=== PATIENT | female | born 2005 | race Caucasian/White ===

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

== ENCOUNTER 2024-02-08 14:49 | Outpatient (CLI) | payer MEDICAID, SELFPAY ==
[2024-02-08 18:22] LABS: Alanine Aminotransferase 15 U/L (6-35); Albumin Level 4.8 g/dL (3.7-5.6); Alkaline Phosphatase 47 U/L (45-116); Anion Gap 10 mmol/L (4-12); Aspartate Amino Transferase 42 U/L (14-36); Bilirubin,Total 0.4 mg/dL (0.2-1.3); Blood Urea Nitrogen 9 mg/dL (8-21); Calcium 9.4 mg/dL (8.9-10.7); Carbon Dioxide 29 mmol/L (22-30); Chloride 99 mmol/L (98-107); Estimated Glomerular Filt Rate > 60; Glucose 90 mg/dL (65-110); Potassium 4.2 mmol/L (3.4-5.0); Sodium 138 mmol/L (134-143)
[2024-02-08 18:43] LABS: Basophils Absolute Auto 0.1 K/mm3 (0.0-0.1); Basophils Percent Auto 0.8 % (0.2-1.2); Eosinophils Absolute Auto 0.1 K/mm3 (0-0.3); Eosinophils Percent Auto 0.8 % (0-4.4); Hematocrit 40.3 % (37.0-47.0); Hemoglobin 12.6 g/dL (12.0-15.0); Immature Granulocyte Absolute 0.02 K/mm3 (0.00-0.031); Immature Granulocyte Percent A 0.2 % (0-0.5); Lymphocytes Absolute Auto 2.21 K/mm3 (0.9-3.2); Lymphocytes Percent Auto 26.3 % (18.3-44.2); Mean Corpuscular HGB Conc 31.3 g/dl (32-36); Mean Corpuscular Volume 83.3 fl (80-100); Mean Platelet Volume 9.7 fl (7.4-10.4); Monocytes Absolute Auto 0.5 K/mm3 (0.1-0.6); Monocytes Percent Auto 6.4 % (2.6-8.5); Neutrophils Absolute Auto 5.5 K/mm3 (1.3-6.7); Neutrophils Percent Auto 65.5 % (45.5-73.1); Platelet Count Result 462 k/mm3 (150-375); Red Blood Count 4.84 M/mm3 (4.2-5.4); Red Cell Distribution Width 19.3 % (11.5-14.5); White Blood Count 8.4 K/mm3 (4.5-10.0)
[2024-02-12 16:20] LABS: Almond (F20) IgE <0.10 kU/L; Cashew Nut (F202) IgE <0.10 kU/L; Cashew Nut (F202) IgE Class 0; Codfish (F3) IgE <0.10 kU/L; Codfish (F3) IgE Class 0; Cow's Milk (F2) IgE <0.10 kU/L; Cow's Milk (F2) IgE Class 0; Egg White (F1) IgE <0.10 kU/L; Egg White (F1) IgE Class 0; Hazelnut (F17) IgE <0.10 kU/L; Hazelnut (F17) IgE Class 0; Peanut (F13) IgE <0.10 kU/L; Peanut (F13) IgE Class 0; Salmon (F41) IgE <0.10 kU/L; Salmon (F41) IgE Class 0; Scallop (F338) IgE <0.10 kU/L; Scallop (F338) IgE Class 0; Sesame Seed <0.10 kU/L; Shrimp (F24) IgE <0.10 kU/L; Soybean (F14) IgE <0.10 kU/L; Soybean (F14) IgE Class 0; Tuna (F40) <0.10 kU/L; Tuna (F40) Class 0; Walnut (F256) IgE <0.10 kU/L; Walnut (F256) IgE Class 0; Wheat (F4) IgE <0.10 kU/L; Wheat (F4) IgE Class 0
[2024-02-12 17:04] LABS: Immunoglobulin A 168 mg/dL (47-310); TTG IGA AB <1.0 U/mL
== END 2024-02-08 14:50 | disposition home or self-care (01) ==
LOC: ANHGOSHLAB 14:50
PROVIDERS: PCP Nurse Practitioner Family; Visit Provider Nurse Practitioner Family
DX: R79.89 Other specified abnormal findings of blood chemistry (principal); K90.0 Celiac disease; R63.0 Anorexia; R10.10 Upper abdominal pain, unspecified; R11.2 Nausea with vomiting, unspecified
CPT/HCPCS: 36415; 80053; 82784; 85025; 86003; 86364

== ENCOUNTER 2024-03-07 12:30 | Outpatient (RCR) | payer OTHER, SELFPAY ==
--- NOTE | 2024-02-20 11:34 | OPREHPOC ---
Outpatient Therapy Plan of Care This is a Multidisciplinary Plan of Care that may contain components documented by all disciplines (PT, OT, and ST.) PT Problem 1 PT Problem #1 Knowledge Deficit PT Goal 1 Goal / Goal Update Pt to be IND with issued HEP Target Visit 8 PT Problem 2 PT Problem #2 Pain PT Goal 1 Goal / Goal Update Pt to report back and shoulder pain no greater than 3/10 in the last week. Target Visit 8 PT Goal 2 Goal / Goal Update Pt to report 75% improvement in overall symptoms Target Visit 8 PT Problem 3 PT Problem #3 Impaired Functional Mobil PT Goal 1 Goal / Goal Update Pt to demonstrate a 30lb lift and carry from ground level without an increase in pain. Target Visit 8
--- NOTE | 2024-02-20 11:34 | PTOPEVAL1 ---
Assessment and note entered by Ravindra Rodriguez, PT, DPT Evaluation Information Assessment Status Evaluation Diagnosis low back pain ICD-10 Condition Codes (PT) Cervicalgia M54.2,Pain in low back M54.50 Subjective Information Pt reports a couple year history of lower back pain worsening in the last 2 years since giving . Pt states her neck and shoulder pain in the worst, she states this pain is all the time. 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 Pt takes tylenol but it does not really help with her pain. Reported Pain Level Pain Score 6,7: Self Report Assessment PT Clinical Summary Pt presents to therapy today for her initial evaluation with a diagnosis of R shoulder and low back pain. Today she demonstrates good functional strength with beyond normal ROM. She also demonstrates point tenderness to palpation throughout her neck and R shoulder. Skilled therapy services are indicated to address the deficits noted above, to manage pain, to improve joint stability, and to educate on good lifting mechanics. Plan of Care Interventions Electrical Stimulation,Gait Training,Hot Pack/Cold Pack,Manual Therapy,Neuro Re-education,Patient/ Caregiver Educati,Therapeutic Activities, Therapeutic Exercise PT Services Indicated Yes Treatment Frequency and 2x/wk for 8 visits Duration These treatments will address the objective and functional deficits as defined above. The patient will be advanced safely and appropriately in order for the patient to progress towards his/her prior level of function. Additional exercises will be introduced and as well as a comprehensive home exercise program upon discharge, if needed, ?to ensure carryover of functional gains achieved in the clinic. This treatment plan has been reviewed and agreement upon by the patient.
--- NOTE | 2024-03-10 11:42 | PCPTNOTE ---
Patient did not show up for scheduled appointment this date. Called and LVM with follow up instructions.
--- NOTE | 2024-03-12 11:34 | PCPTNOTE ---
Patient no showed to appointment this date. Called and left voicemail this date.
--- NOTE | 2024-03-17 11:56 | PCPTNOTE ---
Patient did not show up for scheduled appointment this date.
--- NOTE | 2024-03-17 11:58 | PTOPDC ---
Assessment and note entered by Ravindra Rodriguez, PT, DPT Evaluation Information Assessment Status Discharge - Pt Not Presen Diagnosis low back pain ICD-10 Condition Codes (PT) Cervicalgia M54.2,Pain in low back M54.50 Subjective Information Pt did not show up to appointment today. This is her third consecutive no show. Per our attendance policy she will be discharged at this time, called and LVM to inform pt of this. Assessment PT Clinical Summary Pt completed 2 visits of therapy. Will be d/c'ed at this time per the attendance policy.
== END 2024-03-17 15:37 | disposition home or self-care (01) ==
LOC: ANHGOSHPT 12:30
PROVIDERS: PCP Nurse Practitioner Family; Visit Provider Nurse Practitioner Family
DX: M54.50 Low back pain, unspecified (principal); M54.2 Cervicalgia
CPT/HCPCS: 97014; 97110; 97140; 97161; 97530; G0283

== ENCOUNTER 2024-07-09 12:24 | Outpatient (CLI) | payer OTHER, SELFPAY ==
--- OUTSIDE RECORDS SUMMARY | 2024-07-09 13:18 | XMS_ITS | Clinical Summary ---
Author Organization [facility] Address [address] [place] [id number] Phone Care Team Providers Care Rubber Belt Splicer Name Role Phone Lizy Dalton MD Primary Care Provider [phone] Allergies No known active allergies Medications No known medications Active Problems Problem Noted Date Diagnosed Date Oppositional defiant disorder 09/08/2018 Social History Tobacco Use Types Packs/Day Years Used Date Smoking Tobacco: Never Smokeless Tobacco: Never Alcohol Use Standard Drinks/Week Comments No 0 (1 standard drink = 0.6 oz pur e alcohol) Comments Unknown Sex and Gender Information Value Date Recorded Sex Assigned at Not on file Legal Sex Female 10:39 PM CDT Gender Identity Not on file Sexual Orientation Not on file Last Filed Vital Signs Vital Sign Reading Time Taken Comments Blood Pressure 137/87 09/08/2018 12:47 AM CDT Pulse - - Temperature 37.4 ??C (99.4 ??F) 09/08/2018 12:47 AM C DT Respiratory Rate 20 09/08/2018 12:47 AM CDT Oxygen Saturation 100% 09/08/2018 12:47 AM CDT Inhaled Oxygen Concentration - - Weight - - Height - - Body Mass Index - - Plan of Treatment Health Maintenance Due Date Last Done Comments HEPATITIS B VACCINES (4 of 4 - 4-dose series) 06/26/2005 04/27/2005, 02/27/2005, 2004 CHLAMYDIA SCREENING (ANNUAL) 11-24 YEARS 12/25/2015 INFLUENZA VACCINE (#1) 2024 02/27/2014 DTAP/TDAP/TD VACCINES (7 - T d or Tdap) 10/11/2025 10/12/2015, 07/06/2009, 07/17/2006, Additional history exists HPV VACCINES Completed 10/12/2015, 02/27/2014 Care Teams Rubber Belt Splicer Relationship Specialty Start Date End Date Lizy Dalton MD [id number] [id number] PCP - General Pediatrics 09/07/18
--- OUTSIDE RECORDS SUMMARY | 2024-07-09 13:18 | XMS_ITS ---
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 the treatments employed were given, and the patient/guardian seemed to understand this. Risks and benefits of treatment, and of non-treatment, were also discussed. The patient/guardian understands the more frequent side effects associated with the medications. -The use of psychotherapy was addressed today and will continue on an as needed basis for the foreseeable future. The choice is, of course, ultimately left to the patient/guardian. -Patient/Guardian was encouraged to make a follow-up appointment for the next visit. -Additional treatment was discussed and has been addressed on an ongoing basis within the context of this patient's illness, resources, progress, and other appropriate factors. Being compliant with a regular exercise routine, consistent medication use, ongoing psychotherapy, eating and sleeping well, as well as the importance of handling stress, was discussed.?? * Procedure Codes:? * Follow Up:?2 Weeks (Reason: medication f/u) * * CAL INSTRUMENT INSPECTOR Sign off status: Completed true * Provider:?Jenn Somers , MSN, CARRY OUT CLERK AND SHELF STOCKER, [facility] Date:?07/08/2024 Generated for Printing/Faxing/eTransmitting on:?07/09/2024 01:18 PM OPTICAL INSTRUMENT INSPECTOR History and Physical Notes * HPI (History of Present Illness) Category Sub-Category Detail Notes Category Not es Depression Screening PHQ-9 Little inte rest or pleasure in doing things: Several days Feeling down, depressed, or hopeless: Se veral days Trouble falling or staying asleep, or sl eeping too much: Nearly every day Feeling tired or having little energy: N early every day Poor appetite or overeating: Nearly ever y day Feeling bad about yourself o r that you are a failure, or have let yourself or your family down: Several days Trouble concentrating on thi ngs, such as reading the newspaper or watching television: More than half the days Moving or speaking so slowly that other people could have noticed; or the opposite, being so fidgety or restless that you have been moving around a lot more than usual: Not at all Thoughts that you would be b kaiser off or of hurting yourself in some way: Not at all Total Score: 14 Interpretation: Moderate Depression Intervention Depression Screening Findings: P ositive Follow-Up for Depression: [facility], Prescribed psychotropic medications Suicide Risk Assessment Performed: 07/08 Summary Current Mental Health Status / Response to Medications, side effects, efficacy Natali is a 18 y/o F last seen on 07/03/24. Qelbree was started for ADHD. How do you feel your current medications are working for your mental health? -Patient has noticed slight improvement in ADHD symptoms. Do you take regularly as prescribed or miss days? Weekend breaks w/ stimulant? -takes as prescribed Any side effects from medicine? -Nausea Changes to physical health, doctor visit, ER, abnormal labs, new medical condition, new medication since last visit? -Patient is being treated by multiple specialists. Most recently a GI specialist to determine cause of nausea. Patient asked for medication for nausea, educated that it is out of my scope of practice and advised to ask PCP or specialist for anti-nausea medication. -Started control, patient states she is having excess vaginal bleeding r/t endometriosis. She has surgery scheduled next week to address this. -Started [place] for abdominal pain r/t endometriosis. Are you seeing a therapist? -Yes Review of Psychiatric Systems Sleep: Average hours of sleep per night: -4 to 5 Difficulties falling asleep or staying asleep? -both -Sleeping too much/not needing usual amount of sleep? -denies Appetite/Weight: -poor appetite -patient declines to provide weight Energy level? Normal? Tired often throughout day: -low Focus: -poor Motivation: -low Physical activity: -denies Substance use: -denies Patient rates anxiety as a (0-10): -10 -10 at last visit Panic Attacks: -yes Paranoia: -denies AH/VH: -denies Patient rates depression as a (0-10): -3 or 4 -6 at last visit Suicidal thoughts/plan or homicidal thoughts: -denies -If yes, when was last thought: -any intent or plan: Any thought of self-harm or actual self-harm (like scratching self, cutting) since last visit -denies Any other questions or concerns you would like to discuss today? -Denies Examination Category Sub-Category Detail Notes Category Not es Mental Status Exam SENSORIUM AND COGNITION A&Ox4 ATTENTION AND CONCENTRATION No deficits APPEARANCE Appropriate ATTITUDE AND BEHAVIOR Pleasant EYE CONTACT Good AFFECT Congruent with repor johnna mood, Anxious MOOD Worried SPEECH QUANTITY Appropriate SPEECH QUALITY Fluent, Appropriate volume THOUGHT PROCESS Coherent and goal di rected THOUGHT CONTENT Appropriate - WNL MOTOR ACTIVITY Normal gait SUICIDAL IDEATION Denies suicidal idea tion HOMICIDAL IDEATION Denies homicidal nithya ation HALLUCINATIONS Denies hallucination s INSIGHT Fair JUDGMENT Fair FUND OF KNOWLEDGE Fair ABILITY TO PARTICIPATE IN TREATMENT High WILLINGNESS TO PARTICIPATE IN TREATMENT High SIGNIFICANT FINDINGS REGARDING MENTAL ST ATUS None LANGUAGE Appropriate- WNL DEPRESSIVE SYMPTOMS High ELEVATED MOOD SYMPTOMS Denies, Not noted /observed ANXIETY High
--- OUTSIDE RECORDS SUMMARY | 2024-07-09 13:18 | XMS_ITS | Clinical Summary ---
Author Organization [facility] Address [address] [place] [address] Care Team Providers Care Foundry Finisher Name Role Phone Lizy Dalton MD Primary Care Provider Source Comments [facility],non-owned Affiliates and Associated Physician Practices is amultiple site organization consisting of ambulatory clinics and hospital sitesin [place], [place], [place] and [place]. This disclosure is being madepursuant to the Care Everywhere program and may not contain all information available regarding this patient. Last updated 18.[facility] Allergies Active Allergy Reactions Criticality Noted Date Comments Peanut-Derived Shortness of Breath High 02/13/2020 Medications * Be aware that medications may not be up to date on this document. Alwaysverify current medications with the patient. Medication Sig Dispensed Refills Start Date End Date Status EPINEPHrine (EPIPEN) 0.3 MG/0.3ML auto-injector pen Inject 0.3 mL into muscle once as needed for Anaphylaxis 2 Pen 1 02/13/2020 Active norethin-eth estradiol-FE (LOESTRIN FE 06/30; JUNEL FE 06/30; MICROGESTIN FE 06/30) 1-20 MG-MCG tablet Take 1 tablet by mouth once daily 3 packet 3 04/19/2020 Active Additional Information Patient not taking.Reported on 08/30/2022 ondansetron, disintegrating, (ZOFRAN ODT) 4 MG tablet Take 1 (one) tablet by mouth every 6 hours as needed for Nausea/Vomiting Allow tablet to dissolve on the tongue 5 tablet 05/30/2021 Active aspirin (Aspirin) 81 MG chew tablet Take 1 (one) tablet by mouth once daily Active Vit-Fe Fumarate-FA ( vitamin) 28-0.8 MG tablet Take 1 (one) tablet by mouth once daily Active Active Problems Problem Noted Date Diagnosed Date Other constipation 01/30/2020 Oppositional defiant disorder 09/08/2018 Psychiatric illness (bipolar) 04/04/2017 Resolved Problems Problem Noted Date Diagnosed Date Resolved Date Acute suppurative otitis med ia without spontaneous rupture of ear drum 06/08/2008 10/12/19 16 Overview (03/11/2015): Encounters Date Type Department Care Team Description 05/23/2024 Telephone [facility] - Centralized Scheduling [address] [place] [address] [phone] Lex Willis MD Reschedule Appointment 05/14/2024 Travel from Last 3 Months Immunizations Name Administration Dates Next Due DTAP/IPV 07/06/2009 DTaP VACCINE IM (6wk-6yrs) 07/17/2006,,04/27/2005,02/27 HEP A PEDS 2 DOSE 12/31/2007,01/03/2007 HEP B VACCINE, PED/ADOL 04/19/2020,04/27,02/27/2005,12/24 HIB BOOSTER 04/05/2006, 6,04/27/2005,02/27 Human Papilloma Virus Karly valent Vaccine 10/12/2015,02/27/2014 INFLUENZA VACCINE 06/01/2008,05/13/2007,04/11/20 07 INFLUENZA VACCINE, QUADR. (F LUZONE; FLULAVAL; FLUARIX; AFLURIA QUADRIVALENT; 6MO+), 0.5 ML (IIV4) 04/19/2020,02/27/2014 MENINGOCOCCAL CONJUGATE (MCV4P) 12/27/2015 MMR 02/04/2009,01/08/2006 PNEUMOCOCCAL CONJ, PEDS 01/08/2006,07/21,04/27/2005,02/23 POLIO IPV 07/21/2005,04/27/2005,02/27/2005 PPD 01/08/2006 TDAP (7yrs+) 10/12/2015 VARICELLA 02/04/2009,04/05/2006 Family History Medical History Relation Name Comments Hypertension Father Hypertension Mother Hypertension Paternal Grandfather Hypertension Paternal Grandmother Anesthesia Reaction Neg Hx Bleeding Disorders Neg Hx Childhood Hearing Disorder Neg Hx Relation Name Status Comments Father Alive Mother Alive Paternal Grandfather Alive Paternal Grandmother Alive Social History Tobacco Use Types Packs/Day Years Used Date Smoking Tobacco: Never Smokeless Tobacco: Never Alcohol Use Standard Drinks/Week Comments Never 0 (1 standard drink = 0.6 oz pur e alcohol) Sex and Gender Information Value Date Recorded Sex Assigned at Not on file Gender Identity Not on file Sexual Orientation Not on file Last Filed Vital Signs Vital Sign Reading Time Taken Comments Blood Pressure 129/75 10/06/2022 1:42 PM CDT Pulse 89 10/06/2022 1:42 PM CDT Temperature 37.4 ??C (99.3 ??F) 05/29/2021 9:01 PM CS T Respiratory Rate 18 05/29/2021 9:01 PM FACTORY REPRESENTATIVE Oxygen Saturation - - Inhaled Oxygen Concentration - - Weight 60.3 kg (133 lb) 08/30/2022 1:48 PM CDT Height 157.5 cm (5' 2 ) 02/13/2020 2:02 PM CDT Body Mass Index - - Plan of Treatment Upcoming Encounters Date Type Department Care Team (Late st Contact Info) Description 08/15/2024 2:20 PM FACTORY REPRESENTATIVE Office Visit [facility] - Cardiology [address], [facility] [address] [place] [address] Fabian Mccann MD [address] [place] [address] Health Maintenance Due Date Last Done Comments MENINGOCOCCAL (Group B) VACCINE (1 of 2 - Standard) 2020 CHLAMYDIA/GONORRHEA SCREENING 05/29/2022 05/29/2021 HEPATITIS C SCREENING 12/20/2022 COVID-19 VACCINE ( season) 2024 INFLUENZA VACCINE (#1) 2024 0, 02/27/2014, 06/01/2008, Additional history exists DEPRESSION SCREENING 06/11/2024 DTAP/TDAP/TD VACCINES (7 - Td or Tdap) 10/11/2025 10/12/2015, 07/06/2009, 07/17/2006, Additional history exists ZOSTER VACCINE (1 of 2) 2054 PNEUMOCOCCAL VACCINE Completed 01/08/2006, 07/21/2005, 04/27/2005, Additional history exists HIB VACCINE Completed 04/05/2006, 07/12, 04/27/2005, Additional history exists HPV VACCINE Completed 10/12/2015, 02/27/2014 MENINGOCOCCAL VACCINE Aged Out 12/27/2015 No yony dina eligible based on patient's age to complete this topic HEPATITIS B VACCINE Completed 04/19/2020, 04/27/2005, 02/27/2005, Additional history exists HIV SCREENING Completed 05/29/2021 Goals Goal Patient Goal Type Associated Problems Recent Progress Patient-Stated? Author Use safety retraint in car Lifestyle On track( 020 2:07 PM FACTORY REPRESENTATIVE) No Ebonie Dan RN Procedures Procedure Name Priority Date/Time Associated Diagnosis Comments HIV-1 HIV-2 ANTIBODY + HIV P24 AG PANEL STAT 05/29/2021 10:31 PM FACTORY REPRESENTATIVE CHLAMYDIA + GC AMPLIFIED PROBE STAT 05/29/2021 10:17 PM FACTORY REPRESENTATIVE from Last 3 Months or Most Recently Relevant to Health Maintenance Results * HIV-1 HIV-2 ANTIBODY + HIV P24 AG PANEL (05/29/2021 10:31 PM FACTORY REPRESENTATIVE) HIV Antigen/Antibod y 1 & 2 Non-reacti ve Non-react josh 05/29/2021 11:35 PM FACTORY REPRESENTATIVE [facility] Comment:No Laboratory eviden ce of HIV infection. Blood BLOOD SPECIMEN / Unknown Venipuncture / Unknown 05/29/2021 10:31 PM FACTORY REPRESENTATIVE 05/29/2021 10:45 PM FACTORY REPRESENTATIVE Alesia Camejo MD LAB - CHEMISTRY ORDERABLES [facility] [address] [place] [address], [facility] [phone] * CHLAMYDIA + GC AMPLIFIED PROBE (STL) (05/29/2021 10:17 PM FACTORY REPRESENTATIVE) Chlamydia Amplified Probe Negative Negative 05/30/2021 9:32 AM FACTORY REPRESENTATIVE [facility] GC Amplified Probe Negative Negative 05/30/2021 9:32 AM FACTORY REPRESENTATIVE [facility] Microbiology URINE / Unknown Collection / Unknown 05/29/2021 10:17 PM FACTORY REPRESENTATIVE 05/29/2021 10:46 PM FACTORY REPRESENTATIVE Narrative [facility] - 05/30/2021 9:32 AM FACTORY REPRESENTATIVE Results based on detection/no detection of ribosomal RNA by amplified method. Alesia Camejo MD LAB - MICROBIOL OGY ORDERABLES [facility] [address] [place] [address], [facility] [phone] from Last 3 Months or Most Recently Relevant to Health Maintenance Care Teams Foundry Finisher Relationship Specialty Start Date End Date Lizy Dalton MD PCP - General Pediatrics 02/03/14
--- OUTSIDE RECORDS SUMMARY | 2024-07-09 13:18 | XMS_ITS | Patient Health Record ---
Author Organization [facility] Address [address] [place] [address] Care Team Providers Care Evp And Chief Operating Officer Name Role Phone Jenn Somers Primary Care Provider [phone] Janna Velásquez Unavailable [phone] Marcy Mai Unavailable [phone] Jeniffer Alonzo Unavailable [phone] Brandon Gaitan Unavailable [phone] Adrian Fang Unavailable Allergies No Known Allergies Reason For Referral No Information Medications Medication SIG (Take, Route, Frequency, Duration) [...] work (ex. 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 Stress is when someone feels tense, nervous, anxious, or can\t sleep at night because their mind is troubled Somewhat In the past year have you sp ent more than 2 nights in a row in a detention, usp, snf center, or juvenile correctional facility? No Are you a refugee? No What country are you from? [place] Do you feel physically and e motionally safe where you currently live? No In the past year, have you b een afraid of your partner or ex-partner? Yes PRAPARE Score: 13 Tobacco Control (Standard) Question Answer Notes Tobacco use: Nonsmoker Problems Problem Type SNOMED Code ICD Code Onset Dates Problem Status W/U Status Risk Notes Problem Insomnia (958062226) Insomnia (G47.00) Active confirmed Problem Mood disorder (80296922) Mood disorder (F39) Active confirmed Problem Posttraumatic stress disorder (50890704) PTSD (post-traumatic stress disorder) (F43.10) Active confirmed Problem Attention deficit hyperactivity disorder (340622016) ADHD (attention deficit hyperactivity disorder) (F90.9) Active confirmed diagnosed by PCP, per client's report Problem Generalized anxiety disorder (06336029) MARYILN (generalized anxiety disorder) (F41.1) Active confirmed Problem Major depressive disorder (867557347) MDD (major depressive disorder) (F32.9) Active confirmed Vital Signs Heart Rate 68 /min 05/29/2024 Respiratory Rate 16 /min 07/03/2024 Blood pressure diastolic 86 mm Hg 05/29/2024 Oximetry 98 % 05/29/2024 Height 64 in 07/03/2024 Blood pressure systolic 106 mm Hg 05/29/2024 Encounters Encounter Location Date Provider Diagnosis [facility] [address] [address] 07/09/2024 Jenn Yonis [address] [place] [address] 12/28/2023 Marcy Mai PTSD (post-traumatic stress disorder) F43.10 [facility] [address] [address] 01/15/2024 Marcy Mai [address] [address] 03/04/[address] [address] 04/25/2024 Brandon Gaitan MDD (major depressive disorder) F32.[address] [address] 05/15/20[facility] [address] [place] [address] 05/15/2024 Jenn Yonis [address] [address] 05/20/2024 Adrian Fang [facility] [address] [address] 05/21/2024 Jenn Yonis [facility] [address] [address] 05/21/2024 Jenn Yonis ADHD (attention deficit hyperactivity disorder) F90.9 [facility] [address] [place] [address] 05/21/2024 Jenn Yonis [facility] [address] [address] 05/29/2024 Jenn Yonis [facility] [address] [address] 06/19/2024 Jnen Yonis PTSD (post-traumatic stress disorder) F43.10 [facility] [address] [place] [address] 06/24/2024 Jenn Yonis [facility] [address] [place] [address] 06/24/2024 Jenn Yonis Mood disorder F39 [facility] [address] [place] [address] 07/04/2024 Jenn Yonis [facility] [address] [place] [address] 07/07/2024 Jenn Yonis [facility] [address] [place] [address] 07/08/[address] [address] 02/01/2024 Arif Habib [address] [address] 04/23/2024 Arif Habib [place] [address] [facility] [place] [address] 12/20/2023 Marcy Mai PTSD (post-traumatic stress disorder) F43.10 ; MARYLIN (generalized anxiety disorder) F41.1 and MDD (major depressive disorder) F32.[address] [address] 01/29/2024 Arif Habib MDD (major depressive disorder) F32.9 ; MARYLIN (generalized anxiety disorder) F41.1 and PTSD (post-traumatic stress disorder) F43.[address] [address] 02/05/2024 Arif Habib MARLYIN (generalized anxiety disorder) F41.1 ; MDD (major depressive disorder) F32.9 and PTSD (post-traumatic stress disorder) F43.[address] [address] 03/18/2024 Arif Habib MARYLIN (generalized anxiety disorder) F41.1 ; MDD (major depressive disorder) F32.9 and PTSD (post-traumatic stress disorder) F43.[address] [address] 05/15/2024 Jeniffer Alonzo PTSD (post-traumatic stress disorder) F43.10 ; MDD (major depressive disorder) F32.9 ; MARYLIN (generalized anxiety disorder) F41.1 and ADHD (attention deficit hyperactivity disorder) F90.9 [facility] [address] [address] 05/29/2024 Jenn Yonis PTSD (post-traumatic stress disorder) F43.10 ; MDD (major depressive disorder) F32.9 ; MARYLIN (generalized anxiety disorder) F41.1 and ADHD (attention deficit hyperactivity disorder) F90.9 [facility] [address] [address] 06/19/2024 Jenn Yonis MDD (major depressive disorder) F32.9 ; Mood disorder F39 ; PTSD (post-traumatic stress disorder) F43.10 ; MARYLIN (generalized anxiety disorder) F41.1 and ADHD (attention deficit hyperactivity disorder) F90.9 [facility] [address] [address] 07/03/2024 Jenn Yonis PTSD (post-traumatic stress disorder) F43.10 ; MDD (major depressive disorder) F32.9 ; MARYLIN (generalized anxiety disorder) F41.1 and ADHD (attention deficit hyperactivity disorder) F90.9 [facility] [address] [address] 05/29/2024 Adrian Fang [facility] [address] [address] 07/08/2024 Jenn Yonis PTSD (post-traumatic stress disorder) F43.10 ; MDD (major depressive disorder) F32.9 ; MARYLIN (generalized anxiety disorder) F41.1 and ADHD (attention deficit hyperactivity disorder) F90.9 [facility] [address] [address] 06/24/2024 Jenn Yonis Mood disorder F39 ; MDD (major depressive disorder) F32.9 ; PTSD (post-traumatic stress disorder) F43.10 ; MARYLIN (generalized anxiety disorder) F41.1 ; ADHD (attention deficit hyperactivity disorder) F90.9 and Insomnia G47.[address] [address] 02/29/2024 Arif Habrebeca MARYLIN (generalized anxiety disorder) F41.1 ; MDD (major depressive disorder) F32.9 and PTSD (post-traumatic stress disorder) F43.10 Assessments Encounter Date Diagnosis (ICD Code) Assessment Notes Treatment Notes Treatment Clinical Notes Section Notes 12/28/2023 PTSD (post-traumatic stress disorder) (ICD-10 - F43.10) 01/29/2024 MARYLIN (generalized anxiety disorder) (ICD-10 - F41.1) 01/29/2024 MDD (major depressive disorder) (ICD-10 - F32.9) 03/18/2024 MARYLIN (generalized anxiety disorder) (ICD-10 - F41.1) 04/25/2024 MDD (major depressive disorder) (ICD-10 - F32.9) 05/15/2024 PTSD (post-traumatic stress disorder) (ICD-10 - F43.10) Continue psychotherapy as scheduled. 05/15/2024 MDD (major depressive disorder) (ICD-10 - F32.9) 05/29/2024 PTSD (post-traumatic stress disorder) (ICD-10 - F43.10) 05/29/2024 MDD (major depressive disorder) (ICD-10 - F32.9) Increase mirtazapine. Take as prescribed. Reviewed purpose - reduce anxiety, improve sleep, decrease depression, and increase appetite; benefits - reduce anxiety, improve sleep, decrease depression, and increase appetite; and risks - including increased appetite, weight gain, increased thoughts of suicidality, and prompting manic episodes in some individuals. Call for problems with medication, side effects or need for dosage change. Continue psychotherapy as scheduled. 06/19/2024 PTSD (post-traumatic stress disorder) (ICD-10 - F43.10) 07/03/2024 PTSD (post-traumatic stress disorder) (ICD-10 - F43.10) 07/08/2024 PTSD (post-traumatic stress disorder) (ICD-10 - F43.10) 06/24/2024 Mood disorder (ICD-10 - F39) 06/24/2024 MDD (major depressive disorder) (ICD-10 - F32.9) Discontinue Mirtazapine. depression, and increase appetite; benefits - reduce anxiety, improve sleep, decrease depression, and increase appetite; and risks - including increased appetite, weight gain, increased thoughts of suicidality, and prompting manic episodes in some individuals. Call for problems with medication, side effects or need for dosage change. Continue psychotherapy as scheduled. Taper mirtazapine. Take as prescribed. Reviewed purpose - reduce anxiety, improve sleep, decrease depression, and increase appetite; benefits - reduce anxiety, improve sleep, decrease depression, and increase appetite; and risks - including increased appetite, weight gain, increased thoughts of suicidality, and prompting manic episodes in some individuals. Call for problems with medication, side effects or need for dosage change. Continue psychotherapy as scheduled. 06/19/2024 Mood disorder (ICD-10 - F39) Start Seroquel. Take as prescribed. Reviewed purpose (mood stability), benefits, and risks - low blood pressure, metabolic syndrome with high cholesterol or high blood sugars, change in cardiac conduction, nausea, vomiting, temporary or permanent movement disorders, and akathisia. Explained that no medication can be guaranteed to be 100% safe for baby or mother. Call for problems with medication, side effects or need for dosage change. 06/24/2024 Mood disorder (ICD-10 - F39) Increase Seroquel. Take as prescribed. Reviewed purpose (mood stability), benefits, and risks - low blood pressure, metabolic syndrome with high cholesterol or high blood sugars, change in cardiac conduction, nausea, vomiting, temporary or permanent movement disorders, and akathisia. Explained that no medication can be guaranteed to be 100% safe for baby or mother. Call for problems with medication, side effects or need for dosage change. Start Seroquel. Take as prescribed. Reviewed purpose (mood stability), benefits, and risks - low blood pressure, metabolic syndrome with high cholesterol or high blood sugars, change in cardiac conduction, nausea, vomiting, temporary or permanent movement disorders, and akathisia. Explained that no medication can be guaranteed to be 100% safe for baby or mother. Call for problems with medication, side effects or need for dosage change. 06/19/2024 MDD (major depressive disorder) (ICD-10 - F32.9) Taper mirtazapine. Take as prescribed. Reviewed purpose - reduce anxiety, improve sleep, decrease depression, and increase appetite; benefits - reduce anxiety, improve sleep, decrease depression, and increase appetite; and risks - including increased appetite, weight gain, increased thoughts of suicidality, and prompting manic episodes in some individuals. Call for problems with medication, side effects or need for dosage change. Continue psychotherapy as scheduled. 05/21/2024 ADHD (attention deficit hyperactivity disorder) (ICD-10 - F90.9) diagnosed by PCP, per client's report 02/29/2024 MARYLIN (generalized anxiety disorder) (ICD-10 - F41.1) 02/05/2024 MARYLIN (generalized anxiety disorder) (ICD-10 - F41.1) 12/20/2023 PTSD (post-traumatic stress disorder) (ICD-10 - F43.10) Start fluoxetine to help with anxiety. Consider prazosin at some point for nightmares. Continue therapy services as scheduled. Has an ENT appointment scheduled. Labs completed recently. May self-administer medications or be administered own oral medications per [facility] protocols. Provided informed consent with understanding of side effects, adverse effects, risks and benefits as well as alternative treatments as previously discussed and with the above recommended medications & other aspects of the treatment program. Agrees to return sooner if symptoms worsen or suicidal or homicidal ideations occur. 12/20/2023 MARYLIN (generalized anxiety disorder) (ICD-10 - F41.1) 12/20/2023 MDD (major depressive disorder) (ICD-10 - F32.9) 02/05/2024 MDD (major depressive disorder) (ICD-10 - F32.9) side effects discussed. add Hydroxyzine PRN for anxiety. Start Zoloft 25 mg which took in past with good result. 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 Supportive treatment provided 02/29/2024 MDD (major depressive disorder) (ICD-10 - F32.9) side effects discussed. Continue Hydroxyzine PRN for anxiety. Increase Zoloft 50 mg which took in past with good result. Buspar made her zombie. Supportive treatment provided 06/24/2024 PTSD (post-traumatic stress disorder) (ICD-10 - F43.10) 06/19/2024 PTSD (post-traumatic stress disorder) (ICD-10 - F43.10) 07/08/2024 MDD (major depressive disorder) (ICD-10 - F32.9) 07/03/2024 MDD (major depressive disorder) (ICD-10 - F32.9) 05/15/2024 MARYLIN (generalized anxiety disorder) (ICD-10 - F41.1) Take prescribed medications as prescribed. 05/29/2024 MARYLIN (generalized anxiety disorder) (ICD-10 - F41.1) 03/18/2024 MDD (major depressive disorder) (ICD-10 - F32.9) side effects discussed. She is not taking Hydroxyzine PRN for anxiety. Increase Zoloft 75 mg which took in past with good result. Lower Celexa 20 mg daily x 2 weeks and then stop. Lower the ose of Strattera 18 mg daily Buspar made her zombie. Supportive treatment provided She sees counselor weekly. Pt is refusing to be on weighing scale. 01/29/2024 PTSD (post-traumatic stress disorder) (ICD-10 - F43.10) 03/18/2024 PTSD (post-traumatic stress disorder) (ICD-10 - F43.10) 05/15/2024 ADHD (attention deficit hyperactivity disorder) (ICD-10 - F90.9) diagnosed by PCP, per client's report 05/29/2024 ADHD (attention deficit hyperactivity disorder) (ICD-10 - F90.9) diagnosed by PCP, per client's report 07/03/2024 MARYLIN (generalized anxiety disorder) (ICD-10 - F41.1) 07/08/2024 MARYLIN (generalized anxiety disorder) (ICD-10 - F41.1) 06/24/2024 MARYLIN (generalized anxiety disorder) (ICD-10 - F41.1) 06/19/2024 MARYLIN (generalized anxiety disorder) (ICD-10 - F41.1) 02/05/2024 PTSD (post-traumatic stress disorder) (ICD-10 - F43.10) 02/29/2024 PTSD (post-traumatic stress disorder) (ICD-10 - F43.10) 06/24/2024 ADHD (attention deficit hyperactivity disorder) (ICD-10 - F90.9) diagnosed by PCP, per client's report 06/19/2024 ADHD (attention deficit hyperactivity disorder) (ICD-10 - F90.9) diagnosed by PCP, per client's report 07/08/2024 ADHD (attention deficit hyperactivity disorder) (ICD-10 - F90.9) diagnosed by PCP, per client's report Call for problems with medication, side effects or need for dosage change. 07/03/2024 ADHD (attention deficit hyperactivity disorder) (ICD-10 - F90.9) diagnosed by PCP, per client's report 06/24/2024 Insomnia (ICD-10 - G47.00) Continue trazodone. Reviewed purpose (help with sleep), benefits, and risks - including increased thoughts or suicidality, inducing cale, and/or male priapism. Call for problems with medication, side effects or need for dosage change. 01/29/2024 Other DX & TX options discussed. Tried other medicines by PCP but pt thinks she did not try enough dose or time with each medicine. Agrees to try Buspar again in higher dose. add Buspar 7.5 mg BID x 1 week and then increase 15 mg BID. Continue Celexa 40 mg daily. Side effects discussed. Supportive treatment provided 05/15/2024 Other May self-admini ster medications or be administered own oral medications per [facility] protocols. Provided informed consent with understanding of side effects, adverse effects, risks and benefits as well as alternative treatments as previously discussed and with the above recommended medications & other aspects of the treatment program. Agrees to return sooner if symptoms worsen or suicidal or homicidal ideations occur. 05/29/2024 Other May self-administer medications or be administered own oral medications per [facility] protocols. Provided informed consent with understanding of side effects, adverse effects, risks and benefits as well as alternative treatments as previously discussed and with the above recommended medications & other aspects of the treatment program. Agrees to return sooner if symptoms worsen or suicidal or homicidal ideations occur. Plan: -Increase Mirtazapine to 45 mg QHS for insomnia -[facility]ight ordered -Follow up: 2 weeks [] Hard Rx handed to patient [] Rx phoned into pharmacy [x] Rx faxed/e-prescribed into pharmacy [x] PDMP Reviewed [] [facility] Reviewed Encouraged by Jenn CÁRDENASP-BC to: [] consider utilizing therapist/counselor /social worker health services/psychologist , referral given [x] continue with therapist/counselor /social worker health services/psychologist Psychoeducation: -Treatment options discussed in detail with patient/guardian verbalizing understanding of treatment rationales. -Side effects and benefits of all medications prescribed discussed at length between psychiatric prescribing provider and patient/guardian along with the risks associated of qafj-wg-islb interactions, including but not limited to prescription [...] engaged in treatment plan with Jenn Somers [facility]. -Perceiving complete understanding of rationale by patient/guardian and willingness to adhere to formulated plan of care by prescriber with patient/guardian buy-in, willingness to participate actively in plan of care and willing to take charge of own care. -Although geared for female patients, all patients/guardians are informed by prescribing provider of risks of medications that could potentially be taken by female/women within their [place] tribe of influence and that women who use [...] a should occur, to consult with provider, TWISTING FRAME FIXER and/or Nurse Assistant Production Editor to determine if prescribed medications should or [...] the importance of handling stress, was discussed. 06/19/2024 Other May self-administer medications or be administered own oral medications per [facility] protocols. Provided informed consent with understanding of side effects, adverse effects, risks and benefits as well as alternative treatments as previously discussed and with the above recommended medications & other aspects of the treatment program. Agrees to return sooner if symptoms worsen or suicidal or homicidal ideations occur. Plan: *Reviewed [facility] results *MTHFR gene mutation, recommended Methylfolate for folate acid and Vitamin B/B12 -Decrease Mirtazapine to 30 mg QHS -Start Seroquel 25 mg QHS -Follow up: 2 weeks [] Hard Rx handed to patient [] Rx phoned into pharmacy [x] Rx faxed/e-prescribed into pharmacy [x] PDMP Reviewed [x] [facility] Reviewed Encouraged by Jenn Somers [facility]- to: [] consider utilizing therapist/counselor /social worker health services/psychologist , referral given [x] continue with therapist/counselor /social worker health services/psychologist Psychoeducation: -Treatment options discussed in detail with patient/guardian verbalizing understanding of treatment rationales. -Side effects and benefits of all medications prescribed discussed at length between psychiatric prescribing provider and patient/guardian along with the risks associated of ayxy-dt-jgwx interactions, including but not limited to prescription [...] engaged in treatment plan with Jenn Somers [facility]. -Perceiving complete understanding of rationale by patient/guardian and willingness to adhere to formulated plan of care by prescriber with patient/guardian buy-in, willingness to participate actively in plan of care and willing to take charge of own care. -Although geared for female patients, all patients/guardians are informed by prescribing provider of risks of medications that could potentially be taken by female/women within their [place] tribe of influence and that women who use [...] a should occur, to consult with provider, TWISTING FRAME FIXER and/or Nurse Assistant Production Editor to determine if prescribed medications should or [...] the importance of handling stress, was discussed. 06/24/2024 Other May self-administer medications or be administered own oral medications per [facility] protocols. Provided informed consent with understanding of side effects, adverse effects, risks and benefits as well as alternative treatments as previously discussed and with the above recommended medications & other aspects of the treatment program. Agrees to return sooner if symptoms worsen or suicidal or homicidal ideations occur. Unable to complete AIMS due to nature of appt, denies any irregular muscle movements; would benefit from an in person appointment. Plan: -D/C Mirtazapine 30 mg QHS, patient self D/C'd -Increase Seroquel to 50 mg QHS -Continue Trazodone 50 mg QHS (taking prescription over from PCP) -Follow up: 1 week [] Hard Rx handed to patient [] Rx phoned into pharmacy [x] Rx faxed/e-prescribed into pharmacy [x] PDMP Reviewed [] [facility] Reviewed Encouraged by Jenn CÁRDENASP-BC to: [] consider utilizing therapist/counselor /social worker health services/psychologist , referral given [x] continue with therapist/counselor /social worker health services/psychologist Psychoeducation: -Treatment options discussed in detail with patient/guardian verbalizing understanding of treatment rationales. -Side effects and benefits of all medications prescribed discussed at length between psychiatric prescribing provider and patient/guardian along with the risks associated of bovx-rt-gpss interactions, including but not limited to prescription [...] potentially be taken by female/women within their [place] tribe of influence and that women who use [...] a should occur, to consult with provider, TWISTING FRAME FIXER and/or Nurse Assistant Production Editor to determine if prescribed medications should or [...] the importance of handling stress, was discussed. 07/03/2024 Other May self-administer medications or be administered own oral medications per [facility] protocols. Provided informed consent with understanding of side effects, adverse effects, risks and benefits as well as alternative treatments as previously discussed and with the above recommended medications & other aspects of the treatment program. Agrees to return sooner if symptoms worsen or suicidal or homicidal ideations occur. Plan: -D/C Seroquel 50 mg QHS d/t nausea -D/C Trazodone 50 mg QHS d/t being ineffective -Start Qelbree 100 once daily -Consider Prazosin at next appointment for nightmares/PTSD -Follow up: 2 weeks [] Hard Rx handed to patient [] Rx phoned into pharmacy [x] Rx faxed/e-prescribed into pharmacy [x] PDMP Reviewed [] [facility] Reviewed Encouraged by Jenn CÁRDENASP-BC to: [] consider utilizing therapist/counselor /social worker health services/psychologist , referral given [x] continue with therapist/counselor /social worker health services/psychologist Psychoeducation: -Treatment options discussed in detail with patient/guardian verbalizing understanding of treatment rationales. -Side effects and benefits of all medications prescribed discussed at length between psychiatric prescribing provider and patient/guardian along with the risks associated of yjdd-sd-hdul interactions, including but not limited to prescription [...] engaged in treatment plan with Jenn Somers [facility]. -Perceiving complete understanding of rationale by patient/guardian and willingness to adhere to formulated plan of care by prescriber with patient/guardian buy-in, willingness to participate actively in plan of care and willing to take charge of own care. -Although geared for female patients, all patients/guardians are informed by prescribing provider of risks of medications that could potentially be taken by female/women within their [place] influence and that women who use [...] a should occur, to consult with provider, TWISTING FRAME FIXER and/or Nurse Assistant Production Editor to determine if prescribed medications should or [...] the importance of handling stress, was discussed. 07/08/2024 Other May self-administer medications or be administered own oral medications per [facility] protocols. Provided informed consent with understanding of [...] [] [employer] Reviewed Encouraged by Jenn Somers [facility] to: [] consider utilizing therapist/counselor /social worker health services/psychologist , referral given [x] continue with therapist/counselor /social worker health services/psychologist Psychoeducation: -Treatment options discussed in detail with patient/guardian verbalizing understanding of treatment rationales. -Side effects and benefits of all medications prescribed discussed at length between psychiatric prescribing provider and patient/guardian along with the risks associated of [id number]-[id number] interactions, including but not limited to prescription [...] engaged in treatment plan with Jenn Somers [facility]. -Perceiving complete understanding of rationale by patient/guardian and willingness to adhere to formulated plan of care by prescriber with patient/guardian buy-in, willingness to participate actively in plan of care and willing to take charge of own care. -Although geared for female patients, all patients/guardians are informed by prescribing provider of risks of medications that could potentially be taken by female/women within their [place] of influence and that women who use [...] a should occur, to consult with provider, TWISTING FRAME FIXER and/or Nurse Assistant Production Editor to determine if prescribed medications should or [...] the importance of handling stress, was discussed. 05/29/2024 Other Waste Elimination met with Natali Dietrich to assist in working on building skills to help the consumer gain confidence in their independent living skills. The board writer practiced with Natali Dietrich implementing problem solving skills relating to ADHD and Arizmendi and to help facilitate exploration of options related to treatment without using medications like Strattera . The board writer encouraged and engaged in critical thinking of how to use natural resources and coping skills to help manage symptoms in the moment. Waste Elimination also worked on modeling and practicing with the consumer healthy coping skills to reduce stress and anxiety by utilizing breathing techniques. Plan Of Treatment No Information Insurance Providers Payer Name Payer Address Payer Phone Subscriber Number Group Number Insured Name Patient Relationship to Insured Coverage Start Date Coverage End Date [facility] Claims Department [address] [place] [address] [phone] [id number] Ntaali Dietrich Self - patient is the insured 4 [facility] Att[facility] Claims Department [address] [place] [address] [phone] [id number] Natali Dietrich Self - patient is the insured 4 Medical (General) History Medical History History ICD Code endometriosis Surgical History Surgery Date(Month/Year) tubes in ears 1years old cholecystectomy 02/2024
--- OUTSIDE RECORDS SUMMARY | 2024-07-09 13:18 | XMS_ITS ---
Author Organization [facility] Address [address] [place] [address] Care Team Providers Care Inspector Pawnshop Detail Name Role Phone Jenn Somers Primary Care Provider [phone] REASON FOR VISIT call back from nurse Social History Sex Assigned At : Social History Observation Description Sex Assigned At Female Encounters Encounter Location Date Provider Diagnosis [facility] [address] [place] [address] 07/09/2024 Jenn Somers Plan Of Treatment No Information Progress Notes * Ashlyn MURILLOeDOB:[birth year] (18 yo F)Acc No.[id number]:07/09/2024 UNLOCKED PROGRESS NOTE Patient:?Natali MURILLO :2005???Age:18 Y???Sex:Female Address:[facility] [place], [address] * * Date:?
--- OUTSIDE RECORDS SUMMARY | 2024-07-09 13:18 | XMS_ITS | Referral Summary ---
Author Organization [facility] Address [address] [place] [address] Care Team Providers Care Physical Chemist Name Role Phone Lizy Dalton MD Primary Care Provider [phone] Source Comments [facility],non-owned Affiliates and Associated Physician Practices is amultiple site organization consisting of ambulatory clinics and hospital sitesin [place], [place], [place] and [place]. This disclosure is being madepursuant to the Care Everywhere program and may not contain all information available regarding this patient. Last updated 18.[facility] Encounters Date Type Department Care Team Description 05/23/2024 Telephone [facility] - Centralized Scheduling [address] [place] [id number] Lex Willis MD Reschedule Appointment 05/14/2024 Travel from Last 3 Months Allergies Active Allergy Reactions Criticality Noted Date [...] ear drum 06/08/2008 10/12/19 16 Overview (03/11/2015): Immunizations Name Administration Dates Next Due DTAP/IPV [...] PPD 01/08/2006 TDAP (7yrs+) 10/12/2015 VARICELLA 02/04/2009,04/05/2006 Social History Tobacco Use Types Packs/Day Years [...] T Respiratory Rate 18 05/29/2021 9:01 PM ASSEMBLY MACHINE OPERATOR Oxygen Saturation - - Inhaled Oxygen Concentration - - Weight 60.3 kg (133 lb) 08/30/2022 1:48 PM CDT Height 157.5 cm (5' 2 ) 02/13/2020 2:02 PM CDT Body Mass Index - - Plan of Treatment Upcoming Encounters Date Type Department Care Team (Late st Contact Info) Description 08/15/2024 2:20 PM ASSEMBLY MACHINE OPERATOR Office Visit [facility] - Cardiology [address] [place] [address] Fabian Mccann MD [address] [place] [address] Goals Goal Patient Goal Type Associated Problems Recent Progress Patient-Stated? Author Use safety retraint in car Lifestyle On track( 020 2:07 PM ASSEMBLY MACHINE OPERATOR) Ebonie Richmond RN Procedures Procedure Name Priority Date/Time Associated Diagnosis Comments HIV-1 HIV-2 ANTIBODY + HIV P24 AG PANEL STAT 05/29/2021 10:31 PM ASSEMBLY MACHINE OPERATOR CHLAMYDIA + GC AMPLIFIED PROBE STAT 05/29/2021 10:17 PM ASSEMBLY MACHINE OPERATOR from Last 3 Months or Most Recently Relevant to Health Maintenance Results * HIV-1 HIV-2 ANTIBODY + HIV P24 AG PANEL (05/29/2021 10:31 PM ASSEMBLY MACHINE OPERATOR) Pathologist [facility] HIV Antigen/Antibod y 1 & 2 Non-reacti ve Non-react josh 05/29/2021 11:35 PM ASSEMBLY MACHINE OPERATOR [facility] Comment:No Laboratory eviden ce of HIV infection. Blood BLOOD SPECIMEN / Unknown Venipuncture / Unknown 05/29/2021 10:31 PM ASSEMBLY MACHINE OPERATOR 05/29/2021 10:45 PM ASSEMBLY MACHINE OPERATOR Alesia Camejo MD LAB - CHEMISTRY ORDERABLES [facility] [address] [place] [address], [place] [phone] * CHLAMYDIA + GC AMPLIFIED PROBE (STL) (05/29/2021 10:17 PM ASSEMBLY MACHINE OPERATOR) Pathologist [facility] Chlamydia Amplified Probe Negative Negative 05/30/2021 9:32 AM ASSEMBLY MACHINE OPERATOR [facility] GC Amplified Probe Negative Negative 05/30/2021 9:32 AM ASSEMBLY MACHINE OPERATOR [facility] Microbiology URINE / Unknown Collection / Unknown 05/29/2021 10:17 PM ASSEMBLY MACHINE OPERATOR 05/29/2021 10:46 PM ASSEMBLY MACHINE OPERATOR Narrative [facility] - 05/30/2021 9:32 AM ASSEMBLY MACHINE OPERATOR Results based on detection/no detection of ribosomal RNA by amplified method. Alesia Camejo MD LAB - MICROBIOL OGY ORDERABLES [facility] [address] [place] [address], [facility] [phone] from Last 3 Months or Most Recently Relevant to Health Maintenance Care Teams Physical Chemist Relationship Specialty Start Date End Date Lizy Dalton MD PCP - General Pediatrics 02/03/14
--- OUTSIDE RECORDS SUMMARY | 2024-07-09 13:18 | XMS_ITS | Patient Health Summary ---
Author Organization [facility] Address [address] [place] [address] Care Team Providers Care Manager Client Support Name Role Phone Lizy Dalton MD Primary Care Provider [phone] Note from [facility],non-owned Affiliates and Associated Physician Practices is amultiple site organization consisting of ambulatory clinics and hospital sitesin [place], [place], [place] and [place]. This disclosure is being madepursuant to the Care Everywhere program and may not contain all information available regarding this patient. Last updated 18.[facility] Allergies * Peanut-Derived(Shortness of Breath) -High Criticality Medications * Be aware that medications may not be up to date on this document. Alwaysverify current medications with the patient. * EPINEPHrine (EPIPEN) 0.3 MG/0.3ML auto-injector pen(Started 02/13/2020) Inject 0.3 mL into muscle once as needed for Anaphylaxis 1 refill by 02/12/2021 * norethin-eth estradiol-FE (LOESTRIN FE 06/30; JUNEL FE 06/30; MICROGESTIN FE 06/30) 1-20 MG-MCG tablet(Started 04/19/2020) Take 1 tablet by mouth once daily 3 refills by 04/19/2021 * ondansetron, disintegrating, (ZOFRAN ODT) 4 MG tablet(Started 05/30/2021) Take 1 (one) tablet by mouth every 6 hours as needed for Nausea/Vomiting Allow tablet to dissolve on the tongue * aspirin (Aspirin) 81 MG chew tablet Take 1 (one) tablet by mouth once daily * Vit-Fe Fumarate-FA ( vitamin) 28-0.8 MG tablet Take 1 (one) tablet by mouth once daily Active Problems Problem Noted Date Diagnosed Date Other constipation 01/30/2020 Oppositional defiant disorder 09/08/2018 Psychiatric illness (bipolar) 04/04/2017 Resolved Problems Problem Noted Date Diagnosed Date Resolved Date Acute suppurative otitis med ia without spontaneous rupture of ear drum 06/08/2008 10/12/19 16 Immunizations * DTAP/IPV(Given 07/06/2009) * DTaP VACCINE IM (6wk-6yrs)(Given 07/17/2006, 07/21/2005, 04/27/2005, 02/27/2005) * HEP A PEDS 2 DOSE(Given 12/31/2007, 01/03/2007) * HEP B VACCINE, PED/ADOL(Given 04/19/2020, 04/27/2005, 02/27/2005, 2004) * HIB BOOSTER(Given 04/05/2006, 07/21/2005, 04/27/2005, 02/27/2005) * Human Papilloma Virus Quadrivalent Vaccine(Given 10/12/2015, 02/27/2014) * INFLUENZA VACCINE(Given 06/01/2008, 05/13/2007, 04/11/2007) * INFLUENZA VACCINE, QUADR. (FLUZONE; FLULAVAL; FLUARIX; AFLURIA QUADRIVALENT; 6MO+), 0.5 ML (IIV4)(Given 04/19/2020, 02/27/2014) * MENINGOCOCCAL CONJUGATE (MCV4P)(Given 12/27/2015) * MMR(Given 02/04/2009, 01/08/2006) * PNEUMOCOCCAL CONJ, PEDS(Given 01/08/2006, 07/21/2005, 04/27/2005, 02/23/2005) * POLIO IPV(Given 07/21/2005, 04/27/2005, 02/27/2005) * PPD(Given 01/08/2006) * TDAP (7yrs+)(Given 10/12/2015) * VARICELLA(Given 02/04/2009, 04/05/2006) Social History Tobacco Use Types Packs/Day Years [...] T Respiratory Rate 18 05/29/2021 9:01 PM CUSTOMER DATA TECHNICIAN Oxygen Saturation - - Inhaled Oxygen Concentration - - Weight 60.3 kg (133 lb) 08/30/2022 1:48 PM CDT Height 157.5 cm (5' 2 ) 02/13/2020 2:02 PM CDT Body Mass Index - - Procedures * BIOPHYSICAL PROFILE W NST(Performed 10/13/2022) Performed for SGA (small for gestational age) ([facility]), Supervision of normal first teen in third trimester ([facility]) * BIOPHYSICAL PROFILE W NST(Performed 10/06/2022) Performed for Poor growth affecting management of mother in third trimester, single or unspecified fetus ([facility]) * BIOPHYSICAL PROFILE W NST(Performed 09/29/2022) Performed for Poor growth affecting management of mother in third trimester, single or unspecified fetus ([facility]) * BIOPHYSICAL PROFILE W NST(Performed 09/22/2022) Performed for Poor growth affecting management of mother in third trimester, single or unspecified fetus ([facility]) * BIOPHYSICAL PROFILE W NST(Performed 09/15/2022) Performed for Poor growth affecting management of mother in third trimester, single or unspecified fetus ([facility]) * BIOPHYSICAL PROFILE W NST(Performed 09/08/2022) Performed for Poor growth affecting management of mother in third trimester, single or unspecified fetus ([facility]) * BIOPHYSICAL PROFILE W NST(Performed 08/30/2022) Performed for Poor growth affecting management of mother in third trimester, single or unspecified fetus ([facility]) * SONOGRAM - COMPLETE(Performed 08/21/2022) Performed for SGA (small for gestational age) ([facility]) * SONOGRAM - COMPLETE(Performed 06/30/2022) Performed for Encounter for anatomic survey ([facility]), SGA (small for gestational age) ([facility]) * URINALYSIS W/MICROSCOPIC NO CULTURE(Performed 05/29/2021) * CULTURE URINE(Performed 05/29/2021) * LIPASE BLOOD(Performed 05/29/2021) * ERYTHROCYTE SEDIMENTATION RATE(Performed 05/29/2021) * C-REACTIVE PROTEIN(Performed 05/29/2021) * COMPREHENSIVE METABOLIC PANEL(Performed 05/29/2021) * CBC W AUTO DIFFERENTIAL(Performed 05/29/2021) * HIV-1 HIV-2 ANTIBODY + HIV P24 AG PANEL(Performed 05/29/2021) * SARS-COV-2 (COVID-19) FLU A/B RSV PCR RAPID(Performed 05/29/2021) * HCG URINE QUALITATIVE - POCT (IP) INTERFACED(Performed 05/29/2021) * TRICHOMONAS RAPID TEST(Performed 05/29/2021) * CHLAMYDIA + GC AMPLIFIED PROBE(Performed 05/29/2021) * HCG URINE QUAL POCT NOTIFICATION(Performed 05/29/2021) * COVID-19 SARS-COV-2 PCR QUAL ([facility])(Performed 02/13/2020) Performed for Sore throat * CULTURE AEROBIC(Performed 02/13/2020) Performed for Sore throat * STREP A SCREEN - POINT OF CARE (AMB)(Performed 02/13/2020) Performed for Sore throat * XR ABDOMEN KUB(Performed 01/29/2020) Performed for Epigastric pain * XR FINGERS LEFT 2VW OR MORE(Performed 07/04/2019) Performed for Finger pain, left * CULTURE STREP GROUP A(Performed 07/02/2019) Performed for Pharyngitis, unspecified etiology, Abdominal pain, unspecified abdominal location * STREP A SCREEN - POINT OF CARE (AMB)(Performed 07/02/2019) Performed for Pharyngitis, unspecified etiology, Abdominal pain, unspecified abdominal location * CULTURE AEROBIC(Performed 02/19/2019) Performed for Pharyngitis, unspecified etiology * STREP A SCREEN - POINT OF CARE (AMB) STL(Performed 02/19/2019) Performed for Pharyngitis, unspecified etiology * IMAGING/RADIOLOGY/XRAY RESULTS ORDER(Performed 02/02/2019) * STREP A SCREEN - POINT OF CARE (AMB)(Performed 01/31/2018) Performed for Sore throat * LIPID PROFILE+GLUCOSE - POINT OF CARE (AMB)(Performed 01/31/2018) Performed for Encounter for routine child health examination without abnormal findings * STREP A SCREEN - POINT OF CARE (AMB)(Performed 07/23/2017) Performed for Strep throat * INFLUENZA A+B - POINT OF CARE (AMB)(Performed 07/23/2017) Performed for Strep throat * CULTURE AEROBIC(Performed 06/27/2017) Performed for Sore throat * STREP A SCREEN - POINT OF CARE (AMB)(Performed 06/27/2017) Performed for Sore throat * LAB RESULTS ORDER(Performed 03/27/2017) * CULTURE RESPIRATORY UPPER(Performed 12/08/2016) * STREP A SCREEN - POINT OF CARE (AMB)(Performed 12/08/2016) Performed for Sore throat * XR KNEE LEFT 2VW OR LESS(Performed 10/06/2016) Performed for Acute pain of left knee * XR KNEE RIGHT 2VW OR LESS(Performed 10/06/2016) Performed for Acute pain of right knee * CULTURE AEROBIC(Performed 09/05/2016) Performed for Sore throat * STREP A SCREEN - POINT OF CARE (AMB)(Performed 09/05/2016) Performed for Sore throat * INFLUENZA A+B - POINT OF CARE (AMB)(Performed 07/13/2016) Performed for Influenza B * CULTURE URINE(Performed 06/29/2015) Performed for Dysuria * URINALYSIS - POINT OF CARE(Performed 06/29/2015) Performed for Dysuria * STREP A SCREEN DIRECT W RFLX STREP A CULTURE(Performed 05/25/2015) * STREP A SCREEN - POINT OF CARE (AMB)(Performed 10/07/2012) Performed for Streptococcal sore throat * CULTURE STREP GROUP A(Performed 07/18/2012) Performed for Acute pharyngitis * STREP A SCREEN - POINT OF CARE (AMB)(Performed 07/18/2012) Performed for Acute pharyngitis * STREP A SCREEN - POINT OF CARE (AMB)(Performed 04/11/2012) Performed for Acute pharyngitis * CULTURE STREP GROUP A(Performed 03/06/2012) * URINALYSIS - POINT OF CARE(Performed 09/08/2011) Performed for Dysuria * URINALYSIS - POINT OF CARE(Performed 07/06/2009) Performed for Routine or Child Health Check * URINALYSIS - POINT OF CARE(Performed 05/04/2009) Performed for Vaginitis * CULTURE URINE(Performed 08/05/2008) Results * BIOPHYSICAL PROFILE W NST (10/13/2022 1:11 PM CDT) Only the most recent of7 resultswithin the time period is included. Anatomical Region Laterality Modality Other 10/13/2022 1:11 PM CDT Narrative 10/13/2022 1:55 PM CDT ? [facility] ?PHONE: ??FAX: Pat. Name: ?KENIA DIETRICH Pat. No: ?[id number] Study Date: ?? 10/13/2022 ??1:11pm , Age: ? 2005, 16 Pregnancies: ?? 1, Para 0000 Height: ? 62 in Weight: ? 115 lb LMP: ?01/31/2022 GA by LMP: ?36w3d GA by Base: ?? 36w3d ?? JEISON: 11/07/2022 GA Selected: ??36w3d (From [facility]) JEISON: ?11/07/2022 Referring MD: Crista Thomason MD [employer] Manager: ??Gisela Magallon RDMS CPT4: ? [id number] BMI: ?21.03 Hist/Ind: ? Teen , Suspected IUGR, Reportedly low-risk cf-DNA & negative CMV IgG+IgM Heart Rate: 141 bpm Amniotic Fluid Index: 11.6cm (07.6-24.7) Q1: 4.7cm ??Q2: 0.3cm ??Q3: 3.1cm ??Q4: 3.6cm ?? Biophysical Profile: 01/16 Breathin ?? Tone: 2 ?? Movement: ??2 ?? AFV: ??2 EVAL, PLACENTA Presentation: cephalic Placenta: anterior Heart Rate: 141 bpm Amniotic Fluid Volume: normal DOPPLER Umbilical - Mid Cord S/D ??3.34(1.62 - 3.48) ? PI ?? 1.21 (0.57 - 1.15) * ?? Middle Cerebral Artery PSV ??61.2cm/s PI ?? 1.91 (1.35 - 2.46) ? Med PSV 54.5cm/s MoM 1.12(<1.5) CLINICAL SUMMARY IMPRESSION: Single, live, intrauterine at 36w3d in cephalic presentation Amniotic fluid volume: normal ?? Biophysical profile: Normal (01/16) ?? Dopplers studies: borderline increased UA resistance but no cephalization of the MCA ?? RECOMMEND: Patient was unable to stay for NST today; continue weekly NST + BPP + Doppler through delivery Scheduled for IOL on 10/17/22 (if not delivered by then, would repeat U/S for growth next week) Thanks for allowing us the opportunity to care for your patient Bartolo Stringer MD <Electronic Signature> ??10/13/2022 01:56pm Crista Thomason DO [facility] ORDERABLES * SONOGRAM - COMPLETE (08/21/2022 9:58 AM CDT) Only the most recent of2 resultswithin the time period is included. Anatomical Region Laterality Modality Other 08/21/2022 9:58 AM CDT Narrative 08/21/2022 11:29 AM CDT ? [facility] ?PHONE: ??FAX: Pat. Name: ?KENIA DIETRICH. No: ?[id number] Study Date: ?? 08/21/2022 ??9:58am , Age: ? 2005, 16 Pregnancies: ?? 1, Para 0000 Height: ? 62 in Weight: ? 115 lb LMP: ?01/31/2022 GA by LMP: ?28w6d GA by Base: ?? 28w6d ?? JEISON: 11/07/2022 GA by US: ? 27w3d ?? JEISON: 11/17/2022 GA Selected: ??28w6d (From [facility]) JEISON: ?11/07/2022 Referring MD: Crista Thomason MD [employer] Manager: ??Erinn Mcdonnell, RDMS, RDCS CPT4: ? [id number] BMI: ?21.03 Hist/Ind: ? SGA with abnormal UA Doppler outside U/S MEASUREMENTS & AGE ? GROWTH EVALUATION Measurement ??GA ? Range ? Srce %for GA Ratios ----- ---- ------- BPD ??7.1 cm 28w3d (48n4f-93x1i) Hadl BPD 24% FL/BPD 0.72 (0.71 - 0.87) HC ??26.3 cm 28w4d (36n8d-81m4k) Hadl HC ??12% FL/AC ??0.22 (0.20 - 0.24) AC ??23.0 cm 27w2d (26a8n-25u3q) Hadl AC ??8% HC/AC ??1.14 (0.99 - 1.18) FL ?? 5.1 cm 27w1d (45d7k-48u3i) Hadl FL ??4% CI ? 0.75 (0.70 - 0.86) HL ?? 4.5 cm 26w6d (70w8o-11v8k) Jose E HL ??18% GA for sonogram 27w3d (73c2m-68q0e) ?? Weight Estimate: based on (BPD,HC,AC,FL) Hadlock ?Weight: 1078 gm (921-1236gm) Hadl ? : 2lbs, 6oz ? Normal: 1350 gm (1012- 1688gm) Had ? Wt% ? 6% for 28w6d Heart Rate: 151 bpm Amniotic Fluid Index: 18.6cm (09.2-23.0) Q1: 5.6cm ??Q2: 4.3cm ??Q3: 3.3cm ??Q4: 5.4cm ?? Biophysical Profile: 01/18 Breathin ?? Tone: 2 ?? NST: 2 Movement: ??2 ?? AFV: ??2 EVAL, PLACENTA Presentation: cephalic Placenta: anterior Heart Rate: 151 bpm Amniotic Fluid Volume: normal DOPPLER Umbilical - Mid Cord S/D ??4.20(2.04 - 4.24) ? PI ?? 1.32 (0.73 - 1.33) ? Middle Cerebral Artery PSV ??46.4cm/s PI ?? 2.23 (1.60 - 2.87) ? Med PSV 38.4cm/s MoM 1.21(<1.5) CLINICAL SUMMARY Single, live intrauterine at 28w6d based on LMP Amniotic fluid volume is Normal ? size is trending IUGR/SGA ?? Biophysical profile: Normal (01/18) no breathing, NST reactive, normal baseline, moderate BTBV ?? Doppler studies: borderline elevated UA vascular resistance, normal MCA vascular resistance ?? RECOMMEND: If not previously done, offer cf-DNA & CMV IgG+IgM Continue weekly NST+BPP+FUENTES+Dopplers ?? Repeat U/S for growth in 2 weeks Schedule formal MFM consult if desired Bartolo Stringer MD <Electronic Signature> ??08/21/2022 11:29am Ly Allen MD M ORDERABLES * (ABNORMAL) URINALYSIS W/MICROSCOPIC NO CULTURE (05/29/2021 11:20 PM CUSTOMER DATA TECHNICIAN) Color UA Red(A) Straw, Yellow 05/29/2021 11:43 PM CUSTOMER DATA TECHNICIAN [facility] Clarity UA Slt Cloudy(A) Clear 05/29/2021 11:43 PM [facility] Specific [place] UA 1.018 1.005 - 1.030 05/29/2021 11:43 PM [facility] pH UA 5.0 5.0 - 8.0 pH 05/29/2021 11:43 PM [facility] Protein UA 2+(A) Negative 05/29/2021 11:43 PM [facility] Glucose UA Negative Negative 05/29/2021 11:43 PM [facility] Ketone UA Negative Negative 05/29/2021 11:43 PM [facility] Bilirubin UA Negative Negative 05/29/2021 11:43 PM [facility] Blood UA 3+(A) Negative 05/29/2021 11:43 PM [facility] Nitrite UA Negative Negative 05/29/2021 11:43 PM [facility] Leukocyte Esterase 1+(A) Negative 05/29/2021 11:43 PM [facility] Urobilinogen UA Negative Negative mg/dL 05/29/2021 11:43 PM [facility] RBC UA >100(A) None Seen, 0-2, 3-5 /HPF 05/29/2021 11:43 PM [facility] WBC UA 11-20(A) None Seen, 0-5 /HPF 05/29/2021 11:43 PM [facility] Bacteria UA Trace(A) None /HPF 05/29/2021 11:43 PM [facility] Squamous Epithelial Cells UA 3-5 None Seen, 0-2, 3-5 /HPF 05/29/2021 11:43 PM [facility] Mucus UA 1+ /LPF 05/29/2021 11:43 PM [facility] Urine URINE SPECIMEN OBTAINED BY CLEAN CATCH PROCEDURE / Unknown Collection / Unknown 05/29/2021 11:20 PM CUSTOMER DATA TECHNICIAN 05/29/2021 11:25 PM [facility] - 05/29/2021 11:43 PM CUSTOMER DATA TECHNICIAN Alesia Camejo MD LAB - URINALYSI S ORDERABLES Performing Organization Address City/State/[facility] Co de Phone Number [facility] [address] [place] [address], [facility] [phone] * CULTURE URINE (05/29/2021 11:01 PM CUSTOMER DATA TECHNICIAN) Only the most recent of3 resultswithin the time period is included. Pathologist [facility] Culture Urine <10,000 CFU/mL urogenital ankush RONNI 05/31/2021 2:42 AM CUSTOMER DATA TECHNICIAN [facility] MICROBIOLOGY Urine URINE SPECIMEN OBTAINED BY CLEAN CATCH PROCEDURE / Unknown Collection / Unknown 05/29/2021 11:01 PM CUSTOMER DATA TECHNICIAN 05/29/2021 11:05 PM CUSTOMER DATA TECHNICIAN Alesia Camejo MD LAB - MICROBIOL OGY ORDERABLES [facility] MICROBIOLOGY [address] [place] [address], [facility] [phone] * HIV-1 HIV-2 ANTIBODY + HIV P24 AG PANEL (05/29/2021 10:31 PM CUSTOMER DATA TECHNICIAN) Pathologist [facility] HIV Antigen/Antibod y 1 & 2 Non-reacti ve Non-react ojsh 05/29/2021 11:35 PM CUSTOMER DATA TECHNICIAN [facility] Comment:No Laboratory eviden ce of HIV infection. Blood BLOOD SPECIMEN / Unknown Venipuncture / Unknown 05/29/2021 10:31 PM CUSTOMER DATA TECHNICIAN 05/29/2021 10:45 PM CUSTOMER DATA TECHNICIAN Alesia Camejo MD LAB - CHEMISTRY ORDERABLES [address] [address], [facility] [phone] * C-REACTIVE PROTEIN (05/29/2021 10:31 PM CUSTOMER DATA TECHNICIAN) Pathologist [facility] C-Reactive Protein <0.5 <=0.5 mg/dL 05/29/2021 11:15 PM CUSTOMER DATA TECHNICIAN [facility] Blood BLOOD SPECIMEN / Unknown Venipuncture / Unknown 05/29/2021 10:31 PM CUSTOMER DATA TECHNICIAN 05/29/2021 10:45 PM CUSTOMER DATA TECHNICIAN Alesia Camejo MD LAB - CHEMISTRY ORDERABLES [facility] [address] [place] [address], [facility] [phone] * ERYTHROCYTE SEDIMENTATION RATE (05/29/2021 10:31 PM CUSTOMER DATA TECHNICIAN) Erythrocyte Sedimentation Rate Westergren 5 0 - 20 MM/HR 05/29/2021 11:27 PM [facility] Blood BLOOD SPECIMEN / Unknown Venipuncture / Unknown 05/29/2021 10:31 PM CUSTOMER DATA TECHNICIAN 05/29/2021 10:47 PM CUSTOMER DATA TECHNICIAN Alesia Camejo MD LAB - HEMATOLOG Y ORDERABLES [facility] [address] [place] [id number], [facility] [phone] * CBC W AUTO DIFFERENTIAL (05/29/2021 10:31 PM CUSTOMER DATA TECHNICIAN) WBC 8.8 4.5 - 14.5 10? 3 /uL 05/29/2021 10:53 PM [facility] RBC 4.43 4.10 - 5.10 10? 6 /uL 05/29/2021 10:53 PM [facility] Hemoglobin 12.7 12.0 - 16.0 g/dL 05/29/2021 10:53 PM [facility] Hematocrit 39.1 36.0 - 47.0 % 05/29/2021 10:53 PM [facility] MCV 88.3 78.0 - 98.0 fL 05/29/2021 10:53 PM [facility] MCH 28.7 25.0 - 35.0 pg 05/29/2021 10:53 PM [facility] MCHC 32.5 31.0 - 37.0 g/dL 05/29/2021 10:53 PM [facility] Platelet Count 329 100 - 400 10? 3 /uL 05/29/2021 10:53 PM [facility] RDW-SD 43.8 36.0 - 50.0 fL 05/29/2021 10:53 PM [facility] RDW-CV 13.2 11.5 - 14.0 % 05/29/2021 10:53 PM [facility] MPV 9.1 6.0 - 9.5 fL 05/29/2021 10:53 PM [facility] nRBC Absolute 0.00 0 10? 3 /uL 05/29/2021 10:53 PM [facility] nRBC Auto 0.0 0 /100 WBC 05/29/2021 10:53 PM [facility] Neutrophils % 53.1 24.0 - 66.0 % 05/29/2021 10:53 PM [facility] Lymphocytes % 32.3 22.0 - 61.0 % 05/29/2021 10:53 PM [facility] Monocytes % 9.5 3.0 - 15.0 % 05/29/2021 10:53 PM [facility] Eosinophils % 4.0 0.0 - 10.0 % 05/29/2021 10:53 PM [facility] Basophil % 1.0 0.0 - 100.0 % 05/29/2021 10:53 PM [facility] Neutrophils Absolute 4.7 1.1 - 9.6 10? 3 /uL 05/29/2021 10:53 PM [facility] Lymphocyte Absolute 2.8 1.0 - 8.9 10? 3 /uL 05/29/2021 10:53 PM [facility] Monocytes Absolute 0.84 0.14 - 2.18 10? 3 /uL 05/29/2021 10:53 PM [facility] Eosinophils Absolute 0.35 0.00 - 1.45 10? 3 /uL 05/29/2021 10:53 PM [facility] Basophils Absolute 0.09 0.00 - 0.29 10? 3 /uL 05/29/2021 10:53 PM [facility] Immature Granulocytes % 0.1 0.0 - 1.0 % 05/29/2021 10:53 PM [facility] Immature Granulocytes Absolute 0.01 05/29/2021 10:53 PM [facility] Blood BLOOD SPECIMEN / Unknown Venipuncture / Unknown 05/29/2021 10:31 PM CUSTOMER DATA TECHNICIAN 05/29/2021 10:47 PM CUSTOMER DATA TECHNICIAN Alesia Camejo MD LAB - HEMATOLOG Y ORDERABLES [facility] [address] [place] [address], [facility] [phone] * (ABNORMAL) COMPREHENSIVE METABOLIC PANEL (05/29/2021 10:31 PM CUSTOMER DATA TECHNICIAN) BUN 5 5 - 19 mg/dL 05/29/2021 11:12 PM [facility] Creatinine 0.73 0.48 - 0.84 mg/dL 05/29/2021 11:12 PM [facility] Sodium 139 136 - 145 mmol/L 05/29/2021 11:12 PM [facility] Potassium 3.7 3.5 - 5.1 mmol/L 05/29/2021 11:12 PM [facility] Chloride 109(H) 98 - 107 mmol/L 05/29/2021 11:12 PM [facility] CO2 22 20 - 28 mmol/L 05/29/2021 11:12 PM [facility] Glucose 79 70 - 115 mg/dL 05/29/2021 11:12 PM [facility] Calcium 9.0 8.4 - 10.2 mg/dL 05/29/2021 11:12 PM [facility] Protein Total 7.0 6.0 - 8.3 g/dL 05/29/2021 11:12 PM [facility] Albumin 4.3 3.4 - 5.0 g/dL 05/29/2021 11:12 PM [facility] Bilirubin Total 0.2(L) 0.3 - 1.2 mg/dL 05/29/2021 11:12 PM [facility] Alkaline Phosphatase 62(L) 100 - 390 U/L 05/29/2021 11:12 PM [facility] ALT 21 5 - 55 U/L 05/29/2021 11:12 PM [facility] AST 24 3 - 35 U/L 05/29/2021 11:12 PM [facility] Anion Gap 12 8 - 18 05/29/2021 11:12 PM [facility] BUN/Creatinine Ratio 7 7 - 23 05/29/2021 11:12 PM CUSTOMER DATA TECHNICIAN [facility] Osmolality Calculated 284 270 - 300 mOsm/kg 05/29/2021 11:12 PM CUSTOMER DATA TECHNICIAN [facility] Blood BLOOD SPECIMEN / Unknown Venipuncture / Unknown 05/29/2021 10:31 PM CUSTOMER DATA TECHNICIAN 05/29/2021 10:47 PM CUSTOMER DATA TECHNICIAN Alesia Camejo MD LAB - CHEMISTRY ORDERABLES [address] [address], [facility] [phone] * LIPASE BLOOD (05/29/2021 10:31 PM CUSTOMER DATA TECHNICIAN) Pathologist [facility] Lipase 20 8 - 78 U/L 05/29/2021 11:12 PM [facility] Blood BLOOD SPECIMEN / Unknown Venipuncture / Unknown 05/29/2021 10:31 PM CUSTOMER DATA TECHNICIAN 05/29/2021 10:47 PM CUSTOMER DATA TECHNICIAN Alesia Camejo MD LAB - CHEMISTRY ORDERABLES [address] [address], [facility] [phone] * SARS-COV-2 (COVID-19) FLU A/B RSV PCR RAPID (05/29/2021 10:19 PM CUSTOMER DATA TECHNICIAN) Pathologist [facility] COVID-19 PCR Not detected Not detected 05/29/20 11:26 PM [facility] Influenza A PCR Not detected Not detected 05/29/2021 11:26 PM [facility] Influenza B PCR Not detected Not detected 05/29/2021 11:26 PM [facility] RSV PCR Not detected Not detected 05/29/2021 11:26 PM [facility] Microbiology SPECIMEN FROM NASOPHARYNGEAL STRUCTURE / Unknown Collection / Unknown 05/29/2021 10:19 PM CUSTOMER DATA TECHNICIAN 05/29/2021 10:45 PM CUSTOMER DATA TECHNICIAN Narrative [facility] - 05/29/2021 11:26 PM CUSTOMER DATA TECHNICIAN This nucleic acid amplification assay has been authorized by the Food and Drug administration (FDA) under an Emergency??Use Authorization (EUA).?? This test is only authorized for the duration of time the declaration that circumstances exist justifying the authorization of emergency use of in vitro diagnostic tests for detection of SARS-CoV-2 virus and/or diagnosis of COVID-19 infection under section 564(b)(1) of the Act, 21 U.S.C 360bbb-3 (b)(1), unless the authorization is terminated or revoked sooner. Fact Sheets for this EUA assay are available upon request. Alesia Camejo MD LAB - MICROBIOL OGY ORDERABLES [facility] [address] [place] [address], [facility] [phone] * CHLAMYDIA + GC AMPLIFIED PROBE (STL) (05/29/2021 10:17 PM CUSTOMER DATA TECHNICIAN) Pathologist [facility] Chlamydia Amplified Probe Negative Negative 05/30/2021 9:32 AM CUSTOMER DATA TECHNICIAN [facility] MICROBIOLOGY GC Amplified Probe Negative Negative 05/30/2021 9:32 AM CUSTOMER DATA TECHNICIAN [facility] MICROBIOLOGY Microbiology URINE / Unknown Collection / Unknown 05/29/2021 10:17 PM CUSTOMER DATA TECHNICIAN 05/29/2021 10:46 PM CUSTOMER DATA TECHNICIAN Narrative [facility] MICROBIOLOGY - 05/30/2021 9:32 AM CUSTOMER DATA TECHNICIAN Results based on detection/no detection of ribosomal RNA by amplified method. Alesia Camejo MD LAB - MICROBIOL OGY ORDERABLES [facility] MICROBIOLOGY [address] [place] [address], [facility] [phone] * HCG URINE QUALITATIVE - POCT (IP) INTERFACED (05/29/2021 10:17 PM CUSTOMER DATA TECHNICIAN) Pathologist [facility] HCG Qual Urine Negative Negative 05/29/2021 10:27 PM CUSTOMER DATA TECHNICIAN [facility] Urine URINE / Unknown 05/29/2021 1 0:17 PM CUSTOMER DATA TECHNICIAN 05/29/2021 10:27 PM CUSTOMER DATA TECHNICIAN Alesia Camejo MD LAB - POINT OF CARE ORDERABLES Performing Organization Address City/[facility]/ZIP Co de Phone Number [facility] [address] [place] [address] * TRICHOMONAS RAPID TEST (05/29/2021 10:17 PM CUSTOMER DATA TECHNICIAN) Trichomonas Rapid Test Negative Negative 05/29/2021 11:00 PM CUSTOMER DATA TECHNICIAN [facility] Microbiology VAGINAL SWAB / Unknown Collection / Unknown 05/29/2021 10:17 PM CUSTOMER DATA TECHNICIAN 05/29/2021 10:45 PM CUSTOMER DATA TECHNICIAN Alesia Cameoj MD LAB - MICROBIOL OGY ORDERABLES Performing Organization Address City/[facility]/ZIP Co de Phone Number [facility] [address] [place] [address], [facility] [phone] * HCG URINE QUAL POCT NOTIFICATION (05/29/2021 9:45 PM CUSTOMER DATA TECHNICIAN) Comment Notification Label Only - See Separate Report 05/29/2021 11:30 PM CUSTOMER DATA TECHNICIAN [facility] Urine URINE / Unknown 05/29/2021 9 :45 PM CUSTOMER DATA TECHNICIAN 05/29/2021 10:08 PM CUSTOMER DATA TECHNICIAN Alesia Camejo MD LAB - URINALYSI S ORDERABLES Performing Organization Address [facility]/ZIP Co de Phone Number [facility] [address] [place] [address] * COVID-19 SARS-COV-2 PCR QUAL ([facility]) (02/13/2020 2:54 PM CDT) SARS-CoV-2 OC Not Detected Not Detected [facility] ACCOUNT BILL Comment: This nucleic acid amplification test was developed and its performance characteristics determined by [facility]. Nucleic acid amplification tests include PCR and TMA. This test has not been FDA cleared or approved. This test has been authorized by FDA under an Emergency Use Authorization (EUA). This test is only authorized for the duration of time the declaration that circumstances exist justifying the authorization of the emergency use of in vitro diagnostic tests for detection of SARS-CoV-2 virus and/or diagnosis of COVID-19 infection under section 564(b)(1) of the Act, 21 U.S.C. 360bbb-3(b) (1), unless the authorization is terminated or revoked sooner. When diagnostic testing is negative, the possibility of a false negative result should be considered in the context of a patient's recent exposures and the presence of clinical signs and symptoms consistent with COVID-19. An individual without symptoms of COVID-19 and who is not shedding SARS-CoV-2 virus would expect to have a negative (not detected) result in this assay. Microbiology SPECIMEN FROM NASOPHARYNGEAL STRUCTURE / Unknown 02/13/2020 2:54 PM CDT 02/13/2020 Narrative Resulting Agency Comment Lab Testing performed at: [employer] [facility] [employer] ??[facility] [id number] Lizy Dalton MD LAB - MICROBIOLOGY O ARTURO Performing Organization Address [facility] de Phone Number [facility] ACCOUNT BILL [address] [place] [address] * CULTURE AEROBIC (02/13/2020 2:52 PM CDT) Only the most recent of4 resultswithin the time period is included. [facility] Aerobic Bacterial Culture Final report [facility] ACCOUNT BILL Result 1 [facility] ACCOUNT BILL Comment:Routine respiratory ankush Microbiology SPECIMEN FROM TONSIL / Unknown 02/13/2020 2:52 PM CDT 02/13/2020 Narrative Resulting Agency Comment Lab Testing performed at: [employer] [place] [address] [facility] ??[facility] [id number] Lizy Dalton MD LAB - MICROBIOLOGY O ARTURO Performing Organization Address City/[facility] Co de Phone Number [facility] ACCOUNT BILL [address] [place] [address] * STREP A SCREEN - POINT OF CARE (AMB) (02/13/2020 2:46 PM CDT) Only the most recent of10 resultswithin the time period is included. Strep A Rapid POCT Negative Negative Strep A Internal Control Present Other ENTIRE THROAT (SURFACE REGION OF NECK) / Unknown 02/13/2020 2:46 PM CDT Lizy Dalton MD LAB - POINT OF CARE ORDERABLES * XR ABDOMEN KUB (01/29/2020) Anatomical Region Laterality Modality Abdomen Other Lizy Dalton MD DIAGNOSTIC IMAGING O RDERABLES * XR FINGERS LEFT 2VW OR MORE (07/04/2019) Anatomical Region Laterality Modality Upper Extremity, Wrist / Hand Ot her Lizy Dalton MD DIAGNOSTIC IMAGING O RDERALENORA * (ABNORMAL) CULTURE STREP GROUP A (07/02/2019 11:21 AM CUSTOMER DATA TECHNICIAN) Only the most recent of3 resultswithin the time period is included. Beta-Strep Culture, Group A Only (A) [facility] INSURANCE BILL Comment: Beta-hemolytic colonies, not group A Streptococcus isolated. Penicillin and ampicillin are drugs of choice for treatment of beta-hemolytic streptococcal infections. Susceptibility testing of penicillins and other beta-lactam agents approved by the FDA for treatment of beta-hemolytic streptococcal infections need not be performed routinely because nonsusceptible isolates are extremely rare in any beta-hemolytic streptococcus and have not been reported for Streptococcus pyogenes (group A). (CLSI 2011) Microbiology ENTIRE THROAT (SURFACE REGION OF NECK) / Unknown 07/02/2019 11:21 AM CUSTOMER DATA TECHNICIAN 07/02/2019 Narrative Resulting Agency Comment Lab Testing performed at: [employer] ??[facility] [phone] Lizy Dalton MD LAB - MICROBIOLOGY O ARTURO [facility] INSURANCE BILL [address] [place] [address] * STREP A SCREEN - POINT OF CARE (AMB) STL (02/19/2019 11:21 AM CDT) Strep A Rapid POCT Negative Negative Strep A Internal Control Present Lot # [id number] Expiration Date Throat ENTIRE THROAT (SURFACE REGION OF NECK) / Unknown 02/19/2019 11:21 AM CDT Casey Hong DO LAB - POINT OF CARE ORDERABLES * IMAGING/RADIOLOGY/XRAY RESULTS ORDER (02/02/2019) Anatomical Region Laterality Modality Other Scanned Document IMAGING * LIPID PROFILE+GLUCOSE - POINT OF CARE (AMB) (01/31/2018) Pathologist [facility] QC Verified Yes Yes Cholesterol POCT 153 200 mg/dl HDL POCT 47 mg/dL Triglycerides POCT 117 130 mg/dL LDL 83 130 mg/dl Non HDL Cholesterol POCT 106 145 mg/dL Total Cholesterol/HDL Ratio POCT 3.3 6.0 Glucose 105 70 - 126 mg/dL Blood BLOOD SPECIMEN / Unknown 01/31/2018 Lizy Dalton MD LAB - POINT OF CARE ORDERABLES * INFLUENZA A+B - POINT OF CARE (AMB) (07/23/2017) Only the most recent of2 resultswithin the time period is included. Pathologist [facility] Influenza A Antigen Rapid Negative Negative Influenza B Antigen Rapid Negative Negative Influenza Internal Control positive NEGATIVE - POSITIVE Influenza Lot Number [id number] Influenza Expiration Date 03/09/2019 Other NASOPHARYNGEAL SWAB / Unknown 07/23/2017 Casey Hong DO LAB - POINT OF CARE ORDERABLES * LAB RESULTS ORDER (03/27/2017) Scanned Document LAB - THERAPEUTIC DR KASEY MONITORING ORDERABLES * (ABNORMAL) CULTURE RESPIRATORY UPPER (12/08/2016 10:45 AM CDT) Pathologist [facility] Upper Respiratory Culture Final report(A) [facility] INSURANCE BILL Result 1 (A) [facility] INSURANCE BILL Comment: Beta hemolytic Streptococcus, group C Scant growth Penicillin and ampicillin are drugs of choice for treatment of beta-hemolytic streptococcal infections. Susceptibility testing of penicillins and other beta-lactam agents approved by the FDA for treatment of beta-hemolytic streptococcal infections need not be performed routinely because nonsusceptible isolates are extremely rare in any beta-hemolytic streptococcus and have not been reported for Streptococcus pyogenes (group A). (CLSI 2011) 12/08/2016 10:4 5 AM CDT 12/08/2016 Narrative Resulting Agency Comment [facility] [place] [address] ??[facility] [phone] Casey Hong DO LAB - MICROBIOL OGY ORDERABLES [facility] INSURANCE BILL [address] [place] [address] * XR KNEE 1 OR 2 VW RIGHT (10/06/2016 10:22 AM CDT) Anatomical Region Laterality Modality Lower Extremity Radiographic Elidia ging 10/06/2016 10:5 4 AM CDT Impressions 10/06/2016 11:10 AM CDT No acute osseous abnormality in the left or right knees. Bilateral benign distal femoral cortical desmoids. The study was dictated by Rox Duarte MD (radiology rn). I, Sarah Hill, have personally reviewed the images and I agree with this report. Narrative 10/06/2016 11:10 AM CDT EXAMINATION: Left knee, 2 views Right knee, 2 views Comparison: None History: 10-year-old female with knee pain. Findings: Right knee: AP and lateral views of the knee were obtained. The osseous structures are intact with no acute fracture or dislocation. No joint effusion is seen. No soft tissue abnormality is identified. There is a lytic lesion with sclerotic borders along the medial and posterior aspect of the distal femoral metaphysis consistent with a cortical desmoid. Left knee: AP and lateral views of the left knee were obtained. The osseous structures are intact with no acute fracture or dislocation. Small joint effusion is seen. No soft tissue abnormality is identified. A subtle lytic lesion with sclerotic borders is seen along the posteromedial aspect of the distal femoral metaphysis consistent with a cortical desmoid. This is smaller in size on the contralateral knee. Procedure Note Sarah Hill MD - 10/06/2016 EXAMINATION: Left knee, 2 views Right knee, 2 views Comparison: None History: 10-year-old female with knee pain. Findings: Right knee: AP and lateral views of the knee were obtained. The osseous structures are intact with no acute fracture or dislocation. No joint effusion is seen. No soft tissue abnormality is identified. There is a lytic lesion with sclerotic borders along the medial and posterior aspect of the distal femoral metaphysis consistent with a cortical desmoid. Left knee: AP and lateral views of the left knee were obtained. The osseous structures are intact with no acute fracture or dislocation. Small joint effusion is seen. No soft tissue abnormality is identified. A subtle lytic lesion with sclerotic borders is seen along the posteromedial aspect of the distal femoral metaphysis consistent with a cortical desmoid. This is smaller in size on the contralateral knee. IMPRESSION No acute osseous abnormality in the left or right knees. Bilateral benign distal femoral cortical desmoids. The study was dictated by Rox Duarte MD (radiology rn). Sarah Ballesteros, have personally reviewed the images and I agree with this report. Dixon Mccallum MD DIAGNOSTIC IMAGING O RDERABLES * XR KNEE 1 OR 2 VW LEFT (10/06/2016 10:22 AM CDT) Anatomical Region Laterality Modality Lower Extremity Radiographic Elidia ging 10/06/2016 10:5 4 AM CDT Impressions 10/06/2016 11:10 AM CDT No acute osseous abnormality in the left or right knees. Bilateral benign distal femoral cortical desmoids. The study was dictated by Rox Duarte MD (radiology rn). Sarah Ballesteros, have personally reviewed the images and I agree with this report. Narrative 10/06/2016 11:10 AM CDT EXAMINATION: Left knee, 2 views Right knee, 2 views Comparison: None History: 10-year-old female with knee pain. Findings: Right knee: AP and lateral views of the knee were obtained. The osseous structures are intact with no acute fracture or dislocation. No joint effusion is seen. No soft tissue abnormality is identified. There is a lytic lesion with sclerotic borders along the medial and posterior aspect of the distal femoral metaphysis consistent with a cortical desmoid. Left knee: AP and lateral views of the left knee were obtained. The osseous structures are intact with no acute fracture or dislocation. Small joint effusion is seen. No soft tissue abnormality is identified. A subtle lytic lesion with sclerotic borders is seen along the posteromedial aspect of the distal femoral metaphysis consistent with a cortical desmoid. This is smaller in size on the contralateral knee. Procedure Note Sarah Hill MD - 10/06/2016 EXAMINATION: Left knee, 2 views Right knee, 2 views Comparison: None History: 10-year-old female with knee pain. Findings: Right knee: AP and lateral views of the knee were obtained. The osseous structures are intact with no acute fracture or dislocation. No joint effusion is seen. No soft tissue abnormality is identified. There is a lytic lesion with sclerotic borders along the medial and posterior aspect of the distal femoral metaphysis consistent with a cortical desmoid. Left knee: AP and lateral views of the left knee were obtained. The osseous structures are intact with no acute fracture or dislocation. Small joint effusion is seen. No soft tissue abnormality is identified. A subtle lytic lesion with sclerotic borders is seen along the posteromedial aspect of the distal femoral metaphysis consistent with a cortical desmoid. This is smaller in size on the contralateral knee. IMPRESSION No acute osseous abnormality in the left or right knees. Bilateral benign distal femoral cortical desmoids. The study was dictated by Rox Duarte MD (radiology rn). I, Sarah Hill, have personally reviewed the images and I agree with this report. Dixon Mccallum MD DIAGNOSTIC IMAGING O RDERABLES * (ABNORMAL) URINALYSIS - POINT OF CARE (06/29/2015) Only the most recent of4 resultswithin the time period is included. Clarity UA POCT clear Color UA POCT josee Leukocyte UA positive Negative Nitrite UA POCT negative Negative Urobilinogen UA 0.1 - 1.0 Protein UA POCT trace Negative pH UA 5.0 - 8.0 pH units Blood UA negative Negative Specific Hoagland UA POCT 1.01 1.002 - 1.030 Ketone UA negative Negative Bilirubin UA POCT negative Negative Glucose UA negative Negative Urine specimen (specimen) URINE / Unknown 06/29/2015 Casey Hong DO LAB - POINT OF CARE ORDERABLES * STREP A SCREEN DIRECT W RFLX STREP A CULTURE (05/25/2015) Miscellaneous samples (specimen) ENTIRE THROAT (SURFACE REGION OF NECK) / Unknown Sekou Dsouza MD [facility] Care Teams Manager Client Support Relationship Specialty Start Date End Date Lizy Dalton MD PCP - General Pediatrics 02/03/14
--- OUTSIDE RECORDS SUMMARY | 2024-07-09 13:19 | XMS_ITS | Clinical Summary ---
Author Organization [facility] Address [address] [place] [address] Care Team Providers Care Field Geologist Name Role Phone Deonte Cheng MD Primary Care Provider Allergies No known active allergies Medications dicyclomine (BENTYL) 10 mg capsule 1 capsule (10 mg total) 06/20/19 25 Active norethindrone -e.estradioL- iron (JUNEL FE 06/30) 1 mg-20 mcg (21)/75 mg (7) per tablet Take 1 tablet by mouth daily 28 tablet 12 06/24/19 25 026 Active meclizine (ANTIVERT) 25 mg tablet Take 1 tablet (25 mg total) by mouth 3 (three) times a day as needed for nausea 90 tablet 3 07/03/19 25 Active metoclopramid e (REGLAN) 10 mg tablet Take one pill twice daily 10-15 minutes before eating to help with nausea/vomitin g. Will start with seven day trial. 14 tablet 07/03/19 25 Active ondansetron (ZOFRAN) 8 mg tablet Take 1-2 tabs up to twice daily as needed for problematic nausea and vomiting. Do not take more than 16 mg per dose. 60 tablet 3 03/24/20 24 025 Discontinued cholecalcifer ol (VITAMIN D-3) 2000 unit capsule Take 1 capsule (2,000 Units total) by mouth daily 90 capsule 3 03/26/20 24 025 Discontinued sucralfate (CARAFATE) 1 gram tabletIndicat ions:Gastriti s Take 1 tablet (1 g total) by mouth 4 (four) times a day 120 tablet 04/09/20 24 025 Discontinued mirtazapine (REMERON) 30 mg tablet Take 1 tablet (30 mg total) by mouth nightly 90 tablet 3 05/06/20 24 025 Discontinued famotidine (PEPCID) 40 mg tablet Take 1 tablet (40 mg total) by mouth 2 (two) times a day 180 tablet 3 05/06/20 24 025 Discontinued atomoxetine (STRATTERA) 40 mg capsule 025 Discontinued medroxyPROGES TERone (PROVERA) 10 mg tablet Take 1 tablet (10 mg total) by mouth daily for 10 days Repeat monthly 10 tablet 11 05/30/20 24 025 Discontinued(Al ternate therapy) SeroqueL 50 mg tablet Take 1 tablet (50 mg total) by mouth daily 025 Discontinued Active Problems Problem Noted Date Diagnosed Date Anxiety 04/24/2024 Undifferentiated attention deficit disorder 04/11 Irritable bowel syndrome wit h both constipation and diarrhea 04/10/2024 Diarrhea 03/24/2024 Chronic constipation 03/24/2024 Chronic cholecystitis 03/24/2024 Gastroesophageal reflux dise ase with esophagitis without hemorrhage 03/24/2024 Chronic superficial gastritis without bleeding 1 Periumbilical hernia 03/24/2024 Hiatal hernia 03/24/2024 S/P laparoscopic cholecystectomy 03/01/2024 Assessment & Plan (04/01/2024 10:30 AM CDT): She was seen by GI and they are setting her up for a colonoscopy and EGD. Given the nausea however she has been unable to do much of the prep and states feeling some episodes of lightheadedness due to dehydration. I will discuss with GI if they think admission for fluids and IV antiemetics prior to the scope would be warranted. If everything looks good we have discussed perhaps working up things such as gastroparesis or sphincter of Oddi dysfunction as other causes of the chronic symptoms. Assessment & Plan (03/04/2024 9:59 AM CDT): The patient will continue with a stool softener to see if this helps improve the constipation. My guess is with bowel function some of the nausea we will subside as well. We will send her in some Zofran to try and help with the nausea as well as a short course of Reglan. We will see her back in 4 weeks. She will call sooner if anything changes. No lifting anything greater than 20 lb for 4 weeks. No submerging incisions for another week. Bilateral lower abdominal cramping 02/22/2024 Chronic nausea 02/07/2024 RUQ pain 02/07/2024 Assessment & Plan (02/19/2024 10:05 AM CDT): The patient has had nearly 2 years of worsening gallbladder symptoms. She is to the point now where she was presented to the ER to try and get some symptomatic relief. She was tried Tylenol without success. I will send her in a small course of tramadol until I can get her scheduled for surgery. I will also try on a different nausea medicine as Compazine and Zofran have not been working. She was in understanding of the plan. Unintentional weight loss 02/07/2024 Assessment & Plan (02/19/2024 10:08 AM CDT): There is no doubt that if all she has been doing is getting nauseous and vomiting for the past 2 years that she has had steady weight loss. My will be that when the gallbladder is removed the symptoms resolve and she was able to start regaining weight. Weight loss 02/07/2024 Blood in stool 02/07/2024 Resolved Problems Problem Noted Date Diagnosed Date Resolved Date Gastric distention 03/24/2024 Acute cholecystitis 02/22/2024 03/24/20 BMI less than 19,adult 02/07/202403/24 Weight loss 02/07/2024 03/24/2024 Blood in stool 02/07/2024 03/24/2024 Encounters Date Type Department Care Team Description 07/03/2024 2:45 PM FIELD MARKETING DIRECTOR Office Visit [facility] at [address] [place] [address] Brandon Quintero NP Nausea and vomiting, unspecified vomiting type (Primary Dx); Unintentional weight loss; PTSD (post-traumatic stress disorder); Irritable bowel syndrome with both constipation and diarrhea; Gastroesophageal reflux disease with esophagitis without hemorrhage; Chronic superficial gastritis without bleeding; S/P cholecystectomy 06/27/2024 9:46 AM FIELD MARKETING DIRECTOR - 06/27/2024 11:59 PM FIELD MARKETING DIRECTOR Hospital Encounter [facility] [address] [facility] [address] [place] [address] Zheng, Verna Dyer, STEFANI Nausea and vomiting, unspecified vomiting type Discharge Disposition: Discharge to home or self care 06/24/2024 1:15 PM FIELD MARKETING DIRECTOR Office Visit [facility] [address] [place] [address] Zayda Quintero, Dysmenorrhea (Primary Dx); Secondary oligomenorrhea; Nausea and vomiting, unspecified vomiting type; Unintentional weight loss 06/06/2024 Telephone [facility] [address] [place] [address] Zayda Quintero, Patient issue/concern 05/30/2024 Orders Only [address] [address] Zayda Quintero, 05/29/2024 Telephone [facility] [address] [place] [address] Zayda Quintero, Medication Issue 05/23/2024 Orders Only [address] [address] Zayda Quintero, DO 05/23/2024 Telephone [facility] [address] [place] [address] Kayla Henderson LPN 05/22/2024 3:30 PM FIELD MARKETING DIRECTOR Lab [facility] [address] [place] [address] Oligomenorrhea, unspecified type 05/22/2024 2:45 PM FIELD MARKETING DIRECTOR Ancillary Procedure [facility] [address] [place] [address] Ovarian cyst, bilateral; Pelvic pain in female 05/22/2024 1:45 PM FIELD MARKETING DIRECTOR Office Visit [facility] [address] [place] [address] Zayda Quintero DO Secondary oligomenorrhea (Primary Dx); Pelvic pain; Cyst of ovary, unspecified laterality 05/22/2024 8:53 AM FIELD MARKETING DIRECTOR - 05/22/2024 11:59 PM FIELD MARKETING DIRECTOR Hospital Encounter [facility] [address] [place] [address] Nausea and vomiting, unspecified vomiting type; Nonintractable headache, unspecified chronicity pattern, unspecified headache type Discharge Disposition: Discharge to home or self care 05/22/2024 Orders Only [facility] [address] [place] [address] Zayda Quintero DO Oligomenorrhea, unspecified type (Primary Dx) 05/22/2024 Orders Only [facility] [address] [place] [address] Faby Gibson MA Ovarian cyst, bilateral (Primary Dx); Pelvic pain syndrome; Pelvic pain in female 05/13/2024 Orders Only [facility] G[facility]ology at [address] [place] [address] Brandon Quintero NP Dizziness (Primary Dx); Syncope, unspecified syncope type; Nausea and vomiting, unspecified vomiting type 05/09/2024 10:15 AM FIELD MARKETING DIRECTOR Lab [address] [address] 05/06/2024 10:30 AM FIELD MARKETING DIRECTOR Office Visit [facility] Gastroenterology at [address] [place] [address] Brandon Quintero NP Nausea and vomiting, unspecified vomiting type (Primary Dx); Irritable bowel syndrome with both constipation and diarrhea; S/P cholecystectomy; Nonintractable headache, unspecified chronicity pattern, unspecified headache type; Unintentional weight loss; Dizziness; Syncope, unspecified syncope type; Gastroesophageal reflux disease without esophagitis; Chronic superficial gastritis without bleeding; Nonspecific colitis 05/06/2024 Telephone [facility] at [place] [phone] [facility] [address] [place] [address] Jacky Gudino MD 04/25/2024 2:20 PM FIELD MARKETING DIRECTOR Lab [address] 04/25/2024 Orders Only [address], [place] [address] Uday Rosenberg MD Nausea and vomiting, unspecified vomiting type (Primary Dx) 04/22/2024 Orders Only [facility] at [address], [place] [address] Brandon Quintero NP 04/15/2024 Orders Only [facility] at [address], [place] [address] Brandon Quintero NP Nausea and vomiting, unspecified vomiting type (Primary Dx); Nonintractable headache, unspecified chronicity pattern, unspecified headache type 04/14/2024 8:00 AM FIELD MARKETING DIRECTOR - 04/14/2024 11:59 PM FIELD MARKETING DIRECTOR Hospital Encounter [address] Irritable bowel syndrome with both constipation and diarrhea Discharge Disposition: Discharge to home or self care 04/14/2024 Telephone [facility] at [address], [place] [address] Mary Portillo MA 04/14/2024 Orders Only [facility] at [address], [place] [address] Brandon Quintero NP Irritable bowel syndrome with both constipation and diarrhea (Primary Dx) 04/10/2024 7:47 AM CDT - 04/10/2024 11:59 PM CDT Hospital Encounter [facility] [address] [place] [address] Chronic cholecystitis; S/P cholecystectomy; Nausea and vomiting, unspecified vomiting type; RUQ pain; Low serum alkaline phosphatase Discharge Disposition: Discharge to home or self care 04/09/2024 9:30 AM CDT Office Visit [facility] at [place] [address] [facility] [address] [place] [address] Brandon Quintero NP Nausea and vomiting, unspecified vomiting type (Primary Dx); Nonintractable headache, unspecified chronicity pattern, unspecified headache type; Irritable bowel syndrome with both constipation and diarrhea; S/P cholecystectomy; RUQ pain; Unintentional weight loss; Blood in stool; Hiatal hernia; Periumbilical hernia; Chronic superficial gastritis without bleeding; Gastroesophageal reflux disease with esophagitis without hemorrhage; Nonspecific colitis from Last 3 Months Immunizations Name Administration Dates Next Due DTaP 07/17/2006, 6,04/27/2005,02/27 DTaP / Hep B / IPV 07/21/2005,02/27/2005 DTaP / IPV 07/06/2009 HPV, Quadrivalent 10/12/2015,02/27/2014 Hep A, Ped Unspecified 12/31/2007,01/03/2007 Hep B, Adolescent or Pediatric 0,04/27/2005,02/27/2005,12/24 HiB 04/05/2006,07/21/2005,02/27/2005 Hib (PRP-D) 04/27/2005 IPV 07/21/2005,04/27/2005,02/27/2005 Influenza, Quadrivalent, Spl it, Intramuscular 03/03/2017 Influenza, Quadrivalent, Spl it, Preservative Free, Intramuscular 04/20/2022,04/19/2020,02/27/2014 Influenza, Split 06/01/2008 Influenza, Unspecified 05/13/2007,04/11/2007 MMR 02/04/2009,01/08/2006 Meningococcal MCV4P (Menactra) 12/27/2015 PPD TEST 01/08/2006 Pneumococcal Conjugate 7-Valent 01/09/20 06,07/21/2005,04/27/2005,02/27 Pneumococcal Conjugate, Unspecified 12/11,07/21/2005,04/27/2005,02/23 Tdap 08/16/2022,10/12/2015 Varicella 02/04/2009,04/05/2006 Surgical History Surgery Date Site/Laterality Comments TYMPANOSTOMY TUBE PLACEMENT CHOLECYSTECTOMY 02/22/2024 ESOPHAGOGASTRODUODENOSCOPY COLONOSCOPY 04/02/2024 UPPER GASTROINTESTINAL ENDOSCOPY 04/02/2024 Medical History Medical History Date Comments GERD (gastroesophageal reflux disease) Anxiety Vitamin D deficiency Marijuana use PTSD (post-traumatic stress disorder) Depression Social History Tobacco Use Types Packs/Day Years Used Date Smoking Tobacco: Never Cigarettes Smokeless Tobacco: Never Tobacco Cessation:Counseling Given: Not Answered Comments:Never AUDIT-C Answer Date Recorded Q1: How often do you have a drink containing alcohol? Never 07/03/2024 Q2: How many drinks containi ng alcohol do you have on a typical day when you are drinking? Patient does not drink Q3: How often do you have si x or more drinks on one occasion? Never 07/03/2024 Personal Safety Answer Date Recorded Have you ever been in or are you currently in a harmful physical or emotional relationship or is someone making you feel afraid or unsafe? Denies 04/02/2024 Comments No Sex and Gender Information Value Date Recorded Sex Assigned at Not on file Legal Sex Female 3:25 PM CDT Gender Identity Not on file Sexual Orientation Not on file Obstetrics History Para Term AB IAB SAB Ectopic Multiple Livin g Live Births 2 1 1 1 1 1 1 Date Outcome GA Total Labor Labor/2nd/3rd Weight Sex Type Anes PTL Rose Mary A1 A5 Name Clin IAB 10/18 Term 37w 0d F Vaginal Living Growth Chart Information Age Height Weight Uxakuc-bap-fotu th Percentile BMI Percentile Head Circum Head Circum Percentile Date years 162.6 cm (5' 4 ) 2024 years 162.6 cm (5' 4 ) 49.6 kg (109 lb 4.8 oz) 12.90%* 2024 18 years 162.6 cm (5' 4 ) 2023 years 162.6 cm (5' 4 ) 45.8 kg (101 lb) 2.67%* 11/26/ 2024 18 years 162.6 cm (5' 4 ) 49 kg (108 lb) 10.90%* 2023 18 years 162.6 cm (5' 4 ) 45.4 kg (100 lb) 2.05%* 2023 18 years 162.6 cm (5' 4 ) 46.3 kg (102 lb) 3.46%* 2023 18 years 162.6 cm (5' 4 ) 2023 18 years 162.6 cm (5' 4 ) 46.6 kg (102 lb 11.2 oz) 4.11%* 2023 18 years 162.6 cm (5' 4 ) 38.6 kg (85 lb) 0.00%* 2023 18 years 165 cm (5' 4.96 ) 2023 18 years 165 cm (5' 4.96 ) 43.1 kg (95 lb) 0.11%* 2023 18 years 162.6 cm (5' 4 ) 36.3 kg (80 lb) 0.00%* 2023 18 years 160 cm (5' 3 ) 40.4 kg (89 lb) 0.10%* 2023 18 years 160 cm (5' 3 ) 40.4 kg (89 lb) 0.10%* 2023 17 years 160 cm (5' 2.99 ) 48.4 kg (106 lb 11.2 oz) 15.32%* 2023 15 years 160 cm (5' 3 ) 51.3 kg (113 lb 1.5 oz) 40.68%* 2021 * [facility] (Girls, 2-20 Years) Last Filed Vital Signs Vital Sign Reading Time Taken Comments Blood Pressure 127/85 07/03/2024 2:44 PM FIELD MARKETING DIRECTOR Pulse 83 07/03/2024 2:44 PM FIELD MARKETING DIRECTOR Temperature 36.6 ??C (97.8 ??F) 04/02/2024 9:47 AM CD T Respiratory Rate 16 04/02/2024 9:47 AM CDT Oxygen Saturation 95% 05/06/2024 10:41 AM FIELD MARKETING DIRECTOR Inhaled Oxygen Concentration - - Weight 49.6 kg (109 lb 4.8 oz) 06/29/2024 5:10 P M FIELD MARKETING DIRECTOR Height 162.6 cm (5' 4 ) 07/03/2024 2:44 PM FIELD MARKETING DIRECTOR Body Mass Index 18.76 06/29/2024 5:10 PM FIELD MARKETING DIRECTOR Plan of Treatment Health Maintenance Due Date Last Done Comments Depression Screening 2004 Hepatitis C Screening 2004 Meningococcal B Vaccine (1 of 2 - Patient Seeks Protection) 2020 Chlamydia and Gonorrhea (GC/CT) Screening 08/01/2022 08/01/2021 Regular Well Visit/Exam 18-64 2022 Influenza Vaccine (#1) 2024 , 04/19/2020, 03/03/2017, Additional history exists DTaP/Tdap/Td Vaccine (8 - Td or Tdap) 08/16/2032 08/16/2022, 10/12/2015, 07/06/2009, Additional history exists Pneumococcal vaccine <65 Completed 006, 01/08/2006, 07/21/2005, Additional history exists Varicella Vaccines Completed 02/04/2009, 04/05/2006 HPV Vaccines Completed 10/12/2015, 02/27/2014 Meningococcal Vaccine Aged Out 12/27/2015 No yony dina eligible based on patient's age to complete this topic Procedures Procedure Name Priority Date/Time Associated Diagnosis Comments US PELVIS W ENDOVAGINAL Schedule Routine, Read Routine (OP Routine) 05/22/2024 3:17 PM FIELD MARKETING DIRECTOR Ovarian cyst, bilateral Pelvic pain in female ESTRADIOL Routine 05/22/2024 2:32 PM FIELD MARKETING DIRECTOR Oligomenorrhea, unspecified type PROLACTIN Routine 05/22/2024 2:32 PM FIELD MARKETING DIRECTOR Oligomenorrhea, unspecified type FOLLICLE STIMULATING HORMONE Routine 05/22/2024 2:32 PM FIELD MARKETING DIRECTOR Oligomenorrhea, unspecified type LUTEINIZING HORMONE (LH) Routine 05/22/2024 2:32 PM FIELD MARKETING DIRECTOR Oligomenorrhea, unspecified type TSH Routine 05/22/2024 2:32 PM FIELD MARKETING DIRECTOR Oligomenorrhea, unspecified type MRI BRAIN W WO CONTRAST Schedule Routine, Read Routine (OP Routine) 05/22/2024 10:29 AM FIELD MARKETING DIRECTOR Nausea and vomiting, unspecified vomiting type Nonintractable headache, unspecified chronicity pattern, unspecified headache type T4, FREE Routine 05/09/2024 10:22 AM FIELD MARKETING DIRECTOR EGFR Routine 05/09/2024 10:22 AM FIELD MARKETING DIRECTOR DIFFERENTIAL AUTO Routine 05/09/2024 10: 22 AM FIELD MARKETING DIRECTOR COMPREHENSIVE METABOLIC PANEL Routine 05/09/2024 10:22 AM FIELD MARKETING DIRECTOR LIPASE Routine 05/09/2024 10:22 AM FIELD MARKETING DIRECTOR AMYLASE Routine 05/09/2024 10:22 AM FIELD MARKETING DIRECTOR CBC WITH AUTO DIFFERENTIAL Routine 05/09/2024 10:22 AM FIELD MARKETING DIRECTOR PHOSPHORUS Routine 05/09/2024 10:22 AM FIELD MARKETING DIRECTOR TSH Routine 05/09/2024 10:22 AM FIELD MARKETING DIRECTOR MAGNESIUM Routine 05/09/2024 10:22 AM FIELD MARKETING DIRECTOR EGFR Routine 04/25/2024 2:23 PM FIELD MARKETING DIRECTOR BASIC METABOLIC PANEL Routine 04/25/2024 2:23 PM FIELD MARKETING DIRECTOR FECAL FAT, QUANTITATIVE Routine 04/14/2024 8:00 AM FIELD MARKETING DIRECTOR PANCREATIC ELASTASE, STOOL Routine 04/14/2024 8:00 AM FIELD MARKETING DIRECTOR Irritable bowel syndrome with both constipation and diarrhea CALPROTECTIN, FECAL Routine 04/14/2024 8 :00 AM FIELD MARKETING DIRECTOR Irritable bowel syndrome with both constipation and diarrhea STOOL CULTURE Routine 04/14/2024 8:00 AM FIELD MARKETING DIRECTOR Irritable bowel syndrome with both constipation and diarrhea H. PYLORI ANTIGEN, STOOL Routine 04/14/2024 8:00 AM FIELD MARKETING DIRECTOR Irritable bowel syndrome with both constipation and diarrhea MRI ABDOMEN MRCP W WO CONTRAST Schedule CEFERINO, Read Routine (Patient lives out of area) 04/10/2024 8:27 AM CDT Chronic cholecystitis S/P cholecystectomy Nausea and vomiting, unspecified vomiting type RUQ pain Low serum alkaline phosphatase N. GONORRHOEAE/C. TRACHOMATIS AMPLIFICATION STAT 08/01/2021 4:51 PM FIELD MARKETING DIRECTOR from Last 3 Months or Most Recently Relevant to Health Maintenance Results * US Pelvis W Endovaginal (05/22/2024 3:17 PM FIELD MARKETING DIRECTOR) Anatomical Region Laterality Modality Pelvis N/A Ultrasound 05/30/2024 9:59 AM FIELD MARKETING DIRECTOR Narrative 05/30/2024 10:06 AM FIELD MARKETING DIRECTOR EXAM DESCRIPTION: ?? US PELVIS W ENDOVAGINAL REASON FOR STUDY: ?? Ovarian Cyst/Pelvic Pain ?? Hx of Bilat ovarian cysts, pelvic pain bilaterally x 1 year, dysmenorrhea, menorrhagia, unintentional weight loss ?? TECHNIQUE: Grayscale ultrasound of the pelvic contents was performed with ?? transabdominal and transvaginal ??transducer. ?? COMPARISON: None FINDINGS: UTERUS: ?? The uterus is anteverted. ??The uterus is ??homogenous ??in echotexture and measures ??3.4 x 5.2 x 6.4 ??cm. ??Prominent myometrial vascularity is seen on color Doppler. ENDOMETRIUM: The endometrium measures ??0.7 cm ??in thickness. RIGHT OVARY: The right ovary measures ??2.7 ??cm. ??There is documentation of color Doppler flow in the right ovary. The right ovary contains several hypoechoic areas ranging in size up to about 6 mm. LEFT OVARY: The left ovary measures ??3 ??cm. ??There is documentation of color Doppler flow in the left ovary. ??The left ovary contains several hypoechoic areas ranging in size up to about a cm. PELVIC FLUID: ?? There is no evidence of free fluid in the pelvis. OTHER: ?? No other significant findings. IMPRESSION: Prominent myometrial vascularity. Multiple hypoechoic areas in both ovaries. Considerations include multiple follicles, endometriosis, pelvic inflammatory disease, and others. THIS IS AN ELECTRONICALLY VERIFIED FINAL REPORT 05/30/2024 10:06 AM - Electronically signed by ??Logan CARDENAS: RONALD D: ??05/30/2024 10:06 AM T: ??05/30/2024 10:06 AM Report ID: [id number] Reading Location: ??[id number] Procedure Note Ori Velasquez MD - 05/30/2024 EXAM DESCRIPTION: US PELVIS W ENDOVAGINAL REASON FOR STUDY: Ovarian Cyst/Pelvic Pain Hx of Bilat ovarian cysts, pelvic pain bilaterally x 1 year, dysmenorrhea, menorrhagia, unintentional weight loss TECHNIQUE: Grayscale ultrasound of the pelvic contents was performed with transabdominal and transvaginal transducer. COMPARISON: None FINDINGS: UTERUS: The uterus is anteverted. The uterus is homogenous inechotexture and measures 3.4 x 5.2 x 6.4 cm. Prominent myometrial vascularity isseen on color Doppler. ENDOMETRIUM: The endometrium measures 0.7 cm in thickness. RIGHT OVARY: The right ovary measures 2.7 cm. There is documentation of color Doppler flow in the right ovary. The right ovary contains several hypoechoic areas ranging in size up to about 6 mm. LEFT OVARY: The left ovary measures 3 cm. There is documentation ofcolor Doppler flow in the left ovary. The left ovary contains severalhypoechoic areas ranging in size up to about a cm. PELVIC FLUID: There is no evidence of free fluid in the pelvis. OTHER: No other significant findings. IMPRESSION: Prominent myometrial vascularity. Multiple hypoechoic areas in both ovaries. Considerations includemultiple follicles, endometriosis, pelvic inflammatory disease, and others. THIS IS AN ELECTRONICALLY VERIFIED FINAL REPORT 05/30/2024 10:06 AM - Electronically signed by Logan CARDENAS Report ID: [id number] Reading Location: [id number] Zayda Quintero DO IMG US PROCEDURES Final Result * Prolactin (05/22/2024 2:32 PM FIELD MARKETING DIRECTOR) Pathologist [facility] Prolactin 6.1 4.8 - 23.3 ng/mL Comment:Testing performed by : [facility], [address] [place] [address]., [id number] Blood 05/22/2024 2:32 PM FIELD MARKETING DIRECTOR 05/22/2024 8:02 PM FIELD MARKETING DIRECTOR Zayda Quintero DO LAB BLOOD ORDERABLES Fi nal Result Performing Organization Address [facility] Co de Phone Number [place] [phone] [facility] [place] [address] * Estradiol (05/22/2024 2:32 PM FIELD MARKETING DIRECTOR) [facility] Estradiol 121.0 pg/mL Comment: Interpretive Data Males: 11 ? 43 pg/mL Females: Premenopausal: 31 ? 533 pg/mL Postmenopausal: < 50 pg/mL Patients treated with Fluvestrant (Faslodex) should be tested using an alternate assay such as LC-MS due to potential for cross-reactivity. Estradiol varies widely throughout the menstrual cycle. Current interpretive data was last revised 2024. Testing performed by: [facility], [address] [place] [address]., [id number] Blood 05/22/2024 2:32 PM FIELD MARKETING DIRECTOR 05/23/2024 9:52 AM FIELD MARKETING DIRECTOR Zayda Quintero DO LAB BLOOD ORDERABLES Fi nal Result Performing Organization Address [facility] Co de Phone Number [facility] [address] [facility] [place] [address] * TSH (05/22/2024 2:32 PM FIELD MARKETING DIRECTOR) [facility] Thyroid Stimulating Hormone 1.75 0.30 - 4.20 mcIUnit/mL Comment:Testing performed by : [facility], [address] [place]., [address] Blood 05/22/2024 2:32 PM FIELD MARKETING DIRECTOR 05/22/2024 8:02 PM FIELD MARKETING DIRECTOR Zayda Quintero DO LAB BLOOD ORDERABLES Fi nal Result Performing Organization Address [facility] Co de Phone Number MAXIMINO PRYOR [address] [place] [address] * LH (05/22/2024 2:32 PM FIELD MARKETING DIRECTOR) LH 5.7 IUnits/L Comment: Interpretive Data Males: ??Adults: ? 1.7 - 8.6 ?? IUnits/L Females: ?Follicular: ? 2.4 - 12.6 ??IUnits/L ??Ovulation: ? 14.0 - 95.6 ??IUnits/L ?Luteal: ? 1.0 - 11.4 ??IUnits/L ??Postmenopausal: 7.7 - 58.5 ??IUnits/L Current interpretive data was last revised on 2018. Testing performed by: [facility], [address] [place]., [address] Blood 05/22/2024 2:32 PM FIELD MARKETING DIRECTOR 05/23/2024 9:52 AM FIELD MARKETING DIRECTOR Zayda Quintero DO LAB BLOOD ORDERABLES Fi nal Result Performing Organization Address [facility] Co de Phone Number MAXIMINO PRYOR [address] [place] [address] * Follicle stimulating hormone (05/22/2024 2:32 PM FIELD MARKETING DIRECTOR) FSH 4.6 IUnits/L Comment: Interpretive Data Male: Adults: ?1.5 - 12.4 IUnits/L Female: ?? Follicular: ?3.5 - 12.5 IUnits/L Ovulation: ? 4.7 - 21.5 IUnits/L Luteal: ?1.7 - 7.7 IUnits/L Postmenopausal: 25.8 - 134.8 IUnits/L Current interpretive data was last revised 2015. Testing performed by: [facility], [address] [place]., [address] Blood 05/22/2024 2:32 PM FIELD MARKETING DIRECTOR 05/23/2024 9:52 AM FIELD MARKETING DIRECTOR Zayda Quintero DO LAB BLOOD ORDERABLES Fi nal Result MAX[facility] [address] Department of Laboratories [place], [place] [id number] * MRI Brain W WO Contrast (05/22/2024 10:29 AM FIELD MARKETING DIRECTOR) Anatomical Region Laterality Modality Head and Neck N/A Magnetic Resonan ce 05/22/2024 1:17 PM FIELD MARKETING DIRECTOR Narrative 05/22/2024 1:33 PM FIELD MARKETING DIRECTOR EXAM DESCRIPTION: ?? MRI BRAIN W WO CONTRAST REASON FOR STUDY: ?? Headache, nausea, and vomiting. ??Nausea and vomiting are ongoing. ??Headache is new. ??Insurance prefers MRI over CT scan. ?? Pt reported symptoms including: weight loss, nausea, vomiting, migraines, vision loss, fainting, acid reflux, headaches, weakness, muscle aches and pains, bodily tiredness , inability to sleep, and an overall loss of energy. ?? Symptoms occurring since she had her child 2 years ago- worsened in the last year. ?? TECHNIQUE: Multiplanar imaging includes noncontrast T1, T2, FLAIR, diffusion with ADC map and post contrast T1 sequences. Additional sequence(s) sensitive to blood products. ??Images stored on PACS. ? CONTRAST TYPE/DOSE: ?? 8mL of GADOTERATE MEGLUMINE 0.5 MMOL/ML INTRAVENOUS SOLUTION (SO) ??injected via ?? intravenous COMPARISON: ?? None available FINDINGS: CEREBRUM: ?? No hemorrhage, edema, or mass effect. ??No abnormal enhancement. ? WHITE MATTER: ?? Normal. POSTERIOR FOSSA: ?? Brainstem and cerebellum appear unremarkable. ??No abnormal enhancement. DIFFUSION IMAGING: ?? No recent infarction. EXTRAAXIAL SPACES: ?? No hemorrhage. ??No mass or abnormal enhancement. BRAIN VOLUME: ?? Within normal limits for age. PITUITARY: ?? Unremarkable. VASCULATURE: ?? No flow disturbance identified. ORBITS: ?? No masses. Globes normal. PARANASAL SINUSES AND MASTOIDS: ?? There is trace left maxillary sinus mucosal thickening. ??Mastoids are grossly unremarkable. OTHER: ?? No other significant finding. IMPRESSION: No acute intracranial findings. THIS IS AN ELECTRONICALLY VERIFIED FINAL REPORT 05/22/2024 1:33 PM - Electronically signed by ??Germán De La Cruz M.D. MZ: GISELL D: ??05/22/2024 1:33 PM T: ??05/22/2024 1:33 PM Report ID: [id number] Reading Location: ??[id number] Procedure Note Germán De La Cruz MD - 05/22/2024 EXAM DESCRIPTION: MRI BRAIN W WO CONTRAST REASON FOR STUDY: Headache, nausea, and vomiting. Nausea and vomitingare ongoing. Headache is new. Insurance prefers MRI over CT scan. Pt reported symptoms including: weight loss, nausea, vomiting, migraines, vision loss, fainting, acid reflux, headaches, weakness, muscle aches and pains, bodily tiredness , inability to sleep, and an overall loss ofenergy. Symptoms occurring since she had her child 2 years ago- worsened in thelast year. TECHNIQUE: Multiplanar imaging includes noncontrast T1, T2, FLAIR,diffusion with ADC map and post contrast T1 sequences. Additional sequence(s)sensitive to blood products. Images stored on PACS. CONTRAST TYPE/DOSE: 8mL of GADOTERATE MEGLUMINE 0.5 MMOL/ML INTRAVENOUS SOLUTION (SO) injected via intravenous COMPARISON: None available FINDINGS: CEREBRUM: No hemorrhage, edema, or mass effect. No abnormalenhancement. WHITE MATTER: Normal. POSTERIOR FOSSA: Brainstem and cerebellum appear unremarkable. Noabnormal enhancement. DIFFUSION IMAGING: No recent infarction. EXTRAAXIAL SPACES: No hemorrhage. No mass or abnormal enhancement. BRAIN VOLUME: Within normal limits for age. PITUITARY: Unremarkable. VASCULATURE: No flow disturbance identified. ORBITS: No masses. Globes normal. PARANASAL SINUSES AND MASTOIDS: There is trace left maxillary sinusmucosal thickening. Mastoids are grossly unremarkable. OTHER: No other significant finding. IMPRESSION: No acute intracranial findings. THIS IS AN ELECTRONICALLY VERIFIED FINAL REPORT 05/22/2024 1:33 PM - Electronically signed by Germán De La Cruz M.D. MZ: GISELL Report ID: [id number] Reading Location: [place] [address] Brandon Quintero PELLETISING EXTRUDER OPERATOR IMG MRI PROCEDURES Final Result * eGFR (05/09/2024 10:22 AM FIELD MARKETING DIRECTOR) eGFR >90 >=60 mL/min/1. 73 m2 Comment: Interpretive Data Reference Interval Normal ?>/= 90 mL/min/1.73m2 Mildly decreased* ? 60 - 89 mL/min/1.73m2 Mildly to moderately decreased ?45 - 59 mL/min/1.73m2 Moderately to severely decreased ??30 - 44 mL/min/1.73m2 Severely decreased ?15 - 29 mL/min/1.73m2 Kidney Failure ?< 15 ??mL/min/1.73m2 *Relative to young adult level Estimated glomerular filtration rate is determined by the 2020 CKD-EPI equation recommended by the National Kidney Foundation (A Unifying Approach to GFR Estimation: Recommendations of the NKF-ASK Task Force on Reassessing the Inclusion of Race in Diagnosing Kidney Disease, JASN 2020). The CKD-EPI equation should not be used for patients with unstable renal function and has not been validated in children and those over 70. Current interpretive data was last reviewed 2021. Blood 05/09/2024 10:2 2 AM FIELD MARKETING DIRECTOR 05/09/2024 11:00 AM FIELD MARKETING DIRECTOR us Malena Olivera MD LAB BLOOD ORDERABLES Final Resul t [facility] ([place]) 1 [facility] [place] [address] * Differential, auto (05/09/2024 10:22 AM FIELD MARKETING DIRECTOR) Neutrophil abs 4.7 1.5 - 6.5 K/cumm Imm gran abs 0.0 0.0 - 0.1 K/cumm [facility] ([place]) Lymphocyte abs 1.8 0.8 - 3.3 K/cumm [facility] ([place]) Monocyte abs 0.5 0.2 - 0.8 K/cumm [facility] ([place]) Eosinophil abs 0.1 0.0 - 0.5 K/cumm [facility] ([place]) Basophil abs 0.1 0.0 - 0.1 K/cumm [facility] ([place]) Neutrophil pct 64.9 % [facility] ([place]) Comment: Interpretive Data Percent cell count reference ranges are not reported, since discordance with absolute values may lead to misinterpretation of CBC data. Current Interpretive Data was last revised on 2017. Imm gran pct 0.3 % [facility] ([place]) Comment: Interpretive Data Percent cell count reference ranges are not reported, since discordance with absolute values may lead to misinterpretation of CBC data. Current Interpretive Data was last revised on 2017. Lymphocyte pct 24.5 % [facility] ([place]) Comment: Interpretive Data Percent cell count reference ranges are not reported, since discordance with absolute values may lead to misinterpretation of CBC data. Current Interpretive Data was last revised on 2017. Monocyte pct 7.3 % [facility] ([place]) Comment: Interpretive Data Percent cell count reference ranges are not reported, since discordance with absolute values may lead to misinterpretation of CBC data. Current Interpretive Data was last revised on 2017. Eosinophil pct 1.9 % [facility] ([place]) Comment: Interpretive Data Percent cell count reference ranges are not reported, since discordance with absolute values may lead to misinterpretation of CBC data. Current Interpretive Data was last revised on 2017. Basophil pct 1.1 % [facility] ([place]) Comment: Interpretive Data Percent cell count reference ranges are not reported, since discordance with absolute values may lead to misinterpretation of CBC data. Current Interpretive Data was last revised on 2017. Blood 05/09/2024 10:2 2 AM FIELD MARKETING DIRECTOR 05/09/2024 11:00 AM FIELD MARKETING DIRECTOR us Malena Olivera MD LAB BLOOD ORDERABLES Final Resul t [facility] ([place]) 1 [facility] [place] [address] * (ABNORMAL) CBC with auto differential (05/09/2024 10:22 AM FIELD MARKETING DIRECTOR) WBC 7.3 3.8 - 9.9 K/cumm Hgb 13.7 11.9 - 15.5 g/dL [facility] ([place]) Hct 41.6 35.6 - 45.5 % [facility] ([place]) Plt 390 150 - 400 K/cumm [facility] ([place]) MPV 8.7(L) 9.1 - 12.3 fL [facility] ([place]) RBC 4.74 3.90 - 5.20 M/cumm [facility] ([place]) MCV 87.8 81.3 - 96.4 fL [facility] ([place]) MCH 28.9 27.1 - 33.3 pg [facility] ([place]) MCHC 32.9 32.3 - 35.7 g/dL [facility] ([place]) RDW CV 14.0 11.1 - 14.9 % [facility] ([place]) RDW SD 44.9 35.7 - 48.1 fL [facility] ([place]) NRBC abs 0.00 0.00 - 0.01 K/cumm [facility] ([place]) Blood 05/09/2024 10:2 2 AM FIELD MARKETING DIRECTOR 05/09/2024 11:00 AM FIELD MARKETING DIRECTOR us Malena Olivera MD LAB BLOOD ORDERABLES Final Resul t Performing Organization Address [facility] de Phone Number [facility] ([place]) [address] [facility] [place] [address] * TSH (05/09/2024 10:22 AM FIELD MARKETING DIRECTOR) Thyroid Stimulating Hormone 1.81 0.30 - 4.20 mcIUnit/mL Blood 05/09/2024 10:2 2 AM FIELD MARKETING DIRECTOR 05/09/2024 11:00 AM FIELD MARKETING DIRECTOR us Malena Olivera MD LAB BLOOD ORDERABLES Final Resul t Performing Organization Address [facility] Phone Number [facility] ([place]) [address] [facility] [place] [address] * T4, free (05/09/2024 10:22 AM FIELD MARKETING DIRECTOR) Free T4 1.26 0.90 - 1.70 ng/dL Blood 05/09/2024 10:2 2 AM FIELD MARKETING DIRECTOR 05/09/2024 11:00 AM FIELD MARKETING DIRECTOR us Malena Olivera MD LAB BLOOD ORDERABLES Final Resul t Performing Organization Address [facility] de Phone Number [facility] ([place]) [address] [facility] [place] [address] * Phosphorus (05/09/2024 10:22 AM FIELD MARKETING DIRECTOR) Phosphorus, pl 3.0 2.3 - 4.5 mg/dL Blood 05/09/2024 10:2 2 AM FIELD MARKETING DIRECTOR 05/09/2024 11:00 AM FIELD MARKETING DIRECTOR us Malena Olivera MD LAB BLOOD ORDERABLES Final Resul t [facility] ([place]) [address] [facility] [place] [address] * Magnesium (05/09/2024 10:22 AM FIELD MARKETING DIRECTOR) Magnesium 2.1 1.4 - 2.5 mg/dL Blood 05/09/2024 10:2 2 AM FIELD MARKETING DIRECTOR 05/09/2024 11:00 AM FIELD MARKETING DIRECTOR us Malena Olivera MD LAB BLOOD ORDERABLES Final Resul t [facility] ([place]) [address] [facility] [place] [address] * Lipase (05/09/2024 10:22 AM FIELD MARKETING DIRECTOR) Lipase 25 10 - 99 Units/L Blood 05/09/2024 10:2 2 AM FIELD MARKETING DIRECTOR 05/09/2024 11:00 AM FIELD MARKETING DIRECTOR us Malena Olivera MD LAB BLOOD ORDERABLES Final Resul t Performing Organization Address City/[facility]/ZIP Co de Phone Number [facility] ([place]) 1 [facility] [place] [address] * Amylase (05/09/2024 10:22 AM FIELD MARKETING DIRECTOR) Amylase 67 30 - 99 Units/L Blood 05/09/2024 10:2 2 AM FIELD MARKETING DIRECTOR 05/09/2024 11:00 AM FIELD MARKETING DIRECTOR us Malena Olivera MD LAB BLOOD ORDERABLES Final Resul t [facility] ([place]) [address] [facility] [place] [address] * (ABNORMAL) Comprehensive metabolic panel (05/09/2024 10:22 AM FIELD MARKETING DIRECTOR) Sodium 139 135 - 145 mmol/L Potassium, pl 4.0 3.3 - 4.9 mmol/L [facility] ([place]) Chloride 103 97 - 110 mmol/L [facility] ([place]) CO2 25 22 - 32 mmol/L [facility] ([place]) Anion gap 11 2 - 15 mmol/L [facility] ([place]) BUN 10 6 - 25 mg/dL [facility] ([place]) Creatinine 0.67 0.60 - 1.10 mg/dL [facility] ([place]) Glucose 94 70 - 199 mg/dL [facility] ([place]) Comment: Interpretive Data Fasting glucose >/= 126 mg/dl is diagnostic for diabetes. ?? Fasting is defined as no caloric intake for at least 8 hours. Fasting glucose between 100 mg/dl to 125 mg/dl is diagnostic of prediabetes. In a patient with classic symptoms of hyperglycemia or hyperglycemic crisis, a random glucose >/= 200 mg/dl is diagnostic for diabetes. In the absence of unequivocal hyperglycemia, results should be confirmed by repeat testing. The classification and Diagnosis of Diabetes Diabetes Care 2021; 46: S19-S40. Current interpretive data was last revised 2022. Calcium 9.5 8.5 - 10.3 mg/dL [facility] ([place]) Bilirubin, total 0.5 0.1 - 1.2 mg/dL [facility] ([place]) Protein, pl 7.7 6.5 - 8.5 g/dL [facility] ([place]) Albumin 5.1(H) 3.5 - 5.0 g/dL [facility] ([place]) Alk phos 66(L) 70 - 260 Units/L [facility] ([place]) ALT 13 7 - 45 Units/L [facility] ([place]) AST 22 10 - 45 Units/L [facility] ([place]) Blood 05/09/2024 10:2 2 AM FIELD MARKETING DIRECTOR 05/09/2024 11:00 AM FIELD MARKETING DIRECTOR us Malena Olivera MD LAB BLOOD ORDERABLES Final Resul t [facility] ([place]) 1 [facility] Department [place] [address] * eGFR (04/25/2024 2:23 PM FIELD MARKETING DIRECTOR) [facility] eGFR >90 >=60 mL/min/1. 73 m2 Comment: Interpretive Data Reference Interval Normal ?>/= 90 mL/min/1.73m2 Mildly decreased* ? 60 - 89 mL/min/1.73m2 Mildly to moderately decreased ?45 - 59 mL/min/1.73m2 Moderately to severely decreased ??30 - 44 mL/min/1.73m2 Severely decreased ?15 - 29 mL/min/1.73m2 Kidney Failure ?< 15 ??mL/min/1.73m2 *Relative to young adult level Estimated glomerular filtration rate is determined by the 2020 CKD-EPI equation recommended by the National Kidney Foundation (A Unifying Approach to GFR Estimation: Recommendations of the NKF-ASK Task Force on Reassessing the Inclusion of Race in Diagnosing Kidney Disease, JASN 2020). The CKD-EPI equation should not be used for patients with unstable renal function and has not been validated in children and those over 70. Current interpretive data was last reviewed 2021. Blood 04/25/2024 2:23 PM FIELD MARKETING DIRECTOR 04/25/2024 3:42 PM FIELD MARKETING DIRECTOR Andrew Pang MD LAB BLOOD ORDERABLES Johnna robles Result [facility] ([place]) 1 [facility] Department of Laboratories [place], [place] [id number] * Basic metabolic panel (04/25/2024 2:23 PM FIELD MARKETING DIRECTOR) [facility] Sodium 136 135 - 145 mmol/L Potassium, pl 4.6 3.3 - 4.9 mmol/L [facility] ([place]) Chloride 99 97 - 110 mmol/L [facility] ([place]) CO2 24 22 - 32 mmol/L [facility] ([place]) Anion gap 12 2 - 15 mmol/L [facility] ([place]) BUN 7 6 - 25 mg/dL [facility] ([place]) Creatinine 0.63 0.60 - 1.10 mg/dL [facility] [place] Glucose 78 70 - 199 mg/dL [facility] ([place]) Comment: Interpretive Data Fasting glucose >/= 126 mg/dl is diagnostic for diabetes. ?? Fasting is defined as no caloric intake for at least 8 hours. Fasting glucose between 100 mg/dl to 125 mg/dl is diagnostic of prediabetes. In a patient with classic symptoms of hyperglycemia or hyperglycemic crisis, a random glucose >/= 200 mg/dl is diagnostic for diabetes. In the absence of unequivocal hyperglycemia, results should be confirmed by repeat testing. The classification and Diagnosis of Diabetes Diabetes Care 2021; 46: S19-S40. Current interpretive data was last revised 2022. Calcium 9.5 8.5 - 10.3 mg/dL [facility] ([place]) Blood 04/25/2024 2:23 PM FIELD MARKETING DIRECTOR 04/25/2024 3:42 PM FIELD MARKETING DIRECTOR us Andrew Pang MD LAB BLOOD ORDERABLES Johnna margaret Result [facility] ([place]) 1 [facility] [place] [address] * (ABNORMAL) Calprotectin, fecal (04/14/2024 8:00 AM FIELD MARKETING DIRECTOR) Calprotectin, fecal 54.4(H) <50.0 (Normal) mcg/g [facility] ref Lab Comment: Interpretation: Borderline (50.0-120 mcg/g) Test Performed by: [facility] [address] [place], [place] [id number] Professor Of Economics: Diana Odonnell Ph.D.; CLIA# [id number] Stool 04/14/2024 8:00 AM FIELD MARKETING DIRECTOR 04/14/2024 11:21 AM FIELD MARKETING DIRECTOR us Brandon Quintero PELLETISING EXTRUDER OPERATOR LAB BODY FLUIDS AND STOOLS ORDERABLES Final Result Performing Organization Address [facility] Co de Phone Number [facility] ([place]) [address] [place] [address] [facility] ref [facility] * Pancreatic elastase, stool (04/14/2024 8:00 AM FIELD MARKETING DIRECTOR) Pancreatic elastase, stool 219 >200 (Normal) mcg/g [facility] ref Lab Comment: Test Performed by: [facility] [address] [place] [address] Professor Of Economics: Diana Odonnell Ph.D.; CLIA# [id number] Stool 04/14/2024 8:00 AM FIELD MARKETING DIRECTOR 04/14/2024 11:21 AM FIELD MARKETING DIRECTOR Brandon Quintero NP LAB BODY FLUIDS AND STOOLS ORDERABLES Final Result Performing Organization Address [facility] Co de Phone Number [facility] ([place]) 1 [facility] [place] [address] [facility] ref [facility] * H. pylori antigen, stool Stool (04/14/2024 8:00 AM FIELD MARKETING DIRECTOR) H. pylori Ag, stool Negative Negative Comment: Interpretative Data Testing performed at the [facility] using the Curian HpSA lateral flow immunoassay that detects Helicobacter pylori antigen in feces. This test is FDA cleared and its performance characteristics have been verified by the performing laboratory. ??False negative H. pylori antigen results may occur in patients on antimicrobials, proton pump inhibitors, or bismuth preparations; if clinically indicated, testing should be repeated on a new specimen two weeks after discontinuing these treatments. Interpretative data last revised June 2020. Testing performed by: [facility], 1 [facility] [place]., [address] Stool 04/14/2024 8:00 AM FIELD MARKETING DIRECTOR 04/14/2024 3:46 PM FIELD MARKETING DIRECTOR Brandon Quintero NP LAB MICROBIOLOGY - GENERAL ORDERABLES Final Result Performing Organization Address City/State/[facility] de Phone Number [facility] ([place]) [address] [facility] [place] [address] * Fecal fat, quantitative (04/14/2024 8:00 AM FIELD MARKETING DIRECTOR) Weight, fecal 38 g [facility] Period, fecal Random H [facility] ([place]) Comment: More reliable results can be obtained from a timed collection. 48 and 72 hour collections will give the most reliable results. Percent Fat >20% in a random collection is suggestive of a fat malabsorption disorder and should be confirmed with a timed collection. Fat solids, 24 hr fecal Not Reported [facility] ([place]) Fat, percent of solids, fecal 14 <20 [facility] ([place]) Comment: ADDITIONAL INFORMATION This test was developed and its performance characteristics determined by [facility] in a manner consistent with CLIA requirements. This test has not been cleared or approved by the U.S. Food and Drug Administration. Test Performed by: [facility] [place] [address] Professor Of Economics: Diana Odonnell Ph.D.; CLIA# [id number] Stool 04/14/2024 8:00 AM FIELD MARKETING DIRECTOR 04/14/2024 1:39 PM FIELD MARKETING DIRECTOR Brandon Quintero PELLETISING EXTRUDER OPERATOR LAB BODY FLUIDS AND STOOLS ORDERABLES Final Result Performing Organization Address [facility] Co de Phone Number [facility] ([place]) [address] [facility] [place] [address] [facility] * Stool culture Stool Rectum (04/14/2024 8:00 AM FIELD MARKETING DIRECTOR) Direct Specimen Exam Shiga Toxin Testing: Antigen detection assay for Shiga-toxin NEGATIVE for Shiga Toxin 1 and Shiga Toxin 2. Comment:Testing performed by : [facility], 1 [facility], [place]., [address] Report Final Report: No growth of enteric bacterial pathogens [facility] ([place]) Comment:Testing performed by : [facility], 1 [facility], [place]., [address] Stool (Rectum) 04/14/2024 8: 00 AM FIELD MARKETING DIRECTOR 04/14/2024 3:45 PM FIELD MARKETING DIRECTOR Narrative [facility] ([place]) - 04/18/2024 8:48 AM FIELD MARKETING DIRECTOR Received in transport media. Testing performed by [facility] ([phone]). Routine stool cultures include procedures to detect Salmonella, Shigella, Edwardsiella, Aeromonas, Pleisiomonas, Campylobacter, Yersinia, E. coli O157, and Shiga-like toxins. ?? Vibrio is cultured only upon special request. ??If Vibrio is suspected, please call the laboratory at [phone]. Interpretive data was last updated October 16, 2016. Brandon Quintero NP LAB MICROBIOLOGY - GENERAL ORDERABLES Final Result [facility] ([place]) 1 [facility] [place] [address] * MRI Abdomen MRCP W WO Contrast (04/10/2024 8:27 AM CDT) Anatomical Region Laterality Modality Body N/A Magnetic Resonan ce 04/10/2024 8:43 AM CDT Narrative 04/10/2024 8:51 AM CDT EXAM DESCRIPTION: ?? MRI ABDOMEN MRCP W WO CONTRAST REASON FOR STUDY: ?? Continued RUQ pain s/p cholecystectomy with CT showing post surgical changes. ?? Nausea ,vomiting since 2022, abdominal pain , gall bladder removed ?? TECHNIQUE: MRI of the abdomen performed ?? without and with ??intravenous contrast according to the ??pancreas ??protocol. All images stored on PACS. ? CONTRAST TYPE/DOSE: ?? 10mL of GADOTERATE MEGLUMINE 0.5 MMOL/ML INTRAVENOUS SOLUTION (SO) ??injected via ?? intravenous COMPARISON: ?? CT abdomen pelvis dated March 15, 2024 FINDINGS: LOWER CHEST: ?? No effusion. LIVER: ?? Normal size. ??No mass. No cysts. GALLBLADDER: ??Surgically absent BILE DUCTS: ?? No intrahepatic or extrahepatic ductal dilatation. ?? The common bile duct measures a maximum of 0.3 cm. ??No choledocholithiasis. SPLEEN: ?? Normal size. ??No focal lesions. PANCREAS: ?? No masses. No adjacent inflammation or peripancreatic fluid collections. Pancreatic duct not dilated ADRENALS: ?? Normal. KIDNEYS/URINARY TRACT: ?? No solid masses. No cysts. No hydronephrosis or hydroureter. ??Symmetric enhancement. ?? GI: ?? No visualized abnormality. PERITONEUM: ?? No ascites. RETROPERITONEUM: ?? No mass or adenopathy. VASCULATURE: ?? No abdominal aortic aneurysm. MUSCULOSKELETAL: ?? No acute findings. OTHER: ?? Small fat containing umbilical hernia.. IMPRESSION: No acute abnormality. Small fat containing umbilical hernia. THIS IS AN ELECTRONICALLY VERIFIED FINAL REPORT 04/10/2024 8:51 AM - Electronically signed by ??Justo Winter M.D. JA: LALIT D: ??04/10/2024 8:51 AM T: ??04/10/2024 8:51 AM Report ID: [id number] Reading Location: ??[id number] Procedure Note Justo Winter MD - 04/10/2024 EXAM DESCRIPTION: MRI ABDOMEN MRCP W WO CONTRAST REASON FOR STUDY: Continued RUQ pain s/p cholecystectomy with CT showing post surgical changes. Nausea ,vomiting since 2022, abdominal pain , gall bladder removed TECHNIQUE: MRI of the abdomen performed without and with intravenous contrast according to the pancreas protocol. All images stored on PACS. CONTRAST TYPE/DOSE: 10mL of GADOTERATE MEGLUMINE 0.5 MMOL/ML INTRAVENOUS SOLUTION (SO) injected via intravenous COMPARISON: CT abdomen pelvis dated March 15, 2024 FINDINGS: LOWER CHEST: No effusion. LIVER: Normal size. No mass. No cysts. GALLBLADDER: Surgically absent BILE DUCTS: No intrahepatic or extrahepatic ductal dilatation. Thecommon bile duct measures a maximum of 0.3 cm. No choledocholithiasis. SPLEEN: Normal size. No focal lesions. PANCREAS: No masses. No adjacent inflammation or peripancreatic fluid collections. Pancreatic duct not dilated ADRENALS: Normal. KIDNEYS/URINARY TRACT: No solid masses. No cysts. No hydronephrosis or hydroureter. Symmetric enhancement. GI: No visualized abnormality. PERITONEUM: No ascites. RETROPERITONEUM: No mass or adenopathy. VASCULATURE: No abdominal aortic aneurysm. MUSCULOSKELETAL: No acute findings. OTHER: Small fat containing umbilical hernia.. IMPRESSION: No acute abnormality. Small fat containing umbilical hernia. THIS IS AN ELECTRONICALLY VERIFIED FINAL REPORT 04/10/2024 8:51 AM - Electronically signed by Justo Winter M.D. JA: LALIT Report ID: [id number] Reading Location: [id number] Brandon Quintero NP IMG MRI PROCEDURES Final Result * N. gonorrhoeae/C. trachomatis Amplification Urine (08/01/2021 4:51 PM FIELD MARKETING DIRECTOR) C. trachomatis Not Detected Not Detected MAXIMINO MELLO Comment:Testing performed by : [facility], [address] [place] [address]., [id number] N. gonorrhoeae Not Detected Not Detected MAXIMINO MELLO Comment: Interpretive Data Testing performed by the [facility]. This assay detects Chlamydia trachomatis and Neisseria gonorrhoeae by nucleic acid amplification testing (NAAT). This test is approved by the [place] Food and Drug Administration and the performance characteristics have been verified by the laboratory. The performance characteristics of this test have not been evaluated in individuals less than 14 years of age. Current Interpretive Data was last revised on 2019. Testing performed by: [facility], [address] [place] [address]., [id number] Urine (None) 08/01/2021 4:51 PM FIELD MARKETING DIRECTOR 08/01/2021 5:08 PM FIELD MARKETING DIRECTOR Kuldeep Mccormick MD LAB MICROBIOLOGY - [facility] AL ORDERABLES Final Result MAXIMINO MELLO [address] [facility] Department [place] [address] from Last 3 Months or Most Recently Relevant to Health Maintenance Insurance [facility] Advance Directives For more information, please contact: [phone] * Full Code (Latest Code Status on File) Date Activated Date Inactivated Comments 04/02/2024 8:21 AM 04/02/2024 2:05 PM * Full Code Date Activated Date Inactivated Comments 04/02/2024 8:21 AM 04/02/2024 8:21 AM Care Teams Field Geologist Relationship Specialty Start Date End Date Deonte Cheng MD PCP - General Family Medicine 05/30/24
--- OUTSIDE RECORDS SUMMARY | 2024-07-09 13:19 | XMS_ITS ---
Author Organization [facility] Address [address] [place] [address] Care Team Providers Care Hr Shared Services Consultant Name Role Phone Jenn Somers Primary Care Provider [phone] REASON FOR VISIT Qelbree Social History Sex Assigned At : Social History Observation Description Sex Assigned At Female Encounters Encounter Location Date Provider Diagnosis [facility] [address] [place] [address] 07/08/2024 Jenn Somers Plan Of Treatment No Information Progress Notes * LIDIA AshlyneDOB:[birth year] (18 yo F)Acc No.[id number]:07/08/2024 Patient:?Natali MURILLO :2005???Age:18 Y???Sex:Female Address:[address] [place], [place] [address], [address] * true * Date:? Generated for Seani jose r/Alli/eTransmitting on:?07/09/2024 01:19 PM PHARMACY CLINICAL COORDINATOR
--- OUTSIDE RECORDS SUMMARY | 2024-07-09 13:19 | XMS_ITS | Referral Summary ---
Author Organization [facility] Address [address] [place] [address] Care Team Providers Care Telephone Information Clerk Name Role Phone Deonte Cheng MD Primary Care Provider [phone] Encounters Date Type Department Care Team Description 07/03/2024 2:45 PM SPLUNK ARCHITECT Office Visit [facility] Gastro[facility]ology at [place] [address] [facility] [address] [place] [address] Brandon Quintero NP Nausea and vomiting, unspecified vomiting type (Primary Dx); Unintentional weight loss; PTSD (post-traumatic stress disorder); Irritable bowel syndrome with both constipation and diarrhea; Gastroesophageal reflux disease with esophagitis without hemorrhage; Chronic superficial gastritis without bleeding; S/P cholecystectomy 06/27/2024 9:46 AM SPLUNK ARCHITECT - 06/27/2024 11:59 PM SPLUNK ARCHITECT Hospital Encounter [facility] [address] [facility] [address] [place] [address] Norm, Verna Dyer RD Nausea and vomiting, unspecified vomiting type Discharge Disposition: Discharge to home or self care 06/24/2024 1:15 PM SPLUNK ARCHITECT Office Visit [facility] [place] [facility] [address] [place] [address] Zayda Quintero DO Dysmenorrhea (Primary Dx); Secondary oligomenorrhea; Nausea and vomiting, unspecified vomiting type; Unintentional weight loss 06/06/2024 Telephone [facility] [place] [facility] [address] [place] [address] Zayda Quintero DO Patient issue/concern 05/30/2024 Orders Only [facility] [address] [place] [address] Zayda Quintero, DO 05/29/2024 Telephone [facility] [address] [place] [address] Zayda Quintero, Medication Issue 05/23/2024 Orders Only [facility] 1 [place] [address] Zayda Quintero, DO 05/23/2024 Telephone [facility] [address] [place] [address] Kayla Henderson LPN 05/22/2024 3:30 PM SPLUNK ARCHITECT Lab [facility] [address] [place] [address] Oligomenorrhea, unspecified type 05/22/2024 Orders Only [facility] [address] [place] [address] Zayda Quintero DO Oligomenorrhea, unspecified type (Primary Dx) 05/22/2024 2:45 PM SPLUNK ARCHITECT Ancillary Procedure [facility] [address] [place] [address] Ovarian cyst, bilateral; Pelvic pain in female 05/22/2024 Orders Only [facility] [address] [place] [address] Faby Gibson MA Ovarian cyst, bilateral (Primary Dx); Pelvic pain syndrome; Pelvic pain in female 05/22/2024 8:53 AM SPLUNK ARCHITECT - 05/22/2024 11:59 PM SPLUNK ARCHITECT Hospital Encounter [facility] [address] [place] [address] Nausea and vomiting, unspecified vomiting type; Nonintractable headache, unspecified chronicity pattern, unspecified headache type Discharge Disposition: Discharge to home or self care 05/22/2024 1:45 PM SPLUNK ARCHITECT Office Visit [facility] Medical [facility] [address] [facility] [address] [place] [address] Zayda Quintero DO Secondary oligomenorrhea (Primary Dx); Pelvic pain; Cyst of ovary, unspecified laterality 05/13/2024 Orders Only [facility] Gastroenterology at [address], [place] [address] Brandon Quintero NP Dizziness (Primary Dx); Syncope, unspecified syncope type; Nausea and vomiting, unspecified vomiting type 05/09/2024 10:15 AM SPLUNK ARCHITECT Lab [address] [address] 05/06/2024 Telephone [facility] Gastroenterology at [address] [place] [phone] Jacky Gudino MD 05/06/2024 10:30 AM SPLUNK ARCHITECT Office Visit [facility] Gastroenterology at [address], [place] [address] Brandon Quintero NP Nausea and vomiting, unspecified vomiting type (Primary Dx); Irritable bowel syndrome with both constipation and diarrhea; S/P cholecystectomy; Nonintractable headache, unspecified chronicity pattern, unspecified headache type; Unintentional weight loss; Dizziness; Syncope, unspecified syncope type; Gastroesophageal reflux disease without esophagitis; Chronic superficial gastritis without bleeding; Nonspecific colitis 04/25/2024 2:20 PM SPLUNK ARCHITECT Lab [address] 04/25/2024 Orders Only [address], [place] [phone] Uday Rosenberg MD Nausea and vomiting, unspecified vomiting type (Primary Dx) 04/22/2024 Orders Only [facility] Gastroenterology at [address], [place] [address] Brandon Quintero NP 04/15/2024 Orders Only [facility] Gastroenterology at [address] [place] [address] Brandon Quintero NP Nausea and vomiting, unspecified vomiting type (Primary Dx); Nonintractable headache, unspecified chronicity pattern, unspecified headache type 04/14/2024 Telephone [facility] Gastroenterology at [address] [place] [address] Mary Portillo MA 04/14/2024 8:00 AM SPLUNK ARCHITECT - 04/14/2024 11:59 PM SPLUNK ARCHITECT Hospital Encounter [address] Irritable bowel syndrome with both constipation and diarrhea Discharge Disposition: Discharge to home or self care 04/14/2024 Orders Only [facility] Gastroenterology at [address], [place] [address] Brandon Quintero NP Irritable bowel syndrome with both constipation and diarrhea (Primary Dx) 04/10/2024 7:47 AM CDT - 04/10/2024 11:59 PM CDT Hospital Encounter [facility] [address] [place] [address] Chronic cholecystitis; S/P cholecystectomy; Nausea and vomiting, unspecified vomiting type; RUQ pain; Low serum alkaline phosphatase Discharge Disposition: Discharge to home or self care 04/09/2024 9:30 AM CDT Office Visit [facility] Gastroenterology at [address], [place] [address] Brandon Quintero NP Nausea and vomiting, unspecified vomiting type (Primary Dx); Nonintractable headache, unspecified chronicity pattern, unspecified headache type; Irritable bowel syndrome with both constipation and diarrhea; S/P cholecystectomy; RUQ pain; Unintentional weight loss; Blood in stool; Hiatal hernia; Periumbilical hernia; Chronic superficial gastritis without bleeding; Gastroesophageal reflux disease with esophagitis without hemorrhage; Nonspecific colitis from Last 3 Months Allergies No known active allergies Medications dicyclomine [...] Gastric distention 03/24/2024 Acute cholecystitis 02/22/2024 03/24/20 24 BMI less than 19,adult 02/07/202403/24 Weight loss 02/07/2024 03/24/2024 Blood in stool 02/07/2024 03/24/2024 Immunizations Name Administration Dates Next Due DTaP [...] Conjugate, Unspecified 12/11,07/21/2005,04/27/2005,02/23 Tdap 08/16/2022,10/12/2015 Varicella 02/04/2009,04/05/2006 Social History Tobacco Use Types Packs/Day [...] Comments Blood Pressure 127/85 07/03/2024 2:44 PM SPLUNK ARCHITECT Pulse 83 07/03/2024 2:44 PM SPLUNK ARCHITECT Temperature 36.6 ??C (97.8 ??F) 04/02/2024 9:47 AM CD T Respiratory Rate 16 04/02/2024 9:47 AM CDT Oxygen Saturation 95% 05/06/2024 10:41 AM SPLUNK ARCHITECT Inhaled Oxygen Concentration - - Weight 49.6 kg (109 lb 4.8 oz) 06/29/2024 5:10 P M SPLUNK ARCHITECT Height 162.6 cm (5' 4 ) 07/03/2024 2:44 PM SPLUNK ARCHITECT Body Mass Index 18.76 06/29/2024 5:10 PM SPLUNK ARCHITECT Plan of Treatment Not on file Procedures Procedure Name Priority Date/Time Associated Diagnosis Comments US PELVIS W ENDOVAGINAL Schedule Routine, Read Routine (OP Routine) 05/22/2024 3:17 PM SPLUNK ARCHITECT Ovarian cyst, bilateral Pelvic pain in female ESTRADIOL Routine 05/22/2024 2:32 PM SPLUNK ARCHITECT Oligomenorrhea, unspecified type PROLACTIN Routine 05/22/2024 2:32 PM SPLUNK ARCHITECT Oligomenorrhea, unspecified type FOLLICLE STIMULATING HORMONE Routine 05/22/2024 2:32 PM SPLUNK ARCHITECT Oligomenorrhea, unspecified type LUTEINIZING HORMONE (LH) Routine 05/22/2024 2:32 PM SPLUNK ARCHITECT Oligomenorrhea, unspecified type TSH Routine 05/22/2024 2:32 PM SPLUNK ARCHITECT Oligomenorrhea, unspecified type MRI BRAIN W WO CONTRAST Schedule Routine, Read Routine (OP Routine) 05/22/2024 10:29 AM SPLUNK ARCHITECT Nausea and vomiting, unspecified vomiting type Nonintractable headache, unspecified chronicity pattern, unspecified headache type T4, FREE Routine 05/09/2024 10:22 AM SPLUNK ARCHITECT EGFR Routine 05/09/2024 10:22 AM SPLUNK ARCHITECT DIFFERENTIAL AUTO Routine 05/09/2024 10: 22 AM SPLUNK ARCHITECT COMPREHENSIVE METABOLIC PANEL Routine 05/09/2024 10:22 AM SPLUNK ARCHITECT LIPASE Routine 05/09/2024 10:22 AM SPLUNK ARCHITECT AMYLASE Routine 05/09/2024 10:22 AM SPLUNK ARCHITECT CBC WITH AUTO DIFFERENTIAL Routine 05/09/2024 10:22 AM SPLUNK ARCHITECT PHOSPHORUS Routine 05/09/2024 10:22 AM SPLUNK ARCHITECT TSH Routine 05/09/2024 10:22 AM SPLUNK ARCHITECT MAGNESIUM Routine 05/09/2024 10:22 AM SPLUNK ARCHITECT EGFR Routine 04/25/2024 2:23 PM SPLUNK ARCHITECT BASIC METABOLIC PANEL Routine 04/25/2024 2:23 PM SPLUNK ARCHITECT FECAL FAT, QUANTITATIVE Routine 04/14/2024 8:00 AM SPLUNK ARCHITECT PANCREATIC ELASTASE, STOOL Routine 04/14/2024 8:00 AM SPLUNK ARCHITECT Irritable bowel syndrome with both constipation and diarrhea CALPROTECTIN, FECAL Routine 04/14/2024 8 :00 AM SPLUNK ARCHITECT Irritable bowel syndrome with both constipation and diarrhea STOOL CULTURE Routine 04/14/2024 8:00 AM SPLUNK ARCHITECT Irritable bowel syndrome with both constipation and diarrhea H. PYLORI ANTIGEN, STOOL Routine 04/14/2024 8:00 AM SPLUNK ARCHITECT Irritable bowel syndrome with both constipation and diarrhea MRI ABDOMEN MRCP W WO CONTRAST Schedule CEFERINO, Read Routine (Patient lives out of area) 04/10/2024 8:27 AM CDT Chronic cholecystitis S/P cholecystectomy Nausea and vomiting, unspecified vomiting type RUQ pain Low serum alkaline phosphatase N. GONORRHOEAE/C. TRACHOMATIS AMPLIFICATION STAT 08/01/2021 4:51 PM SPLUNK ARCHITECT from Last 3 Months or Most Recently Relevant to Health Maintenance Results * US Pelvis W Endovaginal (05/22/2024 3:17 PM SPLUNK ARCHITECT) Anatomical Region Laterality Modality Pelvis N/A Ultrasound 05/30/2024 9:59 AM SPLUNK ARCHITECT Narrative 05/30/2024 10:06 AM SPLUNK ARCHITECT EXAM DESCRIPTION: ?? US PELVIS W ENDOVAGINAL [...] 10:06 AM - Electronically signed by ??Logan Velasquez M.D. RONALD: RONALD D: ??05/30/2024 10:06 AM T: ??05/30/2024 10:06 AM Report ID: [id number] Reading Location: ??[id number] Procedure Note Ori Velasquez MD - 05/30/2024 [...] 10:06 AM - Electronically signed by Logan Velasquez M.D. RONALD: RONALD Report ID: [id number] Reading Location: [id number] Zayda Quintero DO IMG US PROCEDURES Final Result * Prolactin (05/22/2024 2:32 PM SPLUNK ARCHITECT) Prolactin 6.1 4.8 - 23.3 ng/mL Comment:Testing performed by : [facility], [address] [place] [address]., [id number] Blood 05/22/2024 2:32 PM SPLUNK ARCHITECT 05/22/2024 8:02 PM SPLUNK ARCHITECT Zayda Quintero DO LAB BLOOD ORDERABLES Fi nal Result [facility] [address] [facility] Department [place] [address] * Estradiol (05/22/2024 2:32 PM SPLUNK ARCHITECT) Estradiol 121.0 pg/mL Comment: Interpretive Data Males: 11 ? 43 pg/mL Females: Premenopausal: 31 ? 533 pg/mL Postmenopausal: < 50 pg/mL Patients treated with Fluvestrant (Faslodex) should be tested using an alternate assay such as LC-MS due to potential for cross-reactivity. Estradiol varies widely throughout the menstrual cycle. Current interpretive data was last revised 2024. Testing performed by: [facility], [address] [place] [address]., [address] Blood 05/22/2024 2:32 PM SPLUNK ARCHITECT 05/23/2024 9:52 AM SPLUNK ARCHITECT Zayda Quintero DO LAB BLOOD ORDERABLES Fi nal Result Performing Organization Address [facility] Co de Phone Number [facility] [address] [facility] Department [place] [address] * TSH (05/22/2024 2:32 PM SPLUNK ARCHITECT) Thyroid Stimulating Hormone 1.75 0.30 - 4.20 mcIUnit/mL Comment:Testing performed by : [facility], [address] [place] [address]., [address] Blood 05/22/2024 2:32 PM SPLUNK ARCHITECT 05/22/2024 8:02 PM SPLUNK ARCHITECT Zayda Quintero DO LAB BLOOD ORDERABLES Fi nal Result Performing Organization Address [facility] de Phone Number [facility] [address] [facility] Department of [employer] [place] [place] [address] * LH (05/22/2024 2:32 PM SPLUNK ARCHITECT) LH 5.7 IUnits/L Comment: Interpretive Data Males: ??Adults: ? 1.7 - 8.6 ?? IUnits/L Females: ?Follicular: ? 2.4 - 12.6 ??IUnits/L ??Ovulation: ? 14.0 - 95.6 ??IUnits/L ?Luteal: ? 1.0 - 11.4 ??IUnits/L ??Postmenopausal: 7.7 - 58.5 ??IUnits/L Current interpretive data was last revised on 2018. Testing performed by: [facility], [address] [place]., [address] Blood 05/22/2024 2:32 PM SPLUNK ARCHITECT 05/23/2024 9:52 AM SPLUNK ARCHITECT Zayda Quintero DO LAB BLOOD ORDERABLES Fi nal Result Performing Organization Address [facility] de Phone Number [facility] [address] [facility] [employer] [place], [place] [id number] * Follicle stimulating hormone (05/22/2024 2:32 PM SPLUNK ARCHITECT) FSH 4.6 IUnits/L Comment: Interpretive Data Male: Adults: ?1.5 - 12.4 IUnits/L Female: ?? Follicular: ?3.5 - 12.5 IUnits/L Ovulation: ? 4.7 - 21.5 IUnits/L Luteal: ?1.7 - 7.7 IUnits/L Postmenopausal: 25.8 - 134.8 IUnits/L Current interpretive data was last revised 2015. Testing performed by: [facility], [address] [place]., [address] Blood 05/22/2024 2:32 PM SPLUNK ARCHITECT 05/23/2024 9:52 AM SPLUNK ARCHITECT Zayda Quintero DO LAB BLOOD ORDERABLES Fi nal Result Performing Organization Address [facility] de Phone Number [facility] [address] [address] [facility] [employer] [place] [address] * MRI Brain W WO Contrast (05/22/2024 10:29 AM SPLUNK ARCHITECT) Anatomical Region Laterality Modality Head and Neck N/A Magnetic Resonan ce 05/22/2024 1:17 PM SPLUNK ARCHITECT Narrative 05/22/2024 1:33 PM SPLUNK ARCHITECT EXAM DESCRIPTION: ?? MRI BRAIN W WO [...] PM T: ??05/22/2024 1:33 PM Report ID: [id number] Reading Location: ??[id number] Procedure Note Germán De La Cruz MD [...] La Cruz M.D. MZ: GISELL Report ID: [id number] Reading Location: [place] [address] Brandon Quintero SCRAP HOIST OPERATOR IMG MRI PROCEDURES Final Result * eGFR (05/09/2024 10:22 AM SPLUNK ARCHITECT) eGFR >90 >=60 mL/min/1. 73 m2 Comment: [...] reviewed 2021. Blood 05/09/2024 10:2 2 AM SPLUNK ARCHITECT 05/09/2024 11:00 AM SPLUNK ARCHITECT us Malena Olivera MD LAB BLOOD ORDERABLES Final Resul t [facility] ([place]) [address] [facility] Department [place] [address] * Differential, auto (05/09/2024 10:22 AM SPLUNK ARCHITECT) Neutrophil abs 4.7 1.5 - 6.5 K/cumm Imm gran abs 0.0 0.0 - 0.1 K/cumm [facility] ([place]) Lymphocyte abs 1.8 0.8 - 3.3 K/cumm [facility] ([place]) Monocyte abs 0.5 0.2 - 0.8 K/cumm [...] revised on 2017. Monocyte pct 7.3 % [facility] ([place]) Comment: Interpretive Data Percent cell [...] revised on 2017. Basophil pct 1.1 % [facility] ([place]) Comment: Interpretive Data Percent cell count reference ranges are not reported, since discordance with absolute values may lead to misinterpretation of CBC data. Current Interpretive Data was last revised on 2017. Blood 05/09/2024 10:2 2 AM SPLUNK ARCHITECT 05/09/2024 11:00 AM SPLUNK ARCHITECT us Malena Olivera MD LAB BLOOD ORDERABLES Final Resul t [facility] ([place]) 1 [facility] [place] [address] * (ABNORMAL) CBC with auto differential (05/09/2024 10:22 AM SPLUNK ARCHITECT) WBC 7.3 3.8 - 9.9 K/cumm Hgb 13.7 11.9 - 15.5 g/dL [facility] ([place]) Hct 41.6 35.6 - 45.5 % [facility] ([place]) Plt 390 150 - 400 K/cumm [facility] ([place]) MPV 8.7(L) 9.1 - 12.3 fL [facility] ([place]) RBC 4.74 3.90 - 5.20 M/cumm [facility] ([place]) MCV 87.8 81.3 - 96.4 fL [facility] ([place]) MCH 28.9 27.1 - 33.3 pg [facility] ([place]) MCHC 32.9 32.3 - 35.7 g/dL [facility] ([place]) RDW CV 14.0 11.1 - 14.9 % [facility] ([place]) RDW SD 44.9 35.7 - 48.1 fL [facility] ([place]) NRBC abs 0.00 0.00 - 0.01 K/cumm [facility] ([place]) Blood 05/09/2024 10:2 2 AM SPLUNK ARCHITECT 05/09/2024 11:00 AM SPLUNK ARCHITECT Malena Olivera MD LAB BLOOD ORDERABLES Final Resul t Performing Organization Address City/[facility] Co de Phone Number [facility] ([place]) 1 [facility] [employer] [place] [address] * TSH (05/09/2024 10:22 AM SPLUNK ARCHITECT) Thyroid Stimulating Hormone 1.81 0.30 - 4.20 mcIUnit/mL Blood 05/09/2024 10:2 2 AM SPLUNK ARCHITECT 05/09/2024 11:00 AM SPLUNK ARCHITECT Malena Olivera MD LAB BLOOD ORDERABLES Final Resul t Performing Organization Address City/[facility] Co de Phone Number [facility] ([place]) 1 [facility] [employer] [place] [address] * T4, free (05/09/2024 10:22 AM SPLUNK ARCHITECT) Free T4 1.26 0.90 - 1.70 ng/dL Blood 05/09/2024 10:2 2 AM SPLUNK ARCHITECT 05/09/2024 11:00 AM SPLUNK ARCHITECT us Malena Olivera MD LAB BLOOD ORDERABLES Final Resul t [facility] ([place]) 1 [facility] [employer] [place] [address] * Phosphorus (05/09/2024 10:22 AM SPLUNK ARCHITECT) Phosphorus, pl 3.0 2.3 - 4.5 mg/dL Blood 05/09/2024 10:2 2 AM SPLUNK ARCHITECT 05/09/2024 11:00 AM SPLUNK ARCHITECT Malena Olivera MD LAB BLOOD ORDERABLES Final Resul t [facility] ([place]) 1 [facility] [employer] [place] [address] * Magnesium (05/09/2024 10:22 AM SPLUNK ARCHITECT) Pathologist [facility] Magnesium 2.1 1.4 - 2.5 mg/dL Blood 05/09/2024 10:2 2 AM SPLUNK ARCHITECT 05/09/2024 11:00 AM SPLUNK ARCHITECT Malena Olivera MD LAB BLOOD ORDERABLES Final Resul t [facility] ([place]) 1 [facility] [place] [address] * Lipase (05/09/2024 10:22 AM SPLUNK ARCHITECT) Pathologist [facility] Lipase 25 10 - 99 Units/L Blood 05/09/2024 10:2 2 AM SPLUNK ARCHITECT 05/09/2024 11:00 AM SPLUNK ARCHITECT Malena Olivera MD LAB BLOOD ORDERABLES Final Resul t [facility] ([place]) 1 [facility] [place] [address] * Amylase (05/09/2024 10:22 AM SPLUNK ARCHITECT) Pathologist [facility] Amylase 67 30 - 99 Units/L Blood 05/09/2024 10:2 2 AM SPLUNK ARCHITECT 05/09/2024 11:00 AM SPLUNK ARCHITECT us Malena Olivera MD LAB BLOOD ORDERABLES Final Resul t [facility] ([place]) 1 [facility] Department [place] [address] * (ABNORMAL) Comprehensive metabolic panel (05/09/2024 10:22 AM SPLUNK ARCHITECT) Sodium 139 135 - 145 mmol/L Potassium, [...] ([place]) AST 22 10 - 45 Units/L [facility] ([place]) Blood 05/09/2024 10:2 2 AM SPLUNK ARCHITECT 05/09/2024 11:00 AM SPLUNK ARCHITECT us Malena Olivera MD LAB BLOOD ORDERABLES Final Resul t [facility] ([place]) 1 [facility] Department [place] [address] * eGFR (04/25/2024 2:23 PM SPLUNK ARCHITECT) eGFR >90 >=60 mL/min/1. 73 m2 Comment: [...] last reviewed 2021. Blood 04/25/2024 2:23 PM SPLUNK ARCHITECT 04/25/2024 3:42 PM SPLUNK ARCHITECT Andrew Pang MD LAB BLOOD ORDERABLES Johnna l Result [facility] ([place]) 1 [facility] Department [place] [address] * Basic metabolic panel (04/25/2024 2:23 PM SPLUNK ARCHITECT) Pathologist [facility] Sodium 136 135 - 145 mmol/L Potassium, pl 4.6 3.3 - 4.9 mmol/L [facility] ([place]) Chloride 99 97 - 110 mmol/L [facility] ([place]) CO2 24 22 - 32 mmol/L [facility] ([place]) Anion gap 12 2 - 15 mmol/L [facility] ([place]) BUN 7 6 - 25 mg/dL [facility] ([place]) Creatinine 0.63 0.60 - 1.10 mg/dL [facility] ([place]) Glucose 78 70 - 199 mg/dL [facility] ([place]) Comment: Interpretive Data Fasting glucose >/= [...] 2022. Calcium 9.5 8.5 - 10.3 mg/dL [facility] ([place]) Blood 04/25/2024 2:23 PM SPLUNK ARCHITECT 04/25/2024 3:42 PM SPLUNK ARCHITECT Andrew Pang MD LAB BLOOD ORDERABLES Johnna l Result [facility] ([place]) 1 [facility] Department of [employer] [place] [address] * (ABNORMAL) Calprotectin, fecal (04/14/2024 8:00 AM SPLUNK ARCHITECT) Calprotectin, fecal 54.4(H) <50.0 (Normal) mcg/g [facility] ref Lab Comment: Interpretation: Borderline (50.0-120 mcg/g) Test Performed by: [place] [address] Ranch Manager: Diana Odonnell Ph.D.; CLIA# [id number] Stool 04/14/2024 8:00 AM SPLUNK ARCHITECT 04/14/2024 11:21 AM SPLUNK ARCHITECT Brandon Faby [facility] SCRAP HOIST OPERATOR LAB BODY FLUIDS AND STOOLS ORDERABLES Final Result [facility] ([place]) 1 [facility] [employer] [place] [address] [facility] Lab * Pancreatic elastase, stool (04/14/2024 8:00 AM SPLUNK ARCHITECT) Pancreatic elastase, stool 219 >200 (Normal) mcg/g [facility] ref Lab Comment: Test Performed by: [place] [address] Ranch Manager: Diana Odonnell Ph.D.; CLIA# [id number] Stool 04/14/2024 8:00 AM SPLUNK ARCHITECT 04/14/2024 11:21 AM SPLUNK ARCHITECT Nancy Konrad HoldingsFaby [facility] SCRAP HOIST OPERATOR LAB BODY FLUIDS AND STOOLS ORDERABLES Final Result [facility] ([place]) 1 [facility] [place] [address] [place] ref Lab * H. pylori antigen, stool Stool (04/14/2024 8:00 AM SPLUNK ARCHITECT) H. pylori Ag, stool Negative Negative Comment: Interpretative Data Testing performed at the [facility] Microbiology Laboratory using the Curian HpSA lateral [...] last revised June 2020. Testing performed by: [facility], [address] [place]., [address] Stool 04/14/2024 8:00 AM SPLUNK ARCHITECT 04/14/2024 3:46 PM SPLUNK ARCHITECT Brandon Quintero NP LAB MICROBIOLOGY - GENERAL ORDERABLES Final Result Performing Organization Address [facility]/State/ZIP Co de Phone Number [facility] ([place]) 1 [facility] [place] [address] * Fecal fat, quantitative (04/14/2024 8:00 AM SPLUNK ARCHITECT) Weight, fecal 38 g [facility] ref Lab Period, fecal Random H [facility] ([place]) Comment: More reliable results can be obtained from a timed collection. 48 and 72 hour collections will give the most reliable results. Percent Fat >20% in a random collection is suggestive of a fat malabsorption disorder and should be confirmed with a timed collection. Fat solids, 24 hr fecal Not Reported [facility] ([place]) Fat, percent of solids, fecal 14 <20 [facility] ([place]) Comment: ADDITIONAL INFORMATION This test was developed and its performance characteristics determined by [facility] in a manner consistent with CLIA requirements. This test has not been cleared or approved by the U.S. Food and Drug Administration. Test Performed by: [facility] - [address] [address] Ranch Manager: Diana Odonnell Ph.D.; CLIA# [id number] Stool 04/14/2024 8:00 AM SPLUNK ARCHITECT 04/14/2024 1:39 PM SPLUNK ARCHITECT Brandon Quintero NP LAB BODY FLUIDS AND STOOLS ORDERABLES Final Result Performing Organization Address City/[facility]/ZIP Co de Phone Number MAXIMINO FARRELL (BECKY) 1 [facility] [place] [address] [place] ref [facility] * Stool culture Stool Rectum (04/14/2024 8:00 AM SPLUNK ARCHITECT) Direct Specimen Exam Shiga Toxin Testing: Antigen detection assay for Shiga-toxin NEGATIVE for Shiga Toxin 1 and Shiga Toxin 2. Comment:Testing performed by : [facility], [address] [place]., [address] Report Final Report: No growth of enteric bacterial pathogens MAXIMINO FARRELL (BECKY) Comment:Testing performed by : [facility], [address] [place]., [address] Stool (Rectum) 04/14/2024 8: 00 AM SPLUNK ARCHITECT 04/14/2024 3:45 PM SPLUNK ARCHITECT Narrative MAXIMINO FARRELL (BECKY) - 04/18/2024 8:48 AM SPLUNK ARCHITECT Received in transport media. Testing performed by [facility] ([phone]). Routine stool cultures include procedures to detect Salmonella, Shigella, Edwardsiella, Aeromonas, Pleisiomonas, Campylobacter, Yersinia, E. coli O157, and Shiga-like toxins. ?? Vibrio is cultured only upon special request. ??If Vibrio is suspected, please call the laboratory at [phone]. Interpretive data was last updated October 16, 2016. Brandon Quintero SCRAP HOIST OPERATOR LAB MICROBIOLOGY - GENERAL ORDERABLES Final Result Performing Organization Address City/[facility] Co de Phone Number MAXIMINO FARRELL (BECKY) 1 [facility] Department [place] [address] * MRI Abdomen MRCP W WO Contrast [...] signed by ??Justo Winter M.D. JA: LALIT Do: ??04/10/2024 8:51 AM T: ??04/10/2024 8:51 AM Report ID: [id number] Reading Location: ??[id number] Procedure Note Justo Winter MD - 04/10/2024 [...] Justo Winter M.D. JA: LALIT Report ID: [id number] Reading Location: [place] [address] [facility] SCRAP HOIST OPERATOR IMG MRI PROCEDURES Final Result * N. gonorrhoeae/C. trachomatis Amplification Urine (08/01/2021 4:51 PM SPLUNK ARCHITECT) C. trachomatis Not Detected Not Detected MAXIMINO MELLO Comment:Testing performed by : [facility], [address] [place] [address], [place]., [address] N. gonorrhoeae Not Detected Not Detected MAXIMINO MELLO Comment: Interpretive Data Testing performed by the [facility]. This assay detects Chlamydia trachomatis and [...] last revised on 2019. Testing performed by: [facility], [address] [place] [address], [place]., [address] Urine (None) 08/01/2021 4:51 PM SPLUNK ARCHITECT 08/01/2021 5:08 PM SPLUNK ARCHITECT Kuldeep Mccormick MD LAB MICROBIOLOGY - GENER AL ORDERABLES Final Result MAXIMINO [address] [facility] Department [place] [address] from Last 3 Months or Most Recently Relevant to Health Maintenance Insurance [facility] Advance Directives For more information, please contact: [phone] * Full Code (Latest Code Status on File) Date Activated Date Inactivated Comments 04/02/2024 8:21 AM 04/02/2024 2:05 PM * Full Code Date Activated Date Inactivated Comments 04/02/2024 8:21 AM 04/02/2024 8:21 AM Care Teams Telephone Information Clerk Relationship Specialty Start Date End Date Deonte Cheng MD PCP - General Family Medicine 05/30/24
--- OUTSIDE RECORDS SUMMARY | 2024-07-09 13:19 | XMS_ITS | Continuity of Care Document ---
Author Organization [facility] Address [address] [place] [address] Phone Care Team Providers Care Supervisor Wet End Name Role Phone Sam OD, Jimmy Unavailable Unavailable Procedures Procedure Date Eye Exam & Treatment Refraction Office/outpatient Visit, [facility] Refraction Advance Directives Directive Yes / No Effective Date File Name No Information Encounters Encounter Description Practice Location Reason(s) For Visit Diagnoses Date Provider Providers Copied on Encounter [facility], [address] [place] [address] [address], [place], [place], [id number], tel:[phone] [facility] No Information 8-201 0 Sam OD Jimmy. [address] , [address], [place], [address], [place]. tel:[phone] Office/outpat ient Visit, [facility], [address] [place] [address] [address], [place], [place], [id number], tel:[phone] [facility] No Information 0-200 8 Sam OD Jimmy. [address] , [address], [place], [address], [place]. tel:[phone] Family History Family Member Type Diagnosis Age At Onset No Information Payers Payer name Insurance type Covered democrat ID Authoriza tion(s) Medicaid [facility] [id number] Social History Type Description Quantity Date Captured Comments Sex Female Smoking Status No Information Chief Complaint And Reason For Visit No Information Reason For Referral Reason For Referral No Information History Of Present Illness Encounter Date Complaint History Of Prese nt Illness No Information Functional Status Date Functional Assessmen t No Information Instructions Date Instruction Additional Infor mation No Information Assessments Type Assessment Date No Information Patient Care Teams Name Effective Dates (start - stop) Status Members No Information
--- OUTSIDE RECORDS SUMMARY | 2024-07-09 13:19 | XMS_ITS | Data Portability ---
Author Organization [facility] Dodge Address [address] [place] [address] Care Team Providers Care Nitrate Operator Name Role Phone CARENFRANCO MCFARLANE Primary Care Provider [phone] Assessment Encounter Date Assessment Date Assessment LastModified by Organization Details LastModified Time 06/06/2024 06/06/2024 Pt's case was discussed w/resident. Documentation was reviewed, and I agree w/resident's note. Dr. Cortez [email or web address] Not available 06/10/2024 11:41:41 06/13/2024 06/13/2024 Pt's case was discussed w/resident. Documentation was reviewed, and I agree w/resident's note. Dr. Cortez [email or web address] Not available 06/15/2024 22:34:30 Plan of Treatment Reminders Order Date Submit Date Provider Last Modified By Organization Details Last Modified Time Details Appointments None recorded. Lab CMP, serum or plasma 2023 GROVER [facility], [address], [place], [address], 4 11:43:05 amylase + lipase, serum 2023 024 DORIE [facility], [address], [place], [address], 4 10:35:32 CBC w/ auto diff 2023 024 DORIE [facility], [address], [place], [address], 4 11:43:06 TSH + free T4, serum 2023 024 [facility], 2022 Alfred[address] Hernandez, [address], [address], 4 10:37:36 magnesium, serum or plasma 2023 024 [facility], [address] [place] [address], [address], [place], [address], 4 10:35:33 phosphorus , serum or plasma 2023 024 [facility], [address] [place] [address], [address], [place], [address], 4 10:35:33 Referral social group worker referral 2023 024 eric Mcnally Not available 5 10:58:12 Procedures None recorded. Surgeries None recorded. Imaging None recorded. Medication Orders trazodone 50 mg tablet 2023 025 [facility] [address] [place], [address], 5 10:01:58 lidocaine 5 % topical patch 2023 025 [facility] [address] [place], [address], 5 15:59:09 Patient TargetsNo targets recorded. Patient InstructionsNo instructions recorded. Reason for Referral Stationary Engineer Supervisor Referral for H ousing instability Referring Physician: Franco Cheng, Crm Functional Analyst, Encounter Date: 06/06/2024 Office Electrician Referral for Endometriosis of pelvis Referring Physician: Franco Cheng Crm Functional Analyst, Encounter Date: 07/03/2024 Stock Driver Referral for Endom etriosis of pelvis rule out any underlying food borne allergies that can be causing your nausea/vomiting. Referring Physician: Franco Cheng Crm Functional Analyst, Encounter Date: 07/03/2024 Lozenge Maker Helper And Gynecologis t Referral for Endometriosis of pelvis Referring Physician: Franco Cheng Crm Functional Analyst, Encounter Date: 07/03/2024 Results Created Date Observation Date Name Description Value Unit Range Abnormal Flag Note LastModifiedBy Organization Detail LastModifiedTime 05/22/20 24 05/22/2024 MRI, brain , w/wo contr ast No observ ation record ed. [facility] [address], [address], [place], [address], 05/23/2024 13:32:41 05/30/20 24 05/22/2024 US, pelvi s, trans abdom inal + trans vagin al No observ ation record ed. [facility] [address] [facility] , [place], [address], 06/06/2024 12:46:30 Result Notes None recorded. 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 Procedures Surgical History Date Name Laterality Status Provider Name and Address Organization Details Recorded Time tympanostomy completed Erum Sainz MA [facility] 02/28/2024 11:24:20 cholecystectomy completed Vanessa Hernandez MA [facility] 04/14/2024 11:15:44 Imaging Results Imaging Date Name Status LastModified by Organization Details LastModified Time 05/22/2024 MRI, brain, w/wo contrast completed mmetias Sihf [facility] [address], [address], [place], [address], 05/23/2024 13:32:41 05/22/2024 US, pelvis, transabdominal + transvaginal completed mmetias [facility] [address] [facility] , [place], [address], 06/06/2024 12:46:30 Procedure Notes None recorded. Medical Equipment None Reported. Allergies Allergen ID Allergen Name Allergen Category Reaction Reaction Severity Criticality Documentation Date Start Date Code Code System Note Provider Name and Address Organization Details Recorded Time [id number] Zofran medicatio n Not available Not available Not available 02/28/2024 37681 RxNorm Not Available Not Available Not Available Medications Name Sig Start Date Stop Date Status Note LastModified by Organization Details LastModified Time quetiapin e 25 mg tablet 06/26 completed Not Available Not Available Not Available cyclobenz aprine 10 mg tablet TAKE 1 TABLET BY MOUTH THREE TIMES DAILY NEEDED FOR MUSCLE SPASM 02/27 completed Not Available Not Available Not Available amoxicill in 500 mg capsule TAKE 1 CAPSULE BY MOUTH EVERY 12 HOURS FOR 5 DAYS 02/27 completed Not Available Not Available Not Available medroxypr ogesteron e 10 mg tablet 06/13 completed Not Available Not Available Not Available buspirone 5 mg tablet TAKE 1 TABLET BY MOUTH THREE TIMES DAILY 02/27 completed Not Available Not Available Not Available doxycycli ne hyclate 100 mg capsule TAKE 1 CAPSULE BY MOUTH EVERY 12 HOURS FOR 7 DAYS 02/27 completed Not Available Not Available Not Available Vitamin B-6 25 mg tablet TAKE 1 TABLET BY MOUTH THREE TIMES DAILY 02/27 completed Not Available Not Available Not Available citalopra m 40 mg tablet Take 1 tablet every day by oral route for 30 days, for anxiety. 03/14 completed Not Available Not Available Not Available trazodone 50 mg tablet Take 1 tablet every day by oral route for 30 days, for insomnia . 06/13 completed Not Available Not Available Not Available cetirizin e 10 mg tablet TAKE 1 TABLET BY MOUTH EVERY DAY active Not Available Not Available No t Available Gas-X Extra Strength 125 mg chewable tablet Take 1 tablet every day by oral route as needed for 30 days, for bloating . 2024 active Not Available Not Available Not Avai lable Lidocaine Viscous 2 % mucosal solution APPLY 10 ML THREE TIMES DAILY NEEDED FOR NAUSEA AND VOMITING active Not Available Not Available No t Available citalopra m 10 mg tablet TAKE 1 TABLET BY MOUTH ONCE DAILY 02/27 completed Not Available Not Available Not Available sumatript an 100 mg tablet TAKE 1 TABLET BY MOUTH AT ONSET OF HEADACHE IF NO RELIEF MAY REPEAT IN 2 HOURS MAX OF 2 TABLETS IN 24 HOURS 02/27 completed Not Available Not Available Not Available hydrocodo ne 5 mg-acetam inophen 325 mg tablet TAKE 1 TABLET BY MOUTH EVERY 6 HOURS FOR UP TO 7 DAYS NEEDED FOR PAIN 03/10 completed Not Available Not Available Not Available bacitraci n 500 unit/gram eye ointment APPLY TO AFFECTED EYE THREE TIMES DAILY FOR 7 DAYS active Not Available Not Available No t Available ondansetr on HCl 8 mg tablet TAKE 1 TO 2 TABLETS BY MOUTH TWICE DAILY NEEDED FOR NAUSEA AND VOMITING active taking 16mg twice a day Not Available Not Available Not Available Compro 25 mg rectal supposito ry INSERT 1 SUPPOSIT ORY RECTALLY EVERY 12 HOURS NEEDED FOR NAUSEA AND VOMITING 03/10 completed Not Available Not Available Not Available sucralfat e 1 gram tablet TAKE 1 TABLET BY MOUTH 4 TIMES DAILY active Not Available Not Available No t Available sumatript an 25 mg tablet Take 1 tablet every week by oral route for 30 days, for migraine s. 04/17 completed Not Available Not Available Not Available ondansetr on HCl 4 mg tablet TAKE 1 TABLET BY MOUTH EVERY 8 HOURS NEEDED FOR NAUSEA OR VOMITING 05/09 completed Patient is not taking. Not Available Not Available Not Available famotidin e 40 mg tablet Take 1 tablet twice a day by oral route as needed. 06/06 completed Dose increase d by GI from once a day Not Available Not Available Not Available sertralin e 100 mg tablet Take 1 tablet every day by oral route. 06/06 completed Not Available Not Available Not Available metronida zole 250 mg tablet TAKE 1 TABLET BY MOUTH TWICE DAILY FOR 5 DAYS 02/27 completed Not Available Not Available Not Available methylpre dnisolone 4 mg tablet TAKE 1 TABLET BY MOUTH TWICE DAILY 02/27 completed Not Available Not Available Not Available sumatript an 50 mg tablet TAKE ONE TABLET BY MOUTH NEEDED FOR ACUTE MIGRAINE EPISODE. MAY REPEAT DOSE AFTER TWO HOURS. DO NOT EXCEED TWO DOSES 06/06 completed Not Available Not Available Not Available metronida zole 500 mg tablet TAKE 1 TABLET BY MOUTH EVERY 12 HOURS FOR 7 DAYS 02/27 completed Not Available Not Available Not Available prochlorp erazine maleate 10 mg tablet TAKE 1 TABLET BY MOUTH TWICE DAILY NEEDED FOR NAUSEA AND VOMITING FOR UP TO 7 DAYS 03/10 completed Not Available Not Available Not Available tramadol 50 mg tablet TAKE 1 TABLET BY MOUTH EVERY 6 HOURS NEEDED FOR PAIN FOR UP TO 5 DAYS 03/10 completed Not Available Not Available Not Available ondansetr on 8 mg disintegr ating tablet DISSOLVE 2 TABLETS ON THE TONGUE EVERY 8 HOURS 02/27 completed Not Available Not Available Not Available amoxicill in 875 mg tablet TAKE 1 TABLET BY MOUTH EVERY 12 HOURS 02/27 completed Not Available Not Available Not Available alprazola m 0.25 mg tablet 05/09 completed Not Available Not Available Not Available famotidin e 20 mg tablet 02/27 completed Not Available Not Available Not Available amitripty line 25 mg tablet TAKE 1 TABLET BY MOUTH ONCE DAILY FOR ABDOMINA L PAIN FOR 30 DAYS 03/10 completed Not Available Not Available Not Available lorazepam 0.5 mg tablet TAKE 1 TABLET BY MOUTH EVERY DAY AT BEDTIME NEEDED FOR SLEEP 02/27 completed Not Available Not Available Not Available dicyclomi ne 20 mg tablet TAKE 1 TABLET BY MOUTH UP TO 4 TIMES DAILY FOR PROBLEMA TIC ABDOMINA L/INTEST INAL CRAMPING . CONSIDER TAKING 10 TO 15 MINUTES BEFORE EATING TO PREVENT SYMPTOMS AFTER EATING 05/09 completed Not Available Not Available Not Available erythromy fred 5 mg/gram (0.5 %) eye ointment APPLY 1 APPLICAT ION OPHTHALM IC ROUTE EVERY 8 HOURS FOR 5 DAYS active Not Available Not Available No t Available mirtazapi ne 30 mg tablet Take 1 tablet every day by oral route at bedtime for 90 days. active Not Available Not Available No t Available esomepraz ole magnesium 40 mg capsule,d elayed release TAKE 1 CAPSULE BY MOUTH ONCE DAILY BEFORE BREAKFAS T 05/09 completed stopped by GI Not Available Not Available Not Available lidocaine 5 % topical patch APPLY 1 PATCH BY TOPICAL ROUTE ONCE DAILY (MAY WEAR UP TO 12HOURS. ) 06/26 completed Not Available Not Available Not Available promethaz ine 25 mg tablet TAKE 1 TABLET BY MOUTH EVERY 6 HOURS NEEDED FOR NAUSEA OR VOMITING FOR UP TO 5 DAYS 02/27 completed Not Available Not Available Not Available fluoxetin e 10 mg capsule TAKE 1 CAPSULE BY MOUTH ONCE DAILY 02/27 completed Not Available Not Available Not Available docusate sodium 100 mg capsule TAKE ONE CAPSULE BY MOUTH TWICE DAILY FOR 14 DAYS 03/10 completed Not Available Not Available Not Available sertralin e 25 mg tablet TAKE 1 TABLET BY MOUTH ONCE DAILY 02/27 completed Not Available Not Available Not Available mirtazapi ne 45 mg tablet active Not Available Not Available Not Available hydroxyzi ne HCl 25 mg tablet TAKE 1 TABLET BY MOUTH TWICE DAILY 03/10 completed Not Available Not Available Not Available zolpidem 5 mg tablet TAKE 1 TABLET BY MOUTH EVERY DAY AT BEDTIME NEEDED FOR INSOMNIA 02/27 completed Not Available Not Available Not Available mirtazapi ne 15 mg tablet TAKE 1 TABLET BY MOUTH NIGHTLY 05/09 completed Dose increase d to 30mg Not Available Not Available Not Available aluminum- mag hydroxide -simethic one 200 mg-200 mg-20 mg/5 mL oral susp Take 30 mL twice a day by oral route as needed for 30 days, for Nausea and vomiting . 2023 active Not Available Not Available Not Avai lable epinephri ne 0.3 mg/0.3 mL injection , auto-inje ctor INJECT CONTENTS OF 1 PEN NEEDED FOR ALLERGIC REACTION active Not Available Not Available No t Available ibuprofen 600 mg tablet TAKE 1 TABLET BY MOUTH EVERY 6 HOURS NEEDED FOR PAIN FOR UP TO 14 DAYS 05/09 completed Patient not taking. Not Available Not Available Not Available scopolami ne 1 mg over 3 days transderm al patch APPLY 1 PATCH TOPICALL Y EVERY 72 HOURS FOR NAUSEA AND VOMITING 03/10 completed Not Available Not Available Not Available norethirakesh bolañose (contrace ptive) 0.35 mg tablet TAKE 1 TABLET BY MOUTH DAILY 02/27 completed Not Available Not Available Not Available ondansetr on 4 mg disintegr ating tablet DISSOLVE 1 TABLET ON THE TONGUE EVERY 8 HOURS NEEDED FOR NAUSEA OR VOMITING 02/27 completed Not Available Not Available Not Available sertralin e 50 mg tablet TAKE 1 & 1/2 (ONE & ONE-HALF ) TABLETS BY MOUTH ONCE DAILY 05/09 completed Not Available Not Available Not Available dicyclomi ne 10 mg capsule 06/26 completed Not Available Not Available Not Available metoclopr amide 10 mg tablet TAKE 1/2 (ONE-ALE F) TABLET BY MOUTH THREE TIMES DAILY WITH MEALS FOR 7 DAYS 03/10 completed Not Available Not Available Not Available buspirone 15 mg tablet TAKE 1/2 (ONE-ALE F) TABLET BY MOUTH TWICE DAILY FOR 7 DAYS, THEN INCREASE TO 1 TABLET TWICE DAILY 03/10 completed Not Available Not Available Not Available escitalop gume 10 mg tablet TAKE 1 TABLET BY MOUTH ONCE DAILY 02/27 completed Not Available Not Available Not Available Sprintec (28) 0.25 mg-35 mcg tablet 06/06 completed Not Available Not Available Not Available atomoxeti ne 18 mg capsule TAKE 1 CAPSULE BY MOUTH ONCE DAILY IN THE MORNING 05/09 completed Not Available Not Available Not Available atomoxeti ne 40 mg capsule Take by oral route for 10 days. 2024 active Not Available Not Available Not Avai lable bupropion HCl XL 300 mg 24 hr tablet, extended release TAKE 1 TABLET BY MOUTH EVERY MORNING 02/27 completed Not Available Not Available Not Available bupropion HCl XL 150 mg 24 hr tablet, extended release TAKE 1 TABLET BY MOUTH EVERY MORNING 02/27 completed Not Available Not Available Not Available 06/30 (28) 1 mg-20 mcg (21)/75 mg (7) tablet active Not Available Not Available Not Available mirtazapi ne 7.5 mg tablet TAKE 1 TABLET BY MOUTH NIGHTLY 04/17 completed Patient is not taking. Not Available Not Available Not Available duloxetin e 20 mg capsule,d elayed release TAKE 1 CAPSULE BY MOUTH IN THE MORNING 02/27 completed Not Available Not Available Not Available atomoxeti ne 80 mg capsule TAKE 1 CAPSULE BY MOUTH ONCE DAILY FOR 23 DAYS 04/17 completed Patient not taking. Not Available Not Available Not Available quetiapin e 50 mg tablet active Not Available Not Available Not Available mesalamin e 1.2 gram tablet,de layed release 05/06 completed stopped by GI Not Available Not Available Not Available FeroSul 325 mg (65 mg iron) tablet TAKE 1 TABLET BY MOUTH ONCE DAILY 05/09 completed Patient not taking. Not Available Not Available Not Available rifaximin 550 mg tablet Take 1 tablet 3 times a day by oral route. 04/25 completed Not Available Not Available Not Available baclofen 5 mg tablet TAKE 1 TABLET BY MOUTH EVERY DAY AT BEDTIME 02/27 completed Not Available Not Available Not Available Vitals Date Recorded Body height Provider Name an d Address Organization Details Last Updated DateTime 05/09/2024 162.56 cm BAUTISTA Kern [facility] 05/09/20 09:47:01 Date Recorded Body temperature Provider Name a nd Address Organization Details Last Updated DateTime 05/09/2024 97.3 [degF] Erum Sainz MA [facility] 024 09:48:05 Date Recorded Respiratory rate Provider Name a nd Address Organization Details Last Updated DateTime 05/09/2024 16 /min BAUTISTA Kern [facility] 05/09/20 24 09:48:09 Date Recorded Heart rate Provider Name an d Address Organization Details Last Updated DateTime 05/09/2024 99 /min BAUTISTA Kern [facility] 05/09/20 24 09:48:24 Date Recorded Body height Provider Name an d Address Organization Details Last Updated DateTime 06/06/2024 162.56 cm BAUTISTA Kern [facility] 06/06/20 14:06:37 Date Recorded Body temperature Provider Name a nd Address Organization Details Last Updated DateTime 06/06/2024 97.8 [degF] BAUTISTA Kern [facility] 024 14:07:22 Date Recorded Heart rate Provider Name an d Address Organization Details Last Updated DateTime 06/06/2024 80 /min BAUTISTA Kern [facility] 06/06/20 24 14:07:31 Date Recorded Respiratory rate Provider Name a nd Address Organization Details Last Updated DateTime 06/06/2024 16 /min Erum Sainz MA [facility] 06/06/20 24 14:07:32 Date Recorded Body mass index (BMI) Body mass index (BMI) Percentile per age and sex Body weight Provider Name and Address Organization Details Last Updated DateTime 06/06/2024 18.9 kg/m2 14 % 27067.16 g Erum Sainz MA [facility] 06/06/2024 15:58:06 Date Recorded Body height Provider Name an d Address Organization Details Last Updated DateTime 06/13/2024 162.56 cm Erum Sainz MA [facility] 06/13/19 14:16:05 Date Recorded Body temperature Provider Name a nd Address Organization Details Last Updated DateTime 06/13/2024 97.7 [degF] Erum Sainz [place] - [facility] 025 14:16:22 Date Recorded Respiratory rate Provider Name a nd Address Organization Details Last Updated DateTime 06/13/2024 16 /min Erum Sainz [place] - [facility] 06/13/19 25 14:16:24 Date Recorded Heart rate Provider Name an d Address Organization Details Last Updated DateTime 06/13/2024 99 /min Erum Sainz [place] - [facility] 06/13/19 25 14:16:27 Date Recorded Body mass index (BMI) Body mass index (BMI) Percentile per age and sex Body weight Provider Name and Address Organization Details Last Updated DateTime 06/13/2024 19.1 kg/m2 17 % 70064.75 g Erum Sainz [place] - [facility] 06/13/2024 15:25:49 Date Recorded Body height Provider Name an d Address Organization Details Last Updated DateTime 06/26/2024 162.56 cm TABATHA Gold [place] - [facility] 2024 14:45:23 Date Recorded Respiratory rate Provider Name a nd Address Organization Details Last Updated DateTime 06/26/2024 18 /min Linh Hudson [place] - [facility] 06/26/2024 14:45:55 Date Recorded Body temperature Provider Name a nd Address Organization Details Last Updated DateTime 06/26/2024 97.8 [degF] TABATHA Gold [place] - [facility] 06/26/2024 14:49:09 Date Recorded Heart rate Provider Name an d Address Organization Details Last Updated DateTime 06/26/2024 76 /min TABATHA [place] [facility] 2024 14:49:14 Date Recorded Body height Provider Name an d Address Organization Details Last Updated DateTime 07/03/2024 162.56 cm TABATHA [place] - [facility] 025 16:51:35 Date Recorded Heart rate Provider Name an d Address Organization Details Last Updated DateTime 07/03/2024 94 /min TABATHA [place] - [facility] 025 16:51:59 Date Recorded Body temperature Provider Name a nd Address Organization Details Last Updated DateTime 07/03/2024 98.8 [degF] ChrissyTABATHA Palm [place] - [facility] 2024 16:52:02 Date Recorded Respiratory rate Provider Name a nd Address Organization Details Last Updated DateTime 07/03/2024 16 /min Chrissy TABATHA [place] - [facility] 025 16:52:05 Date Recorded Systolic blood pressure Diastolic blood pressure Provider Name and Address Organization Details Last Updated DateTime 05/09/2024 138 mm[Hg] 100 mm[Hg] Erum Sainz [place] [facility] 05/09/2024 09:48:15 Date Recorded Systolic blood pressure Diastolic blood pressure Provider Name and Address Organization Details Last Updated DateTime 06/06/2024 130 mm[Hg] 84 mm[Hg] Erum Sainz [place] [facility] 06/06/2024 14:07:29 Date Recorded Systolic blood pressure Diastolic blood pressure Provider Name and Address Organization Details Last Updated DateTime 06/13/2024 152 mm[Hg] 94 mm[Hg] Erum Sainz [place] - [facility] 06/13/2024 14:16:16 Date Recorded Systolic blood pressure Diastolic blood pressure Provider Name and Address Organization Details Last Updated DateTime 06/26/2024 128 mm[Hg] 84 mm[Hg] Linh Hudson [facility] 06/26/2024 14:49:04 Date Recorded Systolic blood pressure Diastolic blood pressure Provider Name and Address Organization Details Last Updated DateTime 07/03/2024 123 mm[Hg] 84 mm[Hg] Chrissy Harris [place] [facility] 07/03/2024 16:51:50 Social History Question Answer Notes LastModified by Organizat ion Details LastModified Time Tobacco Smoking Status Never Smoker BAUTISTA Kern, [facility] 02/28/2024 11:11:24 What Is Your Level Of Alcohol Consumption? None Information not available 02/28/2024 What Was The Date Of Your Most Recent Tobacco Screening? 06/26/2024 Information not available 06/26/2024 Do You Use Any Illicit Or Recreational Drugs? No Information not available 02/28/2024 Has Tobacco Cessation Counseling Been Provided? Yes [email or web address] Information not available 03/10/2024 On What Date Was Tobacco Cessation Counseling Provided? 06/26/2024 Information not available 06/26/2024 Do You Or Have You Ever Used Any Other Forms Of Tobacco Or Nicotine? No Information not available 02/28/2024 Sex: Female Functional Status None recorded. Mental Status None recorded. Family History Relationship Description Onset Age of this Age Resolved Age Notes LastModified by Organization Details LastModified Time Father No current problems or disability [email or web address] Not available 02/27 11:11:17 Mother No current problems or disability [email or web address] Not available 02/27 11:11:17 Notes:04/14/24, DO NOT ASK MARLON WEST ABOUT FAMILY HISTORY 04/25/24, 05/01/24, 06/26/24 Medical History No medical history recorded. Gynecological HistoryNo gynecological history recorded. Obstetrics History GPAL:G 0 P 0 0 0 0 Immunizations Vaccine Type Date Status Note Provider Nam e and Address Organization Details Recorded Time Influenza, split virus, quadrivalent, preservative 7 completed JOSE CHANEL MD Attn: Accounting,[address] [facility], [place], [address], [facility] 02/28/2024 13:11:07 Hib, unspecified formulation 6 completed JOSE CHANEL MD Attn: Accounting,[address], [place], [place], [address] [place] [address], [place] - [facility] 02/28/2024 13:11:07 Hib, unspecified formulation 5 completed JOSE CHANEL MD Attn: Accounting,[address], [place], [address] [place] [address], [place] [facility] 02/28/2024 13:11:07 Hib, unspecified formulation 6 completed JOSE CHANEL MD Attn: Accounting,[address], [place], [place], [address] [place] [address], [facility] 02/28/2024 13:11:07 MMR 6 completed JOSE CHANEL MD Attn: Accounting,[address], [place], [address] [place] [address], [facility] 02/28/2024 13:11:07 MMR 9 completed JOSE CHANEL MD Attn: Accounting,[address], [place], [address] [place] [address], [facility] 02/28/2024 13:11:07 pneumococcal conjugate PCV 7 6 completed JOSE CHANEL MD Attn: Accounting,[address], [place], [address] [place] [address], [place] [facility] 02/28/2024 13:11:07 pneumococcal conjugate PCV 7 6 completed JOSE CHANEL MD Attn: Accounting,[address], [place], [address] [place] [address], [place] [facility] 02/28/2024 13:11:07 pneumococcal conjugate PCV 7 5 completed JOSE CHANEL MD Attn: Accounting,[address], [place], [address] [place] [address], [facility] 02/28/2024 13:11:07 pneumococcal conjugate PCV 7 5 completed JOSE CHANEL MD Attn: Accounting,[address] [address], [place], [place], [address] [place] [address], [place] [facility] 02/28/2024 13:11:07 DTaP-IPV 0 completed JOSE CHANEL MD Attn: Accounting,[address] [facility], [place], [place], [address] [place] [address], [facility] - [facility] 02/28/2024 13:11:07 influenza, unspecified formulation 7 completed JOSE CHANEL MD Attn: Accounting,[address] [facility], [place], [address] [place] [address], [place] [facility] 02/28/2024 13:11:07 Tdap 3 completed JOSE CHANEL MD Attn: Accounting,[address] [facility], [place], [address] [place] [address], [facility] - [facility] 02/28/2024 13:11:07 Tdap 6 completed JOSE CHANEL MD Attn: Accounting,[address] [facility], [place], [address] [place] [address], [facility] - [facility] 02/28/2024 13:11:07 varicella 9 completed JOSE CHANEL MD Attn: Accounting,[address] [facility], [place], [address] [place] [address], [facility] - [facility] 02/28/2024 13:11:07 varicella 6 completed JOSE CHANEL MD Attn: Accounting,[address] [facility], [place], [address] [place] [address], [facility] - [facility] 02/28/2024 13:11:07 influenza, split (incl. purified surface antigen) 8 completed JOSE CHANEL MD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
== END 2024-07-09 12:25 | disposition home or self-care (01) ==
PROVIDERS: Visit Provider Obstetrics & Gynecology
DX: Z01.812 Encounter for preprocedural laboratory examination (principal); R10.2 Pelvic and perineal pain
CPT/HCPCS: 36415; 86850; 86900; 86901

== ENCOUNTER 2024-07-18 00:57 | Day surgery (SDC) | payer OTHER, SELFPAY ==
[2024-07-07 14:10] VITALS: BMI 17.4
--- NOTE | 2024-07-07 14:18 | PC.NURSE ---
Report to the Outpatient Waiting Room, entrance under the green pavilion located off [facility], at time _0815_ on date _[id number]_. Planned Procedure Time: _1015_.? Time changes happen often and if your time is changed the preop area will call you the afternoon before. - You and your visitor will be asked to self-screen and do not enter if you have any COVID symptoms. Please call surgeon if you need to reschedule. - A mask is optional within the hospital at this time. Patients may have clear liquids (water, carbonated beverages, clear teas, apple juice) until 3 hours prior to surgery with a maximum of 20 ounces. - No food from midnight until time of surgery and no smoking. This includes no chewing gum, candy or mints. Take only the following medications with a SIP of water on the morning of surgery: ___None DO NOT STOP ANY OF YOUR OTHER PRESCRIPTION MEDICATIONS PRIOR TO SURGERY EXCEPT THE FOLLOWING Medications to discontinue per physician ____None Date to take last dose Please no make-up, nail new zealander, hairspray, perfume, deodorant, or body powder the day of surgery.? No jewelry (including any body piercings) or valuables the day of surgery, leave them at home.? Please take a shower or bath the night before, or the morning of, surgery with an antibacterial soap.? Wear comfortable, loose fitting clothing.? - Jewelry must be removed prior to entering the operating room.? Rings and piercings that are not removed may be cut off. - The hospital will not accept responsibility for valuables.? - Please leave all valuables, including medications, at home the day of surgery. If you are going home after surgery, a licensed driver manager must drive you home.? - NO public transportation without another adult if you receive anesthesia. - We recommend that an adult stay with you for 24 hours following discharge. - We also recommend that you do not drive, make important decision, drink alcoholic beverages, or take any drugs that were not prescribed by your health care provider for at least 24 hours after your discharge time. Hold all vitamins and supplements for ___ days per . Follow any additional instructions given to you from your surgeon. Telephone instructions given to Steve_and asked if any additional questions and then verbalized understanding. Patient advised to call surgeon office or pre surgery nurse liaison [phone] if any additional questions.
--- NOTE | 2024-07-15 12:32 | PM.IMHP ---
H&P: HPI History of Present Illness Date/Time: 07/15/24 12:32 Chief Complaint: pelvic pain and bilateral ovarian cyst Narrative: 18-year-old female 1 para 1 admitted for diagnostic laparoscopy secondary to pelvic pain. She will undergo this laparoscopy secondary to pain and discomfort ultrasound was unhelpful with negative STD testing etc. risks and benefits reviewed including not exclusive of , aspiration pneumonia, bleeding, transfusion, perforation injury to bowel, bladder, ureters, or other internal organs with need for open laparotomy. She received the ACOG handout entitled laparoscopy. She had all questions answered. She asked to proceed. Review of Systems Review of Systems: All systems reviewed & are unremarkable except as noted in HPI and below Constitutional: Constitutional: Reports as per HPI, Reports fever(s) and Reports malaise Eyes: Eyes: Reports no additional eye complaints ENT: Reports as per HPI and Reports sore throat Cardiovascular: Cardiovascular: Reports no additional cardiovascular complaints, Denies chest pain and Denies dyspnea Respiratory: Respiratory: Reports no additional respiratory complaints, Denies cough and Denies dyspnea Musculoskeletal: Musculoskeletal: Reports no additional musculoskeletal complaints Neurologic: Reports system reviewed and no additional complaints, except as documented Psychiatric: Psychiatric: Reports no additional psychiatric complaints PMFSH Past Medical History Medical History Low weight Vestibular migraine Establishing care with new doctor, encounter for Upper back pain Joint ache Fatigue Muscle spasm Increased frequency of headaches Migraine aura without headache Depression with anxiety Tinnitus Decreased hearing of both ears Depression Chronic right ear pain Decreased appetite Elevated LFTs Nausea and vomiting Upper abdominal pain Asthma Peanut allergy Surgical History Surgical History Status post myringotomy with insertion of tube 23 months old Family History Family History Mother Alcoholism Depression with anxiety Asthma Father Depression with anxiety Hypertension Sibling Asthma Grandparent Hypertension Alcoholism Grandparent Hypertension Social History Social History Social History: Caffeine-caffeine Smoking status: Never smoker Alcohol intake: never Substance use: never Substance use type: does not use Other substance usage details: THC products as needed for nausea. Lack of Transportation: No Lack of Food: Never True Current Housing: I Have Housing Concerned About Future Housing: No Difficulty Paying Gas/Electric Bills: No Difficulty Paying for Meds: No Currently Unemployed: No Education: Grade School Difficulty w/ Childcare or Family Care: No Living arrangements: with family Occupation/Education: student Gender identity (if verbalized by the patient): Female Sexual Orientation (if Verbalized by the Patient): Straight or Heterosexual Spiritual care concerns: No Meds Home Medications and Allergies Home Medications ?Medication ?Instructions ?Recorded ?Confirmed ?Type epinephrine 0.3 mg/0.3 mL 0.3 mg (0.3 mL) IM ONCE #2 ea 12/24/23 07/07/24 Rx injection, auto-injector (EpiPen 2-Reji) viloxazine 100 mg capsule,extended 100 mg PO DAILY 07/07/24 07/07/24 History release 24 hr (Qelbree) Allergies Allergy/AdvReac Type Severity Reaction Status Date / Time peanut Allergy Anaphylactic Verified 07/07/24 14:06 Shock Exam Const: General: cooperative, healthy appearing, comfortable and average body habitus Orientation/consciousness: oriented to person, oriented to place and oriented to time HENMT: Head: normal to inspection Resp: Effort & Inspection: normal respiratory effort Cardio: Rate: regular rate Rhythm: regular rhythm Heart sounds: S1 normal heart sound present and S2 normal heart sound present GI: Inspection: normal to inspection Percussion: Yes normal to percussion : External Female Exam: normal external appearance Speculum Exam - Vagina: normal appearance of the vagina Speculum Exam - Cervix: normal appearance of the cervix Bimanual exam- vagina & uterus: uterine shape normal and Uterine tenderness Bimanual Exam- Adnexa, other: tender bilaterally Assessment and Plan Assessment and plan (1) Pelvic pain: Code(s): R10.2 - Pelvic and perineal pain Status: Acute Plan proceed with diagnostic laparoscopy
[2024-07-18] VITALS (9 sets, daily range): BP systolic 117–147; BP diastolic 79–101; PULSE 55–84; RESP 13–22; TEMP 36.3–36.8; O2SAT 99–100; BMI 17.7
--- OUTSIDE RECORDS SUMMARY | 2024-07-18 01:00 | XMS_ITS | Clinical Summary ---
Author Organization [facility] Address [address] [place] [phone] Phone Care Team Providers Care Ex Assistant/Program Director Name Role Phone Lizy Dalton MD Primary Care Provider [phone] Allergies No known active allergies Medications No [...] AM CDT Pulse - - Temperature 37.4 C (99.4 F) 09/08/2018 12:47 AM CDT Respiratory Rate 20 09/08/2018 12:47 AM CDT [...] HPV VACCINES Completed 10/12/2015, 02/27/2014 Care Teams Ex Assistant/Program Director Relationship Specialty Start Date End Date Lizy Dalton MD [address] [facility] [address] [place] [phone] PCP - General Pediatrics 09/07/18
--- OUTSIDE RECORDS SUMMARY | 2024-07-18 01:00 | XMS_ITS | Clinical Summary ---
Author Organization [facility] Address [address] [place] [address] Care Team Providers Care Paper Pattern Folder Name Role Phone Lizy Dalton MD Primary Care Provider [phone] Source Comments [facility],non-owned Affiliates and Associated Physician Practices is amultiple site organization consisting of ambulatory clinics and hospital sitesin [place], [place] and [place]. This disclosure is being madepursuant to the Care Everywhere program and may not contain all information available regarding this patient. Last updated 18.[facility] Allergies Active Allergy Reactions Criticality Noted Date [...] Telephone [facility] - Centralized Scheduling [address] [place] [address] [phone] Lex Willis MD Reschedule Appointment 05/14/2024 Travel [...] 89 10/06/2022 1:42 PM CDT Temperature 37.4 C (99.3 F) 05/29/2021 9:01 PM RN SUPPORT SERVICES Respiratory Rate 18 05/29/2021 9:01 PM RN SUPPORT SERVICES Oxygen Saturation - - Inhaled Oxygen Concentration - - Weight 60.3 kg (133 lb) 08/30/2022 1:48 PM CDT Height 157.5 cm (5' 2 ) 02/13/2020 2:02 PM CDT Body Mass Index - - Plan of Treatment Upcoming Encounters Date Type Department Care Team (Late st Contact Info) Description 08/15/2024 2:20 PM RN SUPPORT SERVICES Office Visit [facility] - Cardiology [address] [facility], [facility] [address] [place] [address] Fabian Mccann MD [address] [place] [address] Health Maintenance Due Date Last Done Comments MENINGOCOCCAL (Group B) VACCINE (1 of 2 - Standard) 2020 CHLAMYDIA/GONORRHEA SCREENING 05/29/2022 05/29/2021 HEPATITIS C SCREENING 12/20/2022 COVID-19 VACCINE ( season) 2024 INFLUENZA VACCINE (#1) 2024 2, 04/19/2020, 02/27/2014, Additional history exists DEPRESSION SCREENING 06/11/2024 DTAP/TDAP/TD [...] car Lifestyle On track( 020 2:07 PM RN SUPPORT SERVICES) No Ebonie Dan RN Procedures Procedure Name Priority Date/Time Associated Diagnosis Comments HIV-1 HIV-2 ANTIBODY + HIV P24 AG PANEL STAT 05/29/2021 10:31 PM RN SUPPORT SERVICES CHLAMYDIA + GC AMPLIFIED PROBE STAT 05/29/2021 10:17 PM RN SUPPORT SERVICES from Last 3 Months or Most Recently Relevant to Health Maintenance Results * HIV-1 HIV-2 ANTIBODY + HIV P24 AG PANEL (05/29/2021 10:31 PM RN SUPPORT SERVICES) HIV Antigen/Antibod y 1 & 2 Non-reacti ve Non-react josh 05/29/2021 11:35 PM RN SUPPORT SERVICES [facility] Comment:No Laboratory eviden ce of HIV infection. Blood BLOOD SPECIMEN / Unknown Venipuncture / Unknown 05/29/2021 10:31 PM RN SUPPORT SERVICES 05/29/2021 10:45 PM RN SUPPORT SERVICES Alesia Camejo MD LAB - CHEMISTRY ORDERABLES [facility] [address] [place] [address], [facility] [phone] * CHLAMYDIA + GC AMPLIFIED PROBE (STL) (05/29/2021 10:17 PM RN SUPPORT SERVICES) Chlamydia Amplified Probe Negative Negative 05/30/2021 9:32 AM RN SUPPORT SERVICES [facility] GC Amplified Probe Negative Negative 05/30/2021 9:32 AM RN SUPPORT SERVICES [facility] MICROBIOLOG[facility] Microbiology URINE / Unknown Collection / Unknown 05/29/2021 10:17 PM RN SUPPORT SERVICES 05/29/2021 10:46 PM RN SUPPORT SERVICES Narrative [facility] - 05/30/2021 9:32 AM RN SUPPORT SERVICES Results based on detection/no detection of ribosomal RNA by amplified method. Alesia Camejo MD LAB - MICROBIOL OGY ORDERABLES [facility] MICROBIOLOGY [address] [place] [address], [facility] [phone] from Last 3 Months or Most Recently Relevant to Health Maintenance Care Teams Paper Pattern Folder Relationship Specialty Start Date End Date Lizy Dalton MD PCP - General Pediatrics 02/03/14
--- OUTSIDE RECORDS SUMMARY | 2024-07-18 01:00 | XMS_ITS | Referral Summary ---
Author Organization [facility] Address [address] [place] [address] Care Team Providers Care Inside Polisher Name Role Phone Lizy Dalton MD Primary Care Provider [phone] Source Comments [facility],non-owned Affiliates and Associated Physician Practices is amultiple site organization consisting of ambulatory clinics and hospital sitesin [place], [place], [place] and [place]. This disclosure is being madepursuant to the Care Everywhere program and may not contain all information available regarding this patient. Last updated 18.[facility] Encounters Date Type Department Care Team Description 05/23/2024 Telephone [facility] - Centralized Scheduling [address] [place] [phone] Lex Willis MD Reschedule Appointment 05/14/2024 Travel [...] 37.4 C (99.3 F) 05/29/2021 9:01 PM PAPER CONTROL CLERK Respiratory Rate 18 05/29/2021 9:01 PM PAPER CONTROL CLERK Oxygen Saturation - - Inhaled Oxygen Concentration - - Weight 60.3 kg (133 lb) 08/30/2022 1:48 PM CDT Height 157.5 cm (5' 2 ) 02/13/2020 2:02 PM CDT Body Mass Index - - Plan of Treatment Upcoming Encounters Date Type Department Care Team (Late st Contact Info) Description 08/15/2024 2:20 PM PAPER CONTROL CLERK Office Visit [facility] - Cardiology [address] [facility] [address] [place] [phone] Fabian Mccann MD [address] [place] [phone] Goals Goal Patient Goal Type Associated Problems Recent Progress Patient-Stated? Author Use safety retraint in car Lifestyle On track( 020 2:07 PM PAPER CONTROL CLERK) No Ebonie Dan RN Procedures Procedure Name Priority Date/Time Associated Diagnosis Comments HIV-1 HIV-2 ANTIBODY + HIV P24 AG PANEL STAT 05/29/2021 10:31 PM PAPER CONTROL CLERK CHLAMYDIA + GC AMPLIFIED PROBE STAT 05/29/2021 10:17 PM PAPER CONTROL CLERK from Last 3 Months or Most Recently Relevant to Health Maintenance Results * HIV-1 HIV-2 ANTIBODY + HIV P24 AG PANEL (05/29/2021 10:31 PM PAPER CONTROL CLERK) Pathologist [facility] HIV Antigen/Antibod y 1 & 2 Non-reacti ve Non-react josh 05/29/2021 11:35 PM PAPER CONTROL CLERK [facility] Comment:No Laboratory eviden ce of HIV infection. Blood BLOOD SPECIMEN / Unknown Venipuncture / Unknown 05/29/2021 10:31 PM PAPER CONTROL CLERK 05/29/2021 10:45 PM PAPER CONTROL CLERK Alesia Camejo MD LAB - CHEMISTRY ORDERABLES [facility] [address] [place] [address], [place] [phone] * CHLAMYDIA + GC AMPLIFIED PROBE (STL) (05/29/2021 10:17 PM PAPER CONTROL CLERK) Pathologist [facility] Chlamydia Amplified Probe Negative Negative 05/30/2021 9:32 AM PAPER CONTROL CLERK [facility] MICROBIOLOG[facility] GC Amplified Probe Negative Negative 05/30/2021 9:32 AM PAPER CONTROL CLERK [facility] MICROBIOLOGY Microbiology URINE / Unknown Collection / Unknown 05/29/2021 10:17 PM PAPER CONTROL CLERK 05/29/2021 10:46 PM PAPER CONTROL CLERK Narrative [facility] MICROBI[facility] - 05/30/2021 9:32 AM PAPER CONTROL CLERK Results based on detection/no detection of ribosomal RNA by amplified method. Alesia Camejo MD LAB - MICROBIOL OGY ORDERABLES [facility] MICROBIOLOGY [address] [place] [address], [facility] [phone] from Last 3 Months or Most Recently Relevant to Health Maintenance Care Teams Inside Polisher Relationship Specialty Start Date End Date Lizy Dalton MD PCP - General Pediatrics 02/03/14
--- OUTSIDE RECORDS SUMMARY | 2024-07-18 01:01 | XMS_ITS | Referral Summary ---
Author Organization [facility] Address [address] [place] [address] Care Team Providers Care Mixer Lever Operator Name Role Phone Deonte Cheng MD Primary Care Provider [phone] Encounters Date Type Department Care Team Description 07/11/2024 Telephone [facility] [address] [facility] [address] [place] [address] Kayla Henderson LPN 07/11/2024 Orders Only [facility] 1 [place] [address] Zayda Quintero DO 07/10/2024 1:41 PM PACKING AND FINAL ASSEMBLY SUPERVISOR - 07/10/2024 11:59 PM PACKING AND FINAL ASSEMBLY SUPERVISOR Hospital Encounter [facility] [address] [facility] [address] [place] [address] Acute vaginitis Discharge Disposition: Discharge to home or self care 07/10/2024 Orders Only [facility] [address] [facility] [address] [place] [address] Zayda Quintero DO Myalgia of pelvic floor (Primary Dx) 07/10/2024 1:15 PM PACKING AND FINAL ASSEMBLY SUPERVISOR Office Visit [facility] [address] [facility] [address] [place] [address] Zayda Quintero DO Nausea and vomiting, unspecified vomiting type (Primary Dx); Postcoital bleeding; Myalgia of pelvic floor 07/03/2024 2:45 PM PACKING AND FINAL ASSEMBLY SUPERVISOR Office Visit [facility] at [place] [address] [facility] [address] [place] [address] Brandon Quintero NP Nausea and vomiting, unspecified vomiting type (Primary Dx); Unintentional weight loss; PTSD (post-traumatic stress disorder); Irritable bowel syndrome with both constipation and diarrhea; Gastroesophageal reflux disease with esophagitis without hemorrhage; Chronic superficial gastritis without bleeding; S/P cholecystectomy 06/27/2024 9:46 AM PACKING AND FINAL ASSEMBLY SUPERVISOR - 06/27/2024 11:59 PM PACKING AND FINAL ASSEMBLY SUPERVISOR Hospital Encounter [facility] Di[facility] [address] [facility] [place] [address] [place] [address] Zheng, Verna Dyer, STEFANI Nausea and vomiting, unspecified vomiting type Discharge Disposition: Discharge to home or self care 06/24/2024 1:15 PM PACKING AND FINAL ASSEMBLY SUPERVISOR Office Visit [facility] [address] [facility] [address] [place] [address] Zayda Quintero, Dysmenorrhea (Primary Dx); Secondary oligomenorrhea; Nausea and vomiting, unspecified vomiting type; Unintentional weight loss 06/06/2024 Telephone [facility] [address] [facility] [address] [place] [address] Zayda Quintero, Patient issue/concern 05/30/2024 Orders Only [address] [address] Zayda Quintero, DO 05/29/2024 Telephone [facility] [address] [facility] [address] [place] [address] Zayda Quintero, Medication Issue 05/23/2024 Orders Only [address] [address] Zayda Quintero, 05/23/2024 Telephone [facility] [address] [facility] [address] [place] [address] Kayla Henderson LPN 05/22/2024 3:30 PM PACKING AND FINAL ASSEMBLY SUPERVISOR Lab [facility] [address] [place] [address] Oligomenorrhea, unspecified type 05/22/2024 Orders Only [facility] [address] [place] [address] Zayda Quintero, Oligomenorrhea, unspecified type (Primary Dx) 05/22/2024 2:45 PM PACKING AND FINAL ASSEMBLY SUPERVISOR Ancillary Procedure [facility] [address] [place] [address] Ovarian cyst, bilateral; Pelvic pain in female 05/22/2024 Orders Only [facility] [address] [place] [address] Faby Gibson MA Ovarian cyst, bilateral (Primary Dx); Pelvic pain syndrome; Pelvic pain in female 05/22/2024 8:53 AM PACKING AND FINAL ASSEMBLY SUPERVISOR - 05/22/2024 11:59 PM PACKING AND FINAL ASSEMBLY SUPERVISOR Hospital Encounter [facility] 1 [place] [address] Nausea and vomiting, unspecified vomiting type; Nonintractable headache, unspecified chronicity pattern, unspecified headache type Discharge Disposition: Discharge to home or self care 05/22/2024 1:45 PM PACKING AND FINAL ASSEMBLY SUPERVISOR Office Visit [facility] [address] [facility] [address] [place] [address] Zayda Quintero DO Secondary oligomenorrhea (Primary Dx); Pelvic pain; Cyst of ovary, unspecified laterality 05/13/2024 Orders Only [facility] at [place] [address] [facility] [address] [place] [address] Brandon Quintero NP Dizziness (Primary Dx); Syncope, unspecified syncope type; Nausea and vomiting, unspecified vomiting type 05/09/2024 10:15 AM PACKING AND FINAL ASSEMBLY SUPERVISOR Lab [facility] 1 [place] [address] 05/06/2024 Telephone [facility] Gastroenterology at [address] [place] [address] Jacky Gudino MD 05/06/2024 10:30 AM PACKING AND FINAL ASSEMBLY SUPERVISOR Office Visit [facility] Gastroenterology at [address], [place] [address] Brandon Quintero NP Nausea and vomiting, unspecified vomiting type (Primary Dx); Irritable bowel syndrome with both constipation and diarrhea; S/P cholecystectomy; Nonintractable headache, unspecified chronicity pattern, unspecified headache type; Unintentional weight loss; Dizziness; Syncope, unspecified syncope type; Gastroesophageal reflux disease without esophagitis; Chronic superficial gastritis without bleeding; Nonspecific colitis 04/25/2024 2:20 PM PACKING AND FINAL ASSEMBLY SUPERVISOR Lab [address] 04/25/2024 Orders Only [address], [place] [address] Uday Rosenberg MD Nausea and vomiting, unspecified vomiting type (Primary Dx) 04/22/2024 Orders Only [facility] Gastroenterology at [address], [place] [address] Brandon Quintero NP from Last 3 Months Allergies No known active allergies Medications dicyclomine (BENTYL) 10 mg capsule 1 capsule (10 mg total) 025 Active norethindrone-e.e stradioL-iron (06/30) 1 mg-20 mcg (21)/75 mg (7) per tablet Take 1 tablet by mouth daily 28 tablet 12 025 2025 Active Additional Information Patient not taking.Reported on 07/10/2024 meclizine (ANTIVERT) 25 mg tablet Take 1 tablet (25 mg total) by mouth 3 (three) times a day as needed for nausea 90 tablet 3 025 Active Additional Information Patient not taking.Reported on 07/10/2024 metoclopramide (REGLAN) 10 mg tablet Take one pill twice daily 10-15 minutes before eating to help with nausea/vomitin g. Will start with seven day trial. 14 tablet Active Additional Information Patient not taking.Reported on 07/10/2024 ketorolac (TORADOL) 10 mg tablet Active ondansetron ODT (ZOFRAN-ODT) 4 mg disintegrating tablet Take 1 tablet (4 mg total) by mouth every 8 (eight) hours as needed for nausea or vomiting 30 tablet 1 Active promethazine (PHENERGAN) 12.5 mg tablet Take 1 tablet (12.5 mg total) by mouth every 6 (six) hours as needed for nausea or vomiting 30 tablet 1 Active ondansetron (ZOFRAN) 8 mg tablet Take 1-2 tabs up to twice daily as needed for problematic nausea and vomiting. Do not take more than 16 mg per dose. 60 tablet 3 2024 Discontinued cholecalciferol (VITAMIN D-3) 2000 unit capsule Take 1 capsule (2,000 Units total) by mouth daily 90 capsule 3 2024 Discontinued sucralfate (CARAFATE) 1 gram tabletIndications :Gastritis Take 1 tablet (1 g total) by mouth 4 (four) times a day 120 tablet 2024 Discontinued mirtazapine (REMERON) 30 mg tablet Take 1 tablet (30 mg total) by mouth nightly 90 tablet 3 2024 Discontinued famotidine (PEPCID) 40 mg tablet Take 1 tablet (40 mg total) by mouth 2 (two) times a day 180 tablet 3 2024 Discontinued atomoxetine (STRATTERA) 40 mg capsule 2024 Discontinued medroxyPROGESTERo ne (PROVERA) 10 mg tablet Take 1 tablet (10 mg total) by mouth daily for 10 days Repeat monthly 10 tablet 11 024 2024 Discontinued(A lternate therapy) SeroqueL 50 mg tablet Take 1 tablet (50 mg total) by mouth daily 2024 Discontinued fluconazole (DIFLUCAN) 150 mg tablet Take 1 tablet (150 mg total) by mouth once for 1 dose 1 tablet 2025 Active Problems Problem Noted Date Diagnosed Date [...] Sign Reading Time Taken Comments Blood Pressure 118/60 07/10/2024 1:14 PM PACKING AND FINAL ASSEMBLY SUPERVISOR Pulse 83 07/03/2024 2:44 PM PACKING AND FINAL ASSEMBLY SUPERVISOR Temperature 36.6 C (97.8 F) 04/02/2024 9:47 AM CDT Respiratory Rate 16 04/02/2024 9:47 AM CDT Oxygen Saturation 95% 05/06/2024 10:41 AM PACKING AND FINAL ASSEMBLY SUPERVISOR Inhaled Oxygen Concentration - - Weight 49.6 kg (109 lb 4.8 oz) 06/29/2024 5:10 P M PACKING AND FINAL ASSEMBLY SUPERVISOR Height 162.6 cm (5' 4 ) 07/03/2024 2:44 PM PACKING AND FINAL ASSEMBLY SUPERVISOR Body Mass Index 18.76 06/29/2024 5:10 PM PACKING AND FINAL ASSEMBLY SUPERVISOR Plan of Treatment Not on file Procedures Procedure Name Priority Date/Time Associated Diagnosis Comments VAGINITIS PANEL Routine 07/10/2024 1:41 PM PACKING AND FINAL ASSEMBLY SUPERVISOR Acute vaginitis US PELVIS W ENDOVAGINAL Schedule Routine, Read Routine (OP Routine) 05/22/2024 3:17 PM PACKING AND FINAL ASSEMBLY SUPERVISOR Ovarian cyst, bilateral Pelvic pain in female ESTRADIOL Routine 05/22/2024 2:32 PM PACKING AND FINAL ASSEMBLY SUPERVISOR Oligomenorrhea, unspecified type PROLACTIN Routine 05/22/2024 2:32 PM PACKING AND FINAL ASSEMBLY SUPERVISOR Oligomenorrhea, unspecified type FOLLICLE STIMULATING HORMONE Routine 05/22/2024 2:32 PM PACKING AND FINAL ASSEMBLY SUPERVISOR Oligomenorrhea, unspecified type LUTEINIZING HORMONE (LH) Routine 05/22/2024 2:32 PM PACKING AND FINAL ASSEMBLY SUPERVISOR Oligomenorrhea, unspecified type TSH Routine 05/22/2024 2:32 PM PACKING AND FINAL ASSEMBLY SUPERVISOR Oligomenorrhea, unspecified type MRI BRAIN W WO CONTRAST Schedule Routine, Read Routine (OP Routine) 05/22/2024 10:29 AM PACKING AND FINAL ASSEMBLY SUPERVISOR Nausea and vomiting, unspecified vomiting type Nonintractable headache, unspecified chronicity pattern, unspecified headache type T4, FREE Routine 05/09/2024 10:22 AM PACKING AND FINAL ASSEMBLY SUPERVISOR EGFR Routine 05/09/2024 10:22 AM PACKING AND FINAL ASSEMBLY SUPERVISOR DIFFERENTIAL AUTO Routine 05/09/2024 10: 22 AM PACKING AND FINAL ASSEMBLY SUPERVISOR COMPREHENSIVE METABOLIC PANEL Routine 05/09/2024 10:22 AM PACKING AND FINAL ASSEMBLY SUPERVISOR LIPASE Routine 05/09/2024 10:22 AM PACKING AND FINAL ASSEMBLY SUPERVISOR AMYLASE Routine 05/09/2024 10:22 AM PACKING AND FINAL ASSEMBLY SUPERVISOR CBC WITH AUTO DIFFERENTIAL Routine 05/09/2024 10:22 AM PACKING AND FINAL ASSEMBLY SUPERVISOR PHOSPHORUS Routine 05/09/2024 10:22 AM PACKING AND FINAL ASSEMBLY SUPERVISOR TSH Routine 05/09/2024 10:22 AM PACKING AND FINAL ASSEMBLY SUPERVISOR MAGNESIUM Routine 05/09/2024 10:22 AM PACKING AND FINAL ASSEMBLY SUPERVISOR EGFR Routine 04/25/2024 2:23 PM PACKING AND FINAL ASSEMBLY SUPERVISOR BASIC METABOLIC PANEL Routine 04/25/2024 2:23 PM PACKING AND FINAL ASSEMBLY SUPERVISOR N. GONORRHOEAE/C. TRACHOMATIS AMPLIFICATION STAT 08/01/2021 4:51 PM PACKING AND FINAL ASSEMBLY SUPERVISOR from Last 3 Months or Most Recently Relevant to Health Maintenance Results * (ABNORMAL) Vaginitis panel Vaginal (07/10/2024 1:41 PM PACKING AND FINAL ASSEMBLY SUPERVISOR) [place] DNA probe Detected(A) Not Detected Comment:Testing performed by : [facility], [address] [place] [address]., [id number] Gardnerella DNA probe Not Detected Not Detected MAXIMINO PRYOR Comment:Testing performed by : [facility], [address] [place] [address]., [id number] Trichomonas DNA probe Not Detected Not Detected MAXIMINO PRYOR Comment: Interpretive Data Testing performed by [facility] via Affirm VPIII Microbial Identification Test, a DNA probe test for use in the detection and identification of [place] species, Gardnerella vaginalis and Trichomonas vaginalis nucleic acid in vaginal fluid specimens from patients with symptoms of vaginitis/vaginosis. Negative results for these tests suggest the patient does not have candidiasis, bacterial vaginosis and/or trichomoniasis when consistent with clinical signs and symptoms. Current interpretive data was last revised on 2020. Testing performed by: [facility], [address] [place] [address]., [id number] Vaginal 07/10/2024 1:41 PM PACKING AND FINAL ASSEMBLY SUPERVISOR 07/11/2024 1:15 PM PACKING AND FINAL ASSEMBLY SUPERVISOR Zayda Quintero DO LAB MICROBIOLOGY - GENE RAL ORDERABLES Final Result MAXIMINO PRYOR [address] [address] Department [place] [address] * US Pelvis W Endovaginal (05/22/2024 3:17 PM PACKING AND FINAL ASSEMBLY SUPERVISOR) Anatomical Region Laterality Modality Pelvis N/A Ultrasound 05/30/2024 9:59 AM PACKING AND FINAL ASSEMBLY SUPERVISOR Narrative 05/30/2024 10:06 AM PACKING AND FINAL ASSEMBLY SUPERVISOR EXAM DESCRIPTION: US PELVIS W ENDOVAGINAL REASON FOR STUDY: Ovarian Cyst/Pelvic Pain Hx of Bilat ovarian cysts, pelvic pain bilaterally x 1 year, dysmenorrhea, menorrhagia, unintentional weight loss TECHNIQUE: Grayscale ultrasound of the pelvic contents was performed with transabdominal and transvaginal transducer. COMPARISON: None FINDINGS: UTERUS: The uterus is anteverted. The uterus is homogenous in echotexture and measures 3.4 x 5.2 x 6.4 cm. Prominent myometrial vascularity is seen on color Doppler. ENDOMETRIUM: The endometrium measures 0.7 cm in thickness. RIGHT OVARY: The right ovary measures 2.7 cm. There is documentation of color Doppler flow in the right ovary. The right ovary contains several hypoechoic areas ranging in size up to about 6 mm. LEFT OVARY: The left ovary measures 3 cm. There is documentation of color Doppler flow in the left ovary. The left ovary contains several hypoechoic areas ranging [...] Logan Velasquez M.D. RONALD: RONALD Report ID: [id number] Reading Location: [id number] Procedure Note Ori Velasquez MD - 05/30/2024 [...] Logan Velasquez M.D. RONALD: RONALD Report ID: [id number] Reading Location: [place] [address] Zayda Quintero DO IMG US PROCEDURES Final Result * Prolactin (05/22/2024 2:32 PM PACKING AND FINAL ASSEMBLY SUPERVISOR) Pathologist [facility] [place] Prolactin 6.1 4.8 - 23.3 ng/mL Comment:Testing performed by : [facility], [address] [place] [address]., [id number] Blood 05/22/2024 2:32 PM PACKING AND FINAL ASSEMBLY SUPERVISOR 05/22/2024 8:02 PM PACKING AND FINAL ASSEMBLY SUPERVISOR Zayda Quintero DO LAB BLOOD ORDERABLES Fi nal Result MAXIMINO [address] [facility] Department [place] [address] * Estradiol (05/22/2024 2:32 PM PACKING AND FINAL ASSEMBLY SUPERVISOR) Estradiol 121.0 pg/mL Comment: Interpretive Data Males: 11 43 pg/mL Females: Premenopausal: 31 533 pg/mL Postmenopausal: < 50 pg/mL Patients treated with Fluvestrant (Faslodex) should be tested using an alternate assay such as LC-MS due to potential for cross-reactivity. Estradiol varies widely throughout the menstrual cycle. Current interpretive data was last revised 2024. Testing performed by: [facility], [address] [place]., [address] Blood 05/22/2024 2:32 PM PACKING AND FINAL ASSEMBLY SUPERVISOR 05/23/2024 9:52 AM PACKING AND FINAL ASSEMBLY SUPERVISOR Zayda Quintero DO LAB BLOOD ORDERABLES Fi nal Result Performing Organization Address City/[facility] Co de Phone Number MAXIMINO [address] [facility] [employer] [place] [address] * TSH (05/22/2024 2:32 PM PACKING AND FINAL ASSEMBLY SUPERVISOR) Pathologist [facility] [place] Thyroid Stimulating Hormone 1.75 0.30 - 4.20 mcIUnit/mL Comment:Testing performed by : [facility], [address] [place] [address]., [address] Blood 05/22/2024 2:32 PM PACKING AND FINAL ASSEMBLY SUPERVISOR 05/22/2024 8:02 PM PACKING AND FINAL ASSEMBLY SUPERVISOR Zayda Quintero DO LAB BLOOD ORDERABLES Fi nal Result Performing Organization Address City/[facility]/ZIP Co de Phone Number [facility] [address] [facility] [employer] [place] [address] * LH (05/22/2024 2:32 PM PACKING AND FINAL ASSEMBLY SUPERVISOR) Pathologist [facility] [place] LH 5.7 IUnits/L Comment: Interpretive Data Males: Adults: 1.7 - 8.6 IUnits/L Females: Follicular: 2.4 - 12.6 IUnits/L Ovulation: 14.0 - 95.6 IUnits/L Luteal: 1.0 - 11.4 IUnits/L Postmenopausal: 7.7 - 58.5 IUnits/L Current interpretive data was last revised on 2018. Testing performed by: [facility], [address] [place]., [address] Blood 05/22/2024 2:32 PM PACKING AND FINAL ASSEMBLY SUPERVISOR 05/23/2024 9:52 AM PACKING AND FINAL ASSEMBLY SUPERVISOR Zaydadominique Hobbs Ingrid LAB BLOOD ORDERABLES Fi nal Result Performing Organization Address [facility] Co de Phone Number MAXIMINO PRYOR [address] [address] Department [place] [address] * Follicle stimulating hormone (05/22/2024 2:32 PM PACKING AND FINAL ASSEMBLY SUPERVISOR) FSH 4.6 IUnits/L Comment: Interpretive Data Male: Adults: 1.5 - 12.4 IUnits/L Female: Follicular: 3.5 - 12.5 IUnits/L Ovulation: 4.7 - 21.5 IUnits/L Luteal: 1.7 - 7.7 IUnits/L Postmenopausal: 25.8 - 134.8 IUnits/L Current interpretive data was last revised 2015. Testing performed by: [facility], [address] [place]., [address] Blood 05/22/2024 2:32 PM PACKING AND FINAL ASSEMBLY SUPERVISOR 05/23/2024 9:52 AM PACKING AND FINAL ASSEMBLY SUPERVISOR Zayda Faybzully Quintero DO LAB BLOOD ORDERABLES Fi nal Result Performing Organization Address [facility] de Phone Number MAXIMINO PRYOR [address] [address] Department [place] [address] * MRI Brain W WO Contrast (05/22/2024 10:29 AM PACKING AND FINAL ASSEMBLY SUPERVISOR) Anatomical Region Laterality Modality Head and Neck N/A Magnetic Resonan ce 05/22/2024 1:17 PM PACKING AND FINAL ASSEMBLY SUPERVISOR Narrative 05/22/2024 1:33 PM PACKING AND FINAL ASSEMBLY SUPERVISOR EXAM DESCRIPTION: MRI BRAIN W WO CONTRAST REASON FOR STUDY: Headache, nausea, and vomiting. Nausea and vomiting are ongoing. Headache is new. Insurance prefers MRI over CT scan. Pt reported symptoms including: weight loss, nausea, vomiting, migraines, vision loss, fainting, acid reflux, headaches, weakness, muscle aches and pains, bodily tiredness , inability to sleep, and an overall loss of energy. Symptoms occurring since she had her child 2 years ago- worsened in the last year. TECHNIQUE: Multiplanar imaging includes noncontrast T1, T2, FLAIR, diffusion with ADC map and post contrast T1 sequences. Additional sequence(s) sensitive to blood products. Images stored on PACS. CONTRAST TYPE/DOSE: 8mL of GADOTERATE MEGLUMINE 0.5 MMOL/ML INTRAVENOUS SOLUTION (SO) injected via intravenous COMPARISON: None available FINDINGS: CEREBRUM: No hemorrhage, edema, or mass effect. No abnormal enhancement. WHITE MATTER: Normal. POSTERIOR FOSSA: Brainstem and cerebellum appear unremarkable. No abnormal enhancement. DIFFUSION IMAGING: No recent infarction. EXTRAAXIAL SPACES: No hemorrhage. No mass or abnormal enhancement. BRAIN VOLUME: Within normal limits for age. PITUITARY: Unremarkable. VASCULATURE: No flow disturbance identified. ORBITS: No masses. Globes normal. PARANASAL SINUSES AND MASTOIDS: There is trace left maxillary sinus mucosal thickening. Mastoids are grossly unremarkable. OTHER: No other significant finding. IMPRESSION: No acute intracranial findings. THIS IS AN ELECTRONICALLY VERIFIED FINAL REPORT 05/22/2024 1:33 PM - Electronically signed by Germán De La Cruz M.D. MZ: GISELL Report ID: [id number] Reading Location: [id number] Procedure Note Germán De La Cruz MD [...] La Cruz M.D. MZ: GISELL Report ID: [id number] Reading Location: [place] [address] Branodn Quintero DIVERSIFIED CROPS FARMER IMG MRI PROCEDURES Final Result * eGFR (05/09/2024 10:22 AM PACKING AND FINAL ASSEMBLY SUPERVISOR) eGFR >90 >=60 mL/min/1. 73 m2 Comment: Interpretive Data Reference Interval Normal >/= 90 mL/min/1.73m2 Mildly decreased* 60 - 89 mL/min/1.73m2 Mildly to moderately decreased 45 - 59 mL/min/1.73m2 Moderately to severely decreased 30 - 44 mL/min/1.73m2 Severely decreased 15 - 29 mL/min/1.73m2 Kidney Failure < 15 mL/min/1.73m2 *Relative to young adult level Estimated glomerular filtration rate is determined by the 2020 CKD-EPI equation recommended by the National Kidney Foundation (A Unifying Approach to GFR Estimation: Recommendations of the NKF-ASK Task Force on Reassessing the Inclusion of Race in Diagnosing Kidney Disease, LALITSN 2020). The CKD-EPI equation should not be used for patients with unstable renal function and has not been validated in children and those over 70. Current interpretive data was last reviewed 2021. Blood 05/09/2024 10:2 2 AM PACKING AND FINAL ASSEMBLY SUPERVISOR 05/09/2024 11:00 AM PACKING AND FINAL ASSEMBLY SUPERVISOR us Malena Olivera MD LAB BLOOD ORDERABLES Final Resul t [facility] ([place]) [address] [facility] [place] [address] * Differential, auto (05/09/2024 10:22 AM PACKING AND FINAL ASSEMBLY SUPERVISOR) Neutrophil abs 4.7 1.5 - 6.5 K/cumm [...] on 2017. Blood 05/09/2024 10:2 2 AM PACKING AND FINAL ASSEMBLY SUPERVISOR 05/09/2024 11:00 AM PACKING AND FINAL ASSEMBLY SUPERVISOR us Malena Olivera MD LAB BLOOD ORDERABLES Final Resul t [facility] ([place]) [address] [facility] Department [place] [address] * (ABNORMAL) CBC with auto differential (05/09/2024 10:22 AM PACKING AND FINAL ASSEMBLY SUPERVISOR) WBC 7.3 3.8 - 9.9 K/cumm Hgb 13.7 11.9 - 15.5 g/dL [facility] ([place]) Hct 41.6 35.6 - 45.5 % [facility] ([place]) Plt 390 150 - 400 K/cumm [facility] ([place]) MPV 8.7(L) 9.1 - 12.3 fL [facility] ([place]) RBC 4.74 3.90 - 5.20 M/cumm [facility] ([place]) MCV 87.8 81.3 - 96.4 fL [facility] ([place]) MCH 28.9 27.1 - 33.3 pg [facility] ([place]) MCHC 32.9 32.3 - 35.7 g/dL [facility] ([place]) RDW CV 14.0 11.1 - 14.9 % [facility] ([place]) RDW SD 44.9 35.7 - 48.1 fL [facility] ([place]) NRBC abs 0.00 0.00 - 0.01 K/cumm MAXIMINO [facility] ([place]) Blood 05/09/2024 10:2 2 AM PACKING AND FINAL ASSEMBLY SUPERVISOR 05/09/2024 11:00 AM PACKING AND FINAL ASSEMBLY SUPERVISOR Malena Olivera MD LAB BLOOD ORDERABLES Final Resul t Performing Organization Address City/[facility]/ZIP Co de Phone Number MAXIMINO [facility] ([place]) 1 [facility] [place] [employer] [place] [place] [address] * TSH (05/09/2024 10:22 AM PACKING AND FINAL ASSEMBLY SUPERVISOR) Thyroid Stimulating Hormone 1.81 0.30 - 4.20 mcIUnit/mL Blood 05/09/2024 10:2 2 AM PACKING AND FINAL ASSEMBLY SUPERVISOR 05/09/2024 11:00 AM PACKING AND FINAL ASSEMBLY SUPERVISOR Malena Olivera MD LAB BLOOD ORDERABLES Final Resul t Performing Organization Address [facility] Co de Phone Number CEMJONATAN [facility] ([place]) 1 [facility] [place] [employer] [place] [address] * T4, free (05/09/2024 10:22 AM PACKING AND FINAL ASSEMBLY SUPERVISOR) Free T4 1.26 0.90 - 1.70 ng/dL Blood 05/09/2024 10:2 2 AM PACKING AND FINAL ASSEMBLY SUPERVISOR 05/09/2024 11:00 AM PACKING AND FINAL ASSEMBLY SUPERVISOR Malena Olivera MD LAB BLOOD ORDERABLES Final Resul t Performing Organization Address City/[facility]/ZIP Co de Phone Number MAXIMINO [facility] ([place]) 1 [facility] [place] [address] * Phosphorus (05/09/2024 10:22 AM PACKING AND FINAL ASSEMBLY SUPERVISOR) Phosphorus, pl 3.0 2.3 - 4.5 mg/dL Blood 05/09/2024 10:2 2 AM PACKING AND FINAL ASSEMBLY SUPERVISOR 05/09/2024 11:00 AM PACKING AND FINAL ASSEMBLY SUPERVISOR us Malena Olivera MD LAB BLOOD ORDERABLES Final Resul t MAXIMINO FARRELL ([place]) 1 [facility] [place] [place] [address] * Magnesium (05/09/2024 10:22 AM PACKING AND FINAL ASSEMBLY SUPERVISOR) Magnesium 2.1 1.4 - 2.5 mg/dL Blood 05/09/2024 10:2 2 AM PACKING AND FINAL ASSEMBLY SUPERVISOR 05/09/2024 11:00 AM PACKING AND FINAL ASSEMBLY SUPERVISOR us Malena Olivera MD LAB BLOOD ORDERABLES Final Resul t Performing Organization Address City/[facility] Co de Phone Number MAXIMINO FARRELL ([place]) 1 [facility] [place] [place] [address] * Lipase (05/09/2024 10:22 AM PACKING AND FINAL ASSEMBLY SUPERVISOR) Lipase 25 10 - 99 Units/L Blood 05/09/2024 10:2 2 AM PACKING AND FINAL ASSEMBLY SUPERVISOR 05/09/2024 11:00 AM PACKING AND FINAL ASSEMBLY SUPERVISOR us Malena Olivera MD LAB BLOOD ORDERABLES Final Resul t Performing Organization Address [facility] Co de Phone Number MAXIMINO FARRELL ([place]) 1 [facility] [place] [place] [address] * Amylase (05/09/2024 10:22 AM PACKING AND FINAL ASSEMBLY SUPERVISOR) Amylase 67 30 - 99 Units/L Blood 05/09/2024 10:2 2 AM PACKING AND FINAL ASSEMBLY SUPERVISOR 05/09/2024 11:00 AM PACKING AND FINAL ASSEMBLY SUPERVISOR us Malena Olivera MD LAB BLOOD ORDERABLES Final Resul t Performing Organization Address City/[facility]/ZIP Co de Phone Number MAXIMINO FARRELL ([place]) 1 [facility] [place] [place] [address] * (ABNORMAL) Comprehensive metabolic panel (05/09/2024 10:22 AM PACKING AND FINAL ASSEMBLY SUPERVISOR) Sodium 139 135 - 145 mmol/L Potassium, [...] >/= 126 mg/dl is diagnostic for diabetes. Fasting is defined as no caloric intake [...] [facility] ([place]) Blood 05/09/2024 10:2 2 AM PACKING AND FINAL ASSEMBLY SUPERVISOR 05/09/2024 11:00 AM PACKING AND FINAL ASSEMBLY SUPERVISOR us Malena Olivera MD LAB BLOOD ORDERABLES Final Resul t [facility] ([place]) 1 [facility] [place] [address] * eGFR (04/25/2024 2:23 PM PACKING AND FINAL ASSEMBLY SUPERVISOR) eGFR >90 >=60 mL/min/1. 73 m2 Comment: Interpretive Data Reference Interval Normal >/= 90 mL/min/1.73m2 Mildly decreased* 60 - 89 mL/min/1.73m2 Mildly to moderately decreased 45 - 59 mL/min/1.73m2 Moderately to severely decreased 30 - 44 mL/min/1.73m2 Severely decreased 15 - 29 mL/min/1.73m2 Kidney Failure < 15 mL/min/1.73m2 *Relative to young adult level Estimated glomerular [...] last reviewed 2021. Blood 04/25/2024 2:23 PM PACKING AND FINAL ASSEMBLY SUPERVISOR 04/25/2024 3:42 PM PACKING AND FINAL ASSEMBLY SUPERVISOR Andrew Pang MD LAB BLOOD ORDERABLES Johnna robles Result [facility] ([place]) 1 [facility] Department [place] [address] * Basic metabolic panel (04/25/2024 2:23 PM PACKING AND FINAL ASSEMBLY SUPERVISOR) Pathologist [facility] [place] Sodium 136 135 - 145 mmol/L Potassium, pl 4.6 3.3 - 4.9 mmol/L [facility] ([place]) Chloride 99 97 - 110 mmol/L [facility] ([place]) CO2 24 22 - 32 mmol/L [facility] ([place]) Anion gap 12 2 - 15 mmol/L [facility] ([place]) BUN 7 6 - 25 mg/dL [facility] ([place]) Creatinine 0.63 0.60 - 1.10 mg/dL [facility] ([place]) Glucose 78 70 - 199 mg/dL [facility] ([place]) Comment: Interpretive Data Fasting glucose >/= 126 mg/dl is diagnostic for diabetes. Fasting is defined as no caloric intake [...] classification and Diagnosis of Diabetes Diabetes Care 202; 46: S19-S40. Current interpretive data was last revised 2022. Calcium 9.5 8.5 - 10.3 mg/dL [facility] ([place]) Blood 04/25/2024 2:23 PM PACKING AND FINAL ASSEMBLY SUPERVISOR 04/25/2024 3:42 PM PACKING AND FINAL ASSEMBLY SUPERVISOR Andrew Pang MD LAB BLOOD ORDERABLES Johnna l Result [facility] ([place]) 1 [facility] [place] [address] * N. gonorrhoeae/C. trachomatis Amplification Urine (08/01/2021 4:51 PM PACKING AND FINAL ASSEMBLY SUPERVISOR) C. trachomatis Not Detected Not Detected MAXIMINO MELLO Comment:Testing performed by : [address] [address] N. gonorrhoeae Not Detected Not Detected MAXIMINO MELLO Comment: Interpretive Data Testing performed by the [facility]. This assay detects Chlamydia trachomatis and [...] last revised on 2019. Testing performed by: [facility], [address] [place] [address]., [id number] Urine (None) 08/01/2021 4:51 PM PACKING AND FINAL ASSEMBLY SUPERVISOR 08/01/2021 5:08 PM PACKING AND FINAL ASSEMBLY SUPERVISOR us Kuldeep Mccormick MD LAB MICROBIOLOGY - GENER AL ORDERABLES Final Result [facility] [address] [facility] Department [place] [address] from Last 3 Months or Most Recently Relevant to Health Maintenance Insurance [facility] Member Subscriber Plan / Payer (Ef fective 2023-Present) Name:Natali Dietrich Relation to Subscriber:Self Name:Natali Dietrich Payer ID:[id number] (NAIC) Group ID:Not on file Type:MEDICAID RISK OTHER Address: ATTN: CLAIMS DEPT [address] [facility] [place] [id number] [facility] Advance Directives For more information, please contact: [phone] * Full Code (Latest Code Status on File) Date Activated Date Inactivated Comments 04/02/2024 8:21 AM 04/02/2024 2:05 PM * Full Code Date Activated Date Inactivated Comments 04/02/2024 8:21 AM 04/02/2024 8:21 AM Care Teams Mixer Lever Operator Relationship Specialty Start Date End Date Deonte Cheng MD PCP - General Family Medicine 05/30/24
--- OUTSIDE RECORDS SUMMARY | 2024-07-18 01:01 | XMS_ITS | Data Portability ---
[facility] Address [address] [place] [address] Care Team Providers Care Mold Maker Plaster Name Role Phone CARENFRANCO MCFARLANE Primary Care Provider Assessment Encounter Date Assessment Date Assessment LastModified by Organization Details LastModified Time 06/06/2024 06/06/2024 Pt's case was discussed w/resident. Documentation was reviewed, and I agree w/resident's note. Dr. Cortez [email or web address] Not available 06/10/2024 11:41:41 06/13/2024 06/13/2024 Pt's case was discussed w/resident. Documentation was reviewed, and I agree w/resident's note. Dr. Cortez [email or web address] Not available 06/15/2024 22:34:30 Plan of Treatment Reminders Order Date Submit Date Provider Last Modified By Organization Details Last Modified Time Details Appointments None recorded. Lab CMP, serum or plasma 2023 IDA [facility], [address], [place], [address], 4 11:43:05 amylase + lipase, serum 2023 024 DORIE [facility], [address], [place], [address], 4 10:35:32 CBC w/ auto diff 2023 024 DORIE [facility], [address], [place], [address], 4 11:43:06 TSH + free T4, serum 2023 024 [facility], [address], [place], [address], 4 10:37:36 magnesium, serum or plasma 2023 024 [facility], [address], [address], [place], [address], 4 10:35:33 phosphorus , serum or plasma 2023 024 [facility], [address], [address], [place], [address], 4 10:35:33 Referral social problems specialist referral 2023 024 [email or web address] Not available 5 10:58:12 gastroente rologist referral 2024 025 DORIE Not available 5 14:36:33 computer engineer referral - rule out any underlying food borne allergies that can be causing your nausea/vom iting. 2024 025 [email or web address] Not available 5 13:15:[address] referral 2024 025 [email or web address] Marques Ceron, [address], [place], [address], 5 13:15:21 Procedures None recorded. Surgeries None recorded. Imaging XR, chest, 2 view 2024 [facility], [address] [place] [address] [address], [place], [address], 5 16:36:47 Medication Orders trazodone 50 mg tablet 2023 025 [facility] [place], [address], 5 10:01:58 lidocaine 5 % topical patch 2023 025 DORIE [facility] [address] [place], [address], 15:59:09 Patient TargetsNo targets recorded. Patient Instructions Encounter Date Encounter Id Patient Instructions Last Modified By Organization Details Last Modified Time 06/26/2024 [id number] I saw the patien t with the resident. I agree with the resident's assessment and plan as documented MD ian [email or web address] Not available 07/18/2024 00:11:42 07/03/2024 [id number] I was present in the clinic to discuss this patient at the time of the visit. I agree with the documented assessment and plan MD [email or web address] [email or web address] Not available 07/03/2024 18:23:36 Reason for Referral Hospital Account Manager Referral for H ousing instability Referring Physician: [facility], Encounter Date: 06/06/2024 Head Animal Keeper Referral for Endometriosis of pelvis Referring Physician: [facility], Encounter Date: 07/03/2024 Machine Striper Referral for Endom etriosis of pelvis rule out any underlying food borne allergies that can be causing your nausea/vomiting. Referring Physician: [facility], Encounter Date: 07/03/2024 Public Relations Consultant And Gynecologis t Referral for Endometriosis of pelvis Referring Physician: [facility], Encounter Date: 07/03/2024 Results Created Date Observation Date Name Description Value Unit Range Abnormal Flag Note LastModifiedBy Organization Detail LastModifiedTime 05/22/20 24 05/22/2024 MRI, brain , w/wo contr ast No observ ation record ed. mmetias [address] Morley [address], [address], [place], [address], 05/23/2024 13:32:41 05/30/20 24 05/22/2024 US, pelvi s, trans abdom inal + trans vagin al No observ ation record ed. kavon [place] [facility] [address] [facility] [place], [address], 06/06/2024 12:46:30 Result Notes None recorded. 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 Procedures Surgical History Date Name Laterality Status Provider Name and Address Organization Details Recorded Time tympanostomy completed Ermu Sainz MA [facility] 02/28/2024 11:24:20 cholecystectomy completed Vanessa Hernandez MA [facility] 04/14/2024 11:15:44 Imaging Results Imaging Date Name Status LastModified by Organization Details LastModified Time 05/22/2024 MRI, brain, w/wo contrast completed [facility] [address] [place] [facility] [address], [address], [place], [address], 05/23/2024 13:32:41 05/22/2024 US, pelvis, transabdominal + transvaginal completed [email or web address] [place] [facility] [address] [place], [address], 06/06/2024 12:46:30 Procedure Notes None recorded. Medical Equipment None Reported. Medications Name Sig Start Date Stop Date [...] Available ondansetr on HCl 8 mg tablet Take 1 tablet twice a day by oral route for 30 days, for nausea. 2024 active Not Available Not Available Not Avai lable Compro 25 mg rectal supposito ry INSERT [...] Not Available Not Available Not Available trazodone 100 mg tablet Take 1 tablet twice a day by oral route in the evening for 30 days, for sleep.. 2024 active Not Available Not Available Not Avai lable dicyclomi ne 20 mg tablet TAKE 1 [...] completed Not Available Not Available Not Available norethind marilin (contrace ptive) 0.35 mg tablet TAKE 1 [...] completed Not Available Not Available Not Available Strattera 40 mg capsule TAKE 1 CAPSULE BY MOUTH EVERY DAY 07/10 completed Not Available Not Available Not Available bupropion HCl XL 300 mg 24 hr [...] Not Available quetiapin e 50 mg tablet 07/10 completed Not Available Not Available Not Available mesalamin [...] Not Available Vitals Date Recorded Body height Body temperature Respiratory rate Heart rate Systolic blood pressure Diastolic blood pressure Provider Name and Address Organization Details Last Updated DateTime 4 162.56 cm 97.3 [degF] 16 /min 99 /min 138 mm[Hg] 100 mm[Hg] Erum Sainz [facility] 4 09:48:15 Date Recorded Body height Body temperature Heart rate Respiratory rate Body mass index (BMI) Body mass index (BMI) Percentile per age and sex Body weight Systolic blood pressure Diastolic blood pressure Provider Name and Address Organization Details Last Updated DateTime 4 162.56 cm 97.8 [degF] 80 /min 16 /min 18.9 kg/m2 14 % 38426.1 6 g 130 mm[Hg] 84 mm[Hg] Erum Sainz [facility] 4 14:07:29 Date Recorded Body height Body temperature Respiratory rate Heart rate Body mass index (BMI) Body mass index (BMI) Percentile per age and sex Body weight Systolic blood pressure Diastolic blood pressure Provider Name and Address Organization Details Last Updated DateTime 5 162.56 cm 97.7 [degF] 16 /min 99 /min 19.1 kg/m2 17 % 40336.7 5 g 152 mm[Hg] 94 mm[Hg] Erum S[place]z [place] [facility] 5 14:16:16 Date Recorded Body height Respiratory rate Body temperature Heart rate Systolic blood pressure Diastolic blood pressure Provider Name and Address Organization Details Last Updated DateTime 5 162.56 cm 18 /min 97.8 [degF] 76 /min 128 mm[Hg] 84 mm[Hg] Linh Hudson [place] [facility] [place] 5 14:49:04 Date Recorded Body height Heart rate Body temperature Respiratory rate Systolic blood pressure Diastolic blood pressure Provider Name and Address Organization Details Last Updated DateTime 5 162.56 cm 94 /min 98.8 [degF] 16 /min 123 mm[Hg] 84 mm[Hg] Chrissy Harris [place] 5 16:51:50 Social History Question Answer Notes LastModified by Organizat ion Details LastModified Time Tobacco Smoking Status Never Smoker BAUTISTA [place] 02/28/2024 11:11:24 What Is Your Level Of [...] completed JOSE CHANEL MD Attn: Accounting,[address] [place], [address], [facility] 02/28/2024 13:11:07 Hib, unspecified formulation 6 completed JOSE CHANEL MD Attn: Accounting,[address] [place], [address], [facility] 02/28/2024 13:11:07 Hib, unspecified formulation 5 completed JOSE CHANEL MD Attn: Accounting,[address] [place], [address], [facility] 02/28/2024 13:11:07 Hib, unspecified formulation 6 completed JOSE CHANEL MD Attn: Accounting,[address], [place], [address] [place] [address], [facility] 02/28/2024 13:11:07 MMR 6 completed JOSE CHANEL MD Attn: Accounting,[address], [place], [address] [place] [address], [facility] 02/28/2024 13:11:07 MMR 9 completed JOSE CHANEL MD Attn: Accounting,[address], [place], [address] [place] [address], [facility] 02/28/2024 13:11:07 pneumococcal conjugate PCV 7 6 completed JOSE CHANEL MD Attn: Accounting,[address] [facility], [place], [address] [place] [address], [facility] 02/28/2024 13:11:07 pneumococcal conjugate PCV 7 6 completed JOSE CHANEL MD Attn: Accounting,[address] [facility], [place], [address] [place] [address], [facility] 02/28/2024 13:11:07 pneumococcal conjugate PCV 7 5 completed JOSE CHANEL MD Attn: Accounting,[address] [facility], [place], [address] [place] [address], [facility] 02/28/2024 13:11:07 pneumococcal conjugate PCV 7 5 completed JOSE CHANEL MD Attn: Accounting,[address], [place], [address] [place] [address], [facility] 02/28/2024 13:11:07 DTaP-IPV 0 completed JOSE CHANEL MD Attn: Accounting,[address] [facility], [place], [address] [place] [address], [facility] 02/28/2024 13:11:07 influenza, unspecified formulation 7 completed JOSE CHANEL MD Attn: Accounting,[address], [place], [address] [place] [address], [place] [facility] 02/28/2024 13:11:07 Tdap 3 completed JOSE CHANEL MD Attn: Accounting,[address] [facility], [place], [address] [place] [address], [facility] 02/28/2024 13:11:07 Tdap 6 completed JOSE CHANEL MD Attn: Accounting,[address] [facility], [place], [address] [place] [address], [facility] 02/28/2024 13:11:07 varicella 9 completed JOSE CHANEL MD Attn: Accounting,[address] [facility], [place], [address] [place] [address], [facility] 02/28/2024 13:11:07 varicella 6 completed JOSE CHANEL MD Attn: Accounting,[address] [facility], [place], [address] [place] [address], [facility] 02/28/2024 13:11:07 influenza, split (incl. purified surface antigen) 8 completed JOSE CHANEL MD Attn: Accounting,[address] [facility], [place], [address] [place] [address], [facility] 02/28/2024 13:11:07 HPV, quadrivalent 6 completed JOSE CHANEL MD Attn: Accounting,[address] [facility], [place], [address] [place] [address], [place] [facility] 02/28/2024 13:11:07 HPV, quadrivalent 4 completed JOSE CHANEL MD Attn: Accounting,[address] [facility], [place], [address] [place] [address], [place] [facility] 02/28/2024 13:11:07 Hep B, adolescent or pediatric 5 completed JOSE CHANEL MD Attn: Accounting,[address] [facility], [place], [address] [place] [address], [place] [facility] 02/28/2024 13:11:07 Hep B, adolescent or pediatric 0 completed JOSE CHANEL MD Attn: Accounting,[address] [facility], [place], [address] [place] [address], [facility] 02/28/2024 13:11:07 Hep A, pediatric, unspecified formulation 8 completed JOSE CHANEL MD Attn: Accounting,[address] [facility], [place], [address] [place] [address], [facility] 02/28/2024 13:11:07 Hep A, pediatric, unspecified formulation 7 completed JOSE CHANEL MD Attn: Accounting,[address] [facility], [place], [address] [place] [address], [facility] 02/28/2024 13:11:07 meningococcal MCV4P 6 completed JOSE CHANEL MD Attn: Accounting,[address] [facility], [place], [address] [place] [address], [facility] 02/28/2024 13:11:07 DTaP 7 completed JOSE CHANEL MD Attn: Accounting,[address] [facility], [place], [address] [place] [address], [facility] 02/28/2024 13:11:07 DTaP-Hep B-IPV 6 completed JOSE CHANEL MD Attn: Accounting,[address] [facility], [place], [address] [place] [address], [facility] 02/28/2024 13:11:07 DTaP-Hep B-IPV 5 completed JOSE CHANEL MD Attn: Accounting,[address] [facility], [place], [address] [place] [address], [place] [facility] 02/28/2024 13:11:07 Influenza, split virus, quadrivalent, PF 4 completed JOSE CHANEL MD Attn: Accounting,[address] [facility], [place], [address] [place] [address], [facility] 02/28/2024 13:11:07 Influenza, split virus, quadrivalent, PF 0 completed JOSE CHANEL MD Attn: Accounting,[address], [place], [address], [facility] 02/28/2024 13:11:07 Influenza, split virus, quadrivalent, PF 2 completed JOSE CHANEL MD Attn: Accounting,[address], [place], [address], [facility] 02/28/2024 13:11:07 Past Encounters Encounter ID Performer Location Encounter Start Date Encounter Closed Date Diagnosis/Indication Diagnosis SNOMED-CT Code Diagnosis ICD10 Code Diagnosis Note [id number] MD Becky BATRES [address] IM [address] [place] [address] 02/28/2024 11:02:08 03/12/2024 19:04:35 Generalized anxiety disorder 69808989 F41.1 Pt currently taking citalopram 40 mg - Recently initiated would like to continue to see if effects improve anxiety. will provide refill at this for citalopram and RTC in 1 month Abdominal pain 21858904 R10.13 Recently underwent cholecyste ctomy after returning to [facility] ED with concerns of abdominal pain.She has [...] that it's worse when she is stressed. [id number] MD Becky Guerin 14 IM [address] [place] [address] 03/10/2024 16:06:25 03/13/2024 08:34:47 Anxiety disorder 309216834 F41.9 Discussed with patient that her symptoms [...] them follow up with their psychiatri st. [id number] MD Becky Barbosa 14 IM [address] [place] [address] 04/14/2024 10:51:24 04/25/2024 11:35:32 Migraine without aura 42414921 G43.009 acuteReque sting medication s other than NSAIDs due to her hx of n/v.Will provide triptan prescripti on; counseling provided on risks of serotonin syndrome although extremly rare. Attention deficit hyperactivity disorder 291501422 F90.9 Pt reports significan t improvemen t in her attention and focus.Repo rts that atomoxetin e 40 mg worked better than [facility].She is currently looking for an alternativ e psychiatri st.Will provide atomoxetin e 40 mg as previously tolerated and reports good results with attention/ focus. Discussed importance to avoid stimulants which can cause appetite suppressio n. Positive s creening for depression on PHQ-9 (Patient Health Questionnaire 9) [id number] 85978 Z13.31 PHQ 9 - significan tly improved from previous (mild 4-5) which suggests that her anxiety is likely 2/2 to her inattentio n. [id number] MD Becky Guerin [address] [place] [address] 04/25/2024 14:21:33 05/06/2024 12:38:02 Generalized anxiety disorder 48682838 F41.1 patient requests refill on her sertraline Paresthesi a of lower extremity 095476690 R20.2 patient has paresthesi as of lower extremity will check BNP to rule out low potassium low calcium Underweight 189273683 R6 3.6 patient is underweigh t and not eating well, patient open to dietitian referral. [id number] MD Becky BATRES [address] [place] [address] 05/01/2024 15:02:39 05/07/2024 10:31:18 Increased nausea and vomiting 41854152 R11.2 Patient with persistent intractabl e nausea and vomiting despite extensive workup overall unremarkab le. HIDA scan from 02/2024 did confirm biliary dyskinesia , she is s/p laparoscop ic cholecyste ctomy with persistent nausea and vomiting Will refer patient to a dietitian for assistance with finding specific foods that she can tolerate GI cocktail ordered for patient to mix at home. This entails 10 mL of 2% viscous lidocaine +30 mL of Maalox, to be taken TID PRN Despite patient having a normal gastric emptying study a year ago at [facility], the recent change on HIDA scan is suspicious for possible new component of gastropare sis in addition to biliary dyskinesia contributi ng to patient's significan t nausea and vomiting Will repeat gastric emptying study for further evaluation - Follow with GI as instructed - RTC in 1 week for follow up Postural dizziness 45166 7008 R42 multifacto rial - likely due to dehydratio n vs malnutriti on vs orthostati c hypotensio n vs anxiety vs other- Discussed with patient that POTS is a diagnosis of exclusion- Will obtain Tilt-table test to assess for orthostati c dizziness- Referral to neurology per patient's request [id number] MD Becky BATRES 14 IM [address] [facility] [address] [place] [address] 05/09/2024 09:36:35 06/06/2024 14:10:43 Increased nausea and vomiting 02284108 R11.2 Patient with persistent intractabl e nausea and vomiting despite extensive workup overall unremarkab le. HIDA scan from 02/2024 did confirm biliary dyskinesia , she is s/p laparoscop ic cholecyste ctomy with persistent nausea and vomiting- Will check CBC, CMP, TSH, Lipase, Mg, Phosphorus to assess for some dietary deficiency or electrolyt e abnormalit y- Continue working with lithograph designer and GI on finding foods she can tolerate- Gastric emptying study ordered last visit, encouraged scheduling - Follow up with neurology, psychiatry , counsellin g to addresses multifacto rial causes of nausea and vomiting (Possible component of anxiety?) [id number] MD Becky Guerin 14 IM [address] [place] [address] 06/06/2024 13:58:52 06/12/2024 09:54:45 Difficulty sleeping 726324646 Z72.820 Patient believes her migraines are attributed to her difficulty sleeping. She reports failure with doxylamine and Benadryl as sleep aids.Will trial short course of trazodone; advised to trial half a tab at night time to asses for SE. Muscle pain 39161521 M79 .18 acute; mild. She reports some mild back pain/nicole sagrario tenderness on physical exam, reproducib le on palpation, relieved with heat/massa ge at the lumbar region; she attributes it to sleeping in the car. Likely muscle pain; will prescribe patch for symptomati c treatment. Housing instability 1156 382217 Z59.811 reports feeling unsafe in current home.is afraid to seek [facility] at [facility] as she has primary custody of her daughter and does not want to be disqualifi ed from caring for her; she believes her previous partner will likely try to take her to court out of spite if he finds out. [id number] Archana Ling RN [place] 14 IM [address] [facility] [address] [place] [address] 06/13/2024 14:00:29 06/16/2024 10:27:59 Elevated blood-pressure reading without diagnosis of hypertension 287106164 R03.0 Pt is anxious during examinatio n today.Rang es are normally SBP [119-124] Housing instability 1156 024496 Z59.811 She continues to report feeling unsafe in current home.Wait listed at several housing resources locations across [place].Reac hed out to pastor Zhao courtesy of Dr. Mekhi Cortez for additional community support/ treach and possible assistance with housing. Nausea 325219344 R11.0 Etiology of her nausea is likely [...] ctomy. Continue supportive care, counseling and seeking detention to eliminate the primary stressors/ disturbanc e which is housing instabilit y first to see if her nausea resolves. Electronic cigarette user 298263567 Z72.89 Counseled re: nicotine cessation [id number] MD Becky Barbosa 14 IM [address] [facility] [place] [address] 06/26/2024 14:43:43 07/18/2024 00:12:05 Abnormal findings on diagnostic imaging of urinary organs 542717199 R93.41 Concerns for endometrio sis based on clinical presentati on; 3 years of waxing/wan ing pelvic pain s/p delivery. OB recommendi ng ex-lap, IUD, OCPs as possible treatment options.Al ready prescribed . Low back pain 878213281 M54.59 Known hx, acute, worsening/ not resolving with lidocaine patches/cr eams.MSK in nature since pain is reproducib le on palpation. Warm compresses do not relieve the pain; hot shower has no effect. Responds to NSAIDs; denies alarm neurologic al symptoms such as saddle anaesthesi a, loss of bowel/blad pat function. Given new TVUS findings, endometrio sis cannot be ruled out. - continue workup for endometrio sis with OB; RTC in 1 month- Recommende d conservati ve management first w/ OCPs prior to surgical interventi ons.- NSAIDs PRN/sparin gly since they seem to work and counseled on taking with food to avoid GI upsets. Under care of life underwriter [id number] Z76.89 Dr. Quintero; OCPs prescribed for trial of therapy for possible endometrio sis.- [id number] MD Becky Barbosa 14 IM [address] [facility] [place] [address] 07/03/2024 16:31:36 07/18/2024 00:35:20 Endometriosis of pelvis 84143019 N80.9 Suspected endometrio sis of pelvis;we are planning to continue OCPs and reassess in 1 month. In the meantime, she is searching for a referral to an OB specializi ng in endometrio sis; referral provided. Discussed risks/bene fits of treatment to endometrio sis; ultimately , if we are able to jyoti her abdominal pains, she would not require the procedure. But given the long clinical course she is seriously considerin g it. Discussed laparoscop ic approach and decreased abdominal scarring; instructed pt to seek further risks/bene fits discussion with specialist . Per pt, RD consult recommende d to seek a referral to an computer engineer to rule out possible allergic causes of abdominal pain; referral provided. Chest wall pain 33431765 6 R07.89 CTAB; normal heart tones.she is complainin g of chest wall pain reproducib le on palpation. CXR to r/o fracture since she also reports recent trauma.Req uested to send to [facility]. Health Concerns Section Related Observation LastModified by Organization Detai ls LastModified Time None Recorded Concern Status LastModified by Organization Details LastModified Time None Recorded Advance Directives Directive None Recorded Payers Encounter Date Sequence Insurance Name Policy Number Policy Cisse Covered Member ID Cisse Member ID Guarantor Name 05/09/2024 1 [facility] ON OR AFTER 12/09/20 (MEDICAID REPLACEMENT - HMO) Natali Lablance [id number] 06/06/2024 1 [facility] ON OR AFTER 12/09/20 (MEDICAID REPLACEMENT - HMO) Natali Lablance [id number] 06/13/2024 1 [facility] ON OR AFTER 12/09/20 (MEDICAID REPLACEMENT - HMO) Natali Lablance [id number] 06/26/2024 1 [place] [facility] ON OR AFTER 12/09/20 (MEDICAID REPLACEMENT - HMO) Natali Lablance [id number] 07/03/2024 1 [facility] ON OR AFTER 12/09/20 (MEDICAID REPLACEMENT - HMO) Natali Lablance [id number] Notes Date Note Type Note Provider Name [...] the nausea slightly JOSE CHANEL MD Attn: [address]ing[address] [facility], [place], [address], [place] [facility] 06/06/2024 09:53:10 4 text/html [...] received social support in the past with [employer] but is currently on the waiting list. [...] use d/t issues with fertility associated with snf use; counseled.- zofran; she continues to take [...] urination frequency/dysuria, fatigue. Mekhi Cortez MD Attn: [address] [place], [address], [facility] 06/10/2024 11:42:03 5 text/html 18-year-old female with past medical history of anxiety, status postcholecystectomy, chronic abdominal pain/n/v who presents for follow-up discussion re: housing/follow-up re: intractable nausea. She continues to have a difficult time obtaining alternative housing; she is wait listed at [facility] and is in contact with several other [...] the same. She remains reserved/afraid to seek detention at women's detention/housing as she has primary custody of her daughter and does not want to be disqualified from caring for her; she believes her previous partner will likely try to take her to court out of spite if he finds out. Archana Ling RN [facility], [facility] 06/25/2024 16:25:04 5 text/html 18F w/ PMHx of anxiety, s/p cholecystectomy, chronic abdominal pain who presents for follow-up discussion re: back pain. She states her n/v abdominal pain has improved but still is relapsing remitting. Short course of bentyl was trialed which did not provide relief. Gasx provided mild symptomatic relief. today she describes a worsening of her back pain. It is relieved with advil/ibuprofen. She denies traumas/injuries. She has recently started a course of OCPs prescribed by her [employer] for suspected endometriosis.She does have a 3 year old child and findings on TVUS that are deserving of workup. She is anxious about what this would mean for her fertility in the snf. She is concerned re: results of ultrasound which showed hypoechoic structures.She is currently seeing OB dr. Quintero for the same concerns and is being offered surgery for assisting in the diagnosis of endometriosis/asking for referral to an OB specializing in endometriosis. She is currently weighing the pros/cons of this and is seeking alternative therapy. Pt denies any fever, chills, night sweats, changes in vision, cough, dysphagia, CP, palpitations, SOB, CVA tenderness, n/v/d/c, changes in urination frequency/dysuria, fatigue. Milly Valero MD Attn: [address]ing[address] [place], [address], [facility] 07/18/2024 00:12:03 5 text/html 18F w/ PMHx of anxiety, s/p cholecystectomy, chronic abdominal pain who presents for follow-up discussion re: options for further management of her abdominal pains. Currently, endometriosis is what she believes to fit her diagnosis. She is requesting referrals to OBGYN who specialize in endometriosis to discuss possible exlap for a definitive diagnosis; she is here today to discuss the risks/benefits of pursuing this surgery. She is concerned re: snf fertility and additional abdominal scarring. Pt denies any fever, chills, night sweats, changes in vision, cough, dysphagia, CP, palpitations, SOB, CVA tenderness, n/v/d/c, changes in urination frequency/dysuria, fatigue. Milly Valero MD Attn: [address]ing[address] [place], [address], [facility] 07/18/2024 00:35:17 OBGyn Episode No OBEpisode recorded.
--- OUTSIDE RECORDS SUMMARY | 2024-07-18 01:01 | XMS_ITS | Patient Health Summary ---
Author Organization [facility] Address [address] [place] [address] Care Team Providers Care Criminal Justice Teacher Name Role Phone Lizy Dalton MD Primary Care Provider [phone] Note from [facility],non-owned Affiliates and Associated Physician Practices is amultiple site organization consisting of ambulatory clinics and hospital sitesin [place], [place], [place] and [place]. This disclosure is being madepursuant to the Care Everywhere program and may not contain all information available regarding this patient. Last updated 18.[facility] Allergies * Peanut-Derived(Shortness of Breath) -High [...] 37.4 C (99.3 F) 05/29/2021 9:01 PM ELECTION JUDGE Respiratory Rate 18 05/29/2021 9:01 PM ELECTION JUDGE Oxygen Saturation - - Inhaled Oxygen Concentration [...] POINT OF CARE(Performed 07/06/2009) Performed for Routine Infant or Child Health Check * URINALYSIS - POINT OF CARE(Performed 05/04/2009) Performed for Vaginitis * CULTURE URINE(Performed 08/05/2008) Results * BIOPHYSICAL PROFILE W NST (10/13/2022 1:11 PM CDT) Only the most recent of7 resultswithin the time period is included. Anatomical Region Laterality Modality Other 10/13/2022 1:11 PM CDT Narrative 10/13/2022 1:55 PM CDT [facility] PHONE: FAX: Pat. Name: KENIA DIETRICH Pat. No: [id number] Study Date: 10/13/2022 1:11pm , Age: 07 2005, 16 Pregnancies: 1, Para 0000 Height: 62 in Weight: 115 lb LMP: 01/31/2022 GA by LMP: 36w3d GA by Base: 36w3d JEISON: 11/07/2022 GA Selected: 36w3d (From [facility]) JEISON: 11/07/2022 Referring MD: Crista Thomason MD Fur Dyer: Gisela Magallon RDMS CPT4: [id number] BMI: 21.03 Hist/Ind: Teen , Suspected IUGR, Reportedly low-risk cf-DNA & negative CMV IgG+IgM Heart Rate: 141 bpm Amniotic Fluid Index: 11.6cm (07.6-24.7) Q1: 4.7cm Q2: 0.3cm Q3: 3.1cm Q4: 3.6cm Biophysical Profile: 01/16 Breathin Tone: 2 Movement: 2 AFV: 2 EVAL, PLACENTA Presentation: cephalic Placenta: anterior Heart Rate: 141 bpm Amniotic Fluid Volume: normal DOPPLER Umbilical - Mid Cord S/D 3.34(1.62 - 3.48) PI 1.21 (0.57 - 1.15) * Middle Cerebral Artery PSV 61.2cm/s PI 1.91 (1.35 - 2.46) Med PSV 54.5cm/s MoM 1.12(<1.5) CLINICAL SUMMARY IMPRESSION: Single, live, intrauterine at 36w3d in cephalic presentation Amniotic fluid volume: normal Biophysical profile: Normal (01/16) Dopplers studies: borderline increased UA resistance but no cephalization of the MCA RECOMMEND: Patient was unable to stay for NST today; continue weekly NST + BPP + Doppler through delivery Scheduled for IOL on 10/17/22 (if not delivered by then, would repeat U/S for growth next week) Thanks for allowing us the opportunity to care for your patient Bartolo Stringer MD <Electronic Signature> 10/13/2022 01:56pm Crista WALSH ORDERABLES * SONOGRAM - COMPLETE (08/21/2022 9:58 AM CDT) Only the most recent of2 resultswithin the time period is included. Anatomical Region Laterality Modality Other 08/21/2022 9:58 AM CDT Narrative 08/21/2022 11:29 AM CDT [facility] PHONE: FAX: Pat. Name: KENIA DIETRICH Pat. No: [id number] Study Date: 08/21/2022 9:58am , Age: 07 2005, 16 Pregnancies: 1, Para 0000 Height: 62 in Weight: 115 lb LMP: 01/31/2022 GA by LMP: 28w6d GA by Base: 28w6d JEISON: 11/07/2022 GA by US: 27w3d JEISON: 11/17/2022 GA Selected: 28w6d (From [facility]) JEISON: 11/07/2022 Referring MD: Crista Thomason MD Fur Dyer: Erinn Mcdonnell, RDMS, RDCS CPT4: [id number] BMI: 21.03 Hist/Ind: SGA with abnormal UA Doppler outside U/S MEASUREMENTS & AGE GROWTH EVALUATION Measurement GA Range Srce %for GA Ratios ----- ---- ------- BPD 7.1 cm 28w3d (46w6j-47z8s) Hadl BPD 24% FL/BPD 0.72 (0.71 - 0.87) HC 26.3 cm 28w4d (50k8q-51b5d) Hadl HC 12% FL/AC 0.22 (0.20 - 0.24) AC 23.0 cm 27w2d (39m6f-84x3r) Hadl AC 8% HC/AC 1.14 (0.99 - 1.18) FL 5.1 cm 27w1d (65o9o-82s4c) Hadl FL 4% CI 0.75 (0.70 - 0.86) HL 4.5 cm 26w6d (65l3m-63f1i) Jose E HL 18% GA for sonogram 27w3d (13t4o-18c9n) Weight Estimate: based on (BPD,HC,AC,FL) Hadlock Weight: 1078 gm (921-1236gm) Hadl : 2lbs, 6oz Normal: 1350 gm (1012-1688gm) Had Wt% 6% for 28w6d Heart Rate: 151 bpm Amniotic Fluid Index: 18.6cm (09.2-23.0) Q1: 5.6cm Q2: 4.3cm Q3: 3.3cm Q4: 5.4cm Biophysical Profile: 01/18 Breathin Tone: 2 NST: 2 Movement: 2 AFV: 2 EVAL, PLACENTA Presentation: cephalic Placenta: anterior Heart Rate: 151 bpm Amniotic Fluid Volume: normal DOPPLER Umbilical - Mid Cord S/D 4.20(2.04 - 4.24) PI 1.32 (0.73 - 1.33) Middle Cerebral Artery PSV 46.4cm/s PI 2.23 (1.60 - 2.87) Med PSV 38.4cm/s MoM 1.21(<1.5) CLINICAL SUMMARY Single, live intrauterine at 28w6d based on LMP Amniotic fluid volume is Normal size is trending IUGR/SGA Biophysical profile: Normal (01/18) no breathing, NST reactive, normal baseline, moderate BTBV Doppler studies: borderline elevated UA vascular resistance, normal MCA vascular resistance RECOMMEND: If not previously done, offer cf-DNA & CMV IgG+IgM Continue weekly NST+BPP+FUENTES+Dopplers Repeat U/S for growth in 2 weeks Schedule formal MFM consult if desired Bartolo Stringer MD <Electronic Signature> 08/21/2022 11:29am Ly Allen MD MFM ORDERABLES * (ABNORMAL) URINALYSIS W/MICROSCOPIC NO CULTURE (05/29/2021 11:20 PM ELECTION JUDGE) Color UA Red(A) Straw, Yellow 05/29/2021 11:43 PM ELECTION JUDGE [facility] Clarity UA Slt Cloudy(A) Clear 05/29/2021 11:43 PM ELECTION JUDGE [facility] Specific Lacey UA 1.018 1.005 - 1.030 05/29/2021 11:43 PM ELECTION JUDGE [facility] pH UA 5.0 5.0 - 8.0 pH 05/29/2021 11:43 PM [facility] Protein UA 2+(A) Negative 05/29/2021 11:43 PM [facility] Glucose UA Negative Negative 05/29/2021 11:43 PM [facility] Ketone UA Negative Negative 05/29/2021 11:43 PM [facility] Bilirubin UA Negative Negative 05/29/2021 11:43 PM [facility] Blood UA 3+(A) Negative 05/29/2021 11:43 PM [facility] Nitrite UA Negative Negative 05/29/2021 11:43 PM [facility] Leukocyte Esterase 1+(A) Negative 05/29/2021 11:43 PM [facility] Urobilinogen UA Negative Negative mg/dL 05/29/2021 11:43 PM [facility] RBC UA >100(A) None Seen, 0-2, 3-5 /HPF 05/29/2021 11:43 PM [facility] WBC UA 11-20(A) None Seen, 0-5 /HPF 05/29/2021 11:43 PM [facility] Bacteria UA Trace(A) None /HPF 05/29/2021 11:43 PM [facility] Squamous Epithelial Cells UA 3-5 None Seen, 0-2, 3-5 /HPF 05/29/2021 11:43 PM [facility] Mucus UA 1+ /LPF 05/29/2021 11:43 PM [facility] Urine URINE SPECIMEN OBTAINED BY CLEAN CATCH PROCEDURE / Unknown Collection / Unknown 05/29/2021 11:20 PM ELECTION JUDGE 05/29/2021 11:25 PM ELECTION JUDGE [facility] - 05/29/2021 11:43 PM ELECTION JUDGE Alesia Camejo MD LAB - URINALYSI S ORDERABLES [address] [address], [facility] [phone] * CULTURE URINE (05/29/2021 11:01 PM ELECTION JUDGE) Only the most recent of3 resultswithin the time period is included. Culture Urine <10,000 CFU/mL urogenital ankush RONNI 05/31/2021 2:42 AM ELECTION JUDGE [facility] MICROBIOLOGY Urine URINE SPECIMEN OBTAINED BY CLEAN CATCH PROCEDURE / Unknown Collection / Unknown 05/29/2021 11:01 PM ELECTION JUDGE 05/29/2021 11:05 PM ELECTION JUDGE Alesia Camejo MD LAB - MICROBIOL OGY ORDERABLES [facility] MICRO[facility]OLOG[facility] [address] [place] [address], [facility] [phone] * HIV-1 HIV-2 ANTIBODY + HIV P24 AG PANEL (05/29/2021 10:31 PM ELECTION JUDGE) Pathologist [facility] HIV Antigen/Antibod y 1 & 2 Non-reacti ve Non-react josh 05/29/2021 11:35 PM ELECTION JUDGE [facility] Comment:No Laboratory eviden ce of HIV infection. Blood BLOOD SPECIMEN / Unknown Venipuncture / Unknown 05/29/2021 10:31 PM ELECTION JUDGE 05/29/2021 10:45 PM ELECTION JUDGE Alesia Camejo MD LAB - CHEMISTRY ORDERABLES Performing Organization Address [facility] Co de Phone Number [address] [address], [place] [phone] * C-REACTIVE PROTEIN (05/29/2021 10:31 PM ELECTION JUDGE) Pathologist [facility] C-Reactive Protein <0.5 <=0.5 mg/dL 05/29/2021 11:15 PM ELECTION JUDGE [facility] Blood BLOOD SPECIMEN / Unknown Venipuncture / Unknown 05/29/2021 10:31 PM ELECTION JUDGE 05/29/2021 10:45 PM ELECTION JUDGE Alesia Camejo MD LAB - CHEMISTRY ORDERABLES Performing Organization Address City/[facility]/ZIP Co de Phone Number [address] [address], [place] [phone] * ERYTHROCYTE SEDIMENTATION RATE (05/29/2021 10:31 PM ELECTION JUDGE) Erythrocyte Sedimentation Rate Westergren 5 0 - 20 MM/HR 05/29/2021 11:27 PM [facility] Blood BLOOD SPECIMEN / Unknown Venipuncture / Unknown 05/29/2021 10:31 PM ELECTION JUDGE 05/29/2021 10:47 PM ELECTION JUDGE Alesia Camejo MD LAB - HEMATOLOG Y ORDERABLES [facility] [address] [place] [address], [facility] [phone] * CBC W AUTO DIFFERENTIAL (05/29/2021 10:31 PM ELECTION JUDGE) WBC 8.8 4.5 - 14.5 10 3/uL 05/29/2021 10:53 PM [facility] RBC 4.43 4.10 - 5.10 10 6/uL 05/29/2021 10:53 PM [facility] Hemoglobin 12.7 12.0 - 16.0 g/dL 05/29/2021 10:53 PM [facility] Hematocrit 39.1 36.0 - 47.0 % 05/29/2021 10:53 PM [facility] MCV 88.3 78.0 - 98.0 fL 05/29/2021 10:53 PM [facility] MCH 28.7 25.0 - 35.0 pg 05/29/2021 10:53 PM [facility] MCHC 32.5 31.0 - 37.0 g/dL 05/29/2021 10:53 PM [facility] Platelet Count 329 100 - 400 10 3/uL 05/29/2021 10:53 PM [facility] RDW-SD 43.8 36.0 - 50.0 fL 05/29/2021 10:53 PM [facility] RDW-CV 13.2 11.5 - 14.0 % 05/29/2021 10:53 PM [facility] MPV 9.1 6.0 - 9.5 fL 05/29/2021 10:53 PM [facility] nRBC Absolute 0.00 0 10 3/uL 05/29/2021 10:53 PM [facility] nRBC Auto 0.0 0 /100 WBC 05/29/2021 10:53 PM [facility] Neutrophils % 53.1 24.0 - 66.0 % 05/29/2021 10:53 PM [facility] Lymphocytes % 32.3 22.0 - 61.0 % 05/29/2021 10:53 PM [facility] Monocytes % 9.5 3.0 - 15.0 % 05/29/2021 10:53 PM [facility] Eosinophils % 4.0 0.0 - 10.0 % 05/29/2021 10:53 PM [facility] Basophil % 1.0 0.0 - 100.0 % 05/29/2021 10:53 PM [facility] Neutrophils Absolute 4.7 1.1 - 9.6 10 3/uL 05/29/2021 10:53 PM [facility] Lymphocyte Absolute 2.8 1.0 - 8.9 10 3/uL 05/29/2021 10:53 PM [facility] Monocytes Absolute 0.84 0.14 - 2.18 10 3/uL 05/29/2021 10:53 PM [facility] Eosinophils Absolute 0.35 0.00 - 1.45 10 3/uL 05/29/2021 10:53 PM [facility] Basophils Absolute 0.09 0.00 - 0.29 10 3/uL 05/29/2021 10:53 PM [facility] Immature Granulocytes % 0.1 0.0 - 1.0 % 05/29/2021 10:53 PM [facility] Immature Granulocytes Absolute 0.01 05/29/2021 10:53 PM [facility] Blood BLOOD SPECIMEN / Unknown Venipuncture / Unknown 05/29/2021 10:31 PM ELECTION JUDGE 05/29/2021 10:47 PM [facility] Alesia Camejo MD LAB - HEMATOLOG Y ORDERABLES [facility] [address] [place] [address], [facility] [phone] * (ABNORMAL) COMPREHENSIVE METABOLIC PANEL (05/29/2021 10:31 PM [facility]) BUN 5 5 - 19 mg/dL 05/29/2021 11:12 PM [facility] Creatinine 0.73 0.48 - 0.84 mg/dL 05/29/2021 11:12 PM [facility] Sodium 139 136 - 145 mmol/L 05/29/2021 11:12 PM [facility] Potassium 3.7 3.5 - 5.1 mmol/L 05/29/2021 11:12 PM [facility] Chloride 109(H) 98 - 107 mmol/L 05/29/2021 11:12 PM [facility] CO2 22 20 - 28 mmol/L 05/29/2021 11:12 PM [facility] Glucose 79 70 - 115 mg/dL 05/29/2021 11:12 PM [facility] Calcium 9.0 8.4 - 10.2 mg/dL 05/29/2021 11:12 PM [facility] Protein Total 7.0 6.0 - 8.3 g/dL 05/29/2021 11:12 PM [facility] Albumin 4.3 3.4 - 5.0 g/dL 05/29/2021 11:12 PM [facility] Bilirubin Total 0.2(L) 0.3 - 1.2 mg/dL 05/29/2021 11:12 PM [facility] Alkaline Phosphatase 62(L) 100 - 390 U/L 05/29/2021 11:12 PM [facility] ALT 21 5 - 55 U/L 05/29/2021 11:12 PM [facility] AST 24 3 - 35 U/L 05/29/2021 11:12 PM [facility] Anion Gap 12 8 - 18 05/29/2021 11:12 PM [facility] BUN/Creatinine Ratio 7 7 - 23 05/29/2021 11:12 PM [facility] Osmolality Calculated 284 270 - 300 mOsm/kg 05/29/2021 11:12 PM [facility] Blood BLOOD SPECIMEN / Unknown Venipuncture / Unknown 05/29/2021 10:31 PM ELECTION JUDGE 05/29/2021 10:47 PM ELECTION JUDGE Alesia Camejo MD LAB - CHEMISTRY ORDERABLES [facility] [address] [place] [address], [facility] [phone] * LIPASE BLOOD (05/29/2021 10:31 PM ELECTION JUDGE) Lipase 20 8 - 78 U/L 05/29/2021 11:12 PM ELECTION JUDGE [facility] Blood BLOOD SPECIMEN / Unknown Venipuncture / Unknown 05/29/2021 10:31 PM ELECTION JUDGE 05/29/2021 10:47 PM ELECTION JUDGE Alesia Camejo MD LAB - CHEMISTRY ORDERABLES Performing Organization Address City/[facility]/ZIP Co de Phone Number [address] [address], [facility] [phone] * SARS-COV-2 (COVID-19) FLU A/B RSV PCR RAPID (05/29/2021 10:19 PM ELECTION JUDGE) COVID-19 PCR Not detected Not detected 05/29/20 11:26 PM [facility] Influenza A PCR Not detected Not detected 05/29/2021 11:26 PM [facility] Influenza B PCR Not detected Not detected 05/29/2021 11:26 PM [facility] RSV PCR Not detected Not detected 05/29/2021 11:26 PM [facility] Microbiology SPECIMEN FROM NASOPHARYNGEAL STRUCTURE / Unknown Collection / Unknown 05/29/2021 10:19 PM ELECTION JUDGE 05/29/2021 10:45 PM ELECTION JUDGE Narrative [facility] - 05/29/2021 11:26 PM ELECTION JUDGE This nucleic acid amplification assay has been authorized by the Food and Drug administration (FDA) under an Emergency Use Authorization (EUA). This [...] Camejo MD LAB - MICROBIOL OGY ORDERABLES Performing Organization Address City/[facility]/ZIP Co de Phone Number [facility] [address] [place] [address], [facility] [phone] * CHLAMYDIA + GC AMPLIFIED PROBE (STL) (05/29/2021 10:17 PM ELECTION JUDGE) Pathologist [facility] Chlamydia Amplified Probe Negative Negative 05/30/2021 9:32 AM ELECTION JUDGE [facility] MICROBIOLOGY GC Amplified Probe Negative Negative 05/30/2021 9:32 AM ELECTION JUDGE [facility] Microbiology URINE / Unknown Collection / Unknown 05/29/2021 10:17 PM ELECTION JUDGE 05/29/2021 10:46 PM ELECTION JUDGE Narrative [facility] - 05/30/2021 9:32 AM ELECTION JUDGE Results based on detection/no detection of ribosomal RNA by amplified method. Alesia Camejo MD LAB - MICROBIOL OGY ORDERABLES Performing Organization Address [facility]/ZIP Co de Phone Number [facility] [address] [place], [place] [address] [phone] * HCG URINE QUALITATIVE - POCT (IP) INTERFACED (05/29/2021 10:17 PM ELECTION JUDGE) Pathologist [facility] HCG Qual Urine Negative Negative 05/29/2021 10:27 PM ELECTION JUDGE [facility] Urine URINE / Unknown 05/29/2021 1 0:17 PM ELECTION JUDGE 05/29/2021 10:27 PM ELECTION JUDGE Alesia Camejo MD LAB - POINT OF CARE ORDERABLES [facility] [address] [place] [address] * TRICHOMONAS RAPID TEST (05/29/2021 10:17 PM ELECTION JUDGE) Pathologist [facility] Trichomonas Rapid Test Negative Negative 05/29/2021 11:00 PM ELECTION JUDGE [facility] Microbiology VAGINAL SWAB / Unknown Collection / Unknown 05/29/2021 10:17 PM ELECTION JUDGE 05/29/2021 10:45 PM ELECTION JUDGE Alesia Camejo MD LAB - MICROBIOL OGY ORDERABLES [facility] [address] [place] [address], [facility] [phone] * HCG URINE QUAL POCT NOTIFICATION (05/29/2021 9:45 PM ELECTION JUDGE) Pathologist [facility] Comment Notification Label Only - See Separate Report 05/29/2021 11:30 PM ELECTION JUDGE [facility] Urine URINE / Unknown 05/29/2021 9 :45 PM ELECTION JUDGE 05/29/2021 10:08 PM ELECTION JUDGE Alesia Camejo MD LAB - URINALYSI S ORDERABLES Performing Organization Address City/[facility] Co de Phone Number [facility] [address] [phone] * COVID-19 SARS-COV-2 PCR QUAL ([facility]) (02/13/2020 2:54 PM CDT) Pathologist [facility] SARS-CoV-2 OC Not Detected Not Detected [facility] ACCOUNT BILL Comment: This nucleic acid amplification test was developed and its performance characteristics determined by [employer]. Nucleic acid amplification tests include PCR and [...] Resulting Agency Comment Lab Testing performed at: [facility] [employer] [facility] [address] [facility] [phone] Lizy Dalton MD LAB - MICROBIOLOGY O RDERALENORA Performing Organization Address City/[facility] Co de Phone Number [facility] ACCOUNT BILL [address] [place] [address] * CULTURE AEROBIC (02/13/2020 2:52 PM CDT) Only the most recent of4 resultswithin the time period is included. Aerobic Bacterial Culture Final report [facility] ACCOUNT BILL Result 1 [facility] ACCOUNT BILL Comment:Routine respiratory ankush Microbiology SPECIMEN FROM TONSIL / Unknown 02/13/2020 2:52 PM CDT 02/13/2020 Narrative Resulting Agency Comment Lab Testing performed at: [place] [id number] [facility] [phone] Lizy Datlon MD LAB - MICROBIOLOGY [employer] Performing Organization Address City/[facility] Co de Phone Number [facility] ACCOUNT BILL [address] [place] [address] * STREP A SCREEN - POINT OF [...] her Lizy Dalton MD DIAGNOSTIC IMAGING O RDERABLES * (ABNORMAL) CULTURE STREP GROUP A (07/02/2019 11:21 AM ELECTION JUDGE) Only the most recent of3 resultswithin the time period is included. Beta-Strep Culture, Group A Only (A) [facility] INSURANCE BILL Comment: Beta-hemolytic colonies, not group [...] OF NECK) / Unknown 07/02/2019 11:21 AM ELECTION JUDGE 07/02/2019 Narrative Resulting Agency Comment Lab Testing performed at: [facility] [address] [facility] [phone] Lizy Dalton MD LAB - MICROBIOLOGY O RDERABLES [facility] [address] [place] [address] * STREP A SCREEN - POINT OF CARE (AMB) STL (02/19/2019 11:21 AM CDT) Strep A Rapid POCT Negative Negative Strep A Internal Control Present Lot # [id number] Expiration Date [id number] Throat ENTIRE THROAT (SURFACE REGION OF NECK) [...] (03/27/2017) Scanned Document LAB - THERAPEUTIC DR UG MONITORING ORDERABLES * (ABNORMAL) CULTURE RESPIRATORY UPPER [...] CDT 12/08/2016 Narrative Resulting Agency Comment [facility] [address] [facility] [phone] Casey Hong DO LAB - MICROBIOL OGY ORDERABLES [facility] INSURANCE BILL [address] [place] [address] * XR KNEE 1 OR 2 VW RIGHT (10/06/2016 10:22 AM CDT) Anatomical Region Laterality Modality Lower Extremity Radiographic Elidia ging 10/06/2016 10:5 4 AM CDT Impressions 10/06/2016 11:10 AM CDT No acute osseous abnormality in the left or right knees. Bilateral benign distal femoral cortical desmoids. The study was dictated by Rox Duarte MD (resident physician). I, Sarah Hill, have personally reviewed the [...] study was dictated by Rox Duarte MD (resident physician). Sarah Ballesteros, have personally reviewed the images [...] study was dictated by Rox Duarte MD (resident physician). Sarah Ballesteros, have personally reviewed the images [...] study was dictated by Rox Duarte MD (resident physician). I, Sarah Hill, have personally reviewed the [...] pH units Blood UA negative Negative Specific Lacey UA POCT 1.01 1.002 - 1.030 Ketone [...] Sekou Dsouza MD LAB - MICROBIOLOGY O RDERABLES Care Teams Criminal Justice Teacher Relationship Specialty Start Date End Date Lizy Dalton MD PCP - General Pediatrics 02/03/14
--- OUTSIDE RECORDS SUMMARY | 2024-07-18 01:01 | XMS_ITS | Continuity of Care Document ---
Author Organization [facility] Address [address] [place] [address] Phone Care Team Providers Care Sketch Artist Name Role Phone Sam OD, Jimmy Unavailable Unavailable Procedures Procedure Date Eye Exam & Treatment Refraction Office/outpatient Visit, [facility] Refraction Advance Directives Directive Yes / No Effective Date File Name No Information Encounters Encounter Description Practice Location Reason(s) For Visit Diagnoses Date Provider Providers Copied on Encounter [facility], [address] [place] [address] [address], [place], [place], [id number], tel:[phone] [facility] No Information 8-201 0 Sam OD Jimmy. [address], [place], [address], [place]. tel:[phone] Office/outpat ient Visit, [facility], [address] [place] [address] [address], [place], [place], [id number], tel:[phone] [facility] No Information 0-200 8 Sam OD Jimmy. [address] , [address], [place], [address], [place]. tel:[phone] Family History Family Member Type Diagnosis Age At Onset No Information Payers Payer name Insurance type Covered republican ID Authoriza tion(s) Medicaid [facility] [id number] Social History Type Description Quantity Date Captured [...]
--- OUTSIDE RECORDS SUMMARY | 2024-07-18 01:01 | XMS_ITS | Clinical Summary ---
Author Organization [facility] Address [address] [place] [address] Care Team Providers Care Electrical Machine Builder Name Role Phone Deonte Cheng MD Primary Care Provider [phone] Allergies No known active allergies Medications dicyclomine (BENTYL) 10 mg capsule 1 capsule (10 mg total) Active norethindrone-e.e stradioL-iron (JUNEL FE 06/30) 1 mg-20 mcg (21)/75 mg (7) per tablet Take 1 tablet by mouth daily 28 tablet 12 025 2025 Active Additional Information Patient not taking.Reported on 07/10/2024 meclizine (ANTIVERT) 25 mg tablet Take 1 tablet (25 mg total) by mouth 3 (three) times a day as needed for nausea 90 tablet 3 Active Additional Information Patient not taking.Reported on 07/10/2024 metoclopramide (REGLAN) 10 mg tablet Take one pill twice daily 10-15 minutes before eating to help with nausea/vomitin g. Will start with seven day trial. 14 tablet 025 Active Additional Information Patient not taking.Reported [...] for nausea or vomiting 30 tablet 1 025 Active ondansetron (ZOFRAN) 8 mg tablet Take 1-2 tabs up to twice daily as needed for problematic nausea and vomiting. Do not take more than 16 mg per dose. 60 tablet 3 024 2024 Discontinued cholecalciferol (VITAMIN D-3) 2000 unit capsule Take 1 capsule (2,000 Units total) by mouth daily 90 capsule 3 024 2024 Discontinued sucralfate (CARAFATE) 1 gram tabletIndications :Gastritis Take 1 tablet (1 g total) by mouth 4 (four) times a day 120 tablet 024 2024 Discontinued mirtazapine (REMERON) 30 mg tablet [...] mouth once for 1 dose 1 tablet 025 2024 Active Problems Problem Noted Date Diagnosed Date [...] Type Department Care Team Description 07/11/2024 Telephone [facility] [address] [facility] [address] [place] [address] Kayla Henderson LPN 07/11/2024 Orders Only [facility] 1 [place] [address] Zayda Quintero, 07/10/2024 1:41 PM MEDICAL RESEARCH SCIENTIST - 07/10/2024 11:59 PM MEDICAL RESEARCH SCIENTIST Hospital Encounter [facility] [address] [facility] [address] [place] [address] Acute vaginitis Discharge Disposition: Discharge to home or self care 07/10/2024 1:15 PM MEDICAL RESEARCH SCIENTIST Office Visit [facility] [address] [facility] [address] [place] [address] Zayda Quintero DO Nausea and vomiting, unspecified vomiting type (Primary Dx); Postcoital bleeding; Myalgia of pelvic floor 07/10/2024 Orders Only [facility] [address] [facility] [address] [place] [address] Zayda Quintero DO Myalgia of pelvic floor (Primary Dx) 07/03/2024 2:45 PM MEDICAL RESEARCH SCIENTIST Office Visit [facility] at [place] [address] [facility] [address] [place] [address] Brandon Quintero, MARIAJOSE Nausea and vomiting, unspecified vomiting type (Primary Dx); Unintentional weight loss; PTSD (post-traumatic stress disorder); Irritable bowel syndrome with both constipation and diarrhea; Gastroesophageal reflux disease with esophagitis without hemorrhage; Chronic superficial gastritis without bleeding; S/P cholecystectomy 06/27/2024 9:46 AM MEDICAL RESEARCH SCIENTIST - 06/27/2024 11:59 PM MEDICAL RESEARCH SCIENTIST Hospital Encounter [facility] Nutrition and Diabetic Education [address] [facility] [address] [place] [address] Zheng, Verna Dyer, STEFANI Nausea and vomiting, unspecified vomiting type Discharge Disposition: Discharge to home or self care 06/24/2024 1:15 PM MEDICAL RESEARCH SCIENTIST Office Visit [facility] [address] [facility] [address] [place] [address] Zayda Quintero, Dysmenorrhea (Primary Dx); Secondary oligomenorrhea; Nausea and vomiting, unspecified vomiting type; Unintentional weight loss 06/06/2024 Telephone [facility] [address] [facility] [address] [place] [address] Zayda Quintero, DO Patient issue/concern 05/30/2024 Orders Only [address] [address] Zayda Quintero, DO 05/29/2024 Telephone [facility] [address] [facility] [address] [place] [address] Zayda Quintero, Medication Issue 05/23/2024 Orders Only [address] [address] Zayda Quintero, DO 05/23/2024 Telephone [facility] [address] [facility] [address] [place] [address] Kayla Henderson LPN 05/22/2024 3:30 PM MEDICAL RESEARCH SCIENTIST Lab [facility] [address] [place] [address] Oligomenorrhea, unspecified type 05/22/2024 2:45 PM MEDICAL RESEARCH SCIENTIST Ancillary Procedure [facility] [address] [place] [address] Ovarian cyst, bilateral; Pelvic pain in female 05/22/2024 1:45 PM MEDICAL RESEARCH SCIENTIST Office Visit [facility] [address] [place] [address] Zayda Quintero DO Secondary oligomenorrhea (Primary Dx); Pelvic pain; Cyst of ovary, unspecified laterality 05/22/2024 8:53 AM MEDICAL RESEARCH SCIENTIST - 05/22/2024 11:59 PM MEDICAL RESEARCH SCIENTIST Hospital Encounter [facility] 1 [place] [address] Nausea and vomiting, unspecified vomiting type; Nonintractable headache, unspecified chronicity pattern, unspecified headache type Discharge Disposition: Discharge to home or self care 05/22/2024 Orders Only [facility] [address] [facility] [address] [place] [address] Zayda Quintero DO Oligomenorrhea, unspecified type (Primary Dx) 05/22/2024 Orders Only [facility] [address] [facility] [address] [place] [address] Faby Gibson MA Ovarian cyst, bilateral (Primary Dx); Pelvic pain syndrome; Pelvic pain in female 05/13/2024 Orders Only [facility] Gastroenterology at [address] [place] [address] Brandon Quintero NP Dizziness (Primary Dx); Syncope, unspecified syncope type; Nausea and vomiting, unspecified vomiting type 05/09/2024 10:15 AM MEDICAL RESEARCH SCIENTIST Lab [address] [address] 05/06/2024 10:30 AM MEDICAL RESEARCH SCIENTIST Office Visit [facility] Gastroenterology at [address] [place] [address] Brandon Quintero NP Nausea and vomiting, unspecified vomiting type (Primary Dx); Irritable bowel syndrome with both constipation and diarrhea; S/P cholecystectomy; Nonintractable headache, unspecified chronicity pattern, unspecified headache type; Unintentional weight loss; Dizziness; Syncope, unspecified syncope type; Gastroesophageal reflux disease without esophagitis; Chronic superficial gastritis without bleeding; Nonspecific colitis 05/06/2024 Telephone [facility] Gastro[facility]ology at [place] [address] [facility] [address] [place] [address] Jacky Gudino MD 04/25/2024 2:20 PM MEDICAL RESEARCH SCIENTIST Lab [address] 04/25/2024 Orders Only [address] [place] [phone] Uday Rosenberg MD Nausea and vomiting, unspecified vomiting type (Primary Dx) 04/22/2024 Orders Only [facility] Gastroenterology at [address] [place] [address] Brandon Quintero NP from Last 3 Months Immunizations Name Administration [...] Living Growth Chart Information Age Height Weight Vzlylo-[id number]-[id number] th Percentile BMI Percentile Head Circum Head Circum Percentile Date 18 years 162.6 cm (5' 4 ) 2024 18 years 162.6 cm (5' 4 ) 49.6 kg (109 lb 4.8 oz) 12.90%* 2023 years 162.6 cm (5' 4 ) 2023 18 years 162.6 cm (5' 4 ) 45.8 kg (101 lb) 2.67%* 2023 18 years 162.6 cm (5' 4 [...] (113 lb 1.5 oz) 40.68%* 2021 * CDC (Girls, 2-20 Years) Last Filed Vital Signs Vital Sign Reading Time Taken Comments Blood Pressure 118/60 07/10/2024 1:14 PM MEDICAL RESEARCH SCIENTIST Pulse 83 07/03/2024 2:44 PM MEDICAL RESEARCH SCIENTIST Temperature 36.6 C (97.8 F) 04/02/2024 9:47 AM CDT Respiratory Rate 16 04/02/2024 9:47 AM CDT Oxygen Saturation 95% 05/06/2024 10:41 AM MEDICAL RESEARCH SCIENTIST Inhaled Oxygen Concentration - - Weight 49.6 kg (109 lb 4.8 oz) 06/29/2024 5:10 P M MEDICAL RESEARCH SCIENTIST Height 162.6 cm (5' 4 ) 07/03/2024 2:44 PM MEDICAL RESEARCH SCIENTIST Body Mass Index 18.76 06/29/2024 5:10 PM MEDICAL RESEARCH SCIENTIST Plan of Treatment Health Maintenance Due Date [...] Comments VAGINITIS PANEL Routine 07/10/2024 1:41 PM MEDICAL RESEARCH SCIENTIST Acute vaginitis US PELVIS W ENDOVAGINAL Schedule Routine, Read Routine (OP Routine) 05/22/2024 3:17 PM MEDICAL RESEARCH SCIENTIST Ovarian cyst, bilateral Pelvic pain in female ESTRADIOL Routine 05/22/2024 2:32 PM MEDICAL RESEARCH SCIENTIST Oligomenorrhea, unspecified type PROLACTIN Routine 05/22/2024 2:32 PM MEDICAL RESEARCH SCIENTIST Oligomenorrhea, unspecified type FOLLICLE STIMULATING HORMONE Routine 05/22/2024 2:32 PM MEDICAL RESEARCH SCIENTIST Oligomenorrhea, unspecified type LUTEINIZING HORMONE (LH) Routine 05/22/2024 2:32 PM MEDICAL RESEARCH SCIENTIST Oligomenorrhea, unspecified type TSH Routine 05/22/2024 2:32 PM MEDICAL RESEARCH SCIENTIST Oligomenorrhea, unspecified type MRI BRAIN W WO CONTRAST Schedule Routine, Read Routine (OP Routine) 05/22/2024 10:29 AM MEDICAL RESEARCH SCIENTIST Nausea and vomiting, unspecified vomiting type Nonintractable headache, unspecified chronicity pattern, unspecified headache type T4, FREE Routine 05/09/2024 10:22 AM MEDICAL RESEARCH SCIENTIST EGFR Routine 05/09/2024 10:22 AM MEDICAL RESEARCH SCIENTIST DIFFERENTIAL AUTO Routine 05/09/2024 10: 22 AM MEDICAL RESEARCH SCIENTIST COMPREHENSIVE METABOLIC PANEL Routine 05/09/2024 10:22 AM MEDICAL RESEARCH SCIENTIST LIPASE Routine 05/09/2024 10:22 AM MEDICAL RESEARCH SCIENTIST AMYLASE Routine 05/09/2024 10:22 AM MEDICAL RESEARCH SCIENTIST CBC WITH AUTO DIFFERENTIAL Routine 05/09/2024 10:22 AM MEDICAL RESEARCH SCIENTIST PHOSPHORUS Routine 05/09/2024 10:22 AM MEDICAL RESEARCH SCIENTIST TSH Routine 05/09/2024 10:22 AM MEDICAL RESEARCH SCIENTIST MAGNESIUM Routine 05/09/2024 10:22 AM MEDICAL RESEARCH SCIENTIST EGFR Routine 04/25/2024 2:23 PM MEDICAL RESEARCH SCIENTIST BASIC METABOLIC PANEL Routine 04/25/2024 2:23 PM MEDICAL RESEARCH SCIENTIST N. GONORRHOEAE/C. TRACHOMATIS AMPLIFICATION STAT 08/01/2021 4:51 PM MEDICAL RESEARCH SCIENTIST from Last 3 Months or Most Recently Relevant to Health Maintenance Results * (ABNORMAL) Vaginitis panel Vaginal (07/10/2024 1:41 PM MEDICAL RESEARCH SCIENTIST) [place] DNA probe Detected(A) Not Detected Comment:Testing performed by : [facility], [address] [place] [address]., [id number] Gardnerella DNA probe Not Detected Not Detected MAXIMINO PRYOR Comment:Testing performed by : [facility], [address] [place] [address]., [id number] Trichomonas DNA probe Not Detected Not Detected MAXIMINO PRYOR Comment: Interpretive Data Testing performed by [facility] via Affirm VPIII Microbial Identification Test, a [...] last revised on 2020. Testing performed by: [facility], [address] [place] [address]., [id number] Vaginal 07/10/2024 1:41 PM MEDICAL RESEARCH SCIENTIST 07/11/2024 1:15 PM MEDICAL RESEARCH SCIENTIST Zayda Quintero DO LAB MICROBIOLOGY - GENE RAL ORDERABLES Final Result MAXIMINO PRYOR [id number] [address] [place] [address] * US Pelvis W Endovaginal (05/22/2024 3:17 PM MEDICAL RESEARCH SCIENTIST) Anatomical Region Laterality Modality Pelvis N/A Ultrasound 05/30/2024 9:59 AM MEDICAL RESEARCH SCIENTIST Narrative 05/30/2024 10:06 AM MEDICAL RESEARCH SCIENTIST EXAM DESCRIPTION: US PELVIS W ENDOVAGINAL REASON [...] Logan Velasquez M.D. RONALD: RONALD Report ID: [id number] Reading Location: [id number] Procedure Note Ori Velasquez MD - 05/30/2024 [...] Logan Velasquez M.D. RONALD: RONALD Report ID: [id number] Reading Location: [place] [address] Zayda Quintero DO IMG US PROCEDURES Final Result * Prolactin (05/22/2024 2:32 PM MEDICAL RESEARCH SCIENTIST) Pathologist [facility] Prolactin 6.1 4.8 - 23.3 ng/mL Comment:Testing performed by : [facility], [address] [place] [address]., [id number] Blood 05/22/2024 2:32 PM MEDICAL RESEARCH SCIENTIST 05/22/2024 8:02 PM MEDICAL RESEARCH SCIENTIST Zayda Quintero DO LAB BLOOD ORDERABLES Fi nal Result MAXIMINO [id number] [facility] Department of Laboratories [place] [id number] * Estradiol (05/22/2024 2:32 PM MEDICAL RESEARCH SCIENTIST) Estradiol 121.0 pg/mL Comment: Interpretive Data Males: 11 43 pg/mL Females: Premenopausal: 31 533 pg/mL Postmenopausal: < 50 pg/mL Patients treated with Fluvestrant (Faslodex) should be tested using an alternate assay such as LC-MS due to potential for cross-reactivity. Estradiol varies widely throughout the menstrual cycle. Current interpretive data was last revised 2024. Testing performed by: [facility], [address] [place] [address]., [id number] Blood 05/22/2024 2:32 PM MEDICAL RESEARCH SCIENTIST 05/23/2024 9:52 AM MEDICAL RESEARCH SCIENTIST Zayda Quintero DO LAB BLOOD ORDERABLES Fi nal Result MAXIMINO PRYOR [id number] [address] [place] [address] * TSH (05/22/2024 2:32 PM MEDICAL RESEARCH SCIENTIST) Thyroid Stimulating Hormone 1.75 0.30 - 4.20 mcIUnit/mL Comment:Testing performed by : [facility], [address] [place] [address]., [id number] Blood 05/22/2024 2:32 PM MEDICAL RESEARCH SCIENTIST 05/22/2024 8:02 PM MEDICAL RESEARCH SCIENTIST Zayda Quintero DO LAB BLOOD ORDERABLES Fi nal Result Performing Organization Address [facility] Co de Phone Number MAXIMINO [address] Department [place] [employer] [place] [address] * LH (05/22/2024 2:32 PM MEDICAL RESEARCH SCIENTIST) LH 5.7 IUnits/L Comment: Interpretive Data Males: Adults: 1.7 - 8.6 IUnits/L Females: Follicular: 2.4 - 12.6 IUnits/L Ovulation: 14.0 - 95.6 IUnits/L Luteal: 1.0 - 11.4 IUnits/L Postmenopausal: 7.7 - 58.5 IUnits/L Current interpretive data was last revised on 2018. Testing performed by: [facility], [address] [place]., [address] Blood 05/22/2024 2:32 PM MEDICAL RESEARCH SCIENTIST 05/23/2024 9:52 AM MEDICAL RESEARCH SCIENTIST Zayda Quintero DO LAB BLOOD ORDERABLES Fi nal Result Performing Organization Address City/[facility]/ZIP Co de Phone Number MAXIMINO [address] Department [place] [employer] [place] [address] * Follicle stimulating hormone (05/22/2024 2:32 PM MEDICAL RESEARCH SCIENTIST) FSH 4.6 IUnits/L Comment: Interpretive Data Male: Adults: 1.5 - 12.4 IUnits/L Female: Follicular: 3.5 - 12.5 IUnits/L Ovulation: 4.7 - 21.5 IUnits/L Luteal: 1.7 - 7.7 IUnits/L Postmenopausal: 25.8 - 134.8 IUnits/L Current interpretive data was last revised 2015. Testing performed by: [facility], [address] [facility], [place]., [address] Blood 05/22/2024 2:32 PM MEDICAL RESEARCH SCIENTIST 05/23/2024 9:52 AM MEDICAL RESEARCH SCIENTIST us Zayda Quintero DO LAB BLOOD ORDERABLES Fi nal Result MAXIMINO [id number] [address] [place] [address] * MRI Brain W WO Contrast (05/22/2024 10:29 AM MEDICAL RESEARCH SCIENTIST) Anatomical Region Laterality Modality Head and Neck N/A Magnetic Resonan ce 05/22/2024 1:17 PM MEDICAL RESEARCH SCIENTIST Narrative 05/22/2024 1:33 PM MEDICAL RESEARCH SCIENTIST EXAM DESCRIPTION: MRI BRAIN W WO CONTRAST [...] La Cruz M.D. MZ: GISELL Report ID: [id number] Reading Location: [id number] Procedure Note Germán De La Cruz MD [...] La Cruz M.D. MZ: GISELL Report ID: [id number] Reading Location: [id number] us Brandon Quintero GLUE SPREADER IMG MRI PROCEDURES Final Result * eGFR (05/09/2024 10:22 AM MEDICAL RESEARCH SCIENTIST) eGFR >90 >=60 mL/min/1. 73 m2 Comment: [...] reviewed 2021. Blood 05/09/2024 10:2 2 AM MEDICAL RESEARCH SCIENTIST 05/09/2024 11:00 AM MEDICAL RESEARCH SCIENTIST us Malena Olivera MD LAB BLOOD ORDERABLES Final Resul t MAXIMINO [facility] [address] [facility] Department [place] [address] * Differential, auto (05/09/2024 10:22 AM MEDICAL RESEARCH SCIENTIST) Neutrophil abs 4.7 1.5 - 6.5 K/cumm Imm gran abs 0.0 0.0 - 0.1 K/cumm [facility] ([facility]) Lymphocyte abs 1.8 0.8 - 3.3 K/cumm [facility] ([facility]) Monocyte abs 0.5 0.2 - 0.8 K/cumm [facility] ([facility]) Eosinophil abs 0.1 0.0 - 0.5 K/cumm [facility] ([facility]) Basophil abs 0.1 0.0 - 0.1 K/cumm [facility] ([facility]) Neutrophil pct 64.9 % [facility] ([facility]) Comment: Interpretive Data Percent cell count reference ranges are not reported, since discordance with absolute values may lead to misinterpretation of CBC data. Current Interpretive Data was last revised on 2017. Imm gran pct 0.3 % [facility] ([facility]) Comment: Interpretive Data Percent cell count reference ranges are not reported, since discordance with absolute values may lead to misinterpretation of CBC data. Current Interpretive Data was last revised on 2017. Lymphocyte pct 24.5 % [facility] ([facility]) Comment: Interpretive Data Percent cell count reference ranges are not reported, since discordance with absolute values may lead to misinterpretation of CBC data. Current Interpretive Data was last revised on 2017. Monocyte pct 7.3 % [facility] ([facility]) Comment: Interpretive Data Percent cell count reference ranges are not reported, since discordance with absolute values may lead to misinterpretation of CBC data. Current Interpretive Data was last revised on 2017. Eosinophil pct 1.9 % [facility] ([facility]) Comment: Interpretive Data Percent cell count reference ranges are not reported, since discordance with absolute values may lead to misinterpretation of CBC data. Current Interpretive Data was last revised on 2017. Basophil pct 1.1 % [facility] ([facility]) Comment: Interpretive Data Percent cell count reference ranges are not reported, since discordance with absolute values may lead to misinterpretation of CBC data. Current Interpretive Data was last revised on 2017. Blood 05/09/2024 10:2 2 AM MEDICAL RESEARCH SCIENTIST 05/09/2024 11:00 AM MEDICAL RESEARCH SCIENTIST Malena Olivera MD LAB BLOOD ORDERABLES Final Resul t Performing Organization Address City/[facility] Co de Phone Number [facility] ([facility]) 1 [facility] [place] [address] * (ABNORMAL) CBC with auto differential (05/09/2024 10:22 AM MEDICAL RESEARCH SCIENTIST) WBC 7.3 3.8 - 9.9 K/cumm Hgb [...] 0.00 0.00 - 0.01 K/cumm [facility] ([place]) Blood 05/09/2024 10:2 2 AM MEDICAL RESEARCH SCIENTIST 05/09/2024 11:00 AM MEDICAL RESEARCH SCIENTIST Malena Olivera MD LAB BLOOD ORDERABLES Final Resul t [facility] ([place]) 1 [facility] [employer] [place] [address] * TSH (05/09/2024 10:22 AM MEDICAL RESEARCH SCIENTIST) Thyroid Stimulating Hormone 1.81 0.30 - 4.20 mcIUnit/mL Blood 05/09/2024 10:2 2 AM MEDICAL RESEARCH SCIENTIST 05/09/2024 11:00 AM MEDICAL RESEARCH SCIENTIST us Malena Olivera MD LAB BLOOD ORDERABLES Final Resul t Performing Organization Address City/[facility]/ZIP Co de Phone Number MAXIMINO [facility] ([facility]) 1 [facility] [employer] [place] [address] * T4, free (05/09/2024 10:22 AM MEDICAL RESEARCH SCIENTIST) Free T4 1.26 0.90 - 1.70 ng/dL Blood 05/09/2024 10:2 2 AM MEDICAL RESEARCH SCIENTIST 05/09/2024 11:00 AM MEDICAL RESEARCH SCIENTIST Malena Olivera MD LAB BLOOD ORDERABLES Final Resul t Performing Organization Address [facility] Co de Phone Number [facility] ([facility] [place]) 1 [facility] [employer] [place] [address] * Phosphorus (05/09/2024 10:22 AM MEDICAL RESEARCH SCIENTIST) Phosphorus, pl 3.0 2.3 - 4.5 mg/dL Blood 05/09/2024 10:2 2 AM MEDICAL RESEARCH SCIENTIST 05/09/2024 11:00 AM MEDICAL RESEARCH SCIENTIST Malena Olivera MD LAB BLOOD ORDERABLES Final Resul t Performing Organization Address City/[facility] Co de Phone Number [facility] ([facility] [place]) 1 [facility] [employer] [place] [address] * Magnesium (05/09/2024 10:22 AM MEDICAL RESEARCH SCIENTIST) Magnesium 2.1 1.4 - 2.5 mg/dL Blood 05/09/2024 10:2 2 AM MEDICAL RESEARCH SCIENTIST 05/09/2024 11:00 AM MEDICAL RESEARCH SCIENTIST us Malena Olivera MD LAB BLOOD ORDERABLES Final Resul t MAXIMINO [facility]ARRE[facility] ([facility] [place]) 1 [facility] [employer] [place] [address] * Lipase (05/09/2024 10:22 AM MEDICAL RESEARCH SCIENTIST) Lipase 25 10 - 99 Units/L Blood 05/09/2024 10:2 2 AM MEDICAL RESEARCH SCIENTIST 05/09/2024 11:00 AM MEDICAL RESEARCH SCIENTIST Malena Olivera MD LAB BLOOD ORDERABLES Final Resul t Performing Organization Address City/[facility] Co de Phone Number MAXIMINO FARRELL ([place]) 1 [facility] [employer] [place] [address] * Amylase (05/09/2024 10:22 AM MEDICAL RESEARCH SCIENTIST) Amylase 67 30 - 99 Units/L Blood 05/09/2024 10:2 2 AM MEDICAL RESEARCH SCIENTIST 05/09/2024 11:00 AM MEDICAL RESEARCH SCIENTIST us Malena Olivera MD LAB BLOOD ORDERABLES Final Resul t Performing Organization Address [facility] Co de Phone Number MAXIMINO [facility] ([facility]) 1 [place] [address] * (ABNORMAL) Comprehensive metabolic panel (05/09/2024 10:22 AM MEDICAL RESEARCH SCIENTIST) Sodium 139 135 - 145 mmol/L Potassium, pl 4.0 3.3 - 4.9 mmol/L [facility] ([place]) Chloride 103 97 - 110 mmol/L [facility] ([place]) CO2 25 22 - 32 mmol/L [facility] ([place] Anion gap 11 2 - 15 mmol/L [facility] ([place]) BUN 10 6 - 25 mg/dL [facility] ([facility]) Creatinine 0.67 0.60 - 1.10 mg/dL [facility] ([place]) Glucose 94 70 - 199 mg/dL [facility] ([place]) Comment: Interpretive Data [...] [facility] ([place]) Blood 05/09/2024 10:2 2 AM MEDICAL RESEARCH SCIENTIST 05/09/2024 11:00 AM MEDICAL RESEARCH SCIENTIST Malena Olivera MD LAB BLOOD ORDERABLES Final Resul t [facility] ([place]) [address] [facility] Department [place] [address] * eGFR (04/25/2024 2:23 PM MEDICAL RESEARCH SCIENTIST) eGFR >90 >=60 mL/min/1. 73 m2 Comment: [...] last reviewed 2021. Blood 04/25/2024 2:23 PM MEDICAL RESEARCH SCIENTIST 04/25/2024 3:42 PM MEDICAL RESEARCH SCIENTIST Andrew Pang MD LAB BLOOD ORDERABLES Johnna robles Result [facility] ([place]) [address] [facility] [place] [address] * Basic metabolic panel (04/25/2024 2:23 PM MEDICAL RESEARCH SCIENTIST) Sodium 136 135 - 145 mmol/L Potassium, pl 4.6 3.3 - 4.9 mmol/L [facility] ([place]) Chloride 99 97 - 110 mmol/L [facility] ([place]) CO2 24 22 - 32 mmol/L [facility] ([place]) Anion gap 12 2 - 15 mmol/L [facility] ([facility]) BUN 7 6 - 25 mg/dL [facility] ([place]) Creatinine 0.63 0.60 - 1.10 mg/dL [facility] ([place]) Glucose 78 70 - 199 mg/dL [facility] ([place]) [...] 8.5 - 10.3 mg/dL [facility] ([place]) Blood 04/25/2024 2:23 PM MEDICAL RESEARCH SCIENTIST 04/25/2024 3:42 PM MEDICAL RESEARCH SCIENTIST Andrew Pang MD LAB BLOOD ORDERABLES Johnna l Result Performing Organization Address City/[facility]/ZIP Co de Phone Number MAXIMINO [facility]RE[facility] ([place]) 1 [facility] Department [place] [address] * N. gonorrhoeae/C. trachomatis Amplification Urine (08/01/2021 4:51 PM MEDICAL RESEARCH SCIENTIST) C. trachomatis Not Detected Not Detected MAXIMINO MELLO Comment:Testing performed by : [facility], [address] [place] [address]., [id number] N. gonorrhoeae Not Detected Not Detected MAXIMINO MELLO Comment: Interpretive Data Testing performed by the [facility]. This assay detects Chlamydia trachomatis and Neisseria gonorrhoeae by nucleic acid amplification testing (NAAT). This test is approved by the [facility] Food and Drug Administration and the performance characteristics have been verified by the laboratory. The performance characteristics of this test have not been evaluated in individuals less than 14 years of age. Current Interpretive Data was last revised on 2019. Testing performed by: [facility], [address] [place] [address]., [id number] Urine (None) 08/01/2021 4:51 PM MEDICAL RESEARCH SCIENTIST 08/01/2021 5:08 PM MEDICAL RESEARCH SCIENTIST Kuldeep Mccormick MD LAB MICROBIOLOGY - GENER AL ORDERABLES Final Result MAXIMINO [address] [facility] Department [place] [address] from Last 3 Months or Most Recently Relevant to Health Maintenance Insurance [facility] Advance Directives For more information, please contact: [phone] * Full Code (Latest Code Status on File) Date Activated Date Inactivated Comments 04/02/2024 8:21 AM 04/02/2024 2:05 PM * Full Code Date Activated Date Inactivated Comments 04/02/2024 8:21 AM 04/02/2024 8:21 AM Care Teams Electrical Machine Builder Relationship Specialty Start Date End Date Deonte Cheng MD PCP - General Family Medicine 05/30/24
--- NOTE | 2024-07-18 07:17 | WPDHPUPDATE1 ---
History and Physical Update Update Date/Time: 07/18/24 07:17 History and Physical has been reviewed, including an updated exam of the patient. There are NO changes in the patient's condition. Risks, benefits, and alternatives have been discussed and questions answered. Patient agrees to proceed with procedure.
[2024-07-18 08:33] LABS: BEDSIDEPREGUCG Negative (Negative)
[2024-07-18] MEDS: LACTATED RINGERS 1,000 ML 30 ML IV CONT (08:45)
--- NOTE | 2024-07-18 08:56 | WPDANESEPPF ---
Anes - Initial Pre Proc Eval Procedure: Operation Date: 07/18/24 10:15 Proposed Procedures p Diagnostic Laparoscopy for Bilateral Ovarian Cystectomy - Sharif Brunner MD Date/Time: 07/18/24 08:56 Surgeon: Sharif Brunner MD Pre Op Diagnosis: pelvic pain, bilateral ovarian cyst, endometriosi Patient Data Age: 18 Gender: F Height: 1.63 m Weight: 46.85 kg Last Vital Signs Temp 36.8 C 07/18/24 08:04 Pulse 80 07/18/24 08:04 Resp 16 07/18/24 08:04 BP 123/85 07/18/24 08:04 Pulse Ox 99 07/18/24 08:04 O2 Del Method Room Air 07/18/24 08:04 Allergies Allergy/AdvReac Type Severity Reaction Status Date / Time peanut Allergy Anaphylactic Verified 07/07/24 14:06 Shock Home Medications ?Medication ?Instructions ?Recorded ?Confirmed ?Type epinephrine 0.3 mg/0.3 mL 0.3 mg (0.3 mL) IM ONCE #2 ea 12/24/23 07/07/24 Rx injection, auto-injector (EpiPen 2-Reji) viloxazine 100 mg capsule,extended 100 mg PO DAILY 07/07/24 07/07/24 History release 24 hr (Qelbree) hydrocodone 5 mg-acetaminophen 325 1 tablet PO Q4H PRN pain #20 tabs 07/18/24 Rx mg tablet Laboratory Tests 07/18/24 08:32 POC Urine HCG, Qual Negative (Negative) Patient hx anesthesia problems: none Family hx anesthesia problems: none Results Review: All pre-operative results and documents have been reviewed as part of the pre-operative evaluation. [facility] Past Medical History Medical History Low weight Vestibular migraine Establishing care with new doctor, encounter for Upper back pain Joint ache Fatigue Muscle spasm Increased frequency of headaches Migraine aura without headache Depression with anxiety Tinnitus Decreased hearing of both ears Depression Chronic right ear pain Decreased appetite Elevated LFTs Nausea and vomiting Upper abdominal pain Asthma Peanut allergy Surgical History Surgical History Status post myringotomy with insertion of tube 23 months old Family History Family History Mother Alcoholism Depression with anxiety Asthma Father Depression with anxiety Hypertension Sibling Asthma Grandparent Hypertension Alcoholism Grandparent Hypertension Social History Social History Social History: Caffeine-caffeine Smoking status: Never smoker Alcohol intake: never Substance use: never Substance use type: does not use Other substance usage details: THC products as needed for nausea. Lack of Transportation: No Lack of Food: Never True Current Housing: I Have Housing Concerned About Future Housing: No Difficulty Paying Gas/Electric Bills: No Difficulty Paying for Meds: No Currently Unemployed: No Education: Grade School Difficulty w/ Childcare or Family Care: No Living arrangements: with family Occupation/Education: student Gender identity (if verbalized by the patient): Female Sexual Orientation (if Verbalized by the Patient): Straight or Heterosexual Spiritual care concerns: No Anes - Eval Final PreProcedure Day of Procedure 07/18/24 08:56 Patient weight: thin Heart: regular rate and rhythm Lungs: clear to auscultation Airway: Mallampati scale class II Neurological: alert and oriented Last oral intake: >/= 8 hours ASA classification: II Emergent: no Anesthetic plan: proceed Anesthesia type and monitoring: general ETT and standard monitoring Results Review: All pre-operative results and documents have been reviewed as part of the pre-operative evaluation. Informed Consent: The patient's anesthetic plan and its attendant risks and benefits were discussed with the patient/family/POA. Questions were solicited and answers provided to the satisfaction of the patient/family/POA.
[2024-07-18] MEDS: KETOROLAC 15 MG/ML VIAL (*BKC) IV PUSH (09:00)
[2024-07-18] MEDS: ACETAMINOPHEN 500 MG TABLET 1000 MG PO (09:00)
[2024-07-18] MEDS: SCOPOLAMINE 1 MG PATCH 1 PATCH TRANSDERM (09:25)
--- NOTE | 2024-07-18 10:06 | W.PM.PROC2 ---
Procedure Note - Detailed Date of Procedure 07/18/24 Pre-op Diagnosis pelvic pain, bilateral ovarian cyst, endometriosi Post-op Diagnosis Same (Pelvic pain /endometriosis) Procedure Performed laparoscopy with destruction of endometriosis Surgeon Sharif Brunner MD Anesthesia General Indications 18-year-old female with pelvic pain Findings endometrial implant along the right left uterosacral ligament Description of Procedure patient was prepped draped in the normal sterile fashion placed in the dorsal lithotomy position. Under excellent general endotracheal anesthesia weighted speculum placed in posterior fornix vagina. Anterior lip of the cervix grasped with a single-tooth tenaculum. Kern's cannula inserted and attached to the single-tooth to be used later for uterine manipulation. After emptying the bladder clear urine the weighted speculum was removed the gloves were changed. A supraumbilical incision made the Veress needle passed in the abdomen. Abdomen filled with CO2 gas [id number]. The 5mm trocar advanced under direct visualization assuring no injury. Patient placed in Trendelenburg and a suprapubic incision made. The 5mm trocar advanced under direct visualization assuring no injury. About 10cc of serosanguineous fluid was seen in the cul-de-sac and this was suction removed. A small area of endometriosis was seen along the right left uterosacral ligament these were cauterized at 35 w per 2nd. The appendix gallbladder and liver edge all appeared within normal limits and there were no other abnormalities. The instruments withdrawn. The patient went recovery in satisfactory condition. The gas removed from the abdomen and the incisions closed with 4 Monocryl and glue there were no immediate complications Estimated Blood Loss 5 Drains No Packing No Pathology None sent Complications No immediate complications Condition Stable Disposition PACU
[2024-07-18] MEDS: fentaNYL CITRATE INJ (*CRX) 100 MCG/2 ML VIAL 25 MCG IV PUSH ×4 (10:34→10:55)
[2024-07-18] MEDS: oxyCODONE HCL (*CRX) 5 MG TAB IR PO (11:30)
== END 2024-07-18 12:25 | disposition home or self-care (01) ==
PROVIDERS: Visit Provider Obstetrics & Gynecology
PROC: (CPT 49320; principal; 2024-07-18 10:15)
DX: N80.3C3 Endometriosis of bilateral uterosacral ligament(s), unspecified depth (principal); J45.909 Unspecified asthma, uncomplicated; F41.8 Other specified anxiety disorders; M62.838 Other muscle spasm; G89.29 Other chronic pain; H92.01 Otalgia, right ear; F12.90 Cannabis use, unspecified, uncomplicated; Z79.891 Long term (current) use of opiate analgesic; Z98.890 Other specified postprocedural states
CPT/HCPCS: 58662; A9270; J1100; J1200; J1596; J1885; J2250; J2405; J2704; J2710; J3010; J7120

== ENCOUNTER 2024-07-30 09:54 | Outpatient (CLI) | payer OTHER, SELFPAY ==
--- NOTE | ~2024-07-30 | CT_ITS ---
EXAMINATION: CT soft tissue neck w con DATE: 07/30/2024 10:11 INDICATION: Ear pain. Elongated styloid process. TECHNIQUE: Computed tomography (CT) of the neck was performed with 75 mL Omnipaque-350 intravenous co ntrast. Automated exposure control and iterative reconstruction technique were employed. The dose-carlotta gth product was 205.61 mGy-cm. COMPARISON: None FINDINGS: There are no pathologically enlarged lymph nodes. The pharynx and larynx are normal. The ce rvical carotid arteries and vertebral arteries are normal. The mastoid air cells are normal. There is mild mucosal thickening in left maxillary sinus. The orbits are normal. The styloid processes are no rmal and are not elongated. IMPRESSION: 1. No etiology for the patient's symptoms. Reviewed, dictated and finalized at location A. [facility]
--- OUTSIDE RECORDS SUMMARY | 2024-07-30 10:04 | XMS_ITS ---
Author Organization [facility] Address [address] [place] [address] Care Team Providers Care Tube Drawing Supervisor Name Role Phone Jenn Somers Primary Care Provider [phone] REASON FOR VISIT Question Social History Sex Assigned At : Social History Observation Description Sex Assigned At Female Encounters Encounter Location Date Provider Diagnosis [address] [place] [address] 07/29/2024 Jenn Somers Plan Of Treatment Next Appt Details Provider Name:Jenn gurrola, 07/31/2024 04:00:00 PM, [address] [place] [address], [phone], Progress Notes * Ashlyn DIETRICHeDOB:[birth year] (18 yo F)Acc No.[id number]:07/29/2024 Patient: Ashlyn CELESTEe :2005 A ge:18 Y S ex:Female Address:[address] [place], [place] [address], [place], [address] * true * Date: Generated for Seani jose r/Alli/eTransmitting on: 0 07/30/2024 10:04 AM TERRITORY MANAGER GENERAL SALES
--- OUTSIDE RECORDS SUMMARY | 2024-07-30 10:04 | XMS_ITS | Referral Summary ---
Author Organization [facility] Address [address] [facility] [address] Care Team Providers Care Subcontract Manager Name Role Phone Lizy Dalton MD Primary Care Provider [phone] Source Comments [facility],non-owned Affiliates and Associated Physician Practices is amultiple site organization consisting of ambulatory clinics and hospital sitesin [place], [place], [place] and [place]. This disclosure is being madepursuant to the Care Everywhere program and may not contain all information available regarding this patient. Last updated 18.[facility] Encounters Date Type Department Care Team Description 05/23/2024 Telephone [facility] - Centralized Scheduling [address] [place] [phone] Lex Willis MD Reschedule Appointment 05/14/2024 Travel [...] 37.4 C (99.3 F) 05/29/2021 9:01 PM BEDSPREAD INSPECTOR Respiratory Rate 18 05/29/2021 9:01 PM BEDSPREAD INSPECTOR Oxygen Saturation - - Inhaled Oxygen Concentration - - Weight 60.3 kg (133 lb) 08/30/2022 1:48 PM CDT Height 157.5 cm (5' 2 ) 02/13/2020 2:02 PM CDT Body Mass Index - - Plan of Treatment Upcoming Encounters Date Type Department Care Team (Late st Contact Info) Description 08/15/2024 2:20 PM BEDSPREAD INSPECTOR Office Visit [facility] - Cardiology [address] [facility] [address] [place] [address] Fabian Mccann MD [address] [place] [phone] Goals Goal Patient Goal Type Associated Problems Recent Progress Patient-Stated? Author Use safety retraint in car Lifestyle On track( 020 2:07 PM BEDSPREAD INSPECTOR) No Ebonie Dan RN Procedures Procedure Name Priority Date/Time Associated Diagnosis Comments HIV-1 HIV-2 ANTIBODY + HIV P24 AG PANEL STAT 05/29/2021 10:31 PM BEDSPREAD INSPECTOR CHLAMYDIA + GC AMPLIFIED PROBE STAT 05/29/2021 10:17 PM BEDSPREAD INSPECTOR from Last 3 Months or Most Recently Relevant to Health Maintenance Results * HIV-1 HIV-2 ANTIBODY + HIV P24 AG PANEL (05/29/2021 10:31 PM BEDSPREAD INSPECTOR) Pathologist [facility] HIV Antigen/Antibod y 1 & 2 Non-reacti ve Non-react josh 05/29/2021 11:35 PM BEDSPREAD INSPECTOR [facility] Comment:No Laboratory eviden ce of HIV infection. Blood BLOOD SPECIMEN / Unknown Venipuncture / Unknown 05/29/2021 10:31 PM BEDSPREAD INSPECTOR 05/29/2021 10:45 PM BEDSPREAD INSPECTOR Alesia Camejo MD LAB - CHEMISTRY ORDERABLES [facility] [address] [place] [address], [place] [phone] * CHLAMYDIA + GC AMPLIFIED PROBE (STL) (05/29/2021 10:17 PM BEDSPREAD INSPECTOR) Pathologist [facility] Chlamydia Amplified Probe Negative Negative 05/30/2021 9:32 AM BEDSPREAD INSPECTOR [facility] MICROBIOLOGY GC Amplified Probe Negative Negative 05/30/2021 9:32 AM BEDSPREAD INSPECTOR [facility] MICROBIOLOGY Microbiology URINE / Unknown Collection / Unknown 05/29/2021 10:17 PM BEDSPREAD INSPECTOR 05/29/2021 10:46 PM BEDSPREAD INSPECTOR Narrative [facility] MICROBIOLOGY - 05/30/2021 9:32 AM BEDSPREAD INSPECTOR Results based on detection/no detection of ribosomal RNA by amplified method. Alesia Camejo MD LAB - MICROBIOL OGY ORDERABLES [facility] MICROBIOLOGY [address] [place] [address], [facility] [phone] from Last 3 Months or Most Recently Relevant to Health Maintenance Care Teams Subcontract Manager Relationship Specialty Start Date End Date Lizy Dalton MD PCP - General Pediatrics 02/03/14
--- OUTSIDE RECORDS SUMMARY | 2024-07-30 10:04 | XMS_ITS | Continuity of Care Document ---
Author Organization [facility] Address [address] [facility] [address] [place] [address] Phone Care Team Providers Care Ux Specialist Name Role Phone Sam OD, Jimmy Unavailable Unavailable Procedures Procedure Date Eye Exam & Treatment Refraction Office/outpatient Visit, [facility] Refraction Advance Directives Directive Yes / No Effective Date File Name No Information Encounters Encounter Description Practice Location Reason(s) For Visit Diagnoses Date Provider Providers Copied on Encounter [facility], [address] [place] [address] [address], [place], [place], [id number], tel:[phone] [facility] No Information 8-201 0 Sam OD Jimmy. [address] , [address], [place], [address], [place]. tel:[phone] Office/outpat ient Visit, [facility], [address] [place] [address] [address], [place], [place], [id number], tel:[phone] [facility] No Information 0-200 8 Sam OD Jimmy. [address] , [address], [place], [address], [place]. tel:[phone] Family History Family Member Type Diagnosis Age At Onset No Information Payers Payer name Insurance type Covered alliance party ID Authoriza tion(s) Medicaid [facility] [id number] Social History Type Description Quantity Date Captured [...]
--- OUTSIDE RECORDS SUMMARY | 2024-07-30 10:04 | XMS_ITS ---
Author Organization [facility] Address [address] [place] [address] Care Team Providers Care Roadway Designer Name Role Phone Jenn Somers Primary Care Provider REASON FOR VISIT Needs call back from MD Social History Sex Assigned At : Social History Observation Description Sex Assigned At Female Encounters Encounter Location Date Provider Diagnosis [facility] [address] [place] [phone] 07/14/2024 Jenn Somers Plan Of Treatment Next Appt Details Provider Name:Jenn gurrola, 07/31/2024 04:00:00 PM, [address] [place] [address], [phone], Progress Notes * Ashlyn DIETRICHeDOB:[birth year] (18 yo F)Acc No.[id number]:07/14/2024 Patient: Ashlyn CELESTEe :2005 A ge:18 Y S ex:Female Address:[address] [place], [place] [address], [address] * true * Date: Generated for Printi ng/Faxing/eTransmitting on: 0 07/30/2024 10:04 AM PROGRAM PROPOSALS COORDINATOR
--- OUTSIDE RECORDS SUMMARY | 2024-07-30 10:04 | XMS_ITS | Clinical Summary ---
Author Organization [facility] Address [address] [place] [address] Care Team Providers Care Physical Aerodynamicist Name Role Phone Lizy Dalton MD Primary Care Provider [phone] Source Comments [facility],non-owned Affiliates and Associated Physician Practices is amultiple site organization consisting of ambulatory clinics and hospital sitesin [place], [place], [place] and [place]. This disclosure is being madepursuant to the Care Everywhere program and may not contain all information available regarding this patient. Last updated 18.[facility] Allergies Active Allergy Reactions Criticality Noted Date [...] Telephone [facility] - Centralized Scheduling [address] [place] [phone] Lex Willis MD Reschedule Appointment 05/14/2024 Travel [...] 37.4 C (99.3 F) 05/29/2021 9:01 PM HELICOPTER UTILITY AIRCREWMAN Respiratory Rate 18 05/29/2021 9:01 PM HELICOPTER UTILITY AIRCREWMAN Oxygen Saturation - - Inhaled Oxygen Concentration - - Weight 60.3 kg (133 lb) 08/30/2022 1:48 PM CDT Height 157.5 cm (5' 2 ) 02/13/2020 2:02 PM CDT Body Mass Index - - Plan of Treatment Upcoming Encounters Date Type Department Care Team (Late st Contact Info) Description 08/15/2024 2:20 PM HELICOPTER UTILITY AIRCREWMAN Office Visit [facility] - Cardiology [address] [facility], [facility] [address] [place] [address] Fabian Mccann MD [address] [place] [address] Health Maintenance Due Date Last Done Comments [...] car Lifestyle On track( 020 2:07 PM HELICOPTER UTILITY AIRCREWMAN) No Ebonie Dan RN Procedures Procedure Name Priority Date/Time Associated Diagnosis Comments HIV-1 HIV-2 ANTIBODY + HIV P24 AG PANEL STAT 05/29/2021 10:31 PM HELICOPTER UTILITY AIRCREWMAN CHLAMYDIA + GC AMPLIFIED PROBE STAT 05/29/2021 10:17 PM HELICOPTER UTILITY AIRCREWMAN from Last 3 Months or Most Recently Relevant to Health Maintenance Results * HIV-1 HIV-2 ANTIBODY + HIV P24 AG PANEL (05/29/2021 10:31 PM HELICOPTER UTILITY AIRCREWMAN) HIV Antigen/Antibod y 1 & 2 Non-reacti ve Non-react josh 05/29/2021 11:35 PM HELICOPTER UTILITY AIRCREWMAN [facility] Comment:No Laboratory eviden ce of HIV infection. Blood BLOOD SPECIMEN / Unknown Venipuncture / Unknown 05/29/2021 10:31 PM HELICOPTER UTILITY AIRCREWMAN 05/29/2021 10:45 PM HELICOPTER UTILITY AIRCREWMAN Alesia Camejo MD LAB - CHEMISTRY ORDERABLES [facility] [address] [place] [address], [facility] [phone] * CHLAMYDIA + GC AMPLIFIED PROBE (STL) (05/29/2021 10:17 PM HELICOPTER UTILITY AIRCREWMAN) Chlamydia Amplified Probe Negative Negative 05/30/2021 9:32 AM HELICOPTER UTILITY AIRCREWMAN [facility] GC Amplified Probe Negative Negative 05/30/2021 9:32 AM HELICOPTER UTILITY AIRCREWMAN [facility] MICROBIOLOG[facility] Microbiology URINE / Unknown Collection / Unknown 05/29/2021 10:17 PM HELICOPTER UTILITY AIRCREWMAN 05/29/2021 10:46 PM HELICOPTER UTILITY AIRCREWMAN Narrative [facility] MICROBIOLOGY - 05/30/2021 9:32 AM HELICOPTER UTILITY AIRCREWMAN Results based on detection/no detection of ribosomal RNA by amplified method. Alesia Camejo MD LAB - MICROBIOL OGY ORDERABLES [facility] MICROBIOLOGY [address] [place] [address], [facility] [phone] from Last 3 Months or Most Recently Relevant to Health Maintenance Care Teams Physical Aerodynamicist Relationship Specialty Start Date End Date Lizy Dalton MD PCP - General Pediatrics 02/03/14
--- OUTSIDE RECORDS SUMMARY | 2024-07-30 10:04 | XMS_ITS | Patient Health Record ---
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 Stress is when someone feels tense, nervous, anxious, or can\t sleep at night because their mind is troubled Somewhat In the past year have you sp ent more than 2 nights in a row in a half-way, longterm, senior care center, or juvenile correctional facility? No Are [...] Status W/U Status Risk Notes Problem Insomnia (069455707) Insomnia (G47.00) Active confirmed Problem Mood disorder (06030513) Mood disorder (F39) Active confirmed Problem Posttraumatic stress disorder (28071757) PTSD (post-traumatic stress disorder) (F43.10) Active confirmed Problem Attention deficit hyperactivity disorder (839257427) ADHD (attention deficit hyperactivity disorder) (F90.9) Active confirmed diagnosed by PCP, per client's report Problem Generalized anxiety disorder (98167191) MARYLIN (generalized anxiety disorder) (F41.1) Active confirmed Problem Major depressive disorder (070375241) MDD (major depressive disorder) (F32.9) Active confirmed Vital Signs Heart Rate 68 /min 05/29/2024 Respiratory Rate 16 /min 07/03/2024 Blood pressure diastolic 86 mm Hg 05/29/2024 Oximetry 98 % 05/29/2024 Height 64 in 07/03/2024 Blood pressure systolic 106 mm Hg 05/29/2024 Encounters Encounter Location Date Provider Diagnosis [address] [place] [address] 12/28/2023 Marcy Mai PTSD (post-traumatic stress disorder) F43.10 [facility] [address] [address] 01/15/2024 Marcy Mai [address] [address] 03/04/[address] [address] 04/25/2024 Brandon Gaitan MDD (major depressive disorder) F32.[address] [place] [address] 05/15/[address] [address] 05/15/2024 Jenn Yonis [address] [address] 05/20/2024 Adrian Fang [facility] [address] [address] 05/21/2024 Jenn Yonis [facility] [address] [address] 05/21/2024 Jenn Yonis ADHD (attention deficit hyperactivity disorder) F90.9 [facility] [address] [address] 05/21/2024 Jenn Yonis [facility] [address] [place] [address] 05/29/2024 Jenn Yonis [facility] [address] [place] [address] 06/19/2024 Jenn Yonis PTSD (post-traumatic stress disorder) F43.10 [facility] [address] [place] [address] [facility] [address] [place] [address] 06/24/2024 Jenn Yonis Mood disorder F39 [facility] [address] [place] [address] 07/04/2024 [facility] [address] [place] [address] 07/07/2024 [facility] [address] [place] [address] 07/08/20[facility] [address] [place] [address] 07/09/2024 [facility] [address] [place] [address] 07/14/2024 Jenn [facility] [address] [place] [address] 07/22/[address] [address] 07/29/[address] [address] 02/01/[address] [place] [address] 04/23/2024 [place] [address] [place] [address] 12/20/2023 Marcy Mai PTSD (post-traumatic stress disorder) F43.10 ; MARYLIN (generalized anxiety disorder) F41.1 and MDD (major depressive disorder) F32.[address] [address] 01/29/2024 [facility] MDD (major depressive disorder) F32.9 ; MARYLIN (generalized anxiety disorder) F41.1 and PTSD (post-traumatic stress disorder) F43.[address] [facility] [address] [address] 02/05/2024 Arif Habib MARYLIN (generalized anxiety disorder) F41.1 ; MDD (major depressive disorder) F32.9 and PTSD (post-traumatic stress disorder) F43.[address] [address] 03/18/2024 Arif Habib MARYLIN (generalized anxiety disorder) F41.1 ; MDD (major depressive disorder) F32.9 and PTSD (post-traumatic stress disorder) F43.[address] [address] 05/15/2024 Jeniffer Alonzo PTSD (post-traumatic stress disorder) F43.10 ; MDD (major depressive disorder) F32.9 ; MARYLIN (generalized anxiety disorder) F41.1 and ADHD (attention deficit hyperactivity disorder) F90.9 [facility] [address] [place] [address] 05/29/2024 Jenn Yonis PTSD (post-traumatic stress disorder) F43.10 ; MDD (major depressive disorder) F32.9 ; MARYLIN (generalized anxiety disorder) F41.1 and ADHD (attention deficit hyperactivity disorder) F90.9 [facility] [address] [place] [address] 06/19/2024 Jenn Yonis MDD (major depressive disorder) F32.9 ; Mood disorder F39 ; PTSD (post-traumatic stress disorder) F43.10 ; MARYLIN (generalized anxiety disorder) F41.1 and ADHD (attention deficit hyperactivity disorder) F90.9 [facility] [address] [place] [address] 07/03/2024 Jenn Yonis PTSD (post-traumatic stress disorder) F43.10 ; MDD (major depressive disorder) F32.9 ; MARYLIN (generalized anxiety disorder) F41.1 and ADHD (attention deficit hyperactivity disorder) F90.9 [facility] [address] [place] [address] 05/29/2024 Adrian Fang [facility] [address] [place] [address] 07/08/2024 Jenn Somers PTSD (post-traumatic stress disorder) F43.10 ; MDD (major depressive disorder) F32.9 ; MARYLIN (generalized anxiety disorder) F41.1 and ADHD (attention deficit hyperactivity disorder) F90.9 [facility] [address] [place] [address] 06/24/2024 Jenn Yonis Mood disorder F39 ; MDD (major depressive disorder) F32.9 ; PTSD (post-traumatic stress disorder) F43.10 ; MARYLIN (generalized anxiety disorder) F41.1 ; ADHD (attention deficit hyperactivity disorder) F90.9 and Insomnia G47.[address] [address] 02/29/2024 Janna Velásquez MARYLIN (generalized anxiety disorder) F41.1 ; MDD (major depressive disorder) F32.9 and PTSD (post-traumatic stress disorder) F43.10 Assessments Encounter Date Diagnosis (ICD Code) Assessment Notes Treatment Notes Treatment Clinical Notes Section Notes 12/20/2023 PTSD (post-traumatic stress disorder) (ICD-10 - F43.10) Start fluoxetine to help with anxiety. Consider prazosin at some point for nightmares. Continue therapy services as scheduled. Has an ENT appointment scheduled. Labs completed recently. May self-administer medications or be administered own oral medications per [facility] protocols. Provided informed consent with understanding of side effects, adverse effects, risks and benefits as well as alternative treatments as previously discussed and with the above recommended medications & other aspects of the treatment program. Agrees to return sooner if symptoms worsen or suicidal or homicidal ideations occur. 12/20/2023 MARYLIN (generalized anxiety disorder) (ICD-10 - F41.1) 01/29/2024 MARYLIN (generalized anxiety disorder) (ICD-10 - F41.1) 01/29/2024 MDD (major depressive disorder) (ICD-10 - F32.9) 02/05/2024 MARYLIN (generalized anxiety disorder) (ICD-10 - F41.1) 02/29/2024 MARYLIN (generalized anxiety disorder) (ICD-10 - F41.1) 04/25/2024 MDD (major depressive disorder) (ICD-10 - F32.9) 05/15/2024 PTSD (post-traumatic stress disorder) (ICD-10 - F43.10) Continue psychotherapy as scheduled. 05/15/2024 MDD (major depressive disorder) (ICD-10 - F32.9) 05/21/2024 ADHD (attention deficit hyperactivity disorder) (ICD-10 - F90.9) diagnosed by PCP, per client's report 05/29/2024 PTSD (post-traumatic stress disorder) (ICD-10 - [...] F43.10) 06/24/2024 Mood disorder (ICD-10 - F39) Increase [...] effects or need for dosage change. 06/24/2024 MDD (major depressive disorder) (ICD-10 - [...] for dosage change. Continue psychotherapy as scheduled. 06/24/2024 Mood disorder (ICD-10 - F39) 07/03/2024 PTSD (post-traumatic stress disorder) (ICD-10 - F43.10) 07/08/2024 PTSD (post-traumatic stress disorder) (ICD-10 - F43.10) 03/18/2024 MARYLIN (generalized anxiety disorder) (ICD-10 - F41.1) 12/28/2023 PTSD (post-traumatic stress disorder) (ICD-10 - F43.10) 03/18/2024 MDD (major depressive disorder) (ICD-10 - F32.9) side effects discussed. She is not taking Hydroxyzine PRN for anxiety. Increase Zoloft 75 mg which took in past with good result. Lower Celexa 20 mg daily x 2 weeks and then stop. 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 Supportive treatment provided She sees counselor weekly. Pt is refusing to be on weighing scale. 07/08/2024 MDD (major depressive disorder) (ICD-10 - F32.9) 07/03/2024 MDD (major depressive disorder) (ICD-10 - F32.9) 06/24/2024 PTSD (post-traumatic stress disorder) (ICD-10 - F43.10) 05/15/2024 MARYLIN (generalized anxiety disorder) (ICD-10 - F41.1) Take prescribed medications as prescribed. 05/29/2024 MARYLIN (generalized anxiety disorder) (ICD-10 - F41.1) 06/19/2024 PTSD (post-traumatic stress disorder) (ICD-10 - F43.10) 02/29/2024 MDD (major depressive disorder) (ICD-10 - F32.9) side effects discussed. Continue Hydroxyzine PRN for anxiety. Increase Zoloft 50 mg which took in past with good result. 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 Supportive treatment provided 02/05/2024 MDD (major depressive disorder) (ICD-10 - F32.9) side effects discussed. add Hydroxyzine PRN for anxiety. Start Zoloft 25 mg which took in past with good result. 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 Supportive treatment provided 12/20/2023 MDD (major depressive disorder) (ICD-10 - F32.9) 01/29/2024 PTSD (post-traumatic stress disorder) (ICD-10 - F43.10) 02/29/2024 PTSD (post-traumatic stress disorder) (ICD-10 - F43.10) 02/05/2024 PTSD (post-traumatic stress disorder) (ICD-10 - F43.10) 05/15/2024 ADHD (attention deficit hyperactivity disorder) (ICD-10 - F90.9) diagnosed by PCP, per client's report 05/29/2024 ADHD (attention deficit hyperactivity disorder) (ICD-10 - F90.9) diagnosed by PCP, per client's report 06/19/2024 MARYLIN (generalized anxiety disorder) (ICD-10 - F41.1) 06/24/2024 MARYLIN (generalized anxiety disorder) (ICD-10 - F41.1) 07/03/2024 MARYLIN (generalized anxiety disorder) (ICD-10 - F41.1) 03/18/2024 PTSD (post-traumatic stress disorder) (ICD-10 - F43.10) 07/08/2024 MARYLIN (generalized anxiety disorder) (ICD-10 - F41.1) 07/08/2024 ADHD (attention deficit hyperactivity disorder) (ICD-10 - F90.9) diagnosed by PCP, per client's report Call for problems with medication, side effects or need for dosage change. 06/24/2024 ADHD (attention deficit hyperactivity disorder) (ICD-10 - F90.9) diagnosed by PCP, per client's report 07/03/2024 ADHD (attention deficit hyperactivity disorder) (ICD-10 [...] or be administered own oral medications per [facility] protocols. Provided informed consent with understanding of side effects, adverse effects, risks and benefits as well as alternative treatments as previously discussed and with the above recommended medications & other aspects of the treatment program. Agrees to return sooner if symptoms worsen or suicidal or homicidal ideations occur. 05/29/2024 Other May self-administer medications or be administered own oral medications per [facility] protocols. Provided informed consent with understanding of side effects, adverse effects, risks and benefits as well as alternative treatments as previously discussed and with the above recommended medications & other aspects of the treatment program. Agrees to return sooner if symptoms worsen or suicidal or homicidal ideations occur. Plan: -Increase Mirtazapine to 45 mg QHS for insomnia -Kuldip ordered -Follow up: 2 weeks [] Hard Rx handed to patient [] Rx phoned into pharmacy [x] Rx faxed/e-prescribed into pharmacy [x] PDMP Reviewed [] [facility] Reviewed Encouraged by Jenn Somers [facility] to: [] consider utilizing therapist/counselor /social work associate/psychologist , referral given [x] continue with therapist/counselor /social work associate/psychologist Psychoeducation: -Treatment options discussed in detail with patient/guardian verbalizing understanding of treatment rationales. -Side effects and benefits of all medications prescribed discussed at length between psychiatric prescribing provider and patient/guardian along with the risks associated of qixj-ox-jwls interactions, including but not limited to prescription [...] engaged in treatment plan with Jenn Somers [facility]. -Perceiving complete understanding of rationale by patient/guardian and willingness to adhere to formulated plan of care by prescriber with patient/guardian buy-in, willingness to participate actively in plan of care and willing to take charge of own care. -Although geared for female patients, all patients/guardians are informed by prescribing provider of risks of medications that could potentially be taken by female/women within their [place] of influence and that women who use [...] a should occur, to consult with provider, P D DRIVER and/or Nurse Drugless Doctor to determine if prescribed medications should or [...] or be administered own oral medications per [facility] protocols. Provided informed consent with understanding of [...] [x] [employer] Reviewed Encouraged by Jenn Somers PMHNP- to: [] consider utilizing therapist/counselor /social work associate/psychologist , referral given [x] continue with therapist/counselor /social work associate/psychologist Psychoeducation: -Treatment options discussed in detail with patient/guardian verbalizing understanding of treatment rationales. -Side effects and benefits of all medications prescribed discussed at length between psychiatric prescribing provider and patient/guardian along with the risks associated of ybjs-hz-ilwa interactions, including but not limited to prescription [...] engaged in treatment plan with Jenn Somers [facility]. -Perceiving complete understanding of rationale by patient/guardian and willingness to adhere to formulated plan of care by prescriber with patient/guardian buy-in, willingness to participate actively in plan of care and willing to take charge of own care. -Although geared for female patients, all patients/guardians are informed by prescribing provider of risks of medications that could potentially be taken by female/women within their [place] of influence and that women who use [...] a should occur, to consult with provider, P D DRIVER and/or Nurse Drugless Doctor to determine if prescribed medications should or [...] or be administered own oral medications per [facility] protocols. Provided informed consent with understanding of [...] [] [facility] Reviewed Encouraged by Jenn Somers PMHNP-BC to: [] consider utilizing therapist/counselor /social work associate/psychologist , referral given [x] continue with therapist/counselor /social work associate/psychologist Psychoeducation: -Treatment options discussed in detail with patient/guardian verbalizing understanding of treatment rationales. -Side effects and benefits of all medications prescribed discussed at length between psychiatric prescribing provider and patient/guardian along with the risks associated of fqsl-mw-cwkc interactions, including but not limited to prescription [...] engaged in treatment plan with Jenn Somers [facility]. -Perceiving complete understanding of rationale by patient/guardian and willingness to adhere to formulated plan of care by prescriber with patient/guardian buy-in, willingness to participate actively in plan of care and willing to take charge of own care. -Although geared for female patients, all patients/guardians are informed by prescribing provider of risks of medications that could potentially be taken by female/women within their [place] of influence and that women who use [...] a should occur, to consult with provider, P D DRIVER and/or Nurse Drugless Doctor to determine if prescribed medications should or [...] or be administered own oral medications per [facility] protocols. Provided informed consent with understanding of [...] [] [employer] Reviewed Encouraged by Jenn Somers [facility] to: [] consider utilizing therapist/counselor /social work associate/psychologist , referral given [x] continue with therapist/counselor /social work associate/psychologist Psychoeducation: -Treatment options discussed in detail with patient/guardian verbalizing understanding of treatment rationales. -Side effects and benefits of all medications prescribed discussed at length between psychiatric prescribing provider and patient/guardian along with the risks associated of mvfc-wz-njgr interactions, including but not limited to prescription [...] engaged in treatment plan with Jenn Somers [facility]. -Perceiving complete understanding of rationale by patient/guardian and willingness to adhere to formulated plan of care by prescriber with patient/guardian buy-in, willingness to participate actively in plan of care and willing to take charge of own care. -Although geared for female patients, all patients/guardians are informed by prescribing provider of risks of medications that could potentially be taken by female/women within their [place] of influence and that women who use [...] a should occur, to consult with provider, P D DRIVER and/or Nurse Drugless Doctor to determine if prescribed medications should or [...] or be administered own oral medications per [facility] protocols. Provided informed consent with understanding of [...] [] [facility] Reviewed Encouraged by Jenn Somers HNP- to: [] consider utilizing therapist/counselor /social work associate/psychologist , referral given [x] continue with therapist/counselor /social work associate/psychologist Psychoeducation: -Treatment options discussed in detail with patient/guardian verbalizing understanding of treatment rationales. -Side effects and benefits of all medications prescribed discussed at length between psychiatric prescribing provider and patient/guardian along with the risks associated of ysvc-rg-nacy interactions, including but not limited to prescription [...] engaged in treatment plan with Jenn Somers [facility]. -Perceiving complete understanding of rationale by patient/guardian and willingness to adhere to formulated plan of care by prescriber with patient/guardian buy-in, willingness to participate actively in plan of care and willing to take charge of own care. -Although geared for female patients, all patients/guardians are informed by prescribing provider of risks of medications that could potentially be taken by female/women within their [place] of influence and that women who use [...] a should occur, to consult with provider, P D DRIVER and/or Nurse Drugless Doctor to determine if prescribed medications should or [...] of handling stress, was discussed. 05/29/2024 Other Metal Cabinet Finisher met with Natali Dietrich to assist in working on building skills to help the consumer gain confidence in their independent living skills. The marketing copywriter practiced with Natali Dietrich implementing problem solving skills relating to ADHD and Arizmendi and to help facilitate exploration of options related to treatment without using medications like Strattera . The marketing copywriter encouraged and engaged in critical thinking of how to use natural resources and coping skills to help manage symptoms in the moment. Metal Cabinet Finisher also worked on modeling and practicing with the consumer healthy coping skills to reduce stress and anxiety by utilizing breathing techniques. Plan Of Treatment Next Appt Details Provider Name:Jenn gurrola, 07/31/2024 04:00:00 PM, [address], [address], Insurance Providers Payer Name Payer Address Payer Phone Subscriber Number Group Number Insured Name Patient Relationship to Insured Coverage Start Date Coverage End Date [facility] Claims Department [address] [place] [address] [id number] Natali Dietrich Self - patient is the insured 4 [facility] [address] [place] [address] [id number] Natali Dietrich Self - patient is the insured 4 Medical (General) History Medical History History ICD Code endometriosis Surgical History Surgery Date(Month/Year) tubes in ears 1years old cholecystectomy 02/2024
--- OUTSIDE RECORDS SUMMARY | 2024-07-30 10:04 | XMS_ITS | Data Portability ---
Author Organization [facility] CHAPOCristel Dodge Address [address] [facility] [place] [address] Care Team Providers Care Buncher Operator Name Role Phone CARENFRANCO MCFARLANE Primary Care Provider Assessment Encounter Date Assessment Date Assessment LastModified by Organization Details LastModified Time 06/06/2024 06/06/2024 Pt's case was discussed w/resident. Documentation was reviewed, and I agree w/resident's note. Dr. Cortez [email or web address] Not available 06/10/2024 11:41:41 06/13/2024 06/13/2024 Pt's case was discussed w/resident. Documentation was reviewed, and I agree w/resident's note. Dr. Cortez [email or web address] Not available 06/15/2024 22:34:30 Plan of Treatment Reminders Order Date Submit Date Provider Last Modified By Organization Details Last Modified Time Details Appointments None recorded. Lab CMP, serum or plasma 2023 MID[facility], [address], [place], [address], 4 11:43:05 amylase + lipase, serum 2023 024 DORIE [facility], [address], [place], [address], 4 10:35:32 CBC w/ auto diff 2023 024 DORIE [facility], [address], [place], [address], 4 11:43:06 TSH + free T4, serum 2023 024 [facility], [address], [place], [address], 4 10:37:36 magnesium, serum or plasma 2023 024 [facility], [address] [facility], [address], [place], [address], 4 10:35:33 phosphorus , serum or plasma 2023 024 [facility], [address] [facility], [address], [place], [address], 4 10:35:33 Referral gastroente rologist referral 2024 025 DORIE Not available 5 14:36:33 district ranger referral - rule out any underlying food borne allergies that can be causing your nausea/vom iting. 2024 025 [facility], [facility] [place], [address], 5 17:40:[address] referral 2024 025 [facility] Marques Ceron, [address], [place], [address], 5 15:50:30 director of social work referral 2023 024 immanuel Not available 5 10:58:12 Procedures None recorded. Surgeries None recorded. Imaging XR, chest, 2 view 2024 025 [facility], [facility] [address], [place], [address], 5 16:36:47 Medication Orders trazodone 50 mg tablet 2023 025 [facility] [address] [place], [address], 10:01:58 lidocaine 5 % topical patch 2023 025 [facility] [address] [place], [address], 15:59:09 Patient TargetsNo targets recorded. Patient Instructions Encounter Date Encounter Id Patient Instructions Last Modified By Organization Details Last Modified Time 06/26/2024 [id number] I saw the patien t with the resident. I agree with the resident's assessment and plan as documented MD gerhard [email or web address] Not available 07/18/2024 00:11:42 07/03/2024 [id number] I was present in the clinic to discuss this patient at the time of the visit. I agree with the documented assessment and plan MD gerhard [email or web address] Not available 07/03/2024 18:23:36 Reason for Referral Ebd Special Education Teacher Referral for H ousing instability Referring Physician: [facility], Encounter Date: 06/06/2024 Chief Substation Operator Referral for Endometriosis of pelvis Referring Physician: [facility], Encounter Date: 07/03/2024 Installer Apprentice Referral for Endom etriosis of pelvis rule out any underlying food borne allergies that can be causing your nausea/vomiting. Referring Physician: [facility], Encounter Date: 07/03/2024 Machine Assembler And Gynecologis t Referral for Endometriosis of pelvis Referring Physician: [facility], Encounter Date: 07/03/2024 Results Created Date Observation Date Name Description Value Unit Range Abnormal Flag Note LastModifiedBy Organization Detail LastModifiedTime 05/09/20 24 05/09/2024 Thyro xine (T4) free [Mass /volu me] in Serum or Plasm a Unknown Analyte Not Available Not Available 07/12 11:40:42 05/09/20 24 05/09/2024 Thyro tropi n [Unit s/vol ume] in Serum or Plasm a Unknown Analyte Not Available Not Available 07/12 11:40:41 05/09/20 24 05/09/2024 Magne sium [Mass /volu me] in Serum or Plasm a Unknown Analyte Not Available Not Available 07/12 11:40:41 05/09/2005/09/2024 Lipas e [Enzy matic activ ity/v olume ] in Serum or Plasm a Unknown Analyte Not Available Not Available 07/12 11:40:41 05/09/2005/09/2024 Compr ehens josh metab olic 2000 panel - Serum or Plasm a Unknown Analyte Not Available Not Available 07/12 11:40:41 05/09/20 24 05/09/2024 CBC W Auto Diffe renti al panel - Blood Unknown Analyte Not Available Not Available 07/12 11:40:41 05/22/20 24 05/22/2024 MRI, brain , w/wo contr ast No observ ation record ed. [facility] [address] [facility] [address], [address], [place], [address], 05/23/2024 13:32:41 05/30/20 24 05/22/2024 US, pelvi s, trans abdom inal + trans vagin al No observ ation record ed. [facility] [address] [facility] , [place], [address], 06/06/2024 12:46:30 Result Notes None recorded. Problems Name Problem SNOMED Code Status Onset Date Resolution Date Notes Provider Name and Address Organization Details Recorded Time Anxiety 60263596 Active 2023 Franco Cheng MD Attn: El marmolejo,[address] [facility], [place], [address], [place] 12:02:36 Undifferentiate d attention deficit disorder 23145250 Active 2023 Franco Cheng MD Attn: El marmolejo,[address] [facility], [place], [address], [facility] 12:03:14 Problem Notes None recorded. Procedures Surgical History Date Name Laterality Status Provider Name and Address Organization Details Recorded Time tympanostomy completed Erum Sainz MA [facility] 02/28/2024 11:24:20 cholecystectomy completed Vanessa Hernandez MA [facility] 04/14/2024 11:15:44 Imaging Results Imaging Date Name Status LastModified by Organization Details LastModified Time 05/22/2024 MRI, brain, w/wo contrast completed [facility] [address] [facility] [address], [address], [place], [address], 05/23/2024 13:32:41 05/22/2024 US, pelvis, transabdominal + transvaginal completed [facility] [address] [facility] , [place], [address], 06/06/2024 12:46:30 Procedure Notes None recorded. Medical [...] Available medroxypr ogesteron e 10 mg tablet TAKE 1 TABLET BY MOUTH ONCE DAILY FOR 10 DAYS active Not Available Not Available No t Available buspirone 5 mg tablet TAKE 1 [...] Not Available Not Available No t Available fluconazo le 150 mg tablet TAKE ONE TABLET BY MOUTH A ONE-TIME DOSE active Not Available Not Available No t [...] tablet TAKE 1 TABLET BY MOUTH EVERY 4 HOURS NEEDED FOR PAIN active Not Available Not Available No t Available bacitraci n 500 unit/gram eye ointment APPLY TO AFFECTED EYE THREE TIMES DAILY FOR 7 DAYS active Not Available Not Available No t Available ondansetr on HCl 8 mg tablet TAKE 1 TABLET BY MOUTH TWICE DAILY FOR NAUSEA FOR 30 DAYS active Not Available Not Available No t Available Compro 25 mg rectal supposito ry INSERT 1 SUPPOSIT ORY RECTALLY EVERY 12 HOURS NEEDED FOR NAUSEA AND VOMITING 03/10 completed Not Available Not Available Not Available sucralfat e 1 gram tablet TAKE 1 TABLET BY MOUTH 4 TIMES DAILY active Not Available Not Available No t Available promethaz ine 12.5 mg tablet TAKE 1 TABLET BY MOUTH EVERY 6 HOURS NEEDED FOR NAUSEA FOR VOMITING active Not Available Not Available No [...] MOUTH EVERY 6 HOURS NEEDED FOR NAUSEA AND VOMITING active Not Available Not Available No t Available tramadol 50 mg tablet TAKE 1 TABLET BY MOUTH EVERY 6 HOURS NEEDED FOR PAIN FOR UP TO 5 DAYS 03/10 completed Not Available Not Available Not Available ondansetr on 8 mg disintegr ating tablet DISSOLVE 2 TABLETS ON THE TONGUE EVERY 8 HOURS 02/27 completed Not Available Not Available Not Available ketorolac 10 mg tablet TAKE 1 TABLET BY MOUTH EVERY 6 HOURS NEEDED FOR PAIN active Not Available Not Available No t Available oxycodone -acetamin ophen 5 mg-325 mg tablet TAKE 1 TABLET BY MOUTH EVERY 6 HOURS NEEDED FOR PAIN active Not Available Not Available No t Available amoxicill in 875 mg tablet TAKE [...] Available Not Available trazodone 100 mg tablet TAKE 1 TABLET BY MOUTH ONCE DAILY IN THE EVENING FOR SLEEP active Not Available Not Available No t Available dicyclomi ne 20 mg tablet TAKE [...] Not Available Not Available Not Avai lable azelastin e 137 mcg (0.1 %) nasal spray USE 1 SPRAY(S) IN EACH NOSTRIL EVERY 12 HOURS active Not Available Not Available No t Available epinephri ne 0.3 mg/0.3 mL injection , [...] ondansetr on 4 mg disintegr ating tablet active Not Available Not Available Not Available sertralin e 50 mg tablet TAKE 1 & 1/2 (ONE & ONE-HALF ) TABLETS BY MOUTH ONCE DAILY 05/09 completed Not Available Not Available Not Available dicyclomi ne 10 mg capsule 06/26 completed Not Available Not Available Not Available metoclopr amide 10 mg tablet TAKE 1 TABLET BY MOUTH TWICE DAILY 10-15 MINUTES BEFORE EATING TO HELP WITH NAUSEA OR VOMITING active Not Available Not Available No t Available buspirone 15 mg tablet TAKE 1/2 [...] completed Not Available Not Available Not Available Narcan 4 mg/actuat ion nasal spray CALL 911. ADMINIST ER A SINGLE SPRAY INTRANAS ALLY INTO ONE NOSTRIL UPON SIGNS OF OPIOID OVERDOSE . MAY REPEAT AFTER 3 MINUTES IF NO RESPONSE . active Not Available Not Available No t Available baclofen 5 mg tablet TAKE 1 TABLET BY MOUTH EVERY DAY AT BEDTIME 02/27 completed Not Available Not Available Not Available Aurovela Fe 1-20 (28) 1 mg-20 mcg (21)/75 mg (7) tablet TAKE 1 TABLET BY MOUTH EVERY DAY active Not Available Not Available No t Available Vitals Date Recorded Body height Body temperature Respiratory rate Heart rate Systolic blood pressure Diastolic blood pressure Provider Name and Address Organization Details Last Updated DateTime 162.56 cm 97.3 [degF] 16 /min 99 /min 138 mm[Hg] 100 mm[Hg] Erum Sainz MA [facility] S[facility] 4 09:48:15 Date Recorded Body height Body temperature Heart rate Respiratory rate Body mass index (BMI) Body mass index (BMI) Percentile per age and sex Body weight Systolic blood pressure Diastolic blood pressure Provider Name and Address Organization Details Last Updated DateTime 4 162.56 cm 97.8 [degF] 80 /min 16 /min 18.9 kg/m2 14 % 47384.1 6 g 130 mm[Hg] 84 mm[Hg] Erum Sainz MA [facility] 4 14:07:29 Date Recorded Body height Body temperature Respiratory rate Heart rate Body mass index (BMI) Body mass index (BMI) Percentile per age and sex Body weight Systolic blood pressure Diastolic blood pressure Provider Name and Address Organization Details Last Updated DateTime 5 162.56 cm 97.7 [degF] 16 /min 99 /min 19.1 kg/m2 17 % 95486.7 5 g 152 mm[Hg] 94 mm[Hg] Erum Sainz MA [facility] 5 14:16:16 Date Recorded Body height Respiratory rate Body temperature Heart rate Systolic blood pressure Diastolic blood pressure Provider Name and Address Organization Details Last Updated DateTime 5 162.56 cm 18 /min 97.8 [degF] 76 /min 128 mm[Hg] 84 mm[Hg] Linh Hudson Huyen [facility] 5 14:49:04 Date Recorded Body height Heart rate Body temperature Respiratory rate Systolic blood pressure Diastolic blood pressure Provider Name and Address Organization Details Last Updated DateTime 5 162.56 cm 94 /min 98.8 [degF] 16 /min 123 mm[Hg] 84 mm[Hg] Chrissy Harris Huyen [facility] 5 16:51:50 Social History Question Answer Notes LastModified by Organizat ion Details LastModified Time Tobacco Smoking Status Never Smoker Erum Sainz MA [facility] 02/28/2024 11:11:24 What Is Your Level [...] completed JOSE CHANEL MD Attn: Accounting,[address] [place], [address], [facility] 02/28/2024 13:11:07 Hib, unspecified formulation 6 completed JOSE CHANEL MD Attn: Accounting,[address] [place], [address], [facility] - [facility] 02/28/2024 13:11:07 Hib, unspecified formulation 5 completed JOSE CHANEL MD Attn: Accounting,[address] [place], [address], [facility] 02/28/2024 13:11:07 Hib, unspecified formulation 6 completed JOSE CHANEL MD Attn: Accounting,[address] [place], [place], [address] [place] [address], [facility] - [facility] 02/28/2024 13:11:07 MMR 6 completed JOSE CHANEL MD Attn: Accounting,[address], [place], [place], [address] [place] [address], [facility] - SI 02/28/2024 13:11:07 MMR 9 completed JOSE CHANEL MD Attn: Accounting,[address], [place], [place], [address] [place] [address], [facility] - [facility] 02/28/2024 13:11:07 pneumococcal conjugate PCV 7 6 completed JOSE CHANEL MD Attn: Accounting,[address] [facility], [place], [address] [place] [address], [facility] - [facility] 02/28/2024 13:11:07 pneumococcal conjugate PCV 7 6 completed JOSE CHANEL MD Attn: Accounting,[address] [facility], [place], [address] [place] [address], [facility] - [facility] 02/28/2024 13:11:07 pneumococcal conjugate PCV 7 5 completed JOSE CHANEL MD Attn: Accounting,[address] [facility], [place], [address] [place] [address], [facility] - SI 02/28/2024 13:11:07 pneumococcal conjugate PCV 7 5 completed JOSE CHANEL MD Attn: Accounting,[address] [facility], [place], [place], [address] [place] [address], [facility] - [facility] 02/28/2024 13:11:07 DTaP-IPV 0 completed JOSE CHANEL MD Attn: Accounting,[address], [place], [place], [address] [place] [address], [facility] - [facility] 02/28/2024 13:11:07 influenza, unspecified formulation 7 completed JOSE CHANEL MD Attn: Accounting,[address], [place], [place], [address] [place] [address], [facility] - SI 02/28/2024 13:11:07 Tdap 3 completed JOSE CHANEL MD Attn: Accounting,[address] [facility], [place], [address] [place] [address], [facility] 02/28/2024 13:11:07 Tdap 6 completed JOSE CHANEL MD Attn: Accounting,[address] [facility], [place], [address] [place] [address], [facility] 02/28/2024 13:11:07 varicella 9 completed JOSE CHANEL MD Attn: Accounting,[address] [facility], [place], [address] [place] [address], [facility] 02/28/2024 13:11:07 varicella 6 completed JOSE CHANEL MD Attn: Accounting,[address] [facility], [place], [address] [place] [address], [facility] 02/28/2024 13:11:07 influenza, split (incl. purified surface antigen) 8 completed JOSE CHANEL MD Attn: Accounting,[address] [facility], [place], [place], [address] [place] [address], [facility] 02/28/2024 13:11:07 HPV, quadrivalent 6 completed JOSE CHANEL MD Attn: Accounting,[address] [facility], [place], [address] [place] [address], [facility] 02/28/2024 13:11:07 HPV, quadrivalent 4 completed JOSE CHANEL MD Attn: Accounting,[address] [facility], [place], [address] [place] [address], [place] [facility] 02/28/2024 13:11:07 Hep B, adolescent or pediatric 5 completed JOSE CHANEL MD Attn: Accounting,[address] [facility], [place], [address] [place] [address], [facility] 02/28/2024 13:11:07 Hep B, adolescent or pediatric 0 completed JOSE CHANEL MD Attn: Accounting,[address] [facility], [place], [address] [place] [address], [place] [facility] 02/28/2024 13:11:07 Hep A, pediatric, unspecified formulation 8 completed JOSE CHANEL MD Attn: Accounting,[address] [facility], [place], [place], [address] [place] [address], [facility] 02/28/2024 13:11:07 Hep A, pediatric, unspecified formulation 7 completed JOSE CHANEL MD Attn: Accounting,[address] [facility], [place], [address] [place] [address], [facility] 02/28/2024 13:11:07 meningococcal MCV4P 6 completed JOSE CHANEL MD Attn: Accounting,[address] [facility], [place], [address] [place] [address], [facility] 02/28/2024 13:11:07 DTaP 7 completed JOSE CHANEL MD Attn: Accounting,[address] [facility], [place], [place], [address] [place] [address], [facility] 02/28/2024 13:11:07 DTaP-Hep B-IPV 6 completed JOSE CHANEL MD Attn: Accounting,[address] [facility], [place], [place], [address] [place] [address], [facility] 02/28/2024 13:11:07 DTaP-Hep B-IPV 5 completed JOSE CHANEL MD Attn: Accounting,[address] [facility], [place], [address] [place] [address], [facility] 02/28/2024 13:11:07 Influenza, split virus, quadrivalent, PF 4 completed JOSE CHANEL MD Attn: Accounting,[address] [facility], [place], [place], [address] [place] [address], [facility] 02/28/2024 13:11:07 Influenza, split virus, quadrivalent, PF 0 completed JOSE CHANEL MD Attn: Accounting,[address] [facility], [place], [place], [address] [place] [address], [facility] 02/28/2024 13:11:07 Influenza, split virus, quadrivalent, PF 2 completed JOSE CHANEL MD Attn: Accounting,[address], [place], [address], [facility] 02/28/2024 13:11:07 Past Encounters Encounter ID Performer Location Encounter Start Date Encounter Closed Date Diagnosis/Indication Diagnosis SNOMED-CT Code Diagnosis ICD10 Code Diagnosis Note [id number] MD Becky BATRES 14 IM [address] [facility] [address] [facility] [place] [address] 02/28/2024 11:02:08 03/12/2024 19:04:35 Generalized anxiety disorder 30127018 F41.1 Pt currently taking citalopram 40 mg - Recently initiated would like to continue to see if effects improve anxiety. will provide refill at this for citalopram and RTC in 1 month Abdominal pain 62214453 R10.13 Recently underwent cholecyste ctomy after returning to [facility] ED with concerns of abdominal pain.She has [...] that it's worse when she is stressed. [id number] MD Becky Guerin 14 IM [address] [facility] [address] [place] [address] 03/10/2024 16:06:25 03/13/2024 08:34:47 Anxiety disorder 585272372 F41.9 Discussed with patient that her symptoms does not match with ADHD and at this time ADHD medication can do more harm than good because of her underlying anxiety. It seems mostly uncontroll ed anxiety at this time. Discussed that I will call Dr Velásqeuz, her psychiatri st to help expedite the [...] them follow up with their psychiatri st. [id number] MD Becky Barbosa [address] IM [address] [facility] [place] [address] 04/14/2024 10:51:24 04/25/2024 11:35:32 Migraine without aura 31256021 G43.009 acuteReque sting medication s other than NSAIDs due to her hx of n/v.Will provide triptan prescripti on; counseling provided on risks of serotonin syndrome although extremly rare. Attention deficit hyperactivity disorder 422272103 F90.9 Pt reports significan t improvemen t in her attention and focus.Repo rts that atomoxetin e 40 mg worked [facility]She is currently looking for an alternativ e psychiatri st.Will provide atomoxetin e 40 mg as previously tolerated and reports good results with attention/ focus. Discussed importance to avoid stimulants which can cause appetite suppressio n. Positive s creening for depression on PHQ-9 (Patient Health Questionnaire 9) [id number] 17508 Z13.31 PHQ 9 - significan tly improved from previous (mild 4-5) which suggests that her anxiety is likely 2/2 to her inattentio n. [id number] MD Becky Guerin 14 IM [address] [facility] [place] [address] 04/25/2024 14:21:33 05/06/2024 12:38:02 Generalized anxiety disorder 97589946 F41.1 patient requests refill on her sertraline Paresthesi a of lower extremity 331733172 R20.2 patient has paresthesi as of lower extremity will check BNP to rule out low potassium low calcium Underweight 082625478 R6 3.6 patient is underweigh t and not eating well, patient open to dietitian referral. [id number] MD Becky BATRES 14 IM [address] [place] [address] 05/01/2024 15:02:39 05/07/2024 10:31:18 Increased nausea and vomiting 76651571 R11.2 Patient with persistent intractabl e nausea [...] gastric emptying study a year ago at [facility], the recent change on HIDA scan is suspicious for possible new component of gastropare sis in addition to biliary dyskinesia contributi ng to patient's significan t nausea and vomiting Will repeat gastric emptying study for further evaluation - Follow with GI as instructed - RTC in 1 week for follow up Postural dizziness 20114 7008 R42 multifacto rial - likely due to dehydratio n vs malnutriti on vs orthostati c hypotensio n vs anxiety vs other- Discussed with patient that POTS is a diagnosis of exclusion- Will obtain Tilt-table test to assess for orthostati c dizziness- Referral to neurology per patient's request [id number] MD Becky BATRES 14 IM [address] [facility] [address] [place] [address] 05/09/2024 09:36:35 06/06/2024 14:10:43 Increased nausea and vomiting 41033869 R11.2 Patient with persistent intractabl e nausea and vomiting despite extensive workup overall unremarkab le. HIDA scan from 02/2024 did confirm biliary dyskinesia , she is s/p laparoscop ic cholecyste ctomy with persistent nausea and vomiting- Will check CBC, CMP, TSH, Lipase, Mg, Phosphorus to assess for some dietary deficiency or electrolyt e abnormalit y- Continue working with lead producer and GI on finding foods she can tolerate- Gastric emptying study ordered last visit, encouraged scheduling - Follow up with neurology, psychiatry , counsellin g to addresses multifacto rial causes of nausea and vomiting (Possible component of anxiety?) [id number] MD Becky Guerin 14 IM [address] [facility] [place] [address] 06/06/2024 13:58:52 06/12/2024 09:54:45 Difficulty sleeping 082340211 Z72.820 Patient believes her migraines are attributed to her difficulty sleeping. She reports failure with doxylamine and Benadryl as sleep aids.Will trial short course of trazodone; advised to trial half a tab at night time to asses for SE. Muscle pain 92902819 M79 .18 acute; mild. She reports some mild back pain/nicole sagrario tenderness on physical exam, reproducib le on palpation, relieved with heat/massa ge at the lumbar region; she attributes it to sleeping in the car. Likely muscle pain; will prescribe patch for symptomati c treatment. Housing instability 1156 480636 Z59.811 reports feeling unsafe in current home.is afraid [facility] using as she has primary custody of her daughter and does not want to be disqualifi ed from caring for her; she believes her previous partner will likely try to take her to court out of spite if he finds out. [id number] GERARD Cho [address] IM [address] [facility] [place] [address] 06/13/2024 14:00:29 06/16/2024 10:27:59 Elevated blood-pressure reading without diagnosis of hypertension 550778183 R03.0 Pt is anxious during examinatio n today.Rang es are normally SBP [119-124] Housing instability 1156 079799 Z59.811 She continues to report feeling unsafe in current home.Wait listed at several housing resources locations across [place]/[facility].Reac hed out to pastor Zhao courtesy of Dr. Mekhi Cortez for additional community support/ou treach and possible assistance with housing. Nausea [id number] R11.0 Etiology of her nausea is likely [...] if her nausea resolves. Electronic cigarette user [id number] Z72.89 Counseled re: nicotine cessation [id number] MD Becky Barbosa [address] [place] [address] 06/26/2024 14:43:43 07/18/2024 07:56:33 Abnormal findings on diagnostic imaging of urinary organs [id number] R93.41 Concerns for endometrio sis based on clinical presentati on; 3 years of waxing/wan ing pelvic pain s/p delivery. OB recommendi ng ex-lap, IUD, OCPs as possible treatment options.Al ready prescribed . Low back pain [id number] M54.59 Known hx, acute, worsening/ not resolving [...] to avoid GI upsets. Under care of underground repairer [id number] Z76.89 Dr. Quintero; OCPs prescribed for trial of therapy for possible endometrio sis.- [id number] Milly Valero MD Becky [address] IM [address] [facility] [address] [place] [address] 07/03/2024 16:31:36 07/18/2024 08:20:16 Endometriosis of pelvis [id number] N80.9 Suspected endometrio sis of pelvis;we are [...] d to seek a referral to an district ranger to rule out possible allergic causes of abdominal pain; referral provided. Chest wall pain [id number] R07.89 CTAB; normal heart tones.she is complainin g of chest wall pain reproducib le on palpation. CXR to r/o fracture since she also reports recent trauma.Req uested to send to [facility]. Health Concerns Section Related Observation LastModified by Organization Detai ls LastModified Time None Recorded Concern Status LastModified by Organization Details LastModified Time None Recorded Advance Directives Directive None Recorded Payers Encounter Date Sequence Insurance Name Policy Number Policy Cisse Covered Member ID Cisse Member ID Guarantor Name 05/09/2024 1 [facility] ON OR AFTER 12/09/20 (MEDICAID REPLACEMENT - HMO) Natali Lablance [id number] 06/06/2024 1 [facility] ON OR AFTER 12/09/20 (MEDICAID REPLACEMENT - HMO) Natali Lablance [id number] 06/13/2024 1 [facility] ON OR AFTER 12/09/20 (MEDICAID REPLACEMENT - HMO) Natali Lablance [id number] 06/26/2024 1 [facility] ON OR AFTER 12/09/20 (MEDICAID REPLACEMENT - HMO) Natali Lablance [id number] 07/03/2024 1 [facility] ON OR AFTER 12/09/20 (MEDICAID REPLACEMENT - HMO) Natali Lablance [id number] Notes Date Note Type Note Provider Name [...] slightly JOSE CHANEL MD Attn: [address] [place], [address], [place] [facility] 06/06/2024 09:53:10 4 text/html [...] received social support in the past with [employer] but is currently on the waiting list. [...] use d/t issues with fertility associated with nursing home use; counseled.- zofran; she continues to take [...] fatigue. Mekhi Cortez MD Attn: [address] , [place], [address], [facility] 06/10/2024 11:42:03 5 text/html 18-year-old female with past medical history of anxiety, status postcholecystectomy, chronic abdominal pain/n/v who presents for follow-up discussion re: housing/follow-up re: intractable nausea. She continues to have a difficult time obtaining alternative housing; she is wait listed at [place] and is in contact with several other [...] if he finds out. Archana Ling RN [facility], [place] [facility] 06/25/2024 16:25:04 5 text/html 18F w/ PMHx [...] a course of OCPs prescribed by her RESERVATIONS MANAGER for suspected endometriosis.She does have a 3 year old child and findings on TVUS that are deserving of workup. She is anxious about what this would mean for her fertility in the nursing home. She is concerned re: results of ultrasound [...] fatigue. Milly Valero MD Attn: [address] [place], [address], [facility] 07/18/2024 00:12:03 5 text/html 18F w/ PMHx [...] pursuing this surgery. She is concerned re: long term care pharmacist fertility and additional abdominal scarring. Pt denies any fever, chills, night sweats, changes in vision, cough, dysphagia, CP, palpitations, SOB, CVA tenderness, n/v/d/c, changes in urination frequency/dysuria, fatigue. Milly Valero MD Attn: [address] [place], [address], [facility] 07/18/2024 00:35:17 OBGyn Episode No OBEpisode recorded.
--- OUTSIDE RECORDS SUMMARY | 2024-07-30 10:04 | XMS_ITS | Clinical Summary ---
Author Organization [facility] Address [address] [place] [phone] Phone Care Team Providers Care Mine Motor Operator Name Role Phone Lizy Dalton MD Primary Care Provider [phone] Allergies No known active allergies Medications No [...] HPV VACCINES Completed 10/12/2015, 02/27/2014 Care Teams Mine Motor Operator Relationship Specialty Start Date End Date Lizy Dalton MD PCP - General Pediatrics 09/07/18
--- OUTSIDE RECORDS SUMMARY | 2024-07-30 10:04 | XMS_ITS | Clinical Summary ---
Author Organization [facility] Address [address] [facility] [place] [address] Care Team Providers Care Regional Facilities Manager Name Role Phone Deonte Cheng MD Primary Care Provider [phone] Social History Tobacco Use Types Packs/Day Years Used Date Smoking Tobacco: Never Assessed Comments Unknown Sex and Gender Information Value Date Recorded Sex Assigned at Not on file Legal Sex Female 3:24 PM MOTORCYCLE REPAIRER Gender Identity Not on file Sexual Orientation Not on file Plan of Treatment Upcoming Encounters Date Type Department Care Team (Late st Contact Info) Description 08/11/2024 1:00 PM MOTORCYCLE REPAIRER Initial Consult [facility] Cardiovascular [place] [facility] - Cardiology [facility] [address] [facility] [place] [address] Pasquale Qiu, DO [address] [facility] [place] [address] Procedures Procedure Name Priority Date/Time Associated Diagnosis Comments FAMILY MEDICINE CONSULT 07/03/19 12:00 AM MOTORCYCLE REPAIRER COMPLETE BLOOD COUNT (CBC) WITH DIFF 05/09/2024 12:00 AM MOTORCYCLE REPAIRER THYROID STIMULATING HORMONE (TSH) 05/09/2024 12:00 AM MOTORCYCLE REPAIRER LIPASE 05/09/2024 12:00 AM MOTORCYCLE REPAIRER LAB - MISCELLANEOUS 05/09/2024 1 2:00 AM MOTORCYCLE REPAIRER MAGNESIUM (MG) 05/09/2024 12:00 AM MOTORCYCLE REPAIRER CMP (COMPREHENSIVE METABOLIC PANEL) 05/09/2024 12:00 AM MOTORCYCLE REPAIRER THYROXINE (T4) FREE 05/09/2024 1 2:00 AM MOTORCYCLE REPAIRER from Last 3 Months Results * FAMILY MEDICINE CONSULT (07/03/2024 12:00 AM MOTORCYCLE REPAIRER) 07/03/2024 us Provider Scan GENERIC SCAN ORDERS CONSULT Johnna robles Result Performing Organization Address City/[facility] de Phone Number SCAN * LAB - MISCELLANEOUS (05/09/2024 12:00 AM MOTORCYCLE REPAIRER) 05/09/2024 us Provider Scan CHEMISTRY ORDERABLES Final Resul t Performing Organization Address City/[facility] de Phone Number SCAN * THYROXINE (T4) FREE (05/09/2024 12:00 AM MOTORCYCLE REPAIRER) 05/09/2024 us Provider Scan CHEMISTRY ORDERABLES Final Resul t Performing Organization Address City/[facility] de Phone Number SCAN * THYROID STIMULATING HORMONE (TSH) (05/09/2024 12:00 AM MOTORCYCLE REPAIRER) 05/09/2024 us Provider Scan CHEMISTRY ORDERABLES Final Resul t Performing Organization Address City/[facility] de Phone Number SCAN * MAGNESIUM (MG) (05/09/2024 12:00 AM MOTORCYCLE REPAIRER) 05/09/2024 us Provider Scan CHEMISTRY ORDERABLES Final Resul t Performing Organization Address City/[facility] de Phone Number SCAN * LIPASE (05/09/2024 12:00 AM MOTORCYCLE REPAIRER) 05/09/2024 us Provider Scan CHEMISTRY ORDERABLES Final Resul t Performing Organization Address City/[facility] de Phone Number SCAN * CMP (COMPREHENSIVE METABOLIC PANEL) (05/09/2024 12:00 AM MOTORCYCLE REPAIRER) 05/09/2024 us Provider Scan CHEMISTRY ORDERABLES Final Resul t SCAN * COMPLETE BLOOD COUNT (CBC) WITH DIFF (05/09/2024 12:00 AM MOTORCYCLE REPAIRER) 05/09/2024 us Provider Scan HEMATOLOGY ORDERABLES Final Resu lt SCAN from Last 3 Months Care Teams Regional Facilities Manager Relationship Specialty Start Date End Date Deonte Cheng MD 4 [facility] [address] [address] PCP - General Family Medicine 07/28/24
--- OUTSIDE RECORDS SUMMARY | 2024-07-30 10:04 | XMS_ITS | Patient Health Summary ---
Author Organization [facility] Address [address] [place] [address] Care Team Providers Care Senior Case Manager Name Role Phone Lizy Dalton MD Primary Care Provider [phone] Note from [facility],non-owned Affiliates and Associated Physician Practices is amultiple site organization consisting of ambulatory clinics and hospital sitesin [place], [place], [place] and [place]. This disclosure is being madepursuant to the Care Everywhere program and may not contain all information available regarding this patient. Last updated 18.[facility] Allergies * Peanut-Derived(Shortness of Breath) -High [...] 37.4 C (99.3 F) 05/29/2021 9:01 PM SPINNING AND WINDING SUPERVISOR Respiratory Rate 18 05/29/2021 9:01 PM SPINNING AND WINDING SUPERVISOR Oxygen Saturation - - Inhaled Oxygen Concentration - - Weight 60.3 kg (133 lb) 08/30/2022 1:48 PM CDT Height 157.5 cm (5' 2 ) 02/13/2020 2:02 PM CDT Body Mass Index - - Procedures * BIOPHYSICAL PROFILE W NST(Performed 10/13/2022) Performed for SGA (small for gestational age) ([facility]), Supervision of normal first teen in third trimester ([facility]) * BIOPHYSICAL PROFILE W NST(Performed 10/06/2022) Performed for Poor growth affecting management of mother in third trimester, single or unspecified fetus ([facility]) * BIOPHYSICAL PROFILE W NST(Performed 09/29/2022) Performed for Poor growth affecting management of mother in third trimester, single or unspecified fetus ([facility]) * BIOPHYSICAL PROFILE W NST(Performed 09/22/2022) Performed for Poor growth affecting management of mother in third trimester, single or unspecified fetus ([facility]) * BIOPHYSICAL PROFILE W NST(Performed 09/15/2022) Performed for Poor growth affecting management of mother in third trimester, single or unspecified fetus ([facility]) * BIOPHYSICAL PROFILE W NST(Performed 09/08/2022) Performed for Poor growth affecting management of mother in third trimester, single or unspecified fetus ([facility]) * BIOPHYSICAL PROFILE W NST(Performed 08/30/2022) Performed for Poor growth affecting management of mother in third trimester, single or unspecified fetus ([facility]) * SONOGRAM - COMPLETE(Performed 08/21/2022) Performed for SGA (small for gestational age) ([facility]) * SONOGRAM - COMPLETE(Performed 06/30/2022) Performed for Encounter for anatomic survey ([facility]), SGA (small for gestational age) ([facility]) * URINALYSIS W/MICROSCOPIC NO CULTURE(Performed 05/29/2021) * [...] CDT Narrative 10/13/2022 1:55 PM CDT [facility] PHONE: FAX: Pat. Name: KENIA DIETRICH Pat. No: [id number] Study Date: 10/13/2022 1:11pm , Age: 07 2005, 16 Pregnancies: 1, Para 0000 Height: 62 in Weight: 115 lb LMP: 01/31/2022 GA by LMP: 36w3d GA by Base: 36w3d JEISON: 11/07/2022 GA Selected: 36w3d (From [facility]) JEISON: 11/07/2022 Referring MD: Crista Thomason MD Drafter Topographical: Gisela Magallon RDMS CPT4: 81824,[id number] BMI: 21.03 Hist/Ind: Teen , Suspected IUGR, [...] FAX: Pat. Name: KENIA DIETRICH Pat. No: [id number] Study Date: 08/21/2022 9:58am , Age: 07 2005, 16 Pregnancies: 1, Para 0000 Height: 62 in Weight: 115 lb LMP: 01/31/2022 GA by LMP: 28w6d GA by Base: 28w6d JEISON: 11/07/2022 GA by US: 27w3d JEISON: 11/17/2022 GA Selected: 28w6d (From [facility]) JEISON: 11/07/2022 Referring MD: Crista Thomason MD Drafter Topographical: Erinn Mcdonnell, RDMS, RDCS CPT4: 38201,[id number] BMI: 21.03 Hist/Ind: SGA with abnormal UA Doppler outside U/S MEASUREMENTS & AGE GROWTH EVALUATION Measurement GA Range Srce %for GA Ratios ----- ---- ------- BPD 7.1 cm 28w3d (57x0o-28h1j) Hadl BPD 24% FL/BPD 0.72 (0.71 - 0.87) HC 26.3 cm 28w4d (69x8w-96a7r) Hadl HC 12% FL/AC 0.22 (0.20 - 0.24) AC 23.0 cm 27w2d (36d3a-04e9s) Hadl AC 8% HC/AC 1.14 (0.99 - 1.18) FL 5.1 cm 27w1d (73o8a-54q5r) Hadl FL 4% CI 0.75 (0.70 - 0.86) HL 4.5 cm 26w6d (48o2g-35k6l) Jose E HL 18% GA for sonogram 27w3d (36c8r-46m4k) Weight Estimate: based on (BPD,HC,AC,FL) [place] Weight: [...] URINALYSIS W/MICROSCOPIC NO CULTURE (05/29/2021 11:20 PM SPINNING AND WINDING SUPERVISOR) Color UA Red(A) Straw, Yellow 05/29/2021 11:43 PM SPINNING AND WINDING SUPERVISOR [facility] Clarity UA Slt Cloudy(A) Clear 05/29/2021 11:43 PM SPINNING AND WINDING SUPERVISOR [facility] Specific [place] UA 1.018 1.005 - 1.030 05/29/2021 11:43 PM SPINNING AND WINDING SUPERVISOR [facility] pH UA 5.0 5.0 - 8.0 pH 05/29/2021 11:43 PM [facility] Protein UA 2+(A) Negative 05/29/2021 11:43 PM [facility] Glucose UA Negative Negative 05/29/2021 11:43 PM [facility] Ketone UA Negative Negative 05/29/2021 11:43 PM [facility] Bilirubin UA Negative Negative 05/29/2021 11:43 PM [facility] Blood UA 3+(A) Negative 05/29/2021 11:43 PM [facility] Nitrite UA Negative Negative 05/29/2021 11:43 PM [facility] Leukocyte Esterase 1+(A) Negative 05/29/2021 11:43 PM [facility] Urobilinogen UA Negative Negative mg/dL 05/29/2021 11:43 PM [facility] RBC UA >100(A) None Seen, 0-2, 3-5 /HPF 05/29/2021 11:43 PM [facility] WBC UA 11-20(A) None Seen, 0-5 /HPF 05/29/2021 11:43 PM [facility] Bacteria UA Trace(A) None /HPF 05/29/2021 11:43 PM [facility] Squamous Epithelial Cells UA 3-5 None Seen, 0-2, 3-5 /HPF 05/29/2021 11:43 PM [facility] Mucus UA 1+ /LPF 05/29/2021 11:43 PM [facility] Urine URINE SPECIMEN OBTAINED BY CLEAN CATCH PROCEDURE / Unknown Collection / Unknown 05/29/2021 11:20 PM SP[employer]NING AND WINDING SUPERVISOR 05/29/2021 11:25 PM SPINNING AND WINDING SUPERVISOR [facility] - 05/29/2021 11:43 PM SPINNING AND WINDING SUPERVISOR Alesia Camejo MD LAB - URINALYSI S ORDERABLES [address] [address], [facility] [phone] * CULTURE URINE (05/29/2021 11:01 PM SPINNING AND WINDING SUPERVISOR) Only the most recent of3 resultswithin the time period is included. Culture Urine <10,000 CFU/mL urogenital ankush RONNI 05/31/2021 2:42 AM SPINNING AND WINDING SUPERVISOR [facility] Urine URINE SPECIMEN OBTAINED BY CLEAN CATCH PROCEDURE / Unknown Collection / Unknown 05/29/2021 11:01 PM SP[employer]NING AND WINDING SUPERVISOR 05/29/2021 11:05 PM SP[employer]NING AND WINDING SUPERVISOR Alesia Camejo MD LAB - MICROBIOL OGY ORDERABLES [facility]CRO[facility]OLOG[facility] [address] [place] [address], [facility] [phone] * HIV-1 HIV-2 ANTIBODY + HIV P24 AG PANEL (05/29/2021 10:31 PM SPINNING AND WINDING SUPERVISOR) Pathologist [facility] HIV Antigen/Antibod y 1 & 2 Non-reacti ve Non-react josh 05/29/2021 11:35 PM SPINNING AND WINDING SUPERVISOR [facility] Comment:No Laboratory eviden ce of HIV infection. Blood BLOOD SPECIMEN / Unknown Venipuncture / Unknown 05/29/2021 10:31 PM SPINNING AND WINDING SUPERVISOR 05/29/2021 10:45 PM SP[employer]NING AND WINDING SUPERVISOR Alesia Camejo MD LAB - CHEMISTRY ORDERABLES Performing Organization Address [facility] Co de Phone Number [address] [address], [place] [phone] * C-REACTIVE PROTEIN (05/29/2021 10:31 PM SPINNING AND WINDING SUPERVISOR) Pathologist [facility] C-Reactive Protein <0.5 <=0.5 mg/dL 05/29/2021 11:15 PM SPINNING AND WINDING SUPERVISOR [facility] Blood BLOOD SPECIMEN / Unknown Venipuncture / Unknown 05/29/2021 10:31 PM SPINNING AND WINDING SUPERVISOR 05/29/2021 10:45 PM SPINNING AND WINDING SUPERVISOR Alesia Camejo MD LAB - CHEMISTRY ORDERABLES Performing Organization Address City/[facility]/ZIP Co de Phone Number [address] [address], [place] [phone] * ERYTHROCYTE SEDIMENTATION RATE (05/29/2021 10:31 PM SPINNING AND WINDING SUPERVISOR) Erythrocyte Sedimentation Rate Westergren 5 0 - 20 MM/HR 05/29/2021 11:27 PM [facility] Blood BLOOD SPECIMEN / Unknown Venipuncture / Unknown 05/29/2021 10:31 PM SPINNING AND WINDING SUPERVISOR 05/29/2021 10:47 PM SPINNING AND WINDING SUPERVISOR Alesia Camejo MD LAB - HEMATOLOG Y ORDERABLES [facility] [address] [place] [address], [facility] [phone] * CBC W AUTO DIFFERENTIAL (05/29/2021 10:31 PM SPINNING AND WINDING SUPERVISOR) WBC 8.8 4.5 - 14.5 10 3/uL 05/29/2021 10:53 PM [facility] RBC 4.43 4.10 - 5.10 10 6/uL 05/29/2021 10:53 PM [facility] Hemoglobin 12.7 12.0 - 16.0 g/dL 05/29/2021 10:53 PM [facility] Hematocrit 39.1 36.0 - 47.0 % 05/29/2021 10:53 PM [facility] MCV 88.3 78.0 - 98.0 fL 05/29/2021 10:53 PM [facility] MCH 28.7 25.0 - 35.0 pg 05/29/2021 10:53 PM [facility] MCHC 32.5 31.0 - 37.0 g/dL 05/29/2021 10:53 PM [facility] Platelet Count 329 100 - 400 10 3/uL 05/29/2021 10:53 PM [facility] RDW-SD 43.8 36.0 - 50.0 fL 05/29/2021 10:53 PM [facility] RDW-CV 13.2 11.5 - 14.0 % 05/29/2021 10:53 PM [facility] MPV 9.1 6.0 - 9.5 fL 05/29/2021 10:53 PM [facility] nRBC Absolute 0.00 0 10 3/uL 05/29/2021 10:53 PM [facility] nRBC Auto 0.0 0 /100 WBC 05/29/2021 10:53 PM [facility] Neutrophils % 53.1 24.0 - 66.0 % 05/29/2021 10:53 PM [facility] Lymphocytes % 32.3 22.0 - 61.0 % 05/29/2021 10:53 PM [facility] Monocytes % 9.5 3.0 - 15.0 % 05/29/2021 10:53 PM [facility] Eosinophils % 4.0 0.0 - 10.0 % 05/29/2021 10:53 PM [facility] Basophil % 1.0 0.0 - 100.0 % 05/29/2021 10:53 PM [facility] Neutrophils Absolute 4.7 1.1 - 9.6 10 3/uL 05/29/2021 10:53 PM [facility] Lymphocyte Absolute 2.8 1.0 - 8.9 10 3/uL 05/29/2021 10:53 PM [facility] Monocytes Absolute 0.84 0.14 - 2.18 10 3/uL 05/29/2021 10:53 PM [facility] Eosinophils Absolute 0.35 0.00 - 1.45 10 3/uL 05/29/2021 10:53 PM [facility] Basophils Absolute 0.09 0.00 - 0.29 10 3/uL 05/29/2021 10:53 PM [facility] Immature Granulocytes % 0.1 0.0 - 1.0 % 05/29/2021 10:53 PM [facility] Immature Granulocytes Absolute 0.01 05/29/2021 10:53 PM [facility] Blood BLOOD SPECIMEN / Unknown Venipuncture / Unknown 05/29/2021 10:31 PM SPINNING AND WINDING SUPERVISOR 05/29/2021 10:47 PM [facility] Alesia Camejo MD LAB - HEMATOLOG Y ORDERABLES [facility] [address] [place] [address], [facility] [phone] * (ABNORMAL) COMPREHENSIVE METABOLIC PANEL (05/29/2021 10:31 PM [facility]) BUN 5 5 - 19 mg/dL 05/29/2021 11:12 PM [facility] Creatinine 0.73 0.48 - 0.84 mg/dL 05/29/2021 11:12 PM [facility] Sodium 139 136 - 145 mmol/L 05/29/2021 11:12 PM [facility] Potassium 3.7 3.5 - 5.1 mmol/L 05/29/2021 11:12 PM [facility] Chloride 109(H) 98 - 107 mmol/L 05/29/2021 11:12 PM [facility] CO2 22 20 - 28 mmol/L 05/29/2021 11:12 PM [facility] Glucose 79 70 - 115 mg/dL 05/29/2021 11:12 PM [facility] Calcium 9.0 8.4 - 10.2 mg/dL 05/29/2021 11:12 PM [facility] Protein Total 7.0 6.0 - 8.3 g/dL 05/29/2021 11:12 PM [facility] Albumin 4.3 3.4 - 5.0 g/dL 05/29/2021 11:12 PM [facility] Bilirubin Total 0.2(L) 0.3 - 1.2 mg/dL 05/29/2021 11:12 PM [facility] Alkaline Phosphatase 62(L) 100 - 390 U/L 05/29/2021 11:12 PM [facility] ALT 21 5 - 55 U/L 05/29/2021 11:12 PM [facility] AST 24 3 - 35 U/L 05/29/2021 11:12 PM [facility] Anion Gap 12 8 - 18 05/29/2021 11:12 PM [facility] BUN/Creatinine Ratio 7 7 - 23 05/29/2021 11:12 PM [facility] Osmolality Calculated 284 270 - 300 mOsm/kg 05/29/2021 11:12 PM [facility] Blood BLOOD SPECIMEN / Unknown Venipuncture / Unknown 05/29/2021 10:31 PM SP[employer]NING [employer] WINDING SUPERVISOR 05/29/2021 10:47 PM SP[employer]NING [employer] WINDING SUPERVISOR Alesia Camejo MD LAB - CHEMISTRY ORDERABLES [facility] [address] [place] [address], [facility] [phone] * LIPASE BLOOD (05/29/2021 10:31 PM SPINNING AND WINDING SUPERVISOR) Lipase 20 8 - 78 U/L 05/29/2021 11:12 PM SPINNING AND WINDING SUPERVISOR [facility] Blood BLOOD SPECIMEN / Unknown Venipuncture / Unknown 05/29/2021 10:31 PM SPINNING AND WINDING SUPERVISOR 05/29/2021 10:47 PM SPINNING AND WINDING SUPERVISOR Alesia Camejo MD LAB - CHEMISTRY ORDERABLES Performing Organization Address City/[facility]/ZIP Co de Phone Number [address] [address], [facility] [phone] * SARS-COV-2 (COVID-19) FLU A/B RSV PCR RAPID (05/29/2021 10:19 PM SPINNING AND WINDING SUPERVISOR) COVID-19 PCR Not detected Not detected 05/29/20 11:26 PM [facility] Influenza A PCR Not detected Not detected 05/29/2021 11:26 PM [facility] Influenza B PCR Not detected Not detected 05/29/2021 11:26 PM [facility] RSV PCR Not detected Not detected 05/29/2021 11:26 PM [facility] Microbiology SPECIMEN FROM NASOPHARYNGEAL STRUCTURE / Unknown Collection / Unknown 05/29/2021 10:19 PM SPINNING AND WINDING SUPERVISOR 05/29/2021 10:45 PM SPINNING AND WINDING SUPERVISOR Narrative [facility] - 05/29/2021 11:26 PM SPINNING AND WINDING SUPERVISOR This nucleic acid amplification assay has been [...] - MICROBIOL OGY ORDERABLES Performing Organization Address City/[facility]/ZIP Co de Phone Number [facility] [address] [place] [address], [facility] [phone] * CHLAMYDIA + GC AMPLIFIED PROBE (STL) (05/29/2021 10:17 PM SPINNING AND WINDING SUPERVISOR) Pathologist [facility] Chlamydia Amplified Probe Negative Negative 05/30/2021 9:32 AM SPINNING AND WINDING SUPERVISOR [facility] GC Amplified Probe Negative Negative 05/30/2021 9:32 AM SPINNING AND WINDING SUPERVISOR [facility] Microbiology URINE / Unknown Collection / Unknown 05/29/2021 10:17 PM SPINNING AND WINDING SUPERVISOR 05/29/2021 10:46 PM SPINNING AND WINDING SUPERVISOR Narrative [facility] - 05/30/2021 9:32 AM SPINNING AND WINDING SUPERVISOR Results based on detection/no detection of ribosomal RNA by amplified method. Alesia Camejo MD LAB - MICROBIOL OGY ORDERABLES Performing Organization Address [facility]/ZIP Co de Phone Number [facility] [address] [place], [place] [address] [phone] * HCG URINE QUALITATIVE - POCT (IP) INTERFACED (05/29/2021 10:17 PM SPINNING AND WINDING SUPERVISOR) Pathologist [facility] HCG Qual Urine Negative Negative 05/29/2021 10:27 PM SPINNING AND WINDING SUPERVISOR [facility] Urine URINE / Unknown 05/29/2021 1 0:17 PM SPINNING AND WINDING SUPERVISOR 05/29/2021 10:27 PM SPINNING AND WINDING SUPERVISOR Alesia Camejo MD LAB - POINT OF CARE ORDERABLES [facility] [address] [place] [address] * TRICHOMONAS RAPID TEST (05/29/2021 10:17 PM SPINNING AND WINDING SUPERVISOR) Pathologist [facility] Trichomonas Rapid Test Negative Negative 05/29/2021 11:00 PM SPINNING AND WINDING SUPERVISOR [facility] Microbiology VAGINAL SWAB / Unknown Collection / Unknown 05/29/2021 10:17 PM SPINNING AND WINDING SUPERVISOR 05/29/2021 10:45 PM SPINNING AND WINDING SUPERVISOR Alesia Camejo MD LAB - MICROBIOL OGY ORDERABLES [facility] [address] [place] [address], [facility] [phone] * HCG URINE QUAL POCT NOTIFICATION (05/29/2021 9:45 PM SPINNING AND WINDING SUPERVISOR) Pathologist [facility] Comment Notification Label Only - See Separate Report 05/29/2021 11:30 PM SPINNING AND WINDING SUPERVISOR [facility] Urine URINE / Unknown 05/29/2021 9 :45 PM SPINNING AND WINDING SUPERVISOR 05/29/2021 10:08 PM SPINNING AND WINDING SUPERVISOR Alesia Camejo MD LAB - URINALYSI S ORDERABLES Performing Organization Address City/[facility] Co de Phone Number [facility] [address] [phone] * COVID-19 SARS-COV-2 PCR QUAL ([facility]) (02/13/2020 2:54 PM CDT) Pathologist [facility] SARS-CoV-2 OC Not Detected Not Detected [facility] ACCOUNT BILL Comment: This nucleic acid amplification test was developed and its performance characteristics determined by [facility]. Nucleic acid amplification tests include PCR and [...] Resulting Agency Comment Lab Testing performed at: [facility] [address] [facility] [id number] Lizy Dalton MD LAB - MICROBIOLOGY O RDERALENORA Performing Organization Address City/[facility] Co de Phone Number [facility] ACCOUNT BILL [address] [place] [address] * CULTURE AEROBIC (02/13/2020 2:52 PM CDT) Only the most recent of4 resultswithin the time period is included. Aerobic Bacterial Culture Final report [facility] ACCOUNT BILL Result 1 [facility] ACCOUNT BILL Comment:Routine respiratory ankush Microbiology SPECIMEN FROM TONSIL / Unknown 02/13/2020 2:52 PM CDT 02/13/2020 Narrative Resulting Agency Comment Lab Testing performed at: [facility] [id number] [facility] [id number] Lizy Dalton MD LAB - MICROBIOLOGY O RDERAClean Runner Performing Organization Address City/[facility] Co de Phone Number [facility] ACCOUNT BILL [address] [place] [address] * STREP A SCREEN - POINT OF [...] CULTURE STREP GROUP A (07/02/2019 11:21 AM SPINNING AND WINDING SUPERVISOR) Only the most recent of3 resultswithin the [...] OF NECK) / Unknown 07/02/2019 11:21 AM SPINNING AND WINDING SUPERVISOR 07/02/2019 Narrative Resulting Agency Comment Lab Testing performed at: [facility] [address] [facility] [id number] Lizy Dalton MD LAB - MICROBIOLOGY O RDERABLES [facility] INSURANCE BILL [address] [place] [address] * STREP A SCREEN - POINT OF CARE (AMB) STL (02/19/2019 11:21 AM CDT) Strep A Rapid POCT Negative Negative Strep A Internal Control Present Lot # [id number] Expiration Date 639007 Throat ENTIRE THROAT (SURFACE REGION OF NECK) / Unknown 02/19/2019 11:21 AM CDT Casey Hong DO LAB - POINT OF CARE ORDERABLES * IMAGING/RADIOLOGY/XRAY RESULTS ORDER (02/02/2019) Anatomical Region Laterality Modality Other Scanned Document IMAGING * LIPID PROFILE+GLUCOSE - POINT OF CARE (AMB) (01/31/2018) Pathologist [facility] QC Verified Yes Yes Cholesterol POCT 153 [...] the time period is included. Pathologist [facility] Influenza A Antigen Rapid Negative Negative Influenza [...] UPPER (12/08/2016 10:45 AM CDT) Pathologist [facility] Upper Respiratory Culture Final report(A) [facility] INSURANCE [...] Narrative Resulting Agency Comment [facility] [address] [facility] [phone] Casey Hong DO LAB - MICROBIOL OGY ORDERABLES [facility] INSURANCE BILL [address] [place] [address] * XR KNEE 1 OR 2 VW RIGHT (10/06/2016 10:22 AM CDT) Anatomical Region Laterality Modality Lower Extremity Radiographic Elidia ging 10/06/2016 10:5 4 AM CDT Impressions 10/06/2016 11:10 AM CDT No acute osseous abnormality in the left or right knees. Bilateral benign distal femoral cortical desmoids. The study was dictated by Rox Duarte MD (assistant professor of radiology). I, Sarah Hill, have personally reviewed the [...] study was dictated by Rox Duarte MD (assistant professor of radiology). Sarah Ballesteros, have personally reviewed the images [...] study was dictated by Rox Duarte MD (assistant professor of radiology). Sarah Ballesteros, have personally reviewed the images [...] study was dictated by Rox Duarte MD (assistant professor of radiology). I, Sarah Hill, have personally reviewed the [...] pH units Blood UA negative Negative Specific [place] UA POCT 1.01 1.002 - 1.030 Ketone [...] LAB - MICROBIOLOGY O RDERABLES Care Teams Senior Case Manager Relationship Specialty Start Date End Date Lizy Dalton MD PCP - General Pediatrics 02/03/14
--- OUTSIDE RECORDS SUMMARY | 2024-07-30 10:05 | XMS_ITS | Referral Summary ---
Author Organization [facility] Address [address] [place] [address] Care Team Providers Care Hot Molder Name Role Phone Deonte Cheng MD Primary Care Provider [phone] Encounters Date Type Department Care Team Description 07/24/2024 11:00 AM ELECTRICAL SERVICE TECHNICIAN Office Visit [facility] [place] [address] [facility] [address] [place] [address] Deonte Cheng MD Chronic nausea (Primary Dx); Endometriosis determined by laparoscopy 07/11/2024 Telephone [facility] [address] [facility] [address] [place] [address] Kayla Henderson LPN 07/11/2024 Orders Only [facility] 1 [place] [address] Zayda Quintero DO 07/10/2024 1:41 PM ELECTRICAL SERVICE TECHNICIAN - 07/10/2024 11:59 PM ELECTRICAL SERVICE TECHNICIAN Hospital Encounter [facility] [address] [place] [address] Acute vaginitis Discharge Disposition: Discharge to home or self care 07/10/2024 Orders Only [facility] [address] [facility] [address] [place] [address] Zayda Quintero DO Myalgia of pelvic floor (Primary Dx) 07/10/2024 1:15 PM ELECTRICAL SERVICE TECHNICIAN [facility] [address] [facility] [address] [place] [address] Zayda Quintero DO Nausea and vomiting, unspecified vomiting type (Primary Dx); Postcoital bleeding; Myalgia of pelvic floor 07/03/2024 2:45 PM ELECTRICAL SERVICE TECHNICIAN Office Visit [facility] [place] [address] [facility] [address] [place] [phone] Brandon Quintero NP Nausea and vomiting, unspecified vomiting type (Primary Dx); Unintentional weight loss; PTSD (post-traumatic stress disorder); Irritable bowel syndrome with both constipation and diarrhea; Gastroesophageal reflux disease with esophagitis without hemorrhage; Chronic superficial gastritis without bleeding; S/P cholecystectomy 06/27/2024 9:46 AM ELECTRICAL SERVICE TECHNICIAN - 06/27/2024 11:59 PM ELECTRICAL SERVICE TECHNICIAN Hospital Encounter [facility] Nutrition [facility] Diabetic Education [address] [facility] [address] [place] [address] Zheng, Verna Dyer RD Nausea and vomiting, unspecified vomiting type Discharge Disposition: Discharge to home or self care 06/24/2024 1:15 PM ELECTRICAL SERVICE TECHNICIAN Office Visit [facility] [address] [facility] [address] [place] [address] Zayda Quintero DO Dysmenorrhea (Primary Dx); Secondary oligomenorrhea; Nausea and vomiting, unspecified vomiting type; Unintentional weight loss 06/06/2024 Telephone [facility] [address] [facility] [address] [place] [address] Zayda Quintero DO Patient issue/concern 05/30/2024 Orders Only [address] [phone] Zayda Quintero DO 05/29/2024 Telephone [facility] [address] [facility] [address] [place] [address] Zayda Quintero DO Medication Issue 05/23/2024 Orders Only [address] [phone] Zayda Quintero DO 05/23/2024 Telephone [facility] [address] [place] [address] Kayla Henderson LPN 05/22/2024 3:30 PM ELECTRICAL SERVICE TECHNICIAN Lab [facility] [address] [place] [address] Oligomenorrhea, unspecified type 05/22/2024 Orders Only [facility] [address] [place] [address] Zayda Quintero DO Oligomenorrhea, unspecified type (Primary Dx) 05/22/2024 2:45 PM ELECTRICAL SERVICE TECHNICIAN Ancillary Procedure [facility] [address] [place] [address] Ovarian cyst, bilateral; Pelvic pain in female 05/22/2024 Orders Only [facility] [address] [place] [address] Faby Gibson MA Ovarian cyst, bilateral (Primary Dx); Pelvic pain syndrome; Pelvic pain in female 05/22/2024 8:53 AM ELECTRICAL SERVICE TECHNICIAN - 05/22/2024 11:59 PM ELECTRICAL SERVICE TECHNICIAN Hospital Encounter [facility] 1 [place] [address] Nausea and vomiting, unspecified vomiting type; Nonintractable headache, unspecified chronicity pattern, unspecified headache type Discharge Disposition: Discharge to home or self care 05/22/2024 1:45 PM ELECTRICAL SERVICE TECHNICIAN Office Visit [facility] [address] [facility] [address] [place] [address] Zayda Quintero DO Secondary oligomenorrhea (Primary Dx); Pelvic pain; Cyst of ovary, unspecified laterality 05/13/2024 Orders Only [facility] [place] [address] [facility] [address] [place] [address] Brandon Quintero NP Dizziness (Primary Dx); Syncope, unspecified syncope type; Nausea and vomiting, unspecified vomiting type 05/09/2024 10:15 AM ELECTRICAL SERVICE TECHNICIAN Lab [facility] [address] [place] [address] 05/06/2024 Telephone [facility] [place] [address] [facility] [address] [place] [address] Jacky Gudino MD 05/06/2024 10:30 AM ELECTRICAL SERVICE TECHNICIAN Office Visit [facility] [place] [address] [facility] [address] [place] [address] Brandon Quintero NP Nausea and vomiting, unspecified vomiting type (Primary Dx); Irritable bowel syndrome with both constipation and diarrhea; S/P cholecystectomy; Nonintractable headache, unspecified chronicity pattern, unspecified headache type; Unintentional weight loss; Dizziness; Syncope, unspecified syncope type; Gastroesophageal reflux disease without esophagitis; Chronic superficial gastritis without bleeding; Nonspecific colitis from Last 3 Months Allergies No known active allergies Medications norethindrone-e.e stradioL-iron (06/30) 1 mg-20 mcg (21)/75 mg (7) per tablet Take 1 tablet by mouth daily 28 tablet 12 2025 Active Additional Information Patient not taking.Reported on 07/24/2024 meclizine (ANTIVERT) 25 mg tablet Take 1 tablet (25 mg total) by mouth 3 (three) times a day as needed for nausea 90 tablet 3 Active Additional Information Patient not taking.Reported on 07/24/2024 metoclopramide (REGLAN) 10 mg tablet Take one pill twice daily 10-15 minutes before eating to help with nausea/vomitin g. Will start with seven day trial. 14 tablet Active Additional Information Patient not taking.Reported on 07/24/2024 ketorolac (TORADOL) 10 mg tablet Active ondansetron ODT (ZOFRAN-ODT) 4 mg disintegrating tablet Take 1 tablet (4 mg total) by mouth every 8 (eight) hours as needed for nausea or vomiting 30 tablet 1 Active promethazine (PHENERGAN) 12.5 mg tablet Take 1 tablet (12.5 mg total) by mouth every 6 (six) hours as needed for nausea or vomiting 30 tablet 1 Active HYDROcodone-aceta minophen (NORCO) 5-325 mg per tablet Take by mouth every 6 (six) hours as needed Active ondansetron ODT (ZOFRAN-ODT) 4 mg disintegrating tablet Take 2 tablets (8 mg total) by mouth every 8 (eight) hours as needed for nausea or vomiting for up to 21 days 30 tablet 1 025 2024 Active ondansetron (ZOFRAN) 8 mg tablet Take [...] total) by mouth nightly 90 tablet 3 024 2024 Discontinued famotidine (PEPCID) 40 mg tablet Take 1 tablet (40 mg total) by mouth 2 (two) times a day 180 tablet 3 024 2024 Discontinued atomoxetine (STRATTERA) 40 mg capsule 2024 Discontinued dicyclomine (BENTYL) 10 mg capsule 1 capsule (10 mg total) 025 2024 Discontinued(T herapy completed) SeroqueL 50 mg tablet Take 1 tablet (50 mg total) by mouth daily 2024 Discontinued fluconazole (DIFLUCAN) 150 mg tablet Take 1 tablet (150 mg total) by mouth once for 1 dose 1 tablet 025 2024 Active Problems Problem Noted Date Diagnosed Date Endometriosis determined by laparoscopy 07/24/19 Assessment & Plan (07/24/2024 12:32 PM ELECTRICAL SERVICE TECHNICIAN): POD# 6 today. Well-healing laparoscopic incisions are seen at the umbilicus and the suprapubic regions. No evidence of dehiscence, oozing, purulence. She reports pain as well-controlled. Previously on [place] 5 but did not tolerate and was switched to oxycodone. Reports adequate supply and pain is well-controlled. - Release of records signed, pending operative note - Continue OCPs as part of plan to treat pain from endometriosis - Continue current pain management plan - Continue postoperative follow-up Anxiety 04/24/2024 Undifferentiated attention deficit disorder 04/11 [...] lower abdominal cramping 02/22/2024 Chronic nausea 02/07/2024 Assessment & Plan (07/24/2024 12:28 PM ELECTRICAL SERVICE TECHNICIAN): Known history, chronic, stable. She is requesting refills for Zofran today. Suspected etiology of her nausea is laparoscopic confirmed endometriosis. She had this performed at a private center and we are awaiting operative note, release of records have been signed. - Zofran 8 mg use PRN RUQ pain 02/07/2024 Assessment & Plan (02/19/2024 [...] 03/24/2024 Blood in stool 02/07/2024 03/24/2024 Immunizations Immunization Administration Dates Next Due DTaP 07/17/2006, 6,04/27/2005,02/27 [...] Date Smoking Tobacco: Never Smokeless Tobacco: Never Tobacco Cessation:Counseling Given: Not Answered Comments:Never AUDIT-C Answer Date Recorded Q1: How often do you have a drink containing alcohol? Never 07/24/2024 Q2: How many drinks containi ng alcohol do you have on a typical day when you are drinking? Patient does not drink Q3: How often do you have si x or more drinks on one occasion? Never 07/24/2024 PHQ-2 Answer Date Recorded PHQ-2 Total Score (If total score is 3 or more points, staff should administer the PHQ-9) 0 07/24/2024 Personal Safety Answer Date Recorded Have you [...] Sign Reading Time Taken Comments Blood Pressure 133/89 07/24/2024 11:05 AM ELECTRICAL SERVICE TECHNICIAN Pulse 92 07/24/2024 11:05 AM ELECTRICAL SERVICE TECHNICIAN Temperature 36.6 C (97.8 F) 04/02/2024 9:47 AM CDT Respiratory Rate 16 07/24/2024 11:0 5 AM ELECTRICAL SERVICE TECHNICIAN Oxygen Saturation 100% 07/24/2024 11: 05 AM ELECTRICAL SERVICE TECHNICIAN Inhaled Oxygen Concentration - - Weight 47.1 kg (103 lb 14.4 oz) 025 11:05 AM ELECTRICAL SERVICE TECHNICIAN Height 162.6 cm (5' 4 ) 07/24/2024 11:0 5 AM ELECTRICAL SERVICE TECHNICIAN Body Mass Index 17.83 07/24/2024 11:05 AM ELECTRICAL SERVICE TECHNICIAN Plan of Treatment Not on file Procedures Procedure Name Priority Date/Time Associated Diagnosis Comments VAGINITIS PANEL Routine 07/10/2024 1:41 PM ELECTRICAL SERVICE TECHNICIAN Acute vaginitis US PELVIS W ENDOVAGINAL Schedule Routine, Read Routine (OP Routine) 05/22/2024 3:17 PM ELECTRICAL SERVICE TECHNICIAN Ovarian cyst, bilateral Pelvic pain in female ESTRADIOL Routine 05/22/2024 2:32 PM ELECTRICAL SERVICE TECHNICIAN Oligomenorrhea, unspecified type PROLACTIN Routine 05/22/2024 2:32 PM ELECTRICAL SERVICE TECHNICIAN Oligomenorrhea, unspecified type FOLLICLE STIMULATING HORMONE Routine 05/22/2024 2:32 PM ELECTRICAL SERVICE TECHNICIAN Oligomenorrhea, unspecified type LUTEINIZING HORMONE (LH) Routine 05/22/2024 2:32 PM ELECTRICAL SERVICE TECHNICIAN Oligomenorrhea, unspecified type TSH Routine 05/22/2024 2:32 PM ELECTRICAL SERVICE TECHNICIAN Oligomenorrhea, unspecified type MRI BRAIN W WO CONTRAST Schedule Routine, Read Routine (OP Routine) 05/22/2024 10:29 AM ELECTRICAL SERVICE TECHNICIAN Nausea and vomiting, unspecified vomiting type Nonintractable headache, unspecified chronicity pattern, unspecified headache type T4, FREE Routine 05/09/2024 10:22 AM ELECTRICAL SERVICE TECHNICIAN EGFR Routine 05/09/2024 10:22 AM ELECTRICAL SERVICE TECHNICIAN DIFFERENTIAL AUTO Routine 05/09/2024 10: 22 AM ELECTRICAL SERVICE TECHNICIAN COMPREHENSIVE METABOLIC PANEL Routine 05/09/2024 10:22 AM ELECTRICAL SERVICE TECHNICIAN LIPASE Routine 05/09/2024 10:22 AM ELECTRICAL SERVICE TECHNICIAN AMYLASE Routine 05/09/2024 10:22 AM ELECTRICAL SERVICE TECHNICIAN CBC WITH AUTO DIFFERENTIAL Routine 05/09/2024 10:22 AM ELECTRICAL SERVICE TECHNICIAN PHOSPHORUS Routine 05/09/2024 10:22 AM ELECTRICAL SERVICE TECHNICIAN TSH Routine 05/09/2024 10:22 AM ELECTRICAL SERVICE TECHNICIAN MAGNESIUM Routine 05/09/2024 10:22 AM ELECTRICAL SERVICE TECHNICIAN N. GONORRHOEAE/C. TRACHOMATIS AMPLIFICATION STAT 08/01/2021 4:51 PM ELECTRICAL SERVICE TECHNICIAN from Last 3 Months or Most Recently Relevant to Health Maintenance Results * (ABNORMAL) Vaginitis panel Vaginal (07/10/2024 1:41 PM ELECTRICAL SERVICE TECHNICIAN) [place] DNA probe Detected(A) Not Detected Comment:Testing performed by : [facility], [address] [place] [address], [place]., [address] Gardnerella DNA probe Not Detected Not Detected MAXIMINO PRYOR Comment:Testing performed by : [facility], [address] [place] [address], [place]., [address] Trichomonas DNA probe Not Detected Not Detected MAXIMINO Comment: Interpretive Data Testing performed by [facility] via Affirm VPIII Microbial Identification Test, [...] last revised on 2020. Testing performed by: [facility], [facility] [facility], [place]., [address] Vaginal 07/10/2024 1:41 PM ELECTRICAL SERVICE TECHNICIAN 07/11/2024 1:15 PM ELECTRICAL SERVICE TECHNICIAN us Zayda Quintero DO LAB MICROBIOLOGY - GENE RAL ORDERABLES Final Result [facility] PR[facility]OR [address] [address] Department [place] [address] * US Pelvis W Endovaginal (05/22/2024 3:17 PM ELECTRICAL SERVICE TECHNICIAN) Anatomical Region Laterality Modality Pelvis N/A Ultrasound 05/30/2024 9:59 AM ELECTRICAL SERVICE TECHNICIAN Narrative 05/30/2024 10:06 AM ELECTRICAL SERVICE TECHNICIAN EXAM DESCRIPTION: US PELVIS W ENDOVAGINAL REASON [...] Logan Velasquez M.D. RONALD: RONALD Report ID: [id number] Reading Location: [id number] Procedure Note Ori Velasquez MD - 05/30/2024 [...] Electronically signed by Logan CARDENAS Report ID: [id number] Reading Location: [id number] us Zayda Quintero DO IMG US PROCEDURES Final Result * Prolactin (05/22/2024 2:32 PM ELECTRICAL SERVICE TECHNICIAN) Prolactin 6.1 4.8 - 23.3 ng/mL Comment:Testing performed by : [facility], [address] [place] [address]., [address] Blood 05/22/2024 2:32 PM ELECTRICAL SERVICE TECHNICIAN 05/22/2024 8:02 PM ELECTRICAL SERVICE TECHNICIAN Zayda Quintero DO LAB BLOOD ORDERABLES Fi nal Result Performing Organization Address [facility] Co de Phone Number [facility] [address] [facility] [place] [address] * Estradiol (05/22/2024 2:32 PM ELECTRICAL SERVICE TECHNICIAN) Estradiol 121.0 pg/mL Comment: Interpretive Data Males: 11 43 pg/mL Females: Premenopausal: 31 533 pg/mL Postmenopausal: < 50 pg/mL Patients treated with Fluvestrant (Faslodex) should be tested using an alternate assay such as LC-MS due to potential for cross-reactivity. Estradiol varies widely throughout the menstrual cycle. Current interpretive data was last revised 2024. Testing performed by: [facility], [address] [place]., [address] Blood 05/22/2024 2:32 PM ELECTRICAL SERVICE TECHNICIAN 05/23/2024 9:52 AM ELECTRICAL SERVICE TECHNICIAN Zayda Quintero DO LAB BLOOD ORDERABLES Fi nal Result [facility] [address] [facility] [place] [address] * TSH (05/22/2024 2:32 PM ELECTRICAL SERVICE TECHNICIAN) Thyroid Stimulating Hormone 1.75 0.30 - 4.20 mcIUnit/mL Comment:Testing performed by : [facility], [address] [place] [address]., [address] Blood 05/22/2024 2:32 PM ELECTRICAL SERVICE TECHNICIAN 05/22/2024 8:02 PM ELECTRICAL SERVICE TECHNICIAN Zayda Quintero LAB BLOOD ORDERABLES Fi nal Result Performing Organization Address [facility] Co de Phone Number MAXIMINO [address] [address] [facility] [place] [address] * LH (05/22/2024 2:32 PM ELECTRICAL SERVICE TECHNICIAN) LH 5.7 IUnits/L Comment: Interpretive Data Males: Adults: 1.7 - 8.6 IUnits/L Females: Follicular: 2.4 - 12.6 IUnits/L Ovulation: 14.0 - 95.6 IUnits/L Luteal: 1.0 - 11.4 IUnits/L Postmenopausal: 7.7 - 58.5 IUnits/L Current interpretive data was last revised on 2018. Testing performed by: [facility], [address] [place]., [address] Blood 05/22/2024 2:32 PM ELECTRICAL SERVICE TECHNICIAN 05/23/2024 9:52 AM ELECTRICAL SERVICE TECHNICIAN Zayda Quintero LAB BLOOD ORDERABLES Fi nal Result Performing Organization Address [facility] de Phone Number [facility] [address] [address] [facility] [place] [address] * Follicle stimulating hormone (05/22/2024 2:32 PM ELECTRICAL SERVICE TECHNICIAN) FSH 4.6 IUnits/L Comment: Interpretive Data Male: Adults: 1.5 - 12.4 IUnits/L Female: Follicular: 3.5 - 12.5 IUnits/L Ovulation: 4.7 - 21.5 IUnits/L Luteal: 1.7 - 7.7 IUnits/L Postmenopausal: 25.8 - 134.8 IUnits/L Current interpretive data was last revised 2015. Testing performed by: [facility], [address] [place]., [address] Blood 05/22/2024 2:32 PM ELECTRICAL SERVICE TECHNICIAN 05/23/2024 9:52 AM ELECTRICAL SERVICE TECHNICIAN Zayda Quintero DO LAB BLOOD ORDERABLES Fi nal Result [facility] [id number] Department [place] [address] * MRI Brain W WO Contrast (05/22/2024 10:29 AM ELECTRICAL SERVICE TECHNICIAN) Anatomical Region Laterality Modality Head and Neck N/A Magnetic Resonan ce 05/22/2024 1:17 PM ELECTRICAL SERVICE TECHNICIAN Narrative 05/22/2024 1:33 PM ELECTRICAL SERVICE TECHNICIAN EXAM DESCRIPTION: MRI BRAIN W WO CONTRAST [...] La Cruz M.D. MZ: GISELL Report ID: [id number] Reading Location: [id number] Procedure Note Germán De La Cruz MD [...] La Cruz M.D. MZ: GISELL Report ID: [id number] Reading Location: [id number] [facility] Quintero SULPHATE TESTER IMG MRI PROCEDURES Final Result * eGFR (05/09/2024 10:22 AM ELECTRICAL SERVICE TECHNICIAN) eGFR >90 >=60 mL/min/1. 73 m2 Comment: [...] reviewed 2021. Blood 05/09/2024 10:2 2 AM ELECTRICAL SERVICE TECHNICIAN 05/09/2024 11:00 AM ELECTRICAL SERVICE TECHNICIAN Malena Olivera MD LAB BLOOD ORDERABLES Final Resul t [facility] ([place]) [address] [facility] Department of Laboratories [place], [place] [id number] * Differential, auto (05/09/2024 10:22 AM ELECTRICAL SERVICE TECHNICIAN) Neutrophil abs 4.7 1.5 - 6.5 K/cumm [...] on 2017. Blood 05/09/2024 10:2 2 AM ELECTRICAL SERVICE TECHNICIAN 05/09/2024 11:00 AM ELECTRICAL SERVICE TECHNICIAN us Malena Olivera MD LAB BLOOD ORDERABLES Final Resul t [facility] ([place]) [address] [facility] [place] [address] * (ABNORMAL) CBC with auto differential (05/09/2024 10:22 AM ELECTRICAL SERVICE TECHNICIAN) WBC 7.3 3.8 - 9.9 K/cumm Hgb [...] [facility] ([place]) Blood 05/09/2024 10:2 2 AM ELECTRICAL SERVICE TECHNICIAN 05/09/2024 11:00 AM ELECTRICAL SERVICE TECHNICIAN Malena Olivera MD LAB BLOOD ORDERABLES Final Resul t Performing Organization Address City/[facility]/ZIP Co de Phone Number [facility] ([place]) [address] [facility] [employer] [place] [address] * TSH (05/09/2024 10:22 AM ELECTRICAL SERVICE TECHNICIAN) Pathologist [facility] Thyroid Stimulating Hormone 1.81 0.30 - 4.20 mcIUnit/mL Blood 05/09/2024 10:2 2 AM ELECTRICAL SERVICE TECHNICIAN 05/09/2024 11:00 AM ELECTRICAL SERVICE TECHNICIAN Malena Olivera MD LAB BLOOD ORDERABLES Final Resul t [facility] ([place]) 1 [facility] [place] [address] * T4, free (05/09/2024 10:22 AM ELECTRICAL SERVICE TECHNICIAN) Free T4 1.26 0.90 - 1.70 ng/dL Blood 05/09/2024 10:2 2 AM ELECTRICAL SERVICE TECHNICIAN 05/09/2024 11:00 AM ELECTRICAL SERVICE TECHNICIAN us Malena Olivera MD LAB BLOOD ORDERABLES Final Resul t Performing Organization Address [facility] Co de Phone Number MAXIMINO [facility] ([place] 1 [facility] [place] [address] * Phosphorus (05/09/2024 10:22 AM ELECTRICAL SERVICE TECHNICIAN) Phosphorus, pl 3.0 2.3 - 4.5 mg/dL Blood 05/09/2024 10:2 2 AM ELECTRICAL SERVICE TECHNICIAN 05/09/2024 11:00 AM ELECTRICAL SERVICE TECHNICIAN us Malena Olivera MD LAB BLOOD ORDERABLES Final Resul t Performing Organization Address [facility] de Phone Number MAXIMINO [facility] 1 [facility] [place] [address] * Magnesium (05/09/2024 10:22 AM ELECTRICAL SERVICE TECHNICIAN) Magnesium 2.1 1.4 - 2.5 mg/dL Blood 05/09/2024 10:2 2 AM ELECTRICAL SERVICE TECHNICIAN 05/09/2024 11:00 AM ELECTRICAL SERVICE TECHNICIAN us Malena Olivera MD LAB BLOOD ORDERABLES Final Resul t Performing Organization Address City/[facility] Co de Phone Number MAXIMINO [facility] ([place] 1 [facility] [place] [address] * Lipase (05/09/2024 10:22 AM ELECTRICAL SERVICE TECHNICIAN) Lipase 25 10 - 99 Units/L Blood 05/09/2024 10:2 2 AM ELECTRICAL SERVICE TECHNICIAN 05/09/2024 11:00 AM ELECTRICAL SERVICE TECHNICIAN us Malena Olivera MD LAB BLOOD ORDERABLES Final Resul t [facility] ([place]) 1 [facility] [place] [address] * Amylase (05/09/2024 10:22 AM ELECTRICAL SERVICE TECHNICIAN) Amylase 67 30 - 99 Units/L Blood 05/09/2024 10:2 2 AM ELECTRICAL SERVICE TECHNICIAN 05/09/2024 11:00 AM ELECTRICAL SERVICE TECHNICIAN us Malena Olivera MD LAB BLOOD ORDERABLES Final Resul t Performing Organization Address [facility] Co de Phone Number MAXIMINO [facility] ([place]) 1 [facility] [place] [address] * (ABNORMAL) Comprehensive metabolic panel (05/09/2024 10:22 AM ELECTRICAL SERVICE TECHNICIAN) Sodium 139 135 - 145 mmol/L Potassium, [...] [facility] ([place]) Blood 05/09/2024 10:2 2 AM ELECTRICAL SERVICE TECHNICIAN 05/09/2024 11:00 AM ELECTRICAL SERVICE TECHNICIAN us Malena Olivera MD LAB BLOOD ORDERABLES Final Resul t [facility]INO [facility] ([place]) [address] [facility] [place] [place] [place] [address] * N. gonorrhoeae/C. trachomatis Amplification Urine (08/01/2021 4:51 PM ELECTRICAL SERVICE TECHNICIAN) C. trachomatis Not Detected Not Detected MAXIMINO Comment:Testing performed by : [facility], [address] [place] [address]., [address] N. gonorrhoeae Not Detected Not Detected MAXIMINO Comment: Interpretive Data Testing performed by the [facility]. This assay detects Chlamydia trachomatis and [...] on 2019. Testing performed by: [facility], [address] [place] [address]., [address] Urine (None) 08/01/2021 4:51 PM ELECTRICAL SERVICE TECHNICIAN 08/01/2021 5:08 PM ELECTRICAL SERVICE TECHNICIAN Kuldeep Mccormick MD LAB MICROBIOLOGY - GENER AL ORDERABLES Final Result [facility] [address] [facility] [place] [address] from Last 3 Months or Most Recently Relevant to Health Maintenance Insurance [facility] Advance Directives For more information, please contact: [phone] * Full Code (Latest Code Status on File) Date Activated Date Inactivated Comments 04/02/2024 8:21 AM 04/02/2024 2:05 PM * Full Code Date Activated Date Inactivated Comments 04/02/2024 8:21 AM 04/02/2024 8:21 AM Care Teams Hot Molder Relationship Specialty Start Date End Date Deonte Cheng MD PCP - General Family Medicine 05/30/24
--- OUTSIDE RECORDS SUMMARY | 2024-07-30 10:05 | XMS_ITS ---
Author Organization [facility] Address [address] [place] [address] Care Team Providers Care Tailor Fitter Name Role Phone Jenn Somers Primary Care Provider REASON FOR VISIT medication Social History Sex Assigned At : Social History Observation Description Sex Assigned At Female Encounters Encounter Location Date Provider Diagnosis [facility] [address] [place] [phone] 07/22/2024 Jenn Somers Plan Of Treatment Next Appt Details Provider Name:Jenn gurrola, 07/31/2024 04:00:00 PM, [address], [address], Progress Notes * LIDIA MelimarcuseDOB:[birth year] (18 yo F)Acc No.[id number]:07/22/2024 Patient: Natali CELESTE :2005 A ge:18 Y S ex:Female Address:[address] [place], [place] [address], [address] * true * Date: Generated for Yoni odell/Alli/eTransmitting on: 0 07/30/2024 10:05 AM COSMETIC SALES ADVISOR
--- OUTSIDE RECORDS SUMMARY | 2024-07-30 10:05 | XMS_ITS | Clinical Summary ---
Author Organization [facility] Address [address] [place] [address] Care Team Providers Care Classifications Officer Cc/Cm Name Role Phone Deonte Cheng MD Primary Care Provider [phone] Allergies No known active allergies Medications norethindrone-e.e stradioL-iron (JUNE06/30) 1 mg-20 mcg (21)/75 mg (7) per [...] needed for nausea or vomiting 30 tablet Active promethazine (PHENERGAN) 12.5 mg tablet Take [...] Diagnosed Date Endometriosis determined by laparoscopy 07/24/19 25 Assessment & Plan (07/24/2024 12:32 PM TOBACCO PREVENTION HEALTH EDUCATOR): POD# 6 today. Well-healing laparoscopic incisions are seen at the umbilicus and the suprapubic regions. No evidence of dehiscence, oozing, purulence. She reports pain as well-controlled. Previously on [place] 5 but did not tolerate and was [...] 02/07/2024 Assessment & Plan (07/24/2024 12:28 PM TOBACCO PREVENTION HEALTH EDUCATOR): Known history, chronic, stable. She is requesting [...] Department Care Team Description 07/24/2024 11:00 AM TOBACCO PREVENTION HEALTH EDUCATOR Office Visit [facility] [place] [address] [facility] [address] [place] [phone] Deonte Cheng MD Chronic nausea (Primary Dx); Endometriosis determined by laparoscopy 07/11/2024 Telephone [facility] [address] [place] [phone] Kayla Henderson LPN 07/11/2024 Orders Only [facility] 1 [place] [address] Zayda Quintero DO 07/10/2024 1:41 PM TOBACCO PREVENTION HEALTH EDUCATOR - 07/10/2024 11:59 PM TOBACCO PREVENTION HEALTH EDUCATOR Hospital Encounter [facility] [address] [facility] [address] [place] [phone] Acute vaginitis Discharge Disposition: Discharge to home or self care 07/10/2024 1:15 PM TOBACCO PREVENTION HEALTH EDUCATOR Office Visit [facility] Medical [facility] [address] [facility] [address] [place] [phone] Zayda Quintero DO Nausea and vomiting, unspecified vomiting type (Primary Dx); Postcoital bleeding; Myalgia of pelvic floor 07/10/2024 Orders Only [facility] [address] [facility] [address] [place] [phone] Zayda Quintero DO Myalgia of pelvic floor (Primary Dx) 07/03/2024 2:45 PM TOBACCO PREVENTION HEALTH EDUCATOR Office Visit [facility] Gastro[facility]ology at [place] [address] [facility] [address] [place] [phone] Brandon Quintero NP Nausea and vomiting, unspecified vomiting type (Primary Dx); Unintentional weight loss; PTSD (post-traumatic stress disorder); Irritable bowel syndrome with both constipation and diarrhea; Gastroesophageal reflux disease with esophagitis without hemorrhage; Chronic superficial gastritis without bleeding; S/P cholecystectomy 06/27/2024 9:46 AM TOBACCO PREVENTION HEALTH EDUCATOR - 06/27/2024 11:59 PM TOBACCO PREVENTION HEALTH EDUCATOR Hospital Encounter [facility] Nutrition [facility] Diabetic Education [address] [facility] [address] [place] [address] Norm, Verna Dyer RD Nausea and vomiting, unspecified vomiting type Discharge Disposition: Discharge to home or self care 06/24/2024 1:15 PM TOBACCO PREVENTION HEALTH EDUCATOR Office Visit [facility] [address] [facility] [address] [place] [address] Zayda Quintero, Dysmenorrhea (Primary Dx); Secondary oligomenorrhea; Nausea and vomiting, unspecified vomiting type; Unintentional weight loss 06/06/2024 Telephone [facility] [address] [place] [address] Zayda Quintero, Patient issue/concern 05/30/2024 Orders Only [address] [address] Zayda Quintero, DO 05/29/2024 Telephone [facility] [address] [facility] [address] [place] [address] Zayda Quintero, Medication Issue 05/23/2024 Orders Only [address] [address] Zayda Quintero, DO 05/23/2024 Telephone [facility] [address] [facility] [address] [place] [address] Kayla Henderson LPN 05/22/2024 3:30 PM TOBACCO PREVENTION HEALTH EDUCATOR Lab [facility] [address] [facility] [address] [place] [address] Oligomenorrhea, unspecified type 05/22/2024 2:45 PM TOBACCO PREVENTION HEALTH EDUCATOR Ancillary Procedure [facility] [address] [facility] [address] [place] [address] Ovarian cyst, bilateral; Pelvic pain in female 05/22/2024 1:45 PM TOBACCO PREVENTION HEALTH EDUCATOR Office Visit [facility] [address] [facility] [address] [place] [address] Zayda Quintero, Secondary oligomenorrhea (Primary Dx); Pelvic pain; Cyst of ovary, unspecified laterality 05/22/2024 8:53 AM TOBACCO PREVENTION HEALTH EDUCATOR - 05/22/2024 11:59 PM TOBACCO PREVENTION HEALTH EDUCATOR Hospital Encounter [facility] 1 [place] [address] Nausea and vomiting, unspecified vomiting type; Nonintractable headache, unspecified chronicity pattern, unspecified headache type Discharge Disposition: Discharge to home or self care 05/22/2024 Orders Only [facility] [address] [facility] [address] [place] [address] Zayda Quintero DO Oligomenorrhea, unspecified type (Primary Dx) 05/22/2024 Orders Only [facility] [address] [facility] [address] [place] [address] Faby Gibson MA Ovarian cyst, bilateral (Primary Dx); Pelvic pain syndrome; Pelvic pain in female 05/13/2024 Orders Only [facility] Gastroenterology at [address], [place] [phone] Brandon Quintero NP Dizziness (Primary Dx); Syncope, unspecified syncope type; Nausea and vomiting, unspecified vomiting type 05/09/2024 10:15 AM TOBACCO PREVENTION HEALTH EDUCATOR Lab [address] [address] 05/06/2024 10:30 AM TOBACCO PREVENTION HEALTH EDUCATOR Office Visit [facility] Gastroenterology at [address], [place] [phone] Brandon Quintero NP Nausea and vomiting, unspecified vomiting type (Primary Dx); Irritable bowel syndrome with both constipation and diarrhea; S/P cholecystectomy; Nonintractable headache, unspecified chronicity pattern, unspecified headache type; Unintentional weight loss; Dizziness; Syncope, unspecified syncope type; Gastroesophageal reflux disease without esophagitis; Chronic superficial gastritis without bleeding; Nonspecific colitis 05/06/2024 Telephone [facility] Medical Group Gastroenterology at [address] [place] [address] Jacky Gudino MD from Last 3 Months Immunizations Immunization Administration Dates Next Due DTaP 07/17/2006,200 6,04/27/2005,02/27 DTaP / Hep B / IPV [...] 1 1 Date Outcome GA Total Labor Labor//3rd Weight Sex Type Anes PTL Rose Mary A1 A5 Name Clin IAB 10/18 Term 37w 0d F Vaginal Living Growth Chart Information Age Height Weight [id number] th Percentile BMI Percentile Head Circum Head Circum Percentile Date 18 years 162.6 cm (5' 4 ) 47.1 kg (103 lb 14.4 oz) 5.08%* 2024 18 years 162.6 cm (5' 4 [...] 18 years 165 cm (5' 4.96 ) 09/10/ 2024 18 years 165 cm (5' 4.96 ) [...] (113 lb 1.5 oz) 40.68%* 2021 * [facility] (Girls, 2-20 Years) Last Filed Vital Signs Vital Sign Reading Time Taken Comments Blood Pressure 133/89 07/24/2024 11:05 AM TOBACCO PREVENTION HEALTH EDUCATOR Pulse 92 07/24/2024 11:05 AM TOBACCO PREVENTION HEALTH EDUCATOR Temperature 36.6 C (97.8 F) 04/02/2024 9:47 AM CDT Respiratory Rate 16 07/24/2024 11:0 5 AM TOBACCO PREVENTION HEALTH EDUCATOR Oxygen Saturation 100% 07/24/2024 11: 05 AM TOBACCO PREVENTION HEALTH EDUCATOR Inhaled Oxygen Concentration - - Weight 47.1 kg (103 lb 14.4 oz) 025 11:05 AM TOBACCO PREVENTION HEALTH EDUCATOR Height 162.6 cm (5' 4 ) 07/24/2024 11:0 5 AM TOBACCO PREVENTION HEALTH EDUCATOR Body Mass Index 17.83 07/24/2024 11:05 AM TOBACCO PREVENTION HEALTH EDUCATOR Plan of Treatment Health Maintenance Due Date Last Done Comments Hepatitis C Screening 2004 Meningococcal B Vaccine (1 of 2 - Standard) 2020 Chlamydia and Gonorrhea (GC/CT) Screening 08/01/2022 08/01/2021 Regular Well Visit/Exam 18-64 2022 Influenza Vaccine (#1) 2024 2, 04/19/2020, 03/03/2017, Additional history exists Depression Screening 07/24/2025 07/24/2024 DTaP/Tdap/Td Vaccine (8 - Td or Tdap) 08/16/2032 08/16/2022, 10/12/2015, 07/06/2009, Additional history exists Pneumococcal vaccine <65 Completed 006, 01/08/2006, 07/21/2005, Additional history exists Varicella Vaccines Completed 02/04/2009, 04/05/2006 HPV Vaccines Completed 10/12/2015, 02/27/2014 Meningococcal Vaccine Aged Out 12/27/2015 No yony dina eligible based on patient's age to complete this topic Hepatitis B Screening Completed 04/19/2020 , 07/21/2005, 04/27/2005, Additional history exists Procedures Procedure Name Priority Date/Time Associated Diagnosis Comments VAGINITIS PANEL Routine 07/10/2024 1:41 PM TOBACCO PREVENTION HEALTH EDUCATOR Acute vaginitis US PELVIS W ENDOVAGINAL Schedule Routine, Read Routine (OP Routine) 05/22/2024 3:17 PM TOBACCO PREVENTION HEALTH EDUCATOR Ovarian cyst, bilateral Pelvic pain in female ESTRADIOL Routine 05/22/2024 2:32 PM TOBACCO PREVENTION HEALTH EDUCATOR Oligomenorrhea, unspecified type PROLACTIN Routine 05/22/2024 2:32 PM TOBACCO PREVENTION HEALTH EDUCATOR Oligomenorrhea, unspecified type FOLLICLE STIMULATING HORMONE Routine 05/22/2024 2:32 PM TOBACCO PREVENTION HEALTH EDUCATOR Oligomenorrhea, unspecified type LUTEINIZING HORMONE (LH) Routine 05/22/2024 2:32 PM TOBACCO PREVENTION HEALTH EDUCATOR Oligomenorrhea, unspecified type TSH Routine 05/22/2024 2:32 PM TOBACCO PREVENTION HEALTH EDUCATOR Oligomenorrhea, unspecified type MRI BRAIN W WO CONTRAST Schedule Routine, Read Routine (OP Routine) 05/22/2024 10:29 AM TOBACCO PREVENTION HEALTH EDUCATOR Nausea and vomiting, unspecified vomiting type Nonintractable headache, unspecified chronicity pattern, unspecified headache type T4, FREE Routine 05/09/2024 10:22 AM TOBACCO PREVENTION HEALTH EDUCATOR EGFR Routine 05/09/2024 10:22 AM TOBACCO PREVENTION HEALTH EDUCATOR DIFFERENTIAL AUTO Routine 05/09/2024 10: 22 AM TOBACCO PREVENTION HEALTH EDUCATOR COMPREHENSIVE METABOLIC PANEL Routine 05/09/2024 10:22 AM TOBACCO PREVENTION HEALTH EDUCATOR LIPASE Routine 05/09/2024 10:22 AM TOBACCO PREVENTION HEALTH EDUCATOR AMYLASE Routine 05/09/2024 10:22 AM TOBACCO PREVENTION HEALTH EDUCATOR CBC WITH AUTO DIFFERENTIAL Routine 05/09/2024 10:22 AM TOBACCO PREVENTION HEALTH EDUCATOR PHOSPHORUS Routine 05/09/2024 10:22 AM TOBACCO PREVENTION HEALTH EDUCATOR TSH Routine 05/09/2024 10:22 AM TOBACCO PREVENTION HEALTH EDUCATOR MAGNESIUM Routine 05/09/2024 10:22 AM TOBACCO PREVENTION HEALTH EDUCATOR N. GONORRHOEAE/C. TRACHOMATIS AMPLIFICATION STAT 08/01/2021 4:51 PM TOBACCO PREVENTION HEALTH EDUCATOR from Last 3 Months or Most Recently Relevant to Health Maintenance Results * (ABNORMAL) Vaginitis panel Vaginal (07/10/2024 1:41 PM TOBACCO PREVENTION HEALTH EDUCATOR) [place] DNA probe Detected(A) Not Detected Comment:Testing performed by : [facility], [address] [place] [address]., [address] Gardnerella DNA probe Not Detected Not Detected MAXIMINO Comment:Testing performed by : [facility], [address] [place] [address]., [address] Trichomonas DNA probe Not Detected Not Detected MAXIMINO Comment: Interpretive Data Testing performed by [facility] via Affirm VPIII Microbial Identification Test, a [...] revised on 2020. Testing performed by: [facility], [address] [facility], [place]., [address] Vaginal 07/10/2024 1:41 PM TOBACCO PREVENTION HEALTH EDUCATOR 07/11/2024 1:15 PM TOBACCO PREVENTION HEALTH EDUCATOR us Zayda Hobbs Ingrid DO LAB MICROBIOLOGY - GENE RAL ORDERABLES Final Result MAXIMINO [place]YOR [address] [address] Department [place] [address] * US Pelvis W Endovaginal (05/22/2024 3:17 PM TOBACCO PREVENTION HEALTH EDUCATOR) Anatomical Region Laterality Modality Pelvis N/A Ultrasound 05/30/2024 9:59 AM TOBACCO PREVENTION HEALTH EDUCATOR Narrative 05/30/2024 10:06 AM TOBACCO PREVENTION HEALTH EDUCATOR EXAM DESCRIPTION: US PELVIS W ENDOVAGINAL REASON [...] Logan Velasquez M.D. RONALD: RONALD Report ID: [id number] Reading Location: [id number] Procedure Note Ori Velasquez MD - 05/30/2024 [...] 10:06 AM - Electronically signed by Logan CARDENAS: RONALD Report ID: [id number] Reading Location: [id number] us Zayda Quintero DO IM US PROCEDURES Final Result * Prolactin (05/22/2024 2:32 PM TOBACCO PREVENTION HEALTH EDUCATOR) Prolactin 6.1 4.8 - 23.3 ng/mL Comment:Testing performed by : [facility], [address] [place] [address], [place]., [address] Blood 05/22/2024 2:32 PM TOBACCO PREVENTION HEALTH EDUCATOR 05/22/2024 8:02 PM TOBACCO PREVENTION HEALTH EDUCATOR Zayda Quintero DO LAB BLOOD ORDERABLES Fi nal Result Performing Organization Address City/[facility]/ZIP Co de Phone Number [facility] [place] [address] [place] [address] * Estradiol (05/22/2024 2:32 PM TOBACCO PREVENTION HEALTH EDUCATOR) Estradiol 121.0 pg/mL Comment: Interpretive Data Males: 11 43 pg/mL Females: Premenopausal: 31 533 pg/mL Postmenopausal: < 50 pg/mL Patients treated with Fluvestrant (Faslodex) should be tested using an alternate assay such as LC-MS due to potential for cross-reactivity. Estradiol varies widely throughout the menstrual cycle. Current interpretive data was last revised 2024. Testing performed by: [facility], [address] [place]., [address] Blood 05/22/2024 2:32 PM TOBACCO PREVENTION HEALTH EDUCATOR 05/23/2024 9:52 AM TOBACCO PREVENTION HEALTH EDUCATOR Zayda Quintero DO LAB BLOOD ORDERABLES Fi nal Result Performing Organization Address [facility] Co de Phone Number MAXIMINO [address] [address] [facility] [place] [address] * TSH (05/22/2024 2:32 PM TOBACCO PREVENTION HEALTH EDUCATOR) Thyroid Stimulating Hormone 1.75 0.30 - 4.20 mcIUnit/mL Comment:Testing performed by : [facility], [address] [place] [address]., [address] Blood 05/22/2024 2:32 PM TOBACCO PREVENTION HEALTH EDUCATOR 05/22/2024 8:02 PM TOBACCO PREVENTION HEALTH EDUCATOR Zayda Quintero DO LAB BLOOD ORDERABLES Fi nal Result Performing Organization Address City/[facility]/ZIP Co de Phone Number MAXIMINO [address] [address] [place] [place] [address] * LH (05/22/2024 2:32 PM TOBACCO PREVENTION HEALTH EDUCATOR) LH 5.7 IUnits/L Comment: Interpretive Data Males: Adults: 1.7 - 8.6 IUnits/L Females: Follicular: 2.4 - 12.6 IUnits/L Ovulation: 14.0 - 95.6 IUnits/L Luteal: 1.0 - 11.4 IUnits/L Postmenopausal: 7.7 - 58.5 IUnits/L Current interpretive data was last revised on 2018. Testing performed by: [facility], [address] [place] [address]., [address] Blood 05/22/2024 2:32 PM TOBACCO PREVENTION HEALTH EDUCATOR 05/23/2024 9:52 AM TOBACCO PREVENTION HEALTH EDUCATOR Zayda Quintero DO LAB BLOOD ORDERABLES Fi nal Result Performing Organization Address City/[facility] de Phone Number MAXIMINO [address] [address] Department [place] [address] * Follicle stimulating hormone (05/22/2024 2:32 PM TOBACCO PREVENTION HEALTH EDUCATOR) FSH 4.6 IUnits/L Comment: Interpretive Data Male: Adults: 1.5 - 12.4 IUnits/L Female: Follicular: 3.5 - 12.5 IUnits/L Ovulation: 4.7 - 21.5 IUnits/L Luteal: 1.7 - 7.7 IUnits/L Postmenopausal: 25.8 - 134.8 IUnits/L Current interpretive data was last revised 2015. Testing performed by: [facility], [address] [place] [address]., [address] Blood 05/22/2024 2:32 PM TOBACCO PREVENTION HEALTH EDUCATOR 05/23/2024 9:52 AM TOBACCO PREVENTION HEALTH EDUCATOR Zayda Quintero DO LAB [place]LOOD [place] [address] [address] Department [place] [address] * MRI Brain W WO Contrast (05/22/2024 10:29 AM TOBACCO PREVENTION HEALTH EDUCATOR) Anatomical Region Laterality Modality Head and Neck N/A Magnetic Resonan ce 05/22/2024 1:17 PM TOBACCO PREVENTION HEALTH EDUCATOR Narrative 05/22/2024 1:33 PM TOBACCO PREVENTION HEALTH EDUCATOR EXAM DESCRIPTION: MRI BRAIN W WO CONTRAST [...] La Cruz M.D. MZ: GISELL Report ID: [id number] Reading Location: [id number] Procedure Note Germán De La Cruz MD [...] La Cruz M.D. MZ: GISELL Report ID: [id number] Reading Location: [place] [address] [facility] PROPELLER TESTER IMG MRI PROCEDURES Final Result * eGFR (05/09/2024 10:22 AM TOBACCO PREVENTION HEALTH EDUCATOR) eGFR >90 >=60 mL/min/1. 73 m2 Comment: [...] reviewed 2021. Blood 05/09/2024 10:2 2 AM TOBACCO PREVENTION HEALTH EDUCATOR 05/09/2024 11:00 AM TOBACCO PREVENTION HEALTH EDUCATOR Malena Olivera MD LAB BLOOD ORDERABLES Final Resul t [facility] [address] [facility] Department [place] [address] * Differential, auto (05/09/2024 10:22 AM TOBACCO PREVENTION HEALTH EDUCATOR) Neutrophil abs 4.7 1.5 - 6.5 K/cumm [...] on 2017. Blood 05/09/2024 10:2 2 AM TOBACCO PREVENTION HEALTH EDUCATOR 05/09/2024 11:00 AM TOBACCO PREVENTION HEALTH EDUCATOR us Malena Oilvera MD LAB BLOOD ORDERABLES Final Resul t [facility] ([place]) [address] [facility] Department [place] [address] * (ABNORMAL) CBC with auto differential (05/09/2024 10:22 AM TOBACCO PREVENTION HEALTH EDUCATOR) WBC 7.3 3.8 - 9.9 K/cumm Hgb 13.7 11.9 - 15.5 g/dL [facility] ([place]) Hct 41.6 35.6 - 45.5 % [facility] Plt 390 150 - 400 K/cumm [facility] ([place]) MPV 8.7(L) 9.1 - 12.3 fL [facility] ([place]) RBC 4.74 3.90 - 5.20 M/cumm [facility] ([place]) MCV 87.8 81.3 - 96.4 fL [facility] ([place] MCH 28.9 27.1 - 33.3 pg [facility] ([place] MCHC 32.9 32.3 - 35.7 g/dL [facility] RDW CV 14.0 11.1 - 14.9 % [facility] ([place] RDW SD 44.9 35.7 - 48.1 fL [facility] ([place]) NRBC abs 0.00 0.00 - 0.01 K/cumm [facility] ([place]) Blood 05/09/2024 10:2 2 AM TOBACCO PREVENTION HEALTH EDUCATOR 05/09/2024 11:00 AM TOBACCO PREVENTION HEALTH EDUCATOR Malena Olivera MD LAB BLOOD ORDERABLES Final Resul t Performing Organization Address City/[facility] Co de Phone Number [facility]INO [facility] ([place] 1 [facility] [employer] [address] * TSH (05/09/2024 10:22 AM TOBACCO PREVENTION HEALTH EDUCATOR) Thyroid Stimulating Hormone 1.81 0.30 - 4.20 mcIUnit/mL Blood 05/09/2024 10:2 2 AM TOBACCO PREVENTION HEALTH EDUCATOR 05/09/2024 11:00 AM TOBACCO PREVENTION HEALTH EDUCATOR us Malena Olivera MD LAB BLOOD ORDERABLES Final Resul t Performing Organization Address City/[facility] Co de Phone Number MAX[facility]INO [facility] ([place]) 1 [facility] [place] [address] * T4, free (05/09/2024 10:22 AM TOBACCO PREVENTION HEALTH EDUCATOR) Free T4 1.26 0.90 - 1.70 ng/dL Blood 05/09/2024 10:2 2 AM TOBACCO PREVENTION HEALTH EDUCATOR 05/09/2024 11:00 AM TOBACCO PREVENTION HEALTH EDUCATOR us Malena Olivera MD LAB BLOOD ORDERABLES Final Resul t [facility] ([place]) 1 [facility] [place] [address] * Phosphorus (05/09/2024 10:22 AM TOBACCO PREVENTION HEALTH EDUCATOR) Phosphorus, pl 3.0 2.3 - 4.5 mg/dL Blood 05/09/2024 10:2 2 AM TOBACCO PREVENTION HEALTH EDUCATOR 05/09/2024 11:00 AM TOBACCO PREVENTION HEALTH EDUCATOR Malena Olivera MD LAB BLOOD ORDERABLES Final Resul t [facility] ([place]) 1 [facility] [place] [address] * Magnesium (05/09/2024 10:22 AM TOBACCO PREVENTION HEALTH EDUCATOR) Magnesium 2.1 1.4 - 2.5 mg/dL Blood 05/09/2024 10:2 2 AM TOBACCO PREVENTION HEALTH EDUCATOR 05/09/2024 11:00 AM TOBACCO PREVENTION HEALTH EDUCATOR Malena Olivera MD LAB BLOOD ORDERABLES Final Resul t [facility] ([place]) 1 [facility] [place] [address] * Lipase (05/09/2024 10:22 AM TOBACCO PREVENTION HEALTH EDUCATOR) Lipase 25 10 - 99 Units/L Blood 05/09/2024 10:2 2 AM TOBACCO PREVENTION HEALTH EDUCATOR 05/09/2024 11:00 AM TOBACCO PREVENTION HEALTH EDUCATOR Malena Olivera MD LAB BLOOD ORDERABLES Final Resul t [facility] ([place] 1 [facility] [place] [address] * Amylase (05/09/2024 10:22 AM TOBACCO PREVENTION HEALTH EDUCATOR) Amylase 67 30 - 99 Units/L Blood 05/09/2024 10:2 2 AM TOBACCO PREVENTION HEALTH EDUCATOR 05/09/2024 11:00 AM TOBACCO PREVENTION HEALTH EDUCATOR us Malena Olivera MD LAB BLOOD ORDERABLES Final Resul t [facility] ([facility]) 1 [facility] Department [place] [address] * (ABNORMAL) Comprehensive metabolic panel (05/09/2024 10:22 AM TOBACCO PREVENTION HEALTH EDUCATOR) Sodium 139 135 - 145 mmol/L Potassium, [...] [facility] ([facility]) Blood 05/09/2024 10:2 2 AM TOBACCO PREVENTION HEALTH EDUCATOR 05/09/2024 11:00 AM TOBACCO PREVENTION HEALTH EDUCATOR us Malena Olivera MD LAB BLOOD ORDERABLES Final Resul t [facility] ([place]) 1 [facility] [place] [address] * N. gonorrhoeae/C. trachomatis Amplification Urine (08/01/2021 4:51 PM TOBACCO PREVENTION HEALTH EDUCATOR) C. trachomatis Not Detected Not Detected MAXIMINO MELLO Comment:[facility], [address] [place] [address]., [id number] N. gonorrhoeae Not Detected Not Detected MAXIMINO [...] last revised on 2019. Testing performed by: [facility], [address] [place] [address]., [id number] Urine (None) 08/01/2021 4:51 PM TOBACCO PREVENTION HEALTH EDUCATOR 08/01/2021 5:08 PM TOBACCO PREVENTION HEALTH EDUCATOR us Kuldeep Mccormick MD LAB MICROBIOLOGY - GENER AL ORDERABLES Final Result MAXIMINO [address] [facility] Department of Laboratories [place], [place] [id number] from Last 3 Months or Most Recently Relevant to Health Maintenance Insurance [facility] Member Subscriber Plan / Payer (Ef fective 2024-Present) Name:Natali Dietrich Relation to Subscriber:Self Name:Natali Dietrich Payer ID:[id number] (NAIC) Group ID:Not on file Type:MEDICAID RISK OTHER Address: ATTN: CLAIMS DEPT [address] [place] [id number] [facility] Advance Directives For more information, please contact: [phone] * Full Code (Latest Code Status on File) Date Activated Date Inactivated Comments 04/02/2024 8:21 AM 04/02/2024 2:05 PM * Full Code Date Activated Date Inactivated Comments 04/02/2024 8:21 AM 04/02/2024 8:21 AM Care Teams Classifications Officer Cc/Cm Relationship Specialty Start Date End Date Deonte Cheng MD PCP - General Family Medicine 05/30/24
== END 2024-07-30 09:55 | disposition home or self-care (01) ==
PROVIDERS: Visit Provider Otolaryngology
DX: H90.6 Mixed conductive and sensorineural hearing loss, bilateral (principal); M89.8X8 Other specified disorders of bone, other site; H93.11 Tinnitus, right ear; G43.809 Other migraine, not intractable, without status migrainosus
CPT/HCPCS: 70491; Q9967

== ENCOUNTER 2025-01-30 01:02 | Day surgery (SDC) | payer OTHER, SELFPAY ==
[2025-01-29 08:35] VITALS: BMI 18.0
--- NOTE | 2025-01-29 08:45 | PC.NURSE ---
Report to the Outpatient Waiting Room, entrance under the green pavilion located off [facility], at 0815 on 01-30-25. Planned Procedure Time: 1015.? Time changes happen often and if your time is changed the preop area will call you the afternoon before. - You and your visitor will be asked to self-screen and do not enter if you have any COVID symptoms. Please call surgeon if you need to reschedule. - A mask is optional within the hospital at this time. Patients may have clear liquids (water, carbonated beverages, clear teas, apple juice) until 3 hours prior to surgery with a maximum of 20 ounces. 0715 - No food from midnight until time of surgery and no smoking, or chewing tobacco (or any form of nicotine). No chewing gum, candy or mints. - Infants may have breast milk until 4 hours before surgery, formula 6 hours prior to surgery. - Children will be allowed to drink immediately following surgery.? If applicable, please bring a bottle or sippy cup to assist with drinking. Juice, water, soda, and popsicles are readily available.? For infants on formula, please bring formula the day of surgery.? Pacifiers are allowed. Take only the following medications with a SIP of water on the morning of surgery: aripiprazole, alprazolam if needed, Campbell if needed DO NOT STOP ANY OF YOUR OTHER PRESCRIPTION MEDICATIONS PRIOR TO SURGERY EXCEPT THE FOLLOWING Hold all vitamins and supplements for 3 days per anesthesiologist. Medications to discontinue per physician: ibuprofen Date to take last dose: 01-28-25 Please no make-up, nail mauritian, hairspray, perfume, deodorant, or body powder the day of surgery.? No jewelry (including any body piercings) or valuables the day of surgery, leave them at home.? Please take a shower or bath the night before, or the morning of, surgery with an antibacterial soap.? Wear comfortable, loose fitting clothing.? Children are encouraged to wear pajamas. - Jewelry must be removed prior to entering the operating room.? Rings and piercings that are not removed may be cut off. - The hospital will not accept responsibility for valuables.? - Please leave all valuables, including medications, at home the day of surgery. If you are going home after surgery, a licensed seasonal delivery driver must drive you home.? - NO public transportation without another adult if you receive anesthesia. - We recommend that an adult stay with you for 24 hours following discharge. - We also recommend that you do not drive, make important decision, drink alcoholic beverages, or take any drugs that were not prescribed by your health care provider for at least 24 hours after your discharge time. For Pediatric surgeries, we recommend two adults accompany the child home. Follow any additional instructions given to you from your surgeon. Telephone instructions given to Natali Dietrich and asked if any additional questions and then verbalized understanding. Patient advised to call surgeon office or pre surgery nurse liaison [phone] if any additional questions.
--- NOTE | 2025-01-29 12:33 | PM.IMHP ---
H&P: HPI History of Present Illness Date/Time: 01/29/25 12:33 Chief Complaint: Pelvic pain Narrative: A 19-year-old female with known endometriosis admitted for diagnostic laparoscopy lysis of adhesions and destruction of endometriosis risks and benefits reviewed in full Review of Systems Review of Systems: All systems reviewed & are unremarkable except as noted in HPI and below Constitutional: Constitutional: Reports as per HPI, Reports fever(s) and Reports malaise Eyes: Eyes: Reports no additional eye complaints ENT: Reports as per HPI and Reports sore throat Cardiovascular: Cardiovascular: Reports no additional cardiovascular complaints, Denies chest pain and Denies dyspnea Respiratory: Respiratory: Reports no additional respiratory complaints, Denies cough and Denies dyspnea Musculoskeletal: Musculoskeletal: Reports no additional musculoskeletal complaints Neurologic: Reports system reviewed and no additional complaints, except as documented Psychiatric: Psychiatric: Reports no additional psychiatric complaints PMFSH Past Medical History Medical History Otalgia of right ear Right-sided temporomandibular joint pain-dysfunction syndrome Allergic rhinitis Other specified disorders of bone, other site Low weight Vestibular migraine Establishing care with new doctor, encounter for Upper back pain Joint ache Fatigue Muscle spasm Increased frequency of headaches Migraine aura without headache Depression with anxiety Tinnitus Decreased hearing of both ears Depression Chronic right ear pain Decreased appetite Elevated LFTs Nausea and vomiting Upper abdominal pain Asthma Peanut allergy Surgical History Surgical History Status post myringotomy with insertion of tube 23 months old Family History Family History Mother Alcoholism Depression with anxiety Asthma Father Depression with anxiety Hypertension Sibling Asthma Grandparent Hypertension Alcoholism Grandparent Hypertension Social History Social History Social History: Caffeine-caffeine Smoking status: Never smoker Second hand tobacco smoke exposure: No Alcohol intake: never Substance use: current Substance use type: marijuana Other substance usage details: GI doctor prescribed; just does on occasion Lack of Transportation: No Lack of Food: Never True Current Housing: I Have Housing Concerned About Future Housing: No Difficulty Paying Gas/Electric Bills: No Difficulty Paying for Meds: No Currently Unemployed: No Education: Grade School Difficulty w/ Childcare or Family Care: No Living arrangements: with family Occupation/Education: student Gender identity (if verbalized by the patient): Female Sexual Orientation (if Verbalized by the Patient): Straight or Heterosexual Spiritual care concerns: No Meds Home Medications and Allergies Home Medications ?Medication ?Instructions ?Recorded ?Confirmed ?Type hydrocodone 5 mg-acetaminophen 325 1 tablet PO Q4H PRN pain #20 tabs 07/18/24 01/29/25 Rx mg tablet prochlorperazine maleate 10 mg 10 mg PO Q6H PRN nausea and 07/18/24 01/29/25 Rx tablet (Compazine) vomiting #10 tabs alprazolam 0.25 mg tablet 0.25 mg PO TID PRN anxiety 01/29/25 01/29/25 History aripiprazole 15 mg tablet 20 mg PO DAILY 01/29/25 01/29/25 History gabapentin 100 mg capsule 100 mg PO BID 01/29/25 01/29/25 History ibuprofen 600 mg tablet 800 mg PO Q8H PRN pain 01/29/25 01/29/25 History Allergies Allergy/AdvReac Type Severity Reaction Status Date / Time peanut Allergy Anaphylactic Verified 01/29/25 08:09 Shock Exam Const: General: cooperative, healthy appearing, comfortable and average body habitus Orientation/consciousness: oriented to person, oriented to place and oriented to time HENMT: Head: normal to inspection Resp: Effort & Inspection: normal respiratory effort Cardio: Rate: regular rate Rhythm: regular rhythm Heart sounds: S1 normal heart sound present and S2 normal heart sound present GI: Inspection: normal to inspection : External Female Exam: normal external appearance Speculum Exam - Vagina: normal appearance of the vagina Speculum Exam - Cervix: normal appearance of the cervix Bimanual exam- vagina & uterus: Cervical tenderness present and Uterine tenderness Bimanual Exam- Adnexa, other: tender bilaterally Assessment and Plan Assessment and plan (1) Pelvic pain: Code(s): R10.2 - Pelvic and perineal pain Status: Acute Plan Proceed with laparoscopy/lysis of adhesions/destruction of endometriosis
[2025-01-30] VITALS (9 sets, daily range): BP systolic 107–127; BP diastolic 54–84; PULSE 60–91; RESP 14–18; TEMP 37.1–37.2; O2SAT 99–100
--- NOTE | 2025-01-30 06:51 | WPDHPUPDATE1 ---
History and Physical Update Update Date/Time: 01/30/25 06:51 History and Physical has been reviewed, including an updated exam of the patient. There are NO changes in the patient's condition. Risks, benefits, and alternatives have been discussed and questions answered. Patient agrees to proceed with procedure.
--- NOTE | 2025-01-30 07:24 | WPDANESEPPF ---
Anes - Initial Pre Proc Eval Procedure: Operation Date: 01/30/25 10:15 Proposed Procedures p Laparoscopic Lysis of Adhesions - Sharif Brunner MD Date/Time: 01/30/25 07:24 Surgeon: Sharif Brunner MD Pre Op Diagnosis: pelvic adhesions and pain Patient Data Age: 19 Gender: F Height: 1.63 m Weight: 47.63 kg Allergies Allergy/AdvReac Type Severity Reaction Status Date / Time peanut Allergy Anaphylactic Verified 01/29/25 08:09 Shock Home Medications ?Medication ?Instructions ?Recorded ?Confirmed ?Type hydrocodone 5 mg-acetaminophen 325 1 tablet PO Q4H PRN pain #20 tabs 07/18/24 01/29/25 Rx mg tablet prochlorperazine maleate 10 mg 10 mg PO Q6H PRN nausea and 07/18/24 01/29/25 Rx tablet (Compazine) vomiting #10 tabs alprazolam 0.25 mg tablet 0.25 mg PO TID PRN anxiety 01/29/25 01/29/25 History aripiprazole 15 mg tablet 20 mg PO DAILY 01/29/25 01/30/25 History gabapentin 100 mg capsule 100 mg PO BID 01/29/25 01/30/25 History ibuprofen 600 mg tablet 800 mg PO Q8H PRN pain 01/29/25 01/29/25 History hydrocodone 5 mg-acetaminophen 325 1 tablet PO Q4H PRN pain #20 tabs 01/30/25 Rx mg tablet Patient hx anesthesia problems: none Family hx anesthesia problems: none Results Review: All pre-operative results and documents have been reviewed as part of the pre-operative evaluation. [facility] Past Medical History Medical History (Updated 01/30/25 @ 07:24 by Norm Benedict DO) ADHD IBS (irritable bowel syndrome) GERD (gastroesophageal reflux disease) Otalgia of right ear Right-sided temporomandibular joint pain-dysfunction syndrome Allergic rhinitis Other specified disorders of bone, other site Low weight Vestibular migraine Establishing care with new doctor, encounter for Upper back pain Joint ache Fatigue Muscle spasm Increased frequency of headaches Migraine aura without headache Depression with anxiety Tinnitus Decreased hearing of both ears Depression Chronic right ear pain Decreased appetite Elevated LFTs Nausea and vomiting Upper abdominal pain Asthma Peanut allergy Surgical History Surgical History Status post myringotomy with insertion of tube 23 months old Family History Family History Mother Alcoholism Depression with anxiety Asthma Father Depression with anxiety Hypertension Sibling Asthma Grandparent Hypertension Alcoholism Grandparent Hypertension Social History Social History Social History: Caffeine-caffeine Smoking status: Never smoker Second hand tobacco smoke exposure: No Alcohol intake: never Substance use: current Substance use type: marijuana Other substance usage details: GI doctor prescribed; just does on occasion Lack of Transportation: No Lack of Food: Never True Current Housing: I Have Housing Concerned About Future Housing: No Difficulty Paying Gas/Electric Bills: No Difficulty Paying for Meds: No Currently Unemployed: No Education: Grade School Difficulty w/ Childcare or Family Care: No Living arrangements: with family Occupation/Education: student Gender identity (if verbalized by the patient): Female Sexual Orientation (if Verbalized by the Patient): Straight or Heterosexual Spiritual care concerns: No Anes - Eval Final PreProcedure Day of Procedure 01/30/25 07:24 Patient weight: normal Heart: regular rate and rhythm Lungs: clear to auscultation Airway: Mallampati scale class 1 Neurological: alert and oriented Last oral intake: >/= 8 hours ASA classification: II Emergent: no Anesthetic plan: proceed Anesthesia type and monitoring: general ETT and standard monitoring Results Review: All pre-operative results and documents have been reviewed as part of the pre-operative evaluation. Informed Consent: The patient's anesthetic plan and its attendant risks and benefits were discussed with the patient/family/POA. Questions were solicited and answers provided to the satisfaction of the patient/family/POA.
[2025-01-30] MEDS: LACTATED RINGERS 1,000 ML 30 ML IV CONT ×2 (08:20→12:55)
[2025-01-30] MEDS: ACETAMINOPHEN 500 MG TABLET 1000 MG PO (08:25)
[2025-01-30] MEDS: KETOROLAC 15 MG/ML VIAL (*BKC) IV PUSH (08:25)
[2025-01-30 08:31] LABS: BEDSIDEPREGUCG Negative (Negative)
[2025-01-30] MEDS: SCOPOLAMINE 1 MG PATCH 1 PATCH TRANSDERM (10:03)
--- NOTE | 2025-01-30 11:01 | P.OP_ITS ---
Procedure Note - Detailed Date of Procedure 01/30/25 Pre-op Diagnosis pelvic adhesions and pain Post-op Diagnosis Other (Pelvic agents/pelvic pain/left ovarian endometriosis) Procedure Performed Laparoscopy with destruction of endometriosis and lysis of adhesions Surgeon Sharif Brunner MD Anesthesia General Indications 19-year-old female with history of endometriosis pelvic Findings Tubes uterus. Endometrial implant left. [id number] of serosanguineous fluid cul-de-sac uterus appeared floppy Description of Procedure Patient was prepped draped in the normal sterile fashion placed in dorsal lithot andreia position. Excellent general endotracheal anesthesia speculum placed posterior fornix. Anterior the cervix a single-tooth. Kern's cannula inserted the cervix and attached to the single-tooth to be used later for uterine manipulation. Weighted speculum was removed the gloves were changed after emptying bladder. A supraumbilical incision made the Veress needle passed in the abdomen. Abdomen filled with CO2 gas [id number]. The 5mm trocar advanced with the Optiview under direct visualization assuring no injury. Patient placed in Trendelenburg. A suprapubic incision made the 5mm trocar advanced under direct visualization assuring no injury. About 30cc of serosanguineous fluid was seen in the cul-de-sac and this was suction. The uterus was retroverted floppy and soft. The ovaries appeared grossly normal however there was an endometrial implant and powder burn the left ovary this was cauterized to complete destruction at 35 w per 2nd. Multiple adhesions were seen from the left to the lateral sidewall from the colon and these were sharply dissected. Irrigation undertaken until clear. Appendix gallbladder and liver area appeared within normal limits. The lower site removed. The gas removed from the abdomen. The upper site removed. The incisions closed with 4 Monocryl glue. The patient was awakened went recovery in satisfactory condition. All sponge, needle, instrument counts were correct. There were no immediate complications Estimated Blood Loss 5 Drains No Packing No Pathology None sent Complications No immediate complications Condition Stable Disposition PACU
[2025-01-30] MEDS: fentaNYL CITRATE INJ (*CRX) 100 MCG/2 ML VIAL 25 MCG IV PUSH ×3 (11:18→12:10)
[2025-01-30] MEDS: oxyCODONE HCL (*CRX) 5 MG TAB IR PO (13:01)
--- NOTE | 2025-01-30 13:15 | SUR.PHASEII ---
PATIENT STATED SHE HAD BLEEDING WITH CLOTS WHEN SHE URINATED. WILL CHECK PAD.
--- NOTE | 2025-01-30 13:29 | SUR.PHASEII ---
DR. JESSICA CLARK CALLED TO SPEAK TO PATIENT PER HER REQUEST; HE CALLED HER TO DISCUSS SURGERY.
--- NOTE | 2025-01-30 13:31 | SUR.PHASEII ---
PATIENT REPORTS SHE HAS MINIMAL SPOTTING ON PAD.
== END 2025-01-30 13:32 | disposition home or self-care (01) ==
PROVIDERS: Visit Provider Obstetrics & Gynecology
PROC: (CPT 49320; principal; 2025-01-30 10:15)
DX: N80.102 Endometriosis of left ovary, unspecified depth (principal); N73.6 Female pelvic peritoneal adhesions (postinfective); K58.9 Irritable bowel syndrome, unspecified; K21.9 Gastro-esophageal reflux disease without esophagitis; F90.9 Attention-deficit hyperactivity disorder, unspecified type; J45.909 Unspecified asthma, uncomplicated; R53.83 Other fatigue; M62.838 Other muscle spasm; F41.8 Other specified anxiety disorders; G89.29 Other chronic pain; H92.01 Otalgia, right ear; F12.90 Cannabis use, unspecified, uncomplicated; Z79.891 Long term (current) use of opiate analgesic; Z79.1 Long term (current) use of non-steroidal anti-inflammatories (NSAID); Z98.890 Other specified postprocedural states
CPT/HCPCS: 58662; 36415; 86850; 86900; 86901; A9270; J1100; J1200; J1885; J2003; J2250; J2405; J2704; J3010; J7120